=== PATIENT | male | born 1975 | race African-American/Black ===

== ENCOUNTER 2016-09-08 10:33 | Inpatient (IN) | payer MEDICAID ==
[~2016-09-08] VITALS: Ht 172.7 cm; Wt 151.0 kg
[~2016-09-08 10:33] MED LIST: AMLODIPINE10 MG PO; AMLODIPINE5 MG PO; ASPIRIN325 MG PO; ASPIRIN81 MG PO; ATORVASTATIN CA20 MG PO; AZITHROMYCIN250 MG PO; AZITHROMYCIN500 MG PO; BISACODYL5 MG PO; CARDIZEM CD120 MG PO; CEPHALEXIN500 M1 PO; CEPHALEXIN500 MG PO; CETIRIZ/PSE1 TAB PO; CLONIDINE0.1 MG PO; COLCHICINE0.6 M2 PO; CORDARONE/200 MG/TAB PO; DIGOXIN0.25 MG PO; DILTIAZEM120 MG PO; DUONEB INH; EASY-LAX100 MG PO; ENALAPRIL10 MG PO; ENALAPRIL5 MG PO; FLONASE NASAL50 MCG; FUROSEMIDE40 MG PO; HYDROCHLORO25 MG/TAB PO; HYDROCHLOROT12.5 MG PO; HYDROCHLOROT50 MG PO; KEFLEX500 MG PO; KLOR-CON 1010 ME1 PO; LASIX 20 MG TAB20 MG PO; LASIX 40 MG TAB40 MG PO; LASIX 40 MG40 MG/TAB PO; LASIX 80 MG TAB80 MG PO; LASIX40 MG; LASIX40 MG PO; LEVAQUIN750 MG PO; LEVOTHYROXIN100 MCG PO; LIPITOR40 M1 PO; LISINOPRIL20 M1 PO; LOPID600 MG PO; LOPRESSOR 550 MG/TAB PO; LOPRESSOR25 M1 PO; LOPRESSOR25 MG PO; LORTAB 10-325 M1 TAB PO; LOTRISONE EX; LOVASTATIN20 MG PO; LUMIGAN0.01 % OU; LUNESTA2 M1 PO; METHYLPRED4 MG PO; METOLAZONE2.5 MG PO; METOLAZONE5 MG PO; METOPROL TAR100 M1 PO; METOPROL TAR25 MG PO; METOPROL TAR50 MG PO; MIRALAX3350 N1 PO; MIRALAX3350 NF PO; NAPROSYN500 MG PO; NITRO-DUR0.4 MG/HR TD; NITROGLYCER0.4 MG SL; NITROSTAT0.4 MG; NITROSTAT0.4 MG SL; NORCO1 TA1 PO; OXYGEN NAB; POT CHLORIDE10 ME1 PO; PREDNISONE10 MG PO; PREDNISONE20 MG PO; PROBENECID500 MG PO; ROBITUSSIN AC10 ML OR; STOOL SOFTEN240 MG PO; TOPROL XL25 MG PO; TRAMADOL HCL50 MG PO; TYLENOL # 31 TA1 PO; ULTRAM50 M1 PO; ULTRAM50 MG OR; VANCOMYCIN HCL1.5GM IV; VITAMIN D50000 UN1 PO; XARELTO10 MG PO
--- NOTE | 2016-09-08 10:41 | NUR ---
PATIENT TO ROOM VIA EMS
[2016-09-08 11:01] LABS: HEMATOCRIT 38.5 % (39.0-50.0); HEMOGLOBIN 11.6 g/dl (14.0-18.0); IMMATURE GRANULOCYTES 0.7 % (0.0-1.0); MEAN CELL VOLUME 83.2 fL CALC (80.0-100.0); MEAN CORPUSCULAR HGB 25.1 pG CALC (26.0-32.0); MEAN CORPUSCULAR HGB CONC 30.1 g/L CALC (32.0-36.0); NEUT# 11.25 thou/uL (1.82-7.42); RED BLOOD COUNT 4.63 mill/uL (4.70-6.10); RED CELL DISTRI WIDTH 16.8 % (11.5-15.5)
[2016-09-08 11:16] LABS: ALBUMIN 4.2 g/dL (3.2-5.0); BILIRUBIN, TOTAL 1.5 mg/dL (0.0-1.4); CALCIUM 9.3 mg/dL (8.4-10.2); POTASSIUM 2.9 mmol/l (3.5-5.1); TOTAL PROTEIN 9.1 g/dL (6.3-8.2)
--- NOTE | 2016-09-08 11:41 | NUR ---
PATIENT RESTING AWAITING LAB AND RADIOLOGY RESULTS PATIENT STATES RIGHT ARM PAIN PAIN 3 ON 0-10 SCALE
--- NOTE | 2016-09-08 12:30 | NUR ---
PATIENT RESTING AWAITING LAB RESULTS PAIN 4 ON 0-10 SCALE IN RIGHT ARM
[2016-09-08 13:24] LABS: URINE BILIRUBIN - DIPSTICK NEGATIVE (NEGATIVE); URINE BLOOD DIPSTICK SMALL (NEGATIVE); URINE CLARITY CLEAR; URINE COLOR YELLOW; URINE GLUCOSE - DIPSTICK NEGATIVE (NEGATIVE); URINE KETONE NEGATIVE (NEGATIVE); URINE LEUK ESTERASE NEGATIVE (NEGATIVE); URINE NITRITE - DIPSTICK NEGATIVE (Negative); URINE PH 5.5 (4.5-8.0); URINE PROTEIN - DIPSTICK 100 mg/dL (NEG-TRACE); URINE SPECIFIC GRAVITY >=1.030; URINE UROBILINOGEN - DIPSTICK 0.2 E.U./dL (0.2)
--- NOTE | 2016-09-08 13:30 | NUR ---
PATIENT RESTING TALKING ON PHONE NO USE OF RIGHT ARM NOTED PATIENT DENIES ANY PAIN IN RIGHT ARM WHEN NOT TRYING TO MOVE
[2016-09-08 13:31] LABS: URINE SQUAMOUS EPITHELIAL CELL FEW EPI/hpf (0-FEW)
[2016-09-08 14:08] LABS: INFLUENZA A NONE DETECTED (NONE DETECT); INFLUENZA B NONE DETECTED (NONE DETECT)
--- NOTE | 2016-09-08 14:28 | NUR ---
PATIENT RESTING LAUGHING ON PHONE. PATIENT DENIES ANY PAIN OR SOB AT THIS TIME PATIENT AWAITING ROOM ASSIGNMENT
--- NOTE | 2016-09-08 15:30 | NUR ---
REPORT CALLED TO THE FLOOR PATIENT BEING MEDICATED PRIOR TO LEAVING. PATIENT DENIES ANY PAIN OR SOB AT THIS TIME
--- NOTE | 2016-09-08 16:05 | NUR ---
PT ARRIVED FROM ER VIA STRETCHER ACCOMPANIED BY STAFF. IV SITE IS FREE FROM REDNESS OR EDEMA. TELE MONITOR IN PLACE. CONTINUE TO OSBERVE AND MONITOR.
[2016-09-08 16:13] VITALS: BP 142/83
--- NOTE | 2016-09-08 17:11 | NUR ---
C/O PAIN IN R ARM AND CHEST, VS STABLE 117/55.HR 105, SATS93%. GAVE MEDICATION TO ASSIST WITH PAIN CONTROL. IV SITE IS FREE FROM REDNESS OR EDEMA. CONTINUE TO OSBERVE AND MONITOR.
[2016-09-08 19:25] VITALS: BP 131/81
--- NOTE | 2016-09-08 19:30 | NUR ---
PATIENT RESTING IN BED WITH HOB ELEVATED AND O2 VIA NASAL CANNULA IN PLACE AT 2LPM. PATIENT IS AWAKE ALERT AND ORIENTEDX3-PATIENT IS SLOW TO RESPOND. PATIENT IS C/O RIGHT ARM, HAND AND WRIST PAIN-TOO EARLY TO MEDICATED. PATIENT WITH IV SITE TO LEFT AC-SITE APPEARS HEALTHY WITH GOOD BLOOD RETURN. PATIENT IS VOIDING QS IN URINAL BERNY URINE. PATIENT IS TACHYCARDIC AND TACHYPENIC AT THIS TIME. CALL LIGHT IN REACH. WILL CONT TO MONITOR.
--- NOTE | 2016-09-08 21:24 | NUR ---
PATIENT RESTING IN BED C/O SEVERE SHARP PAIN TO RIGHT ARM AND CHEST. PATIENT MEDICATED WITH MORPHINE 2MG IVP ORDERED FOR PAIN. PATIENT VOIDING QS YELLOW URINE IN URINAL. PATIENT WITH IV STIE TO LEFT AC-SITE APPEARS HEALTHY WITH GOOD BLOOD RETURN. PATIENT REMAINS TACHYPENIC WITH O2 VIA NASAL CANNULA IN PLACE. HOB ELEVATED FOR COMFORT. RIGHT HAND AND ARM ELEVATED ON PILLOWS. CALL LIGHT IN REACH. WILL CONT TO MONITOR.
[2016-09-08 23:57] VITALS: BP 139/97
--- NOTE | 2016-09-09 03:25 | NUR ---
PATIENT APPEARS SLEEPING AT THIS TIME WITH EYES CLOSED AND HOB ELEVATED. O2 VIA NASAL CANNULA IN PLACE. RIGHT HAND AND ARM ELEVATED ON PILLOW. CALL LIGHT IN REACH. WILL CONT TO MONITOR.
[2016-09-09 04:30] VITALS: BP 100/79
[2016-09-09 05:51] LABS: HEMATOCRIT 40.5 % (39.0-50.0); MEAN CORPUSCULAR HGB 24.9 pG CALC (26.0-32.0); MEAN CORPUSCULAR HGB CONC 29.6 g/L CALC (32.0-36.0); RED BLOOD COUNT 4.82 mill/uL (4.70-6.10); RED CELL DISTRI WIDTH 16.8 % (11.5-15.5)
[2016-09-09 06:22] LABS: CALCIUM 9.5 mg/dL (8.4-10.2); CREATININE 1.9 mg/dL (0.7-1.3); MAGNESIUM 1.7 mg/dL (1.6-2.3)
[2016-09-09 06:47] LABS: TSH, 3RD GENERATION 1.21 uIU/mL (0.47 - 4.68)
--- NOTE | 2016-09-09 06:50 | NUR ---
DR. DAVIS NOTIFIED OF CO2-45. NO NEW ORDERS
[2016-09-09 08:00] VITALS: BP 141/101
--- NOTE | 2016-09-09 08:00 | NUR ---
ASSESSMENT IS COMPLETED: CONTINUES TO C/O R ARM PAIN. IV SITE IS FREE FROM REDNESS OR EDEMA. TELE MONITOR IN PLACE. CONTINUE TO OBSERVE AND MONITOR.
[2016-09-09 12:22] VITALS: BP 141/92
--- NOTE | 2016-09-09 12:45 | NUR ---
PT IS RELAXING IN BED WITH NO DISTRESS NOTED., IV SITE IS FREE FROM REDNESS OR EDEMA. CONTINUE TO OSBERVE AND MONITOR.
[2016-09-09 15:45] VITALS: BP 132/92
--- NOTE | 2016-09-09 16:45 | NUR ---
HAS BEEN IN TO SEE PT. IV SITE IS FREE FROM REDNESS OR EDEMA.
--- NOTE | 2016-09-09 19:30 | NUR ---
PATIENT RESTING IN BED WITH O2 VIA NASAL CANNULA IN PLACE AT 2LPM. PATIENT WITH HOB ELEVATED AND RIGHT ARM ELEVATED ONPILLOWS. PATIENT IS C/O RIGHT ARM AND WRIST PAIN-8/10 ON PAIN SCALE. PATIENT MEDICATED WITH MORPHINE 2MG IVP ORDERED. PATIENT WITH HEP LOCK TO LEFT AC-SITE APPEARS HEALTHY AT THIS TIME. SAFETY PRECAUTIONS REINFORCED. CALL LIGHT IN REACH. WILL CONT TO MONITOR.
[2016-09-09 19:51] VITALS: BP 106/70
--- NOTE | 2016-09-10 | NUR ---
PATIENT RESTING IN BED AT THIS TIME WITH O2 VIA NASAL CANNULA IN PLACE. CALL LIGHT IN REACH. WILL CONT TO MONITOR.
[2016-09-10 00:02] VITALS: BP 130/76; BP 133/82
[2016-09-10 05:00] VITALS: BP 119/83
[2016-09-10 05:10] LABS: HEMATOCRIT 40.5 % (39.0-50.0); MEAN CELL VOLUME 83.3 fL CALC (80.0-100.0); MEAN CORPUSCULAR HGB 24.7 pG CALC (26.0-32.0); MEAN CORPUSCULAR HGB CONC 29.6 g/L CALC (32.0-36.0); RED BLOOD COUNT 4.86 mill/uL (4.70-6.10); RED CELL DISTRI WIDTH 16.6 % (11.5-15.5)
--- NOTE | 2016-09-10 05:10 | NUR ---
PATIENT RESTING IN BED WITH O2 VIA NASAL CANNULA IN PLACE AT 2LPM. PATIENT C/O RIGHT ARM AND WRIST PAIN. PATIENT MEDICATED WITH MORPHINE 2MG IVP ORDERED FOR PAIN. EMS SITE TO LEFT AC D/C PER PROTOCOL. NEW IV SITE STARTED TO LEFT FOREARM-#22 GAUGE WITH GOOD BLOOD RETURN. SAFETY PRECAUTIONS REINFORCED. CALL LIGHT IN REACH. WILL CONT TO MONITOR.
[2016-09-10 05:30] LABS: CALCIUM 9.5 mg/dL (8.4-10.2); POTASSIUM 3.8 mmol/l (3.5-5.1)
--- NOTE | 2016-09-10 06:00 | NUR ---
RECIEVED CALL FROM KIP IN THE LAB-CO244 TODAY. DR. DAVIS AWARE OF THE TREND. WILL CONT TO MONITOR.
--- NOTE | 2016-09-10 07:02 | NUR ---
REPORT RECIEVED, PT RESTING IN BED IN NO DISTRESS RIGHT ARM ELEVATED, NO COMPLAINTS AT THIS TIME, CALL LIGHT WITHIN REACH, INSTRUCTED TO CALL FOR ANY NEEDS, CONTINUE TO MONITOR
[2016-09-10 07:40] VITALS: BP 127/83
--- NOTE | 2016-09-10 08:30 | NUR ---
PT SITTING UP IN BED WATCHING TV, IN NO DISTRESS, REVIEW OF SYSTEMS COMPLETED, RIGTH ARM ELEVATED ON PILLOW, STATES PAIN IS CONTROLLED WHEN ARM IS ELEVATED, NO OTHER NEEDS AT THIS TIME, CALL LIGHT WITHIN REACH, CONTINUE TO MONITOR
[2016-09-10 09:59] LABS: TSH, 3RD GENERATION 2.94 uIU/mL (0.47 - 4.68)
--- NOTE | 2016-09-10 11:45 | NUR ---
PT DOWNSTAIRS VIA WC WITH VOLUNTEETR FOR TEST
--- NOTE | 2016-09-10 13:00 | NUR ---
PT ARRIVED BACK TO ROOM VIA WC TRANSFERED TO BED WITH STAND BY ASSISTANCE, ORDERED MEDICATIONS GIVEN, REFUSING SHOWER AT THIS TIME, NO OTHER NEEDS, CALL LIGHT WITHIN REACH, CONTINUE TO MONITOR
[2016-09-10 16:25] VITALS: BP 164/68
--- NOTE | 2016-09-10 17:25 | NUR ---
PT SITTING UP IN BED TO EAT DINNER, IN NO DISTRESS, STATES NO NEEDS AT THIS TIME, CALL LIGHT WITHIN REACH, CONTINUE TO MONITOR
--- NOTE | 2016-09-10 19:00 | NUR ---
RECEIVED REPORT FROM NURSE ON PATIENT. PATIENT IS RESTING IN BED. COMPLAINS OF PAIN TI RT ARM. PATIENT WAS MEDICATED PRIOR TO ASSESSMENT. WILL MONITOR AND TREAT. NO ACUTE DISTRESS NOTED.
[2016-09-10 19:51] VITALS: BP 140/74
--- NOTE | 2016-09-10 19:52 | NUR ---
PATIENT FOUND WITH O2 OFF AND O2 SAT OF 82-O2 APPLIED AND PATIENT QUICKLY RESPONDED WITH O2 SAT OF 91. PATIENT STATED "JUST TURN IT U P TO 4LPM". ATTEMPTED TO INSTRUCT PATIENT REGUARDING JUST INCREASING THE LPM FLOW-THAT IT CAN INCREASE THE LOC OF COPD PATIENT. WILL CONT TO MONITOR.
[2016-09-10 23:53] VITALS: BP 133/79
--- NOTE | 2016-09-11 | NUR ---
PATIENT IS RESTING COMFORTABLY IN BED AT THIS TIME. NO ACUTE DISTRESS NOTED. SIDE RAILS UP X 2.
--- NOTE | 2016-09-11 04:00 | NUR ---
PATIENT RESTING QUIETLY IN BED WITH EYES CLOSED. NO ACUTE DISTRESS NOTED.
[2016-09-11 04:43] VITALS: BP 165/94
[2016-09-11 05:41] LABS: HEMATOCRIT 41.9 % (39.0-50.0); HEMOGLOBIN 12.3 g/dl (14.0-18.0); IMMATURE GRANULOCYTES 0.9 % (0.0-1.0); MEAN CELL VOLUME 83.8 fL CALC (80.0-100.0); MEAN CORPUSCULAR HGB 24.6 pG CALC (26.0-32.0); MEAN CORPUSCULAR HGB CONC 29.4 g/L CALC (32.0-36.0); NEUT# 8.77 thou/uL (1.82-7.42); RED CELL DISTRI WIDTH 16.6 % (11.5-15.5)
[2016-09-11 05:48] LABS: ALBUMIN 3.8 g/dL (3.2-5.0); BILIRUBIN, TOTAL 0.6 mg/dL (0.0-1.4); CALCIUM 9.7 mg/dL (8.4-10.2); POTASSIUM 4.3 mmol/l (3.5-5.1); TOTAL PROTEIN 8.3 g/dL (6.3-8.2)
--- NOTE | 2016-09-11 06:30 | NUR ---
DR. CAMERON NOTIFIED OF CO2-46 THIS MORNING. NO NEW ORDERS RECIEVED.
[2016-09-11 07:16] VITALS: BP 153/73
--- NOTE | 2016-09-11 07:35 | NUR ---
ASSESSMENT IS COMPLETED: R HAND REMAINS SWOLLEN. IV SITE IS FREE FROM REDNESS OR EDEMA. TELE MONTIOR IN PLACE. CONITNUE TO OSBERVE AND MONITOR.
--- NOTE | 2016-09-11 07:50 | NUR ---
RECEIVED REPORT FROM YUNIER Dick PT WAS OBSERVED SLEEPING WITH NO SIGNS OF DISTRESS.
--- NOTE | 2016-09-11 07:51 | NUR ---
PT WAS MOVED UP IN BED FOR BREAKFAST. PT STATED HE DID NOT NEED ANYTHING ELSE. PT WAS DEMONSTRATED HOW CALL LANE WORKS AND WAS GIVEN INSTRUCTIONS TO CALL IF ANYTHING WAS NEEDED.
--- NOTE | 2016-09-11 09:15 | NUR ---
PT WAS GIVEN A BED BATH. CALL LANE IS WITHIN REACH WITH INSTRUCTONS TO CALL IF ANYTHING IS NEEDED.
[2016-09-11 11:26] VITALS: BP 136/80
--- NOTE | 2016-09-11 11:28 | NUR ---
PT IS IN BED WITH SIDE RAILS UP. NO DISTRESS APPEARS TO BE PRESENT. CALL LANE IS WITHIN REACH WITH INSTRUCTIONS TO CALL IF ANYTHING IS NEEDED.
--- NOTE | 2016-09-11 12:00 | NUR ---
PT IS RESTING IN BED STUDENTS BATHED PT AMD IV SITE IS FREE FROM REDNESS OR EDEMA. FAMILY IN THE ROOM AND ON THE PHONE.
[2016-09-11 15:06] VITALS: BP 149/85
--- NOTE | 2016-09-11 16:33 | NUR ---
PT IS CONTINUING TO RELAX IN BED WITH NO DISTRESS NOTED. IV SITE IS FREE FROM REDNESS OR EDEMA.
--- NOTE | 2016-09-11 19:00 | NUR ---
RECEIVED REPORT ON PATIENT FROM OFF GOING NURSE. PATIENT RESTING IN BED IN NO APPARENT DISCOMFORT. NO VOICED COMPLAINTS.
[2016-09-11 19:35] VITALS: BP 119/76
[2016-09-11 23:35] VITALS: BP 118/75
--- NOTE | 2016-09-12 | NUR ---
PATIENT RESTING QUIETLY. NO ACUTE DISTRESS NOTED.
[2016-09-12 03:40] VITALS: BP 129/81
--- NOTE | 2016-09-12 04:00 | NUR ---
PATIENT RESTING COMFORTABLY IN BED. NO ACUTE DISTRESS NOTED.
[2016-09-12 08:00] VITALS: BP 128/82
--- NOTE | 2016-09-12 08:00 | NUR ---
PT IS RESTING IN BED WITH NO DISTRESS NOTED,. IV SITE IS FREE FROM REDNESS OR EDEMA. ASSESSMENT IS COMPLETED: CONTINUE TOOBSERVE AND MONITOR TELE MONITOR IN PLACE.
[2016-09-12 12:12] VITALS: BP 152/74
--- NOTE | 2016-09-12 12:15 | NUR ---
PT IS SITTING UP IN THE CHAIR NO DISTRESS NOTED. IV SITE IS FREE FROM REDNESS OR EDEMA.
[2016-09-12 16:00] VITALS: BP 152/88
--- NOTE | 2016-09-12 16:15 | NUR ---
PT IS RELAXING IN THE CHAIR. NO DISTRESS NOTED. IV SITE IS FREE FROM REDNESS OR EDEMA.
--- NOTE | 2016-09-12 19:00 | NUR ---
PATIENT SEATED UP IN RECLINER CHAIR. NO ACUTE DISTRESS NOTED. REPORT RECEIVED FROM OFF GOING NURSE.
[2016-09-12 19:22] VITALS: BP 124/84
[2016-09-12 23:46] VITALS: BP 134/74
--- NOTE | 2016-09-13 | NUR ---
PATIENT RESTING COMFORTABLY. NO ACUTE DISTRESS NOTED.
[2016-09-13 03:38] VITALS: BP 159/90
--- NOTE | 2016-09-13 04:00 | NUR ---
PATIENT RESTED WELL DURING THE NIGHT. NO ACUTE DISTRESS NOTED.
[2016-09-13 05:38] LABS: HEMOGLOBIN 12.4 g/dl (14.0-18.0); IMMATURE GRANULOCYTES 0.8 % (0.0-1.0); MEAN CORPUSCULAR HGB 25.1 pG CALC (26.0-32.0); MEAN CORPUSCULAR HGB CONC 30.2 g/L CALC (32.0-36.0); NEUT# 8.03 thou/uL (1.82-7.42); RED BLOOD COUNT 4.94 mill/uL (4.70-6.10); RED CELL DISTRI WIDTH 16.2 % (11.5-15.5)
[2016-09-13 05:59] LABS: ALBUMIN 3.8 g/dL (3.2-5.0); BILIRUBIN, TOTAL 0.5 mg/dL (0.0-1.4); CALCIUM 9.4 mg/dL (8.4-10.2); CREATININE 1.7 mg/dL (0.7-1.3); POTASSIUM 3.8 mmol/l (3.5-5.1); TOTAL PROTEIN 7.9 g/dL (6.3-8.2)
--- NOTE | 2016-09-13 07:00 | NUR ---
RECEIVED BEDSIDE REPORT FROM KITTY NUÑEZ. PT RESTING IN BED WITH EYES CLOSED, AWAKENS EASILY. RESPS EVEN AND UNLABORED ON ROOM AIR, TELE MONITOR IN PLACE. VOICES NO C/O AT THIS TIME. PLAN OF CARE DISCUSSED. SAFETY PRECAUTIONS REINFORCED. BED IN LOWEST POSITION WITH WHEELS LOCKED. CALL LIGHT WITHIN REACH. ENCOURAGED PT TO CALL FOR ANY NEEDS.
[2016-09-13 08:17] VITALS: BP 139/94
--- NOTE | 2016-09-13 08:27 | NUR ---
SITTING ON SIDE OF BED WIT FEET DANGLING. RESPS EVEN AND UNLABORED ON O2 VIA NC, TELE MONITOR IN PLACE. MEDICATED WITH LORTAB PO FOR C/O 8/10 RIGHT HAND PAIN. CALL LIGHT WITHIN REACH. WILL CONTINUE TO MONITOR.
[2016-09-13 13:00] VITALS: BP 146/88
--- NOTE | 2016-09-13 13:08 | NUR ---
SITTING IN BEDSIDE CHAIR WATCHING TV. RESPS EVEN AND UNLABORED ON O2 VIA NC, TELE MONITOR IN PLACE. RIGHT ARM ELEVATED ON PILLOW. CALL LIGHT WITHIN REACH.
--- NOTE | 2016-09-13 14:11 | NUR ---
PATIENT SLEEPING UP IN RECLINER. HE REFUSES TO WALK, BUT IS WILLING TO ALLOW BRYANNA FOR RIGHT UE. AROM/AAROM SHOULDER FOR OVERHEAD REACH WITH WRIST AND HAND STABILIZED. aarom FOR PRO/SUPINATION, WRIST FLXN/EXT, THENAR OPPOSITION AND FINGER FLXN EXT. PAIN IN PIP JOINT OF 2ND AND FIFTH FINGERS AND DIFFICULTY EXTENDING > FLEXING FINGERS. TRAY TABLE AND CALL LANE IN PLACE.
[2016-09-13 16:00] VITALS: BP 146/78
--- NOTE | 2016-09-13 16:39 | NUR ---
SITTING IN BEDSIDE RECLINER. RESPS EVEN AND UNLABORED ON O2 VIA NC, TELE MONTIOR IN PLACE. ALL NEEDS MET. CALL LIGHT WITHIN REACH. WILL CONTINUE TO MONITOR.
--- NOTE | 2016-09-13 18:20 | NUR ---
MEDICATED WITH LORTAB PO FOR C/O 01/31 RIGHT HAND PAIN. HAND ELEVATED ON PILLOW FOR COMFORT. CALL LIGHT WITHIN REACH. WILL CONTINUE TO MONITOR.
[2016-09-13 19:05] VITALS: BP 130/83
--- NOTE | 2016-09-13 19:45 | NUR ---
PT. SITTING UP IN CHAIR WITH NO DISTRESS NOTED. DENIES PAIN. ASSESSMENT COMPLETED. IV SITE PATENT TO LFA AND SL. PT. ASSISTED BACK INTO BED WITH MINIMAL ASSIST. UPDATED ON POC. PO FLUIDS OFFERED. ENCOURAGED TO CALL FOR ANY NEEDS. CALL LIGHT IS IN REACH. WILL CONTINUE TO MONITOR.
--- NOTE | 2016-09-13 21:40 | NUR ---
PT. SITTING UP IN BED ON PHONE, NO DISTRESS NOTED. SCHED MEDS GIVEN. PO FLUIDS OFFERED. URINAL EMPTIED. DENIES NEEDS. CALL LIGHT IS IN REACH.
[2016-09-13 23:00] VITALS: BP 128/83
--- NOTE | 2016-09-13 23:51 | NUR ---
PT. SITTING UP IN BED WITH NO RESP DISTRESS NOTED. SCHED MED GIVEN ALONG WITH ORDERED PRN LORTAB FOR PT'S C/O 01/31 RIGHT HAND PAIN, WILL REASSESS. PO FLUIDS OFFERED. CALL LIGHT IS IN REACH.
--- NOTE | 2016-09-14 03:25 | NUR ---
PT. SITTING UP IN BED WITH NO DISTRESS NOTED. DENIES NEEDS/PAIN. CALL LIGHT IS IN REACH.
[2016-09-14 03:35] VITALS: BP 151/75
[2016-09-14 05:16] LABS: HEMOGLOBIN 12.6 g/dl (14.0-18.0); IMMATURE GRANULOCYTES 0.9 % (0.0-1.0); MEAN CELL VOLUME 81.7 fL CALC (80.0-100.0); MEAN CORPUSCULAR HGB 24.5 pG CALC (26.0-32.0); NEUT# 7.21 thou/uL (1.82-7.42); RED BLOOD COUNT 5.14 mill/uL (4.70-6.10); RED CELL DISTRI WIDTH 16.3 % (11.5-15.5)
[2016-09-14 05:41] LABS: CALCIUM 9.2 mg/dL (8.4-10.2); CREATININE 1.6 mg/dL (0.7-1.3); POTASSIUM 3.5 mmol/l (3.5-5.1)
--- NOTE | 2016-09-14 05:41 | NUR ---
PT. C/O RIGHT HAND PAIN 01/31, MEDICATED WITH ORDERED PRN LORTAB, WILL REASSESS. PO FLUIDS OFFERED. CALL LIGHT IS IN REACH.
--- NOTE | 2016-09-14 07:00 | NUR ---
RECEIVED BEDSIDE REPORT FROM ELODIA NUÑEZ. RESTING IN SEMI FOWLERS WITH EYES CLOSED, AWAKENS EASILY. RESPS EVEN AND UNLABORED ON O2 VIA NC, TELE MONITOR IN PLACE. DENIES PAIN OR DISCOMFORT. RIGHT ARM ELEVATED ON PILLOW. PLAN OF CARE DISCUSSED. SAFETY PRECAUTIONS REINFORCED. BED IN LOWEST POSITION WITH WHEELS LOCKED. CALL LIGHT WITHIN REACH. WILL CONTINUE TO MONITOR.
[2016-09-14 08:20] VITALS: BP 134/95
[2016-09-14 08:25] VITALS: BP 134/95
--- NOTE | 2016-09-14 08:35 | NUR ---
DR CAMERON IN TO SEE PT, NEW ORDERS RECEIVED.
[2016-09-14] MEDS ORDERED: PREDNISONE20 MG PO (11:57)
[2016-09-14] MEDS ORDERED: MAG-AL PLU1 PO (11:57)
[2016-09-14] MEDS ORDERED: ZALEPLON5 MG PO (11:57)
[2016-09-14] MEDS ORDERED: DICLOXACILLIN PO (11:57)
[2016-09-14] MEDS ORDERED: CORDARONE/200 MG/TAB PO (11:57)
[2016-09-14] MEDS ORDERED: NITROGLYCER0.4 MG SL (11:57)
[2016-09-14] MEDS ORDERED: PROBENECID500 MG PO (11:57)
[2016-09-14] MEDS ORDERED: LOPRESSOR 550 MG/TAB PO (11:57)
--- NOTE | 2016-09-14 12:27 | NUR ---
Discharge instructions given. Patient verbalizes understanding of same. Discharged in stable condition via Wheelchair to Home with family. All belongings sent with pt.
== END 2016-09-14 12:30 | disposition home or self-care (01) | DRG 292 ==
LOC: ENPENDDIS → ED 10:33 → ED-I 14:11 → ED 14:21 → MS2 14:22
PROVIDERS: Emergency Medicine; Internal Medicine; ADMIT Internal Medicine Geriatric Medicine; ATTEND Internal Medicine Geriatric Medicine
DX: I13.0 Hypertensive heart and chronic kidney disease with heart failure and stage 1 through stage 4 chronic kidney disease, or unspecified chronic kidney disease (principal); J96.11 Chronic respiratory failure with hypoxia; Z68.43 Body mass index [BMI] 50.0-59.9, adult; M10.331 Gout due to renal impairment, right wrist; Z95.2 Presence of prosthetic heart valve; I50.32 Chronic diastolic (congestive) heart failure; N18.9 Chronic kidney disease, unspecified; J20.9 Acute bronchitis, unspecified; I48.91 Unspecified atrial fibrillation; F79 Unspecified intellectual disabilities; G47.33 Obstructive sleep apnea (adult) (pediatric); E78.5 Hyperlipidemia, unspecified; E03.9 Hypothyroidism, unspecified; E11.9 Type 2 diabetes mellitus without complications; E04.1 Nontoxic single thyroid nodule; E66.01 Morbid (severe) obesity due to excess calories
CPT/HCPCS: J1160

== ENCOUNTER 2016-11-09 08:38 | Observation (INO) | payer MEDICAID ==
[~2016-11-09] VITALS: Ht 172.7 cm; Wt 151.0 kg
[~2016-11-09 08:38] MED LIST changes: +DICLOXACILLIN PO; +MAG-AL PLU1 PO; +ZALEPLON5 MG PO
--- NOTE | 2016-11-09 08:40 | NUR ---
PT ARRIVES VIA EMS. TRIAGED AT [facility], NO DISTRESS NOTED. PT RECEIVED 3 BABY ASA AND 2 NTG EN ROUTE TO ED.
[2016-11-09] MEDS ORDERED: PROBENECID500 MG PO (09:23)
[2016-11-09] MEDS ORDERED: METOLAZONE5 MG PO (09:23)
[2016-11-09] MEDS ORDERED: LOVASTATIN40 MG PO (09:25)
[2016-11-09] MEDS ORDERED: K-DUR/KLOR-CON20 MEQ PO (09:26)
[2016-11-09] MEDS ORDERED: LEVOTHYROXIN100 MC1 PO (09:26)
[2016-11-09] MEDS ORDERED: LASIX 40 MG TAB40 MG PO (09:27)
[2016-11-09] MEDS ORDERED: WARFARIN3 MG PO (09:28)
[2016-11-09 09:38] LABS: ALBUMIN 4.2 g/dL (3.2-5.0); BILIRUBIN, TOTAL 0.9 mg/dL (0.0-1.4); CALCIUM 10.1 mg/dL (8.4-10.2); CREATININE 1.9 mg/dL (0.7-1.3); POTASSIUM 3.2 mmol/l (3.5-5.1); TOTAL PROTEIN 8.3 g/dL (6.3-8.2)
[2016-11-09 09:40] LABS: INTERNATIONAL NORMALIZED RATIO 1.1 RATIO (0.7-1.3); PROTHROMBIN TIME 11.7 SECONDS (9.0-12.5)
[2016-11-09 09:50] LABS: HEMATOCRIT 39.6 % (39.0-50.0); HEMOGLOBIN 12.1 g/dl (14.0-18.0); MEAN CELL VOLUME 88.8 fL CALC (80.0-100.0); MEAN CORPUSCULAR HGB 27.1 pG CALC (26.0-32.0); MEAN CORPUSCULAR HGB CONC 30.6 g/L CALC (32.0-36.0); NEUT# 8.55 thou/uL (1.82-7.42); RED BLOOD COUNT 4.46 mill/uL (4.70-6.10); RED CELL DISTRI WIDTH 17.2 % (11.5-15.5)
--- NOTE | 2016-11-09 09:57 | NUR ---
PATIENT RESTING AWAITING LAB RESULTS. PATIENT DENIES ANY CHEST PAIN AT THIS TIME
--- NOTE | 2016-11-09 10:57 | NUR ---
PATIENT RESTING AWAITING ROOM ASSIGNMNET PATIENT DENIES ANY CHEST PAIN OR SOB AT THIS TIME
--- NOTE | 2016-11-09 11:47 | NUR ---
PATIENT RESTING AWAITING ROOM ASSIGNMNET PATIENT DENIES ANY CHEST PAIN OR SOB AT THIS TIME LUNCH TRAY ORDERED
--- NOTE | 2016-11-09 11:57 | NUR ---
PATIENT GIVEN FOOD TRAY
--- NOTE | 2016-11-09 12:42 | NUR ---
PATIENT RESTING AWAITING ROOM ASSIGNMNET. PATIENT DENIES ANY PAIN OR SOB AT THIS TIME
--- NOTE | 2016-11-09 12:50 | NUR ---
assessment is completed: breath sounds are clear pt c/o leg and back pain.
--- NOTE | 2016-11-09 13:33 | NUR ---
REPORT CALLED TO THE FLOOR AND PATIENT TRANSPORTED
[2016-11-09 13:45] VITALS: BP 137/84
--- NOTE | 2016-11-09 13:50 | NUR ---
PT ARRIVED TO THE UNIT VIA STRETCHER ACCOMPANIED BY STAFF. IV SITE IS IN PLACE. O2 ON 4 LITERS. CONTINUE TO OBSERVE AND MONITOR.
--- NOTE | 2016-11-09 17:33 | NUR ---
PT IS RELAXING IN BED WITH NO DISTRESS NOTED. IV SITE IS FREE FROM REDNESS OR EDEMA. C/O R KNEE AND LEG PAIN. NO SWELLING NOTED AT THIS TIME. CONTINUE TO OBSERVE AND MONITOR.
[2016-11-09 19:10] VITALS: BP 127/82
--- NOTE | 2016-11-09 20:30 | NUR ---
REPORT RECEIVED FROM DAY NURSE; PT.STATES THAT HIS LEG ACHES SOME, I ASSISTED PT.TO REPOSITION R.LEG, PT. REPORTED THAT IT SEEMED TO HELP SOME; WILL CONTINUE TO MONITOR
[2016-11-09 23:45] VITALS: BP 123/82
--- NOTE | 2016-11-10 01:00 | NUR ---
PT.NOT SLEEPING, WATCHING TV, ASSISTED PT.TO REPOSITION AND PT.PROVIDED ICECREAM REQUSTED
--- NOTE | 2016-11-10 04:05 | NUR ---
PT.GIVEN FULL BED BATH AND BEDDING AND GOWN CHANGED; PT.APPEARS TO HAVE SOME IRRITATED AREAS TO SCALP ON LEFT SIDE TOWARD BACK OF HEAD, VERY DIFFICULT TO SEE, BUT APPEARS TO BE IRRITATED, PT.DENIES ITCHING;
[2016-11-10 04:40] VITALS: BP 133/73
--- NOTE | 2016-11-10 05:50 | NUR ---
PT.MEDICATED ORDERS PROVIDE; PT.SLEEPING AT THIS TIME; CALL LIGHT W/IN REACH, IV FLUSHED
[2016-11-10 06:50] LABS: HEMATOCRIT 43.3 % (39.0-50.0); HEMOGLOBIN 13.1 g/dl (14.0-18.0); IMMATURE GRANULOCYTES 0.7 % (0.0-1.0); MEAN CELL VOLUME 90.4 fL CALC (80.0-100.0); MEAN CORPUSCULAR HGB 27.3 pG CALC (26.0-32.0); MEAN CORPUSCULAR HGB CONC 30.3 g/L CALC (32.0-36.0); NEUT# 9.07 thou/uL (1.82-7.42); RED BLOOD COUNT 4.79 mill/uL (4.70-6.10)
[2016-11-10 06:57] LABS: CALCIUM 10.3 mg/dL (8.4-10.2); CREATININE 1.8 mg/dL (0.7-1.3); POTASSIUM 3.7 mmol/l (3.5-5.1)
--- NOTE | 2016-11-10 07:00 | NUR ---
SHIFT CHANGE REPORT FROM RAMYA FIGUEROA SLEEPING AT THIS TIME, BREATHING SHALLOW BUT NON-LABORED, O2 @ 2L VIA NC IN PLACE, TELE MONITOR IN PLACE. AWAKENED FOR BREAKFAST, ALERT AND ORIENTED, C/O PAIN TO R. KNEE&LEG, WILL CONTINUE TO MONITOR AND ADDRESS CONCERNS, CALL LANE IN REACH.
[2016-11-10 08:44] VITALS: BP 130/89
[2016-11-10 11:59] LABS: INTERNATIONAL NORMALIZED RATIO 1.1 RATIO (0.7-1.3); PROTHROMBIN TIME 12.4 SECONDS (9.0-12.5)
[2016-11-10 12:18] VITALS: BP 136/90
--- NOTE | 2016-11-10 12:47 | NUR ---
RESTING IN BED, SET UP FOR MEAL, FAMILY IN ROOM, CALL LANE IN REACH.
[2016-11-10 15:20] VITALS: BP 122/97
--- NOTE | 2016-11-10 16:55 | NUR ---
SLEEPING AT THIS TIME, USING ASSESSORY MUSCLES TO BREATHE, O2 @ 4L IN PLACE, CALL LANE IN REACH.
--- NOTE | 2016-11-10 20:45 | NUR ---
PT.ASSESSED AND MEDICATED ORDERS PROVIDE, PT.DENIES PAIN AT THIS TIME, IV FLUSHED/SITE HEALTHY, TELEMETRY LEAD CONTACTS REPLACED, PT.ASSISTED TO REPOSITION IN BED; LUNG SOUNDS ARE CLEAR; WILL CONTINUE TO MONITOR NEEDED; CALL LIGHT W/IN REACH
[2016-11-10 20:57] VITALS: BP 116/78
--- NOTE | 2016-11-10 22:41 | NUR ---
PT.MEDICATED FOR PAIN IN RIGHT KNEE 6/10 ON PAIN SCALE, ANTIBIOTICS COMPLETED AT THIS TIME; PT.WATCHING TV AND DENIES ANY OTHER NEEDS AT THIS TIME
--- NOTE | 2016-11-11 01:00 | NUR ---
PT.IV SITE LEAKING, APPEARS HEALTHY, BUT NOT FLUSHING, PT.C/O BURNING, APPEARS DISLODGED; NEW IV SITE ACCESSED AND PT.ASSISTED TO REPOSITION
[2016-11-11 01:17] VITALS: BP 160/96
[2016-11-11 04:00] VITALS: BP 140/95
[2016-11-11 05:39] LABS: HEMATOCRIT 39.6 % (39.0-50.0); HEMOGLOBIN 12.2 g/dl (14.0-18.0); IMMATURE GRANULOCYTES 0.6 % (0.0-1.0); MEAN CELL VOLUME 88.6 fL CALC (80.0-100.0); MEAN CORPUSCULAR HGB 27.3 pG CALC (26.0-32.0); MEAN CORPUSCULAR HGB CONC 30.8 g/L CALC (32.0-36.0); NEUT# 7.27 thou/uL (1.82-7.42); RED BLOOD COUNT 4.47 mill/uL (4.70-6.10); RED CELL DISTRI WIDTH 16.5 % (11.5-15.5)
[2016-11-11 05:44] LABS: INTERNATIONAL NORMALIZED RATIO 1.1 RATIO (0.7-1.3)
[2016-11-11 05:53] LABS: CALCIUM 9.8 mg/dL (8.4-10.2); CREATININE 1.9 mg/dL (0.7-1.3); POTASSIUM 3.9 mmol/l (3.5-5.1)
--- NOTE | 2016-11-11 07:00 | NUR ---
SHIFT CHANGE REPORT FROM HENRY, PT SLEEPING AT THIS TIME, NURSE REPORTED PT UP ALL NIGHT WATCHING TV, O2 IN PLACE VIA NC, NO SIGN DISCOMFORT, CALL LANE IN REACH.
[2016-11-11 07:38] VITALS: BP 123/88
[2016-11-11 11:09] VITALS: BP 126/85
[2016-11-11] MEDS ORDERED: LASIX 40 MG TAB40 MG PO (12:55)
[2016-11-11] MEDS ORDERED: LOPRESSOR 550 MG/TAB PO (12:55)
[2016-11-11] MEDS ORDERED: K-DUR/KLOR-CON20 MEQ PO (12:55)
[2016-11-11] MEDS ORDERED: ZYLOPRIM100 MG PO (12:55)
[2016-11-11] MEDS ORDERED: ADLT ASA LOW81 MG PO (12:55)
[2016-11-11] MEDS ORDERED: LOVASTATIN40 MG PO (12:55)
[2016-11-11] MEDS ORDERED: CORDARONE/200 MG/TAB PO (12:55)
[2016-11-11] MEDS ORDERED: COLCHICINE0.6 M2 PO (12:55)
[2016-11-11] MEDS ORDERED: TRAMADOL HCL50 MG PO (12:55)
[2016-11-11] MEDS ORDERED: LEVOTHYROXIN100 MC1 PO (12:55)
[2016-11-11] MEDS ORDERED: WARFARIN3 MG PO (12:55)
[2016-11-11] MEDS ORDERED: PREDNISONE10 MG PO (12:55)
[2016-11-11] MEDS ORDERED: DOXYCYCLINE100 MG PO (13:18)
--- NOTE | 2016-11-11 14:50 | NUR ---
Discharge instructions given. Patient verbalizes understanding of same. Discharged in stable condition via Wheelchair to Home with family. All belongings sent with pt.
== END 2016-11-11 14:50 | disposition home or self-care (01) | DRG 313 ==
LOC: ENPENDDIS → ED 08:38 → ED-I 09:36 → ED 09:36 → ED-I 10:03 → ED 10:22 → MS2 10:24
PROVIDERS: Emergency Medicine; ADMIT Internal Medicine; ATTEND Internal Medicine
DX: R07.89 Other chest pain (principal); I25.10 Atherosclerotic heart disease of native coronary artery without angina pectoris; J96.11 Chronic respiratory failure with hypoxia; E87.3 Alkalosis; I50.9 Heart failure, unspecified; I13.0 Hypertensive heart and chronic kidney disease with heart failure and stage 1 through stage 4 chronic kidney disease, or unspecified chronic kidney disease; Z68.43 Body mass index [BMI] 50.0-59.9, adult; E11.22 Type 2 diabetes mellitus with diabetic chronic kidney disease; N18.9 Chronic kidney disease, unspecified; E66.01 Morbid (severe) obesity due to excess calories; G47.33 Obstructive sleep apnea (adult) (pediatric); I48.91 Unspecified atrial fibrillation; M10.9 Gout, unspecified; E78.5 Hyperlipidemia, unspecified; E03.9 Hypothyroidism, unspecified; F79 Unspecified intellectual disabilities; M17.11 Unilateral primary osteoarthritis, right knee; Z95.3 Presence of xenogenic heart valve; Z99.81 Dependence on supplemental oxygen; Z95.1 Presence of aortocoronary bypass graft; Z79.01 Long term (current) use of anticoagulants; Z91.14 Patient's other noncompliance with medication regimen
CPT/HCPCS: G0378

== ENCOUNTER 2016-12-03 10:21 | Inpatient (IN) | payer MEDICAID ==
[~2016-12-03] VITALS: Ht 172.7 cm; Wt 157.6 kg
[~2016-12-03 10:21] MED LIST changes: +ADLT ASA LOW81 MG PO; +DOXYCYCLINE100 MG PO; +K-DUR/KLOR-CON20 MEQ PO; +LEVOTHYROXIN100 MC1 PO; +LOVASTATIN40 MG PO; +WARFARIN3 MG PO; +ZYLOPRIM100 MG PO
--- NOTE | 2016-12-03 10:21 | NUR ---
PT TO ROOM 9 VIA STRETCHER BY EMS. CALL LIGHT WITHIN REACH.
[2016-12-03 10:48] LABS: HEMOGLOBIN 12.2 g/dl (14.0-18.0); IMMATURE GRANULOCYTES 0.4 % (0.0-1.0); MEAN CELL VOLUME 90.1 fL CALC (80.0-100.0); MEAN CORPUSCULAR HGB 27.5 pG CALC (26.0-32.0); MEAN CORPUSCULAR HGB CONC 30.5 g/L CALC (32.0-36.0); NEUT# 5.29 thou/uL (1.82-7.42); RED BLOOD COUNT 4.44 mill/uL (4.70-6.10); RED CELL DISTRI WIDTH 16.1 % (11.5-15.5)
[2016-12-03 10:55] LABS: INTERNATIONAL NORMALIZED RATIO 1.4 RATIO (0.7-1.3); PROTHROMBIN TIME 15.3 SECONDS (9.0-12.5)
[2016-12-03 10:57] LABS: ALBUMIN 4.1 g/dL (3.2-5.0); ALKALINE PHOSPHATASE 68 u/l (38-126); ANION GAP 13 (6-22 (CALC)); BILIRUBIN, TOTAL 0.7 mg/dL (0.0-1.4); BUN 23 mg/dL (9-20); BUN/CREATININE RATIO 17 (12-20 (CALC)); CALCIUM 9.1 mg/dL (8.4-10.2); CARBON DIOXIDE 38 mmol/l (22-30); CHLORIDE 96 mmol/l (95-108); CREATININE 1.3 mg/dL (0.7-1.3); GFR 60 ML/MIN (>=60 (CALC)); GFR FOR AFR.AMER. > 60 ML/MIN (>=60 (CALC)); GLUCOSE 97 mg/dL (75-110); SGOT/AST 32 u/l (17-59); SGPT/ALT 50 u/l (21-72); SODIUM 143 mmol/l (137-146); TOTAL PROTEIN 6.9 g/dL (6.3-8.2)
[2016-12-03 11:07] LABS: MYOGLOBIN 60 ng/mL (0 - 121)
--- NOTE | 2016-12-03 11:07 | NUR ---
PT RESTING QUIETLY IN BED. TALKING ON CELL PHONE. PT 96% @ 4LITERS. PT ALERT AND ORIENTED. SKIN WARM AND DRY. CALL LIGHT WITHIN REACH.
[2016-12-03] MEDS ORDERED: ZYLOPRIM100 MG PO (11:14)
[2016-12-03] MEDS ORDERED: COUMADIN4 MG PO (11:15)
[2016-12-03] MEDS ORDERED: LASIX 40 MG40 MG/TAB PO (11:16)
[2016-12-03] MEDS ORDERED: METOPROL TAR25 MG PO (11:18)
[2016-12-03] MEDS ORDERED: POT CHLORIDE10 ME5 PO (11:19)
[2016-12-03] MEDS ORDERED: VITAMIN D1000 UNIT PO (11:20)
--- NOTE | 2016-12-03 11:20 | NUR ---
PT VOIDED 275CC OF CLEAR YELLOW URINE. URINE SENT TO LAB.
[2016-12-03 11:44] LABS: URINE BILIRUBIN - DIPSTICK NEGATIVE (NEGATIVE); URINE BLOOD DIPSTICK NEGATIVE (NEGATIVE); URINE CLARITY CLEAR; URINE COLOR YELLOW; URINE GLUCOSE - DIPSTICK NEGATIVE (NEGATIVE); URINE KETONE NEGATIVE (NEGATIVE); URINE LEUK ESTERASE NEGATIVE (NEGATIVE); URINE NITRITE - DIPSTICK NEGATIVE (Negative); URINE PH 7.5 (4.5-8.0); URINE PROTEIN - DIPSTICK NEGATIVE (NEG-TRACE); URINE UROBILINOGEN - DIPSTICK 0.2 E.U./dL (0.2)
--- NOTE | 2016-12-03 12:06 | NUR ---
PT CONTINUES TO REST QUIETLY ON STRETCHER. NO RESP. DISTRESS NOTED. CALL LIGHT WITHIN REACH.
--- NOTE | 2016-12-03 13:01 | NUR ---
PT CONTINUES TO REST QUIETLY ON STRETCHER. TALKING ON PHONE. NO RESP. DISTRESS NOTED. RESP. EVEN AND UNLABORED. CALL LIGHT WITHIN REACH.
--- NOTE | 2016-12-03 14:00 | NUR ---
PT CONTINUES TO REST QUIETLY ON THE STRETCHER WITH EYES CLOSED. PT RESPONSES TO VERBAL STIMULI. NO CHANGE IN ASSESSMENT. CALL LIGHT WITHIN REACH.
--- NOTE | 2016-12-03 15:02 | NUR ---
PT CONTINUES TO REST QUIETLY ON THE STRETCHER. NO CHANGE IN ASSESSMENT. WILL CONTINUE TO MONITOR. CALL LIGHT WITHIN REACH.
--- NOTE | 2016-12-03 15:30 | NUR ---
FAMILY AT BEDSIDE VISITING. NO CHANGE IN ASSESSMENT. IV ABT INFUSING PER MD ORDER. PT ALERT AND ORIENTED. SKIN WARM AND DRY. NO RESP. DISTRESS NOTED. CALL LIGHT WITHIN REACH.
--- NOTE | 2016-12-03 15:56 | NUR ---
REPORT GIVEN TO SAVANNAH TORRES ON THE MED/SURG UNIT.
--- NOTE | 2016-12-03 16:15 | NUR ---
PT TRANSPORTED TO ROOM 279 VIA STRETCHER. NO RESP. DISTRESS NOTED. PT ALERT AND ORIENTED. SKIN WARM AND DRY. PT AMBULATED FROM STRETCHER TO BED WITHOUT ASSISTANCE.
--- NOTE | 2016-12-03 16:48 | NUR ---
REPORT RECEIVED FROM RAMYA JOSE ARRIVED ON UNIT VIA STRETCHER, ALERT AND ORIENTED X 3, C/O "LITTLE BIT" CHEST PAIN @ 8/10 AT THIS TIME, TELE MONITOR IN PLACE, O2 @ 4L VIA NC IN PLACE, ORIENTED TO ROOM AND CALL LANE, WILL CONTINUE TO MONITOR.
[2016-12-03 17:00] VITALS: BP 144/96
--- NOTE | 2016-12-03 19:05 | NUR ---
BEDSIDE REPORT RECEIVED FROM SAVANNAH TORRES. PT RESTING IN BED SEMI FOWLERS WITH EYES CLOSED. RESPONDS SPONTANEOUSLY TO VERBAL STIMULI. C/O CHEST PAIN AT THIS TIME. RESPIRATIONS EVEN AND SHALLOW WITH OXYGEN IN PLACE. PLAN OF CARE DISCUSSED. PT ENCOURAGED TO VERBALIZE CONERNS. NODS HEAD, BUT MAY NEED REINFORCEMENT. SAFETY MEASURES IN PLACE. CALL LIGHT WITHIN REACH.
[2016-12-03 20:00] VITALS: BP 124/96
[2016-12-03 23:40] VITALS: BP 137/98
--- NOTE | 2016-12-04 00:23 | NUR ---
PT AWAKE AND USING BEDSIDE URINAL TO VOID. DENIES PAIN AT THIS TIME; STATES THAT ANALGESIC WAS EFFECTIVE. RESPIRATIONS EVEN AND SHALLOW. CPAP APPLIED AT HS BY RESPIRATORY. SNACK GIVEN PRIOR. SAFETY MEASURES REMAIN IN PLACE. CALL LIGHT WITHIN REACH.
[2016-12-04 04:13] VITALS: BP 135/88
--- NOTE | 2016-12-04 04:40 | NUR ---
PT RESTING IN BED AT THIS TIME AWAKE. REMOVED CPAP STATING THAT IT WAS GIVING HIM A HEADACHE. CONTINUES TO C/O CHEST DISCOMFORT. TRAMADOL GIVEN WITH GOOD EFFECT. RESPIRATIONS EVEN AND SHALLOW. OXGYEN SATURATION 91% ON 4L. EMS APPEARS HEALTHY AND FLUSHES. NO CHANGES IN ASSESSMENT. SAFETY MEASURES IN PLACE. CALL LIGHT WITHIN REACH.
[2016-12-04 05:16] LABS: BUN 19 mg/dL (9-20); BUN/CREATININE RATIO 15 (12-20 (CALC)); CALCIUM 9.2 mg/dL (8.4-10.2); CHLORIDE 95 mmol/l (95-108); CREATININE 1.3 mg/dL (0.7-1.3); GFR 60 ML/MIN (>=60 (CALC)); GFR FOR AFR.AMER. > 60 ML/MIN (>=60 (CALC)); GLUCOSE 82 mg/dL (75-110); POTASSIUM 3.9 mmol/l (3.5-5.1); SODIUM 144 mmol/l (137-146)
[2016-12-04 05:22] LABS: ANION GAP 10 (6-22 (CALC))
[2016-12-04 05:23] LABS: CARBON DIOXIDE 43 mmol/l (22-30)
[2016-12-04 05:26] LABS: INTERNATIONAL NORMALIZED RATIO 1.5 RATIO (0.7-1.3); PROTHROMBIN TIME 17.4 SECONDS (9.0-12.5)
[2016-12-04 05:30] LABS: HEMATOCRIT 40.5 % (39.0-50.0); HEMOGLOBIN 11.9 g/dl (14.0-18.0); IMMATURE GRANULOCYTES 0.4 % (0.0-1.0); MEAN CELL VOLUME 89.8 fL CALC (80.0-100.0); MEAN CORPUSCULAR HGB 26.4 pG CALC (26.0-32.0); MEAN CORPUSCULAR HGB CONC 29.4 g/L CALC (32.0-36.0); NEUT# 3.35 thou/uL (1.82-7.42); RED BLOOD COUNT 4.51 mill/uL (4.70-6.10)
--- NOTE | 2016-12-04 06:11 | NUR ---
PATRICIO FROM LAB NOTIFIED NURSE OF CRITICAL LAB VALUE CARBDON DIOXIDE OF 43. DR. DAVIS NOTIFIED VIA TELEPHONE. STATES PT IS WELL COMPENSATED RETENTION DUE TO OBESITY/HYPOVENTILATION. NO NEW ORDERS. PT OXYGEN SATURATION HAS REMAINED ABOVE 90% THROUGHOUT THE NIGHT ON 4L OF OXYGEN VIA NC. CPAP WORN THROUGHOUT THE NIGHT AND REMOVED THIS AM.
--- NOTE | 2016-12-04 06:40 | NUR ---
REPORT RECEIVED FROM ANUPAM HUTCHINS. PT RESTING SUPINE. C/O RHODES. O2 VIA NC IS @5L, SPO2 IS 96%, TITRATED OXYGEN TO 3L. WILL CONTINUE TO MONITOR SPO2. PT VOICES NO OTHER CONCERNS AT THIS TIME. INSTRUCTED PT TO CALL FOR ASSISTANCE,PT VERBALIZES UNDERSTANDING.
--- NOTE | 2016-12-04 11:16 | NUR ---
PT SITTING SOB, TALKING ON PHONE. PT DOES NOT APPEAR TO BE IN PAIN, NO EXERTIONAL SOB NOTICED AT THIS TIME. CALL LIGHT WITHIN REACH. WILL CONTINUE TO MONITOR.
[2016-12-04 15:50] VITALS: BP 144/96
--- NOTE | 2016-12-04 16:00 | NUR ---
PT REMAINS ON 3L. SPO2 IS >92% ASKING FOR SNACK. SNACK PROVIDED. CALL LIGHT WITHIN REACH. INSTRUCTED PT TO CALL FOR ASSISTANCE. NODS HEAD FOR UNDERSTANDING.
--- NOTE | 2016-12-04 19:19 | NUR ---
BEDSIDE REPORT RECEIVED FROM SAVANNAH JOHNSON. PT SITTING UP ON EDGE OF BED TO VOID IN URINAL. C/O MIDSTERNAL PAIN 01/31. RESPIRATIONS EVEN AND SHALLOW WITH OXYGEN IN PLACE AT 4L VIA NC. ASSESSMENT COMPLETE. VS STABLE. PLAN OF CARE REVIEWED. PT ENCOURAGED TO VERBALIZE CONCERNS. STATES UNDERSTANDING. SAFETY MEASURES IN PLACE. CALL LIGHT WITHIN REACH.
[2016-12-04 19:51] VITALS: BP 156/94
[2016-12-04 23:48] VITALS: BP 134/67
--- NOTE | 2016-12-04 23:54 | NUR ---
PT RESTING IN BED WITH EYES CLOSED. NO SIGNS OF PAIN OR DISTRESS NOTED. ANALGESIC GIVEN AT BEGINNING OF SHIFT WITH GOOD EFFECT. CPAP IN PLACE. RESPIRATIONS EVEN AND SHALLOW WITH OXYGEN AT 4L. USING URINAL TO VOID. SAFETY MEASURES IN PLACE. CALL LIGHT WITHIN REACH.
[2016-12-05 04:00] VITALS: BP 140/85
--- NOTE | 2016-12-05 04:04 | NUR ---
PT ASLEEP AT THIS TIME. NO SIGNS OF DISTRESS NOTED. RESPIRATIONS EVEN AND SHALLOW. OXYGEN SATURATION REMAINS ABOVE 90% WITH OXYTEN AND CPAP IN PLACE. NO CHANGES IN ASSESSMENT NOTED. SAFETY MEASURES IN PLACE. CALL LIGHT WITHIN REACH.
[2016-12-05 05:15] LABS: HEMATOCRIT 41.8 % (39.0-50.0); HEMOGLOBIN 12.5 g/dl (14.0-18.0); IMMATURE GRANULOCYTES 0.4 % (0.0-1.0); MEAN CELL VOLUME 90.1 fL CALC (80.0-100.0); MEAN CORPUSCULAR HGB 26.9 pG CALC (26.0-32.0); MEAN CORPUSCULAR HGB CONC 29.9 g/L CALC (32.0-36.0); NEUT# 3.47 thou/uL (1.82-7.42); RED BLOOD COUNT 4.64 mill/uL (4.70-6.10); RED CELL DISTRI WIDTH 15.9 % (11.5-15.5)
[2016-12-05 05:29] LABS: BUN 15 mg/dL (9-20); BUN/CREATININE RATIO 12 (12-20 (CALC)); CALCIUM 9.5 mg/dL (8.4-10.2); CHLORIDE 93 mmol/l (95-108); CREATININE 1.3 mg/dL (0.7-1.3); GFR 60 ML/MIN (>=60 (CALC)); GFR FOR AFR.AMER. > 60 ML/MIN (>=60 (CALC)); GLUCOSE 93 mg/dL (75-110); POTASSIUM 4.2 mmol/l (3.5-5.1); SODIUM 143 mmol/l (137-146)
[2016-12-05 05:32] LABS: INTERNATIONAL NORMALIZED RATIO 1.7 RATIO (0.7-1.3); PROTHROMBIN TIME 19.2 SECONDS (9.0-12.5)
[2016-12-05 05:36] LABS: ANION GAP 10 (6-22 (CALC))
[2016-12-05 05:37] LABS: CARBON DIOXIDE 44 mmol/l (22-30)
--- NOTE | 2016-12-05 07:19 | NUR ---
REPORT RECEIVED FROM ANUPAM HUTCHINS. PT SLEEPING AT THIS TIME. CALL LIGHT WITHIN REACH.
[2016-12-05 08:03] VITALS: BP 145/93
[2016-12-05 08:12] VITALS: BP 145/93
--- NOTE | 2016-12-05 09:00 | NUR ---
DR. MASON IN TO SEE PT AT THIS TIME. PLAN OF CARE DISCUSSED. DISCHARGE HOME REVIEWED. PT STATES UNDERSTANDING OF INFORMATION.
[2016-12-05] MEDS ORDERED: ZITHROMAX500 MG PO (09:07)
--- NOTE | 2016-12-05 12:17 | NUR ---
Discharge instructions given. Patient verbalizes understanding of same. Discharged in \stable condition via Wheelchair to Home with family. All belongings sent with pt.
== END 2016-12-05 12:20 | disposition home health service (06) | DRG 291 ==
LOC: ENPENDDIS → ED 10:21 → ED-I 14:08 → ED 15:44 → MS2 15:45
PROVIDERS: Emergency Medicine; ADMIT Internal Medicine; ATTEND Internal Medicine
DX: I13.0 Hypertensive heart and chronic kidney disease with heart failure and stage 1 through stage 4 chronic kidney disease, or unspecified chronic kidney disease (principal); J18.9 Pneumonia, unspecified organism; J96.21 Acute and chronic respiratory failure with hypoxia; E87.4 Mixed disorder of acid-base balance; E11.22 Type 2 diabetes mellitus with diabetic chronic kidney disease; I48.2 Chronic atrial fibrillation; J96.22 Acute and chronic respiratory failure with hypercapnia; Z68.43 Body mass index [BMI] 50.0-59.9, adult; N18.9 Chronic kidney disease, unspecified; I50.9 Heart failure, unspecified; F79 Unspecified intellectual disabilities; G47.33 Obstructive sleep apnea (adult) (pediatric); E78.5 Hyperlipidemia, unspecified; E66.01 Morbid (severe) obesity due to excess calories; M10.9 Gout, unspecified; I25.118 Atherosclerotic heart disease of native coronary artery with other forms of angina pectoris; Z91.14 Patient's other noncompliance with medication regimen; Z79.01 Long term (current) use of anticoagulants; Z95.1 Presence of aortocoronary bypass graft; Z99.81 Dependence on supplemental oxygen; Z95.3 Presence of xenogenic heart valve
CPT/HCPCS: Q9967

== ENCOUNTER 2016-12-12 08:57 | Emergency (ER) | payer MEDICAID ==
[~2016-12-12] VITALS: Ht 172.7 cm; Wt 153.6 kg
[~2016-12-12 08:57] MED LIST changes: +COUMADIN4 MG PO; +POT CHLORIDE10 ME5 PO; +VITAMIN D1000 UNIT PO; +ZITHROMAX500 MG PO
[2016-12-12 09:35] LABS: HEMATOCRIT 36.8 % (39.0-50.0); HEMOGLOBIN 11.4 g/dl (14.0-18.0); IMMATURE GRANULOCYTES 0.3 % (0.0-1.0); NEUT# 6.77 thou/uL (1.82-7.42); RED BLOOD COUNT 4.23 mill/uL (4.70-6.10); RED CELL DISTRI WIDTH 15.4 % (11.5-15.5)
[2016-12-12 09:48] LABS: ALKALINE PHOSPHATASE 36 u/l (38-126); BILIRUBIN, TOTAL 1.1 mg/dL (0.0-1.4); BUN 13 mg/dL (9-20); BUN/CREATININE RATIO 10 (12-20 (CALC)); CALCIUM 9.2 mg/dL (8.4-10.2); CHLORIDE 91 mmol/l (95-108); CREATININE 1.3 mg/dL (0.7-1.3); GFR 60 ML/MIN (>=60 (CALC)); GFR FOR AFR.AMER. > 60 ML/MIN (>=60 (CALC)); GLUCOSE 100 mg/dL (75-110); POTASSIUM 3.7 mmol/l (3.5-5.1); SGOT/AST 27 u/l (17-59); SGPT/ALT 37 u/l (21-72); SODIUM 141 mmol/l (137-146); TOTAL PROTEIN 7.1 g/dL (6.3-8.2)
[2016-12-12 09:57] LABS: ANION GAP 13 (6-22 (CALC))
[2016-12-12 09:59] LABS: CARBON DIOXIDE 41 mmol/l (22-30)
[2016-12-12 10:00] LABS: MYOGLOBIN 94 ng/mL (0 - 121)
[2016-12-12] MEDS ORDERED: VANTIN200 M1 PO (13:03)
[2016-12-12] MEDS ORDERED: ZPAK PO (13:03)
[2016-12-12 14:59] VITALS: BP 138/86
[2016-12-13] MEDS ORDERED: LEVOTHYROXIN100 MCG PO (16:06)
[2016-12-13] MEDS ORDERED: LOVASTATIN40 MG PO (16:08)
[2016-12-13] MEDS ORDERED: NITROGLYCERIN0.4 MG SL (16:13)
[2016-12-13] MEDS ORDERED: COUMADIN7.5 MG PO (16:14)
[2016-12-13] MEDS ORDERED: COUMADIN3 MG PO (16:15)
[2016-12-13] MEDS ORDERED: COUMADIN4 MG PO (16:15)
== END 2016-12-12 15:52 | disposition home or self-care (01) | DRG 192 ==
LOC: ED 08:57
PROVIDERS: Emergency Medicine
DX: J44.1 Chronic obstructive pulmonary disease with (acute) exacerbation (principal); I11.0 Hypertensive heart disease with heart failure; I50.9 Heart failure, unspecified; I25.10 Atherosclerotic heart disease of native coronary artery without angina pectoris; E66.9 Obesity, unspecified; G47.30 Sleep apnea, unspecified; I48.91 Unspecified atrial fibrillation; F79 Unspecified intellectual disabilities; Z95.2 Presence of prosthetic heart valve; Z95.1 Presence of aortocoronary bypass graft

== ENCOUNTER 2016-12-13 09:09 | Inpatient (IN) | payer MEDICAID ==
[~2016-12-13] VITALS: Ht 172.7 cm; Wt 152.3 kg
[~2016-12-13 09:09] MED LIST changes: +VANTIN200 M1 PO; +ZPAK PO
[2016-12-13 09:43] LABS: HEMATOCRIT 40.9 % (39.0-50.0); HEMOGLOBIN 12.9 g/dl (14.0-18.0); IMMATURE GRANULOCYTES 0.5 % (0.0-1.0); MEAN CORPUSCULAR HGB 26.8 pG CALC (26.0-32.0); MEAN CORPUSCULAR HGB CONC 31.5 g/L CALC (32.0-36.0); NEUT# 9.79 thou/uL (1.82-7.42); RED BLOOD COUNT 4.81 mill/uL (4.70-6.10); RED CELL DISTRI WIDTH 15.8 % (11.5-15.5)
[2016-12-13 09:59] LABS: INTERNATIONAL NORMALIZED RATIO 1.7 RATIO (0.7-1.3); PROTHROMBIN TIME 18.8 SECONDS (9.0-12.5)
[2016-12-13 10:07] LABS: ALBUMIN 4.3 g/dL (3.2-5.0); ALKALINE PHOSPHATASE 47 u/l (38-126); ANION GAP 17 (6-22 (CALC)); BILIRUBIN, TOTAL 1.2 mg/dL (0.0-1.4); BUN 15 mg/dL (9-20); BUN/CREATININE RATIO 13 (12-20 (CALC)); CALCIUM 9.7 mg/dL (8.4-10.2); CARBON DIOXIDE 37 mmol/l (22-30); CHLORIDE 91 mmol/l (95-108); CREATININE 1.2 mg/dL (0.7-1.3); GFR > 60 ML/MIN (>=60 (CALC)); GFR FOR AFR.AMER. > 60 ML/MIN (>=60 (CALC)); GLUCOSE 118 mg/dL (75-110); POTASSIUM 4.4 mmol/l (3.5-5.1); SGOT/AST 39 u/l (17-59); SGPT/ALT 39 u/l (21-72); SODIUM 141 mmol/l (137-146); TOTAL PROTEIN 7.6 g/dL (6.3-8.2)
[2016-12-13 10:19] LABS: MYOGLOBIN 109 ng/mL (0 - 121)
[2016-12-13 10:56] LABS: URINE BILIRUBIN - DIPSTICK NEGATIVE (NEGATIVE); URINE BLOOD DIPSTICK SMALL (NEGATIVE); URINE CLARITY CLEAR; URINE COLOR YELLOW; URINE GLUCOSE - DIPSTICK NEGATIVE (NEGATIVE); URINE KETONE NEGATIVE (NEGATIVE); URINE LEUK ESTERASE NEGATIVE (NEGATIVE); URINE NITRITE - DIPSTICK NEGATIVE (Negative); URINE PH 6.5 (4.5-8.0); URINE PROTEIN - DIPSTICK 100 mg/dL (NEG-TRACE)
[2016-12-13 11:07] LABS: URINE RBC 0-2 RBC/hpf (0-5); URINE SQUAMOUS EPITHELIAL CELL RARE EPI/hpf (0-FEW); URINE WBC 0-2 WBC/hpf (0-5)
[2016-12-13 13:00] VITALS: BP 146/94
[2016-12-13 16:00] VITALS: BP 113/87
[2016-12-13] MEDS ORDERED: LEVOTHYROXIN100 MCG PO (16:06)
[2016-12-13] MEDS ORDERED: LOVASTATIN40 MG PO (16:08)
[2016-12-13] MEDS ORDERED: NITROGLYCERIN0.4 MG SL (16:13)
[2016-12-13] MEDS ORDERED: COUMADIN7.5 MG PO (16:14)
[2016-12-13] MEDS ORDERED: COUMADIN3 MG PO (16:15)
[2016-12-13] MEDS ORDERED: COUMADIN4 MG PO (16:15)
[2016-12-13 17:00] VITALS: BP 170/117
[2016-12-13 18:00] VITALS: BP 165/110
[2016-12-13 20:00] VITALS: BP 157/82
[2016-12-13 22:00] VITALS: BP 127/61
[2016-12-14] VITALS (10 sets, daily range): BP systolic 123–177; BP diastolic 69–107
[2016-12-14 06:19] LABS: HEMATOCRIT 40.3 % (39.0-50.0); HEMOGLOBIN 12.4 g/dl (14.0-18.0); IMMATURE GRANULOCYTES 0.3 % (0.0-1.0); MEAN CELL VOLUME 86.5 fL CALC (80.0-100.0); MEAN CORPUSCULAR HGB 26.6 pG CALC (26.0-32.0); MEAN CORPUSCULAR HGB CONC 30.8 g/L CALC (32.0-36.0); NEUT# 6.57 thou/uL (1.82-7.42); RED BLOOD COUNT 4.66 mill/uL (4.70-6.10); RED CELL DISTRI WIDTH 16.2 % (11.5-15.5)
[2016-12-14 06:39] LABS: ANION GAP 14 (6-22 (CALC)); BUN 16 mg/dL (9-20); BUN/CREATININE RATIO 12 (12-20 (CALC)); CALCIUM 9.2 mg/dL (8.4-10.2); CHLORIDE 90 mmol/l (95-108); CREATININE 1.3 mg/dL (0.7-1.3); GFR 60 ML/MIN (>=60 (CALC)); GFR FOR AFR.AMER. > 60 ML/MIN (>=60 (CALC)); GLUCOSE 101 mg/dL (75-110); POTASSIUM 3.8 mmol/l (3.5-5.1); SODIUM 140 mmol/l (137-146)
[2016-12-14 06:40] LABS: INTERNATIONAL NORMALIZED RATIO 2.3 RATIO (0.7-1.3); PROTHROMBIN TIME 26.2 SECONDS (9.0-12.5)
[2016-12-14 06:50] LABS: CARBON DIOXIDE 40 mmol/l (22-30)
[2016-12-15] VITALS (10 sets, daily range): BP systolic 127–157; BP diastolic 72–96
[2016-12-15 05:40] LABS: INTERNATIONAL NORMALIZED RATIO 2.6 RATIO (0.7-1.3)
[2016-12-15 05:41] LABS: BUN 24 mg/dL (9-20); BUN/CREATININE RATIO 17 (12-20 (CALC)); CALCIUM 9.2 mg/dL (8.4-10.2); CHLORIDE 91 mmol/l (95-108); CREATININE 1.4 mg/dL (0.7-1.3); GFR 55 ML/MIN (>=60 (CALC)); GFR FOR AFR.AMER. > 60 ML/MIN (>=60 (CALC)); GLUCOSE 106 mg/dL (75-110); POTASSIUM 4.1 mmol/l (3.5-5.1); SODIUM 142 mmol/l (137-146)
[2016-12-15 05:47] LABS: ANION GAP 14 (6-22 (CALC))
[2016-12-15 05:55] LABS: CARBON DIOXIDE 41 mmol/l (22-30)
[2016-12-15 06:08] LABS: HEMATOCRIT 39.2 % (39.0-50.0); HEMOGLOBIN 11.9 g/dl (14.0-18.0); IMMATURE GRANULOCYTES 0.5 % (0.0-1.0); MEAN CORPUSCULAR HGB 26.1 pG CALC (26.0-32.0); MEAN CORPUSCULAR HGB CONC 30.4 g/L CALC (32.0-36.0); NEUT# 9.31 thou/uL (1.82-7.42); RED BLOOD COUNT 4.56 mill/uL (4.70-6.10); RED CELL DISTRI WIDTH 15.9 % (11.5-15.5)
[2016-12-16 00:30] VITALS: BP 130/90
[2016-12-16 04:00] VITALS: BP 139/81
[2016-12-16 05:51] LABS: HEMATOCRIT 38.6 % (39.0-50.0); HEMOGLOBIN 11.7 g/dl (14.0-18.0); IMMATURE GRANULOCYTES 0.5 % (0.0-1.0); MEAN CELL VOLUME 86.2 fL CALC (80.0-100.0); MEAN CORPUSCULAR HGB 26.1 pG CALC (26.0-32.0); MEAN CORPUSCULAR HGB CONC 30.3 g/L CALC (32.0-36.0); NEUT# 8.9 thou/uL (1.82-7.42); RED BLOOD COUNT 4.48 mill/uL (4.70-6.10); RED CELL DISTRI WIDTH 16.2 % (11.5-15.5)
[2016-12-16 06:09] LABS: BUN 31 mg/dL (9-20); BUN/CREATININE RATIO 22 (12-20 (CALC)); CALCIUM 8.9 mg/dL (8.4-10.2); CHLORIDE 91 mmol/l (95-108); CREATININE 1.4 mg/dL (0.7-1.3); GFR 55 ML/MIN (>=60 (CALC)); GFR FOR AFR.AMER. > 60 ML/MIN (>=60 (CALC)); GLUCOSE 118 mg/dL (75-110); POTASSIUM 3.9 mmol/l (3.5-5.1); SODIUM 142 mmol/l (137-146)
[2016-12-16 06:12] LABS: INTERNATIONAL NORMALIZED RATIO 3.3 RATIO (0.7-1.3); PROTHROMBIN TIME 39.5 SECONDS (9.0-12.5)
[2016-12-16 06:16] LABS: ANION GAP 14 (6-22 (CALC))
[2016-12-16 06:20] LABS: CARBON DIOXIDE 41 mmol/l (22-30)
[2016-12-16 07:45] VITALS: BP 138/97
[2016-12-16 10:28] VITALS: BP 128/92
[2016-12-16 14:52] VITALS: BP 125/85; BP 128/92
[2016-12-16 19:58] VITALS: BP 127/92
[2016-12-17 00:20] VITALS: BP 119/81
[2016-12-17 00:56] LABS: HEMATOCRIT 38.3 % (39.0-50.0); HEMOGLOBIN 11.8 g/dl (14.0-18.0); IMMATURE GRANULOCYTES 0.5 % (0.0-1.0); MEAN CELL VOLUME 85.7 fL CALC (80.0-100.0); MEAN CORPUSCULAR HGB 26.4 pG CALC (26.0-32.0); MEAN CORPUSCULAR HGB CONC 30.8 g/L CALC (32.0-36.0); NEUT# 8.08 thou/uL (1.82-7.42); RED BLOOD COUNT 4.47 mill/uL (4.70-6.10); RED CELL DISTRI WIDTH 16.1 % (11.5-15.5)
[2016-12-17 01:04] LABS: INTERNATIONAL NORMALIZED RATIO 3.4 RATIO (0.7-1.3); PROTHROMBIN TIME 41.1 SECONDS (9.0-12.5)
[2016-12-17 04:20] VITALS: BP 124/80
[2016-12-17 05:34] LABS: ANION GAP 13 (6-22 (CALC)); BUN 30 mg/dL (9-20); BUN/CREATININE RATIO 24 (12-20 (CALC)); CALCIUM 8.8 mg/dL (8.4-10.2); CARBON DIOXIDE 39 mmol/l (22-30); CHLORIDE 91 mmol/l (95-108); CREATININE 1.3 mg/dL (0.7-1.3); GFR 60 ML/MIN (>=60 (CALC)); GFR FOR AFR.AMER. > 60 ML/MIN (>=60 (CALC)); GLUCOSE 160 mg/dL (75-110); POTASSIUM 3.6 mmol/l (3.5-5.1); SODIUM 140 mmol/l (137-146)
[2016-12-17 08:01] VITALS: BP 164/80
[2016-12-17 11:16] VITALS: BP 138/97
[2016-12-17 14:07] VITALS: BP 129/74
[2016-12-17 19:51] VITALS: BP 137/88
[2016-12-18 00:50] VITALS: BP 141/80
[2016-12-18 05:14] VITALS: BP 133/97
[2016-12-18 05:33] LABS: INTERNATIONAL NORMALIZED RATIO 2.7 RATIO (0.7-1.3); PROTHROMBIN TIME 31.9 SECONDS (9.0-12.5)
[2016-12-18 05:34] LABS: BUN 29 mg/dL (9-20); BUN/CREATININE RATIO 24 (12-20 (CALC)); CALCIUM 9.4 mg/dL (8.4-10.2); CHLORIDE 92 mmol/l (95-108); CREATININE 1.2 mg/dL (0.7-1.3); GFR > 60 ML/MIN (>=60 (CALC)); GFR FOR AFR.AMER. > 60 ML/MIN (>=60 (CALC)); GLUCOSE 108 mg/dL (75-110); POTASSIUM 3.9 mmol/l (3.5-5.1); SODIUM 144 mmol/l (137-146)
[2016-12-18 05:48] LABS: ANION GAP 15 (6-22 (CALC))
[2016-12-18 05:52] LABS: CARBON DIOXIDE 41 mmol/l (22-30)
[2016-12-18 09:22] VITALS: BP 140/96
[2016-12-18 10:52] VITALS: BP 132/93
[2016-12-18] MEDS ORDERED: COUMADIN5 MG PO (12:10)
[2016-12-18] MEDS ORDERED: CARDIZEM CD120 M1 PO (12:10)
[2016-12-18] MEDS ORDERED: LEVAQUIN750 MG PO (12:10)
[2016-12-18] MEDS ORDERED: PREDNISONE10 MG PO (12:11)
== END 2016-12-18 17:10 | disposition home or self-care (01) | DRG 291 ==
LOC: ENPENDDIS → ED 09:09 → ED-I 09:56 → ED 10:32 → MS2 10:33 → ICU 10:33 → MS2 12-15 16:09
PROVIDERS: Emergency Medicine; ADMIT Internal Medicine; ATTEND Internal Medicine
PROC: 5A09357 Assistance with Respiratory Ventilation, Less than 24 Consecutive Hours, Continuous Positive Airway Pressure (ICD-10-PCS; principal; 2016-12-13)
DX: I13.0 Hypertensive heart and chronic kidney disease with heart failure and stage 1 through stage 4 chronic kidney disease, or unspecified chronic kidney disease (principal); J18.9 Pneumonia, unspecified organism; J96.21 Acute and chronic respiratory failure with hypoxia; E11.22 Type 2 diabetes mellitus with diabetic chronic kidney disease; N18.3 Chronic kidney disease, stage 3 (moderate); Z99.81 Dependence on supplemental oxygen; I50.33 Acute on chronic diastolic (congestive) heart failure; J96.22 Acute and chronic respiratory failure with hypercapnia; J44.0 Chronic obstructive pulmonary disease with (acute) lower respiratory infection; Z68.43 Body mass index [BMI] 50.0-59.9, adult; I25.10 Atherosclerotic heart disease of native coronary artery without angina pectoris; I48.91 Unspecified atrial fibrillation; G47.33 Obstructive sleep apnea (adult) (pediatric); E78.5 Hyperlipidemia, unspecified; E03.9 Hypothyroidism, unspecified; E66.01 Morbid (severe) obesity due to excess calories; F79 Unspecified intellectual disabilities; M10.242 Drug-induced gout, left hand; T50.1X5A Adverse effect of loop [high-ceiling] diuretics, initial encounter; Y95 Nosocomial condition; Z79.01 Long term (current) use of anticoagulants; Z95.1 Presence of aortocoronary bypass graft; Z95.3 Presence of xenogenic heart valve; Z91.14 Patient's other noncompliance with medication regimen
CPT/HCPCS: J1160; J1956; J3370

== ENCOUNTER 2017-01-18 13:05 | Observation (INO) | payer MEDICAID ==
[~2017-01-18] VITALS: Ht 172.7 cm; Wt 149.7 kg
[~2017-01-18 13:05] MED LIST changes: +CARDIZEM CD120 M1 PO; +COUMADIN3 MG PO; +COUMADIN5 MG PO; +COUMADIN7.5 MG PO; +NITROGLYCERIN0.4 MG SL
[2017-01-18 13:33] LABS: HEMATOCRIT 36.5 % (39.0-50.0); HEMOGLOBIN 11.1 g/dl (14.0-18.0); IMMATURE GRANULOCYTES 0.7 % (0.0-1.0); MEAN CELL VOLUME 83.9 fL CALC (80.0-100.0); MEAN CORPUSCULAR HGB 25.5 pG CALC (26.0-32.0); MEAN CORPUSCULAR HGB CONC 30.4 g/L CALC (32.0-36.0); NEUT# 4.6 thou/uL (1.82-7.42); RED BLOOD COUNT 4.35 mill/uL (4.70-6.10); RED CELL DISTRI WIDTH 16.1 % (11.5-15.5)
[2017-01-18 13:46] LABS: ALKALINE PHOSPHATASE 52 u/l (38-126); AMYLASE 95 u/l (30-110); ANION GAP 13 (6-22 (CALC)); BILIRUBIN, TOTAL 1.1 mg/dL (0.0-1.4); BUN 12 mg/dL (9-20); BUN/CREATININE RATIO 10 (12-20 (CALC)); CALCIUM 9.4 mg/dL (8.4-10.2); CARBON DIOXIDE 38 mmol/l (22-30); CHLORIDE 92 mmol/l (95-108); CREATININE 1.2 mg/dL (0.7-1.3); D-DIMER 1.18 mg/L (0.19-0.60); GFR > 60 ML/MIN (>=60 (CALC)); GFR FOR AFR.AMER. > 60 ML/MIN (>=60 (CALC)); GLUCOSE 100 mg/dL (75-110); INTERNATIONAL NORMALIZED RATIO 2.5 RATIO (0.7-1.3); LIPASE 116 u/l (23-300); POTASSIUM 4.3 mmol/l (3.5-5.1); PROTHROMBIN TIME 29.5 SECONDS (9.0-12.5); SGOT/AST 34 u/l (17-59); SGPT/ALT 37 u/l (21-72); SODIUM 140 mmol/l (137-146); TOTAL PROTEIN 7.4 g/dL (6.3-8.2)
[2017-01-18 13:58] LABS: MYOGLOBIN 65 ng/mL (0 - 121)
[2017-01-18] MEDS ORDERED: ULTRAM50 M1 PO (14:01)
[2017-01-18 17:33] VITALS: BP 145/102
[2017-01-18 18:05] LABS: URINE BILIRUBIN - DIPSTICK NEGATIVE (NEGATIVE); URINE BLOOD DIPSTICK NEGATIVE (NEGATIVE); URINE CLARITY CLEAR; URINE COLOR YELLOW; URINE GLUCOSE - DIPSTICK NEGATIVE (NEGATIVE); URINE KETONE NEGATIVE (NEGATIVE); URINE LEUK ESTERASE NEGATIVE (NEGATIVE); URINE NITRITE - DIPSTICK NEGATIVE (Negative); URINE PROTEIN - DIPSTICK TRACE mg/dL (NEG-TRACE); URINE SPECIFIC GRAVITY 1.015
[2017-01-18 18:10] VITALS: BP 133/87
[2017-01-19 00:10] VITALS: BP 146/78
[2017-01-19 04:35] VITALS: BP 126/90
[2017-01-19 06:09] LABS: HEMATOCRIT 35.5 % (39.0-50.0); HEMOGLOBIN 10.6 g/dl (14.0-18.0); IMMATURE GRANULOCYTES 0.6 % (0.0-1.0); MEAN CELL VOLUME 84.1 fL CALC (80.0-100.0); MEAN CORPUSCULAR HGB 25.1 pG CALC (26.0-32.0); MEAN CORPUSCULAR HGB CONC 29.9 g/L CALC (32.0-36.0); NEUT# 2.84 thou/uL (1.82-7.42); RED BLOOD COUNT 4.22 mill/uL (4.70-6.10); RED CELL DISTRI WIDTH 16.2 % (11.5-15.5)
[2017-01-19 06:30] LABS: ANION GAP 12 (6-22 (CALC)); BUN 12 mg/dL (9-20); BUN/CREATININE RATIO 11 (12-20 (CALC)); CARBON DIOXIDE 35 mmol/l (22-30); CHLORIDE 96 mmol/l (95-108); CREATININE 1.1 mg/dL (0.7-1.3); GFR > 60 ML/MIN (>=60 (CALC)); GFR FOR AFR.AMER. > 60 ML/MIN (>=60 (CALC)); GLUCOSE 86 mg/dL (75-110); SODIUM 138 mmol/l (137-146)
[2017-01-19 07:52] VITALS: BP 147/92
[2017-01-19 11:41] VITALS: BP 130/95
[2017-01-19 16:20] VITALS: BP 127/84
[2017-01-19 20:36] VITALS: BP 135/87
[2017-01-20 00:40] VITALS: BP 134/57
[2017-01-20 04:52] VITALS: BP 154/97
[2017-01-20 06:18] LABS: HEMATOCRIT 37.9 % (39.0-50.0); HEMOGLOBIN 11.2 g/dl (14.0-18.0); IMMATURE GRANULOCYTES 0.6 % (0.0-1.0); MEAN CELL VOLUME 84.8 fL CALC (80.0-100.0); MEAN CORPUSCULAR HGB 25.1 pG CALC (26.0-32.0); MEAN CORPUSCULAR HGB CONC 29.6 g/L CALC (32.0-36.0); NEUT# 3.33 thou/uL (1.82-7.42); RED BLOOD COUNT 4.47 mill/uL (4.70-6.10)
[2017-01-20 06:36] LABS: BUN 13 mg/dL (9-20); BUN/CREATININE RATIO 11 (12-20 (CALC)); CALCIUM 9.3 mg/dL (8.4-10.2); CARBON DIOXIDE 39 mmol/l (22-30); CHLORIDE 94 mmol/l (95-108); CREATININE 1.1 mg/dL (0.7-1.3); GFR > 60 ML/MIN (>=60 (CALC)); GFR FOR AFR.AMER. > 60 ML/MIN (>=60 (CALC)); GLUCOSE 83 mg/dL (75-110); SODIUM 141 mmol/l (137-146)
[2017-01-20 06:38] LABS: ANION GAP 12 (6-22 (CALC)); POTASSIUM 3.9 mmol/l (3.5-5.1)
[2017-01-20 07:54] VITALS: BP 137/99
[2017-01-20 09:49] LABS: PROTHROMBIN TIME 35.1 SECONDS (9.0-12.5)
[2017-01-20 11:41] VITALS: BP 120/84
== END 2017-01-20 14:00 | disposition home or self-care (01) | DRG 313 ==
LOC: ENPENDDIS → ED 13:05 → ED-I 15:07 → ED 16:13 → MS2 16:14
PROVIDERS: Emergency Medicine; Internal Medicine; ADMIT Internal Medicine; ATTEND Internal Medicine
DX: R07.9 Chest pain, unspecified (principal); I25.10 Atherosclerotic heart disease of native coronary artery without angina pectoris; J96.11 Chronic respiratory failure with hypoxia; I11.0 Hypertensive heart disease with heart failure; I50.9 Heart failure, unspecified; Z99.81 Dependence on supplemental oxygen; F79 Unspecified intellectual disabilities; G47.33 Obstructive sleep apnea (adult) (pediatric); I48.91 Unspecified atrial fibrillation; E78.5 Hyperlipidemia, unspecified; E03.9 Hypothyroidism, unspecified; E66.01 Morbid (severe) obesity due to excess calories; E55.9 Vitamin D deficiency, unspecified; M10.9 Gout, unspecified; Z91.19 Patient's noncompliance with other medical treatment and regimen; Z95.3 Presence of xenogenic heart valve; Z95.1 Presence of aortocoronary bypass graft
CPT/HCPCS: G0378

== ENCOUNTER 2017-01-23 10:06 | Emergency (ER) | payer MEDICAID ==
[~2017-01-23] VITALS: Ht 172.7 cm; Wt 150.0 kg
[2017-01-23 10:40] LABS: HEMATOCRIT 37.2 % (39.0-50.0); IMMATURE GRANULOCYTES 0.4 % (0.0-1.0); MEAN CELL VOLUME 83.4 fL CALC (80.0-100.0); MEAN CORPUSCULAR HGB 24.7 pG CALC (26.0-32.0); MEAN CORPUSCULAR HGB CONC 29.6 g/L CALC (32.0-36.0); NEUT# 5.75 thou/uL (1.82-7.42); RED BLOOD COUNT 4.46 mill/uL (4.70-6.10)
[2017-01-23 10:53] LABS: ALBUMIN 4.2 g/dL (3.2-5.0); ALKALINE PHOSPHATASE 54 u/l (38-126); ANION GAP 11 (6-22 (CALC)); BILIRUBIN, TOTAL 0.7 mg/dL (0.0-1.4); BUN 19 mg/dL (9-20); BUN/CREATININE RATIO 17 (12-20 (CALC)); CALCIUM 9.7 mg/dL (8.4-10.2); CARBON DIOXIDE 38 mmol/l (22-30); CHLORIDE 95 mmol/l (95-108); CREATININE 1.2 mg/dL (0.7-1.3); GFR > 60 ML/MIN (>=60 (CALC)); GFR FOR AFR.AMER. > 60 ML/MIN (>=60 (CALC)); GLUCOSE 94 mg/dL (75-110); POTASSIUM 3.7 mmol/l (3.5-5.1); PROTHROMBIN TIME 22.9 SECONDS (9.0-12.5); SGOT/AST 33 u/l (17-59); SGPT/ALT 38 u/l (21-72); SODIUM 141 mmol/l (137-146); TOTAL PROTEIN 7.9 g/dL (6.3-8.2)
[2017-01-23] MEDS ORDERED: METOPROL TAR25 MG PO (10:53)
[2017-01-23] MEDS ORDERED: CLARISPRAY50 MCG/ACT NAB (10:55)
[2017-01-23] MEDS ORDERED: VITAMIN D50000 UNIT PO (10:58)
[2017-01-23 11:04] LABS: MYOGLOBIN 75 ng/mL (0 - 121)
[2017-01-23 16:13] VITALS: BP 142/78
== END 2017-01-23 16:13 | disposition home or self-care (01) | DRG 313 ==
LOC: ED 10:06
PROVIDERS: Emergency Medicine
DX: R07.9 Chest pain, unspecified (principal); I25.810 Atherosclerosis of coronary artery bypass graft(s) without angina pectoris; I10 Essential (primary) hypertension; I48.91 Unspecified atrial fibrillation; Z79.01 Long term (current) use of anticoagulants; Z95.1 Presence of aortocoronary bypass graft

== ENCOUNTER 2017-03-18 12:57 | Inpatient (IN) | payer MEDICAID ==
[~2017-03-18] VITALS: Ht 172.7 cm; Wt 149.7 kg
[~2017-03-18 12:57] MED LIST changes: +CLARISPRAY50 MCG/ACT NAB; +VITAMIN D50000 UNIT PO
[2017-03-18 13:35] LABS: HEMATOCRIT 37.3 % (39.0-50.0); IMMATURE GRANULOCYTES 0.7 % (0.0-1.0); MEAN CORPUSCULAR HGB 24.2 pG CALC (26.0-32.0); MEAN CORPUSCULAR HGB CONC 29.5 g/L CALC (32.0-36.0); NEUT# 8.33 thou/uL (1.82-7.42); RED BLOOD COUNT 4.55 mill/uL (4.70-6.10); RED CELL DISTRI WIDTH 17.6 % (11.5-15.5)
[2017-03-18 13:53] LABS: ALBUMIN 4.1 g/dL (3.2-5.0); ALKALINE PHOSPHATASE 64 u/l (38-126); ANION GAP 14 (6-22 (CALC)); BILIRUBIN, TOTAL 1.1 mg/dL (0.0-1.4); BUN 23 mg/dL (9-20); BUN/CREATININE RATIO 18 (12-20 (CALC)); CALCIUM 9.4 mg/dL (8.4-10.2); CARBON DIOXIDE 35 mmol/l (22-30); CHLORIDE 96 mmol/l (95-108); CREATININE 1.3 mg/dL (0.7-1.3); GFR 60 ML/MIN (>=60 (CALC)); GFR FOR AFR.AMER. > 60 ML/MIN (>=60 (CALC)); GLUCOSE 111 mg/dL (75-110); POTASSIUM 3.7 mmol/l (3.5-5.1); SGOT/AST 67 u/l (17-59); SGPT/ALT 37 u/l (21-72); SODIUM 141 mmol/l (137-146); TOTAL PROTEIN 8.4 g/dL (6.3-8.2)
[2017-03-18 14:06] LABS: MYOGLOBIN 170 ng/mL (0 - 121)
[2017-03-18 16:42] LABS: URINE BILIRUBIN - DIPSTICK NEGATIVE (NEGATIVE); URINE BLOOD DIPSTICK SMALL (NEGATIVE); URINE CLARITY CLEAR; URINE COLOR YELLOW; URINE GLUCOSE - DIPSTICK NEGATIVE (NEGATIVE); URINE KETONE NEGATIVE (NEGATIVE); URINE LEUK ESTERASE NEGATIVE (NEGATIVE); URINE NITRITE - DIPSTICK NEGATIVE (Negative); URINE PROTEIN - DIPSTICK 100 mg/dL (NEG-TRACE)
[2017-03-18 16:45] LABS: COCAINE NEGATIVE (NEGATIVE); TETRAHYDROCANNABIONOL NEGATIVE (NEGATIVE)
[2017-03-18 16:46] LABS: BARBITURATES NEGATIVE (NEGATIVE); METHADONE NEGATIVE (NEGATIVE); OXCYCODONE NEGATIVE (NEGATIVE); TRICYLIC ANTIDEPRESSANTS NEGATIVE (NEGATIVE)
[2017-03-18 16:53] LABS: URINE RBC 0-2 RBC/hpf (0-5); URINE WBC 0-2 WBC/hpf (0-5)
[2017-03-18 18:02] VITALS: BP 127/84
[2017-03-18 19:00] VITALS: BP 121/75
[2017-03-18 20:00] VITALS: BP 151/98
[2017-03-18 21:00] VITALS: BP 140/80
[2017-03-18 23:00] VITALS: BP 148/94
[2017-03-19] VITALS (23 sets, daily range): BP systolic 91–159; BP diastolic 61–98
[2017-03-19 04:52] LABS: HEMATOCRIT 36.5 % (39.0-50.0); HEMOGLOBIN 10.6 g/dl (14.0-18.0); IMMATURE GRANULOCYTES 0.7 % (0.0-1.0); MEAN CELL VOLUME 83.3 fL CALC (80.0-100.0); MEAN CORPUSCULAR HGB 24.2 pG CALC (26.0-32.0); NEUT# 8.11 thou/uL (1.82-7.42); RED BLOOD COUNT 4.38 mill/uL (4.70-6.10); RED CELL DISTRI WIDTH 17.7 % (11.5-15.5)
[2017-03-19 05:29] LABS: ALBUMIN 3.6 g/dL (3.2-5.0); ALKALINE PHOSPHATASE 62 u/l (38-126); ANION GAP 15 (6-22 (CALC)); BILIRUBIN, TOTAL 0.9 mg/dL (0.0-1.4); BUN 20 mg/dL (9-20); BUN/CREATININE RATIO 17 (12-20 (CALC)); CARBON DIOXIDE 36 mmol/l (22-30); CHLORIDE 98 mmol/l (95-108); CREATININE 1.1 mg/dL (0.7-1.3); GFR > 60 ML/MIN (>=60 (CALC)); GFR FOR AFR.AMER. > 60 ML/MIN (>=60 (CALC)); GLUCOSE 104 mg/dL (75-110); POTASSIUM 3.9 mmol/l (3.5-5.1); SGOT/AST 59 u/l (17-59); SGPT/ALT 43 u/l (21-72); SODIUM 144 mmol/l (137-146); TOTAL PROTEIN 7.3 g/dL (6.3-8.2)
[2017-03-19 05:34] LABS: INTERNATIONAL NORMALIZED RATIO 10.7 RATIO (0.7-1.3)
[2017-03-20] VITALS (14 sets, daily range): BP systolic 102–139; BP diastolic 49–94
[2017-03-20 04:53] LABS: HEMATOCRIT 31.7 % (39.0-50.0); HEMOGLOBIN 9.3 g/dl (14.0-18.0); IMMATURE GRANULOCYTES 0.5 % (0.0-1.0); MEAN CELL VOLUME 83.2 fL CALC (80.0-100.0); MEAN CORPUSCULAR HGB 24.4 pG CALC (26.0-32.0); MEAN CORPUSCULAR HGB CONC 29.3 g/L CALC (32.0-36.0); NEUT# 6.37 thou/uL (1.82-7.42); RED BLOOD COUNT 3.81 mill/uL (4.70-6.10); RED CELL DISTRI WIDTH 17.7 % (11.5-15.5)
[2017-03-20 05:09] LABS: INTERNATIONAL NORMALIZED RATIO 3.6 RATIO (0.7-1.3); PROTHROMBIN TIME 42.8 SECONDS (9.0-12.5)
[2017-03-20 05:20] LABS: ANION GAP 13 (6-22 (CALC)); BUN 21 mg/dL (9-20); BUN/CREATININE RATIO 20 (12-20 (CALC)); CALCIUM 8.9 mg/dL (8.4-10.2); CARBON DIOXIDE 34 mmol/l (22-30); CHLORIDE 100 mmol/l (95-108); CREATININE 1.1 mg/dL (0.7-1.3); GFR > 60 ML/MIN (>=60 (CALC)); GFR FOR AFR.AMER. > 60 ML/MIN (>=60 (CALC)); GLUCOSE 82 mg/dL (75-110); POTASSIUM 4.3 mmol/l (3.5-5.1); SODIUM 143 mmol/l (137-146)
[2017-03-21] VITALS (17 sets, daily range): BP systolic 95–138; BP diastolic 53–101
[2017-03-21 06:29] LABS: HEMATOCRIT 33.3 % (39.0-50.0); HEMOGLOBIN 9.4 g/dl (14.0-18.0); MEAN CELL VOLUME 84.9 fL CALC (80.0-100.0); MEAN CORPUSCULAR HGB CONC 28.2 g/L CALC (32.0-36.0); RED BLOOD COUNT 3.92 mill/uL (4.70-6.10); RED CELL DISTRI WIDTH 17.5 % (11.5-15.5)
[2017-03-21 06:51] LABS: PROTHROMBIN TIME 23.1 SECONDS (9.0-12.5)
[2017-03-21 07:15] LABS: ANION GAP 13 (6-22 (CALC)); BUN 19 mg/dL (9-20); BUN/CREATININE RATIO 19 (12-20 (CALC)); CALCIUM 8.5 mg/dL (8.4-10.2); CARBON DIOXIDE 34 mmol/l (22-30); CHLORIDE 101 mmol/l (95-108); GFR > 60 ML/MIN (>=60 (CALC)); GFR FOR AFR.AMER. > 60 ML/MIN (>=60 (CALC)); GLUCOSE 90 mg/dL (75-110); POTASSIUM 3.5 mmol/l (3.5-5.1); SODIUM 145 mmol/l (137-146)
[2017-03-22 00:13] VITALS: BP 128/86
[2017-03-22 02:00] VITALS: BP 116/78
[2017-03-22 05:00] LABS: HEMATOCRIT 33.3 % (39.0-50.0); HEMOGLOBIN 9.6 g/dl (14.0-18.0); MEAN CORPUSCULAR HGB 23.9 pG CALC (26.0-32.0); MEAN CORPUSCULAR HGB CONC 28.8 g/L CALC (32.0-36.0); RED BLOOD COUNT 4.01 mill/uL (4.70-6.10); RED CELL DISTRI WIDTH 17.5 % (11.5-15.5)
[2017-03-22 05:17] LABS: INTERNATIONAL NORMALIZED RATIO 1.7 RATIO (0.7-1.3); PROTHROMBIN TIME 19.6 SECONDS (9.0-12.5)
[2017-03-22 05:18] LABS: ANION GAP 12 (6-22 (CALC)); BUN 18 mg/dL (9-20); BUN/CREATININE RATIO 18 (12-20 (CALC)); CALCIUM 9.2 mg/dL (8.4-10.2); CARBON DIOXIDE 37 mmol/l (22-30); CHLORIDE 97 mmol/l (95-108); GFR > 60 ML/MIN (>=60 (CALC)); GFR FOR AFR.AMER. > 60 ML/MIN (>=60 (CALC)); GLUCOSE 83 mg/dL (75-110); MAGNESIUM 1.6 mg/dL (1.6-2.3); POTASSIUM 3.6 mmol/l (3.5-5.1); SODIUM 143 mmol/l (137-146)
[2017-03-22 06:03] VITALS: BP 119/79
[2017-03-22 08:00] VITALS: BP 125/81
[2017-03-22 18:00] VITALS: BP 125/87
[2017-03-22 20:00] VITALS: BP 108/69
[2017-03-23] VITALS (12 sets, daily range): BP systolic 105–142; BP diastolic 65–96
[2017-03-23 05:52] LABS: INTERNATIONAL NORMALIZED RATIO 1.6 RATIO (0.7-1.3); PROTHROMBIN TIME 17.6 SECONDS (9.0-12.5)
[2017-03-24] VITALS (7 sets, daily range): BP systolic 113–129; BP diastolic 74–87
[2017-03-24 05:32] LABS: INTERNATIONAL NORMALIZED RATIO 1.4 RATIO (0.7-1.3); PROTHROMBIN TIME 16.1 SECONDS (9.0-12.5)
[2017-03-24 05:33] LABS: ANION GAP 13 (6-22 (CALC)); BUN 15 mg/dL (9-20); BUN/CREATININE RATIO 17 (12-20 (CALC)); CALCIUM 9.2 mg/dL (8.4-10.2); CARBON DIOXIDE 38 mmol/l (22-30); CHLORIDE 96 mmol/l (95-108); CREATININE 0.9 mg/dL (0.7-1.3); GFR > 60 ML/MIN (>=60 (CALC)); GFR FOR AFR.AMER. > 60 ML/MIN (>=60 (CALC)); GLUCOSE 82 mg/dL (75-110); MAGNESIUM 1.9 mg/dL (1.6-2.3); POTASSIUM 3.8 mmol/l (3.5-5.1); SODIUM 143 mmol/l (137-146)
[2017-03-25 04:33] VITALS: BP 140/88
[2017-03-25 05:18] LABS: INTERNATIONAL NORMALIZED RATIO 1.4 RATIO (0.7-1.3)
[2017-03-25 05:26] LABS: ANION GAP 14 (6-22 (CALC)); BUN 16 mg/dL (9-20); BUN/CREATININE RATIO 16 (12-20 (CALC)); CALCIUM 9.6 mg/dL (8.4-10.2); CARBON DIOXIDE 39 mmol/l (22-30); CHLORIDE 94 mmol/l (95-108); GFR > 60 ML/MIN (>=60 (CALC)); GFR FOR AFR.AMER. > 60 ML/MIN (>=60 (CALC)); GLUCOSE 88 mg/dL (75-110); POTASSIUM 3.9 mmol/l (3.5-5.1); SODIUM 143 mmol/l (137-146)
[2017-03-25 09:12] VITALS: BP 130/89
[2017-03-25 11:00] VITALS: BP 106/86
[2017-03-25 16:26] VITALS: BP 142/94
[2017-03-25 19:00] VITALS: BP 144/87
[2017-03-25 23:57] VITALS: BP 147/97
[2017-03-26 05:13] VITALS: BP 143/97
[2017-03-26 05:59] LABS: INTERNATIONAL NORMALIZED RATIO 1.5 RATIO (0.7-1.3); PROTHROMBIN TIME 16.7 SECONDS (9.0-12.5)
[2017-03-26 07:52] VITALS: BP 132/88
[2017-03-26 08:31] LABS: HEMATOCRIT 34.3 % (39.0-50.0); IMMATURE GRANULOCYTES 0.6 % (0.0-1.0); MEAN CELL VOLUME 82.9 fL CALC (80.0-100.0); MEAN CORPUSCULAR HGB 24.2 pG CALC (26.0-32.0); MEAN CORPUSCULAR HGB CONC 29.2 g/L CALC (32.0-36.0); NEUT# 4.73 thou/uL (1.82-7.42); RED BLOOD COUNT 4.14 mill/uL (4.70-6.10); RED CELL DISTRI WIDTH 17.5 % (11.5-15.5)
[2017-03-26 11:19] VITALS: BP 131/98
[2017-03-26] MEDS ORDERED: ALDACTONE25 MG PO (12:15)
[2017-03-26] MEDS ORDERED: LISINOPRIL2.5 MG PO (12:15)
[2017-03-26 15:01] VITALS: BP 122/90
== END 2017-03-26 18:40 | disposition home or self-care (01) | DRG 291 ==
LOC: ED 12:57 → ED-I 14:10 → ED 16:36 → ICU 16:37 → MS2 03-23 14:39
PROVIDERS: Emergency Medicine; Internal Medicine; Nurse Practitioner Family; ADMIT Internal Medicine; ATTEND Internal Medicine
PROC: 5A09457 Assistance with Respiratory Ventilation, 24-96 Consecutive Hours, Continuous Positive Airway Pressure (ICD-10-PCS; principal; 2017-03-19)
DX: I13.0 Hypertensive heart and chronic kidney disease with heart failure and stage 1 through stage 4 chronic kidney disease, or unspecified chronic kidney disease (principal); J18.9 Pneumonia, unspecified organism; J96.21 Acute and chronic respiratory failure with hypoxia; G93.40 Encephalopathy, unspecified; D68.32 Hemorrhagic disorder due to extrinsic circulating anticoagulants; E11.22 Type 2 diabetes mellitus with diabetic chronic kidney disease; N18.3 Chronic kidney disease, stage 3 (moderate); J96.22 Acute and chronic respiratory failure with hypercapnia; I50.23 Acute on chronic systolic (congestive) heart failure; R04.2 Hemoptysis; E66.2 Morbid (severe) obesity with alveolar hypoventilation; Z68.42 Body mass index [BMI] 45.0-49.9, adult; I48.2 Chronic atrial fibrillation; E78.5 Hyperlipidemia, unspecified; E03.9 Hypothyroidism, unspecified; F79 Unspecified intellectual disabilities; I89.0 Lymphedema, not elsewhere classified; M1A.9XX0 Chronic gout, unspecified, without tophus (tophi); T45.515A Adverse effect of anticoagulants, initial encounter; E04.1 Nontoxic single thyroid nodule; Z95.3 Presence of xenogenic heart valve; Z95.1 Presence of aortocoronary bypass graft
CPT/HCPCS: S0164

== ENCOUNTER 2017-07-15 09:20 | Inpatient (IN) | payer MEDICAID ==
[~2017-07-15] VITALS: Ht 172.7 cm; Wt 152.6 kg
[2017-07-15] VITALS (10 sets, daily range): BP systolic 78–164; BP diastolic 41–107
[~2017-07-15 09:20] MED LIST changes: +ALDACTONE25 MG PO; +LISINOPRIL2.5 MG PO
--- NOTE | 2017-07-15 09:20 | NUR ---
PT TO ROOM 13 VIA WC WITH C/O SOB. O2 DEPENDENT AT HOME. CONVERSING ON CELL PHONE.
[2017-07-15 10:08] LABS: HEMATOCRIT 38.8 % (39.0-50.0); IMMATURE GRANULOCYTES 0.4 % (0.0-1.0); MEAN CORPUSCULAR HGB 24.7 pG CALC (26.0-32.0); MEAN CORPUSCULAR HGB CONC 28.4 g/L CALC (32.0-36.0); NEUT# 3.4 thou/uL (1.82-7.42); RED BLOOD COUNT 4.46 mill/uL (4.70-6.10); RED CELL DISTRI WIDTH 16.7 % (11.5-15.5)
[2017-07-15 10:11] LABS: INFLUENZA A NONE DETECTED (NONE DETECT); INFLUENZA B NONE DETECTED (NONE DETECT)
[2017-07-15 10:25] LABS: ALBUMIN 4.5 g/dL (3.2-5.0); ALKALINE PHOSPHATASE 60 u/l (38-126); ANION GAP 16 (6-22 (CALC)); BILIRUBIN, TOTAL 0.7 mg/dL (0.0-1.4); BUN 24 mg/dL (9-20); BUN/CREATININE RATIO 18 (12-20 (CALC)); CARBON DIOXIDE 37 mmol/l (22-30); CHLORIDE 97 mmol/l (95-108); CREATININE 1.4 mg/dL (0.7-1.3); GFR 55 ML/MIN (>=60 (CALC)); GFR FOR AFR.AMER. > 60 ML/MIN (>=60 (CALC)); INTERNATIONAL NORMALIZED RATIO 1.1 RATIO (0.7-1.3); POTASSIUM 4.6 mmol/l (3.5-5.1); PROTHROMBIN TIME 12.7 SECONDS (9.0-12.5); SGOT/AST 33 u/l (17-59); SGPT/ALT 27 u/l (21-72); SODIUM 146 mmol/l (137-146); TOTAL PROTEIN 7.8 g/dL (6.3-8.2)
--- NOTE | 2017-07-15 10:30 | NUR ---
PT VOIDED APPROX 600 ML YELLOW URINE IN URINAL.
[2017-07-15 10:38] LABS: MYOGLOBIN 67 ng/mL (0 - 121)
--- NOTE | 2017-07-15 11:15 | NUR ---
IV ABT INFUSING TO RAC. SITE HEALTHY. O2 4L/M VIA NC. ELEVATED HOB.
[2017-07-15 11:33] LABS: URINE BILIRUBIN - DIPSTICK NEGATIVE (NEGATIVE); URINE BLOOD DIPSTICK NEGATIVE (NEGATIVE); URINE COLOR YELLOW; URINE GLUCOSE - DIPSTICK NEGATIVE (NEGATIVE); URINE KETONE NEGATIVE (NEGATIVE); URINE LEUK ESTERASE NEGATIVE (NEGATIVE); URINE NITRITE - DIPSTICK NEGATIVE (Negative); URINE PROTEIN - DIPSTICK TRACE mg/dL (NEG-TRACE); URINE SPECIFIC GRAVITY 1.015; URINE UROBILINOGEN - DIPSTICK 0.2 E.U./dL (0.2)
[2017-07-15 11:35] LABS: URINE CLARITY CLEAR
--- NOTE | 2017-07-15 11:45 | NUR ---
PT VOIDED APPROX 1000 ML CLEAR URINE IN URINAL
--- NOTE | 2017-07-15 12:15 | NUR ---
PT VOIDED APPROX 1000 ML CLEAR YELLOW URINE IN URINAL.
--- NOTE | 2017-07-15 12:17 | NUR ---
ATTEMPTED TO CALL REPORT NURSE UNAVAILABLE AT THIS TIME.
--- NOTE | 2017-07-15 12:54 | NUR ---
REPORT PROVIDED TO SAVANNAH GARCIA, ON MEDSURG. PT'S FAMILY TO BRING IN BIPAP FROM HOME. IV SITE HEALTHY IV ABT CONTINUES. O2 4L/M VIA NC. VSS. TELEMETRY IN PLACE. PT VOIDED APPROX 1000 ML CLEAR YELLOW URINE PRIOR TO GOING TO MEDSURG IN URINAL. PT TO MEDSURG VIA STRETCHER. NO APPARENT DISTRESS.
--- NOTE | 2017-07-15 13:38 | NUR ---
PT ARRIVED TO FLOOR AT 1258 VIA STRETCHER ACCOMPANIED ED STAFF X 1. SOB NOTED. DENIES PAIN. PT ORIENTED TO ROOM AND EQUIPMENT. O2 SAT 84% ON 4L VIA NC. SHAYNE CARRIZALES NOTIFIED. ORDER GIVEN TO TRANSFER TO ICU. ICU BED 5 ASSIGNED PER SAVANNAH LIRA.
--- NOTE | 2017-07-15 14:00 | NUR ---
PT TO ROOM VIA WC ACCOMPANIED BY STAFF; MODERATE ASSIST TO BED; PT A/O X3; DENIES PAIN OR DISCOMFORT; 02 4L VIA NC, O2 SAT 92%; PT VOIDS 400 ML OF CLEAR YELLOW URINE; AFIB 96 ON MONITOR; PT ORIENTED TO ROOM AND CALL SYSTEM; ADMISSION ASSESSMENT COMPLETED AT THIS TIME; WILL CONTINUE TO MONITOR.
--- NOTE | 2017-07-15 14:02 | NUR ---
TRANSFERED TO ICU BED 5, REPORT GIVEN TO SAVANNAH LIRA.
--- NOTE | 2017-07-15 14:30 | NUR ---
PT PLACE ON BIPAP AT THIS TIME BY RT; SEE CHART FOR SETTINGS
--- NOTE | 2017-07-15 15:51 | NUR ---
PT RESTING WITH EYES CLOSED; BIPAP IN PLACE; CALL LANE WITHIN REACH; WILL CONTINUE TO MONITOR.
--- NOTE | 2017-07-15 16:25 | NUR ---
FAMILY IN TO VISIT; HOME BIPAP BOUGHT IN; WILL CONTINUE TO MONITOR.
--- NOTE | 2017-07-15 17:31 | NUR ---
BIPAP REMOVED O2 4L VIA NC O2 SAT 96%; PT ASSISTED WITH DINNER SET UP; CALL LNAE WITHIN REACH; WILL CONTINUE TO MONITOR.
--- NOTE | 2017-07-15 17:43 | NUR ---
NOTIFIED OF BP TREND SINCE BEING TO THE UNIT
--- NOTE | 2017-07-15 18:49 | NUR ---
PT MEDICATED FOR GENERALIZED CRAMPING 04/02; WILL CONTINUE TO MONITOR.
--- NOTE | 2017-07-15 19:15 | NUR ---
PT IN SEMIFOWLERS WATCHING TV RESPIRATIONS EVEN AND UNLABORED ON O2 @4L VIA NC, O2 SAT 96%. B/P 164/101, HR 110, WAS MEDICATED WITH LOPRESSOR 100MG AT 1845. ADMITS TO ULTRAM GIVEN AT 1844 HELPING HIS PAIN DOWN TO A 6/10. VOIDING 900ML CLEAR YELLOW URINE INTO URINAL. WATER AND ICE CHIPS AT BED SIDE. ORIENTED TO BED CONTROLS AND CALL LIGHT, WILL CONTINUE TO MONITOR.
--- NOTE | 2017-07-15 21:50 | NUR ---
ACCUCHECK 135
--- NOTE | 2017-07-15 23:45 | NUR ---
-ANGELO ASSISTING PT WITH BIPAP. BIPAP IN PLACE AT THIS TIME, O2 SAT 99%
--- NOTE | 2017-07-15 23:48 | NUR ---
PLACED ON BIPAP FOR SLEEPING ORDERED.
[2017-07-16] VITALS (23 sets, daily range): BP systolic 87–182; BP diastolic 46–117
--- NOTE | 2017-07-16 02:00 | NUR ---
RESTING WITH EYES CLOSED, RESPIRATIONS EVEN AND UNLABORED.
--- NOTE | 2017-07-16 04:00 | NUR ---
MORNING LABS DRAWN BY DIRECTOR OF TRANSPORTATION AT THIS TIME, TOLERATED WELL.
[2017-07-16 06:12] LABS: HEMATOCRIT 35.9 % (39.0-50.0); HEMOGLOBIN 10.8 g/dl (14.0-18.0); IMMATURE GRANULOCYTES 0.7 % (0.0-1.0); MEAN CELL VOLUME 84.5 fL CALC (80.0-100.0); MEAN CORPUSCULAR HGB 25.4 pG CALC (26.0-32.0); MEAN CORPUSCULAR HGB CONC 30.1 g/L CALC (32.0-36.0); NEUT# 4.9 thou/uL (1.82-7.42); RED BLOOD COUNT 4.25 mill/uL (4.70-6.10); RED CELL DISTRI WIDTH 16.4 % (11.5-15.5)
[2017-07-16 06:19] LABS: ANION GAP 17 (6-22 (CALC)); BUN 28 mg/dL (9-20); BUN/CREATININE RATIO 20 (12-20 (CALC)); CARBON DIOXIDE 36 mmol/l (22-30); CHLORIDE 93 mmol/l (95-108); CREATININE 1.4 mg/dL (0.7-1.3); GFR 55 ML/MIN (>=60 (CALC)); GFR FOR AFR.AMER. > 60 ML/MIN (>=60 (CALC)); POTASSIUM 4.8 mmol/l (3.5-5.1); SODIUM 141 mmol/l (137-146)
[2017-07-16 06:26] LABS: INTERNATIONAL NORMALIZED RATIO 1.2 RATIO (0.7-1.3); PROTHROMBIN TIME 13.8 SECONDS (9.0-12.5)
--- NOTE | 2017-07-16 07:05 | NUR ---
PT LAYING IN BED WATCHING TV, DENIES ANY SOB OR CP, A & O X3, PERRL, HR 80, RESP. 22, BP 121/80, O2 100% ON BIPAP, SEE R.T. FLOW SHEET, LUNG SOUNDS CLEAR WITH CRACKLES IN THE BASES, 20G RAC IV SALINE LOCKED, 3+ BLE EDEMA, STRONG RADIAL PULSES, WEAK PEDAL PULSES, AM ASSESSMENT COMPLETE, SEE INTERVENTIONS, SAFETY MEASURES REINFORCED, CALL LANE WITHIN REACH
--- NOTE | 2017-07-16 07:35 | NUR ---
BIPAP REMOVED PER PT REQUEST, PLACED ON 4L O2 VIA NC, SETUP ASSISTANCE PROVIDED WITH AM MEAL, PT REMINDED TO CALL FOR ASSISTANCE, CALL LANE WITHIN REACH
--- NOTE | 2017-07-16 08:45 | NUR ---
PT'S FATHER AT BEDSIDE
--- NOTE | 2017-07-16 09:35 | NUR ---
R.T. AT BEDSIDE GIVING PT A BREATHING TREATMENT
--- NOTE | 2017-07-16 10:25 | NUR ---
PT SITTING UP ON THE SIDE OF THE BED WATCHING VIDEOS ON HIS CELL PHONE, VERBALIZES NO COMPLAINTS, REMINDED TO CALL FOR ASSISTANCE, CALL LANE WITHIN REACH
--- NOTE | 2017-07-16 11:35 | NUR ---
SETUP ASSISTANCE PROVIDED WITH LUNCH TRAY
--- NOTE | 2017-07-16 12:10 | NUR ---
PT SITTING UP ON THE SIDE OF THE BED PLAYING A GAME ON HIS PHONE, TOLERATING WELL, CALL LANE WITHIN REACH
--- NOTE | 2017-07-16 14:30 | NUR ---
SNACKS PROVIDED TO PT UPON REQUEST, NO S/S OF DISTRESS, CALL LANE WITHIN REACH
--- NOTE | 2017-07-16 16:21 | NUR ---
PT SITTING ON THE SIDE OF THE BED, WATCHING TV, VERBALIZES NO COMPLAINTS, CALL LANE WITHIN REACH
--- NOTE | 2017-07-16 17:40 | NUR ---
PT SITTING ON THE SIDE OF THE BED, SETUP ASSISTANCE PROVIDED WITH PM MEAL, REMINDED TO CALL FOR ASSISTANCE, CALL LANE WITHIN REACH
--- NOTE | 2017-07-16 20:30 | NUR ---
SITTING ON SIDE OF BED WATCHING VIDEOS ON CELL PHONE, A/O X3, RESPIRATIONS EVEN AND UNLABORED ON O2 @4L VIA NC. ASSISTED WITH COMPLETE BED BATH, ABLE TO PROVIDE OWN NAM CARE, STANDS ON SIDE OF BED WITH NO ASSISTAMCE. CLEAN LINENS APPLIED THEN BACK TO BED. BRUSHING OWN TEETH. PO FLUIDS IN REACH. CALL LIGHT AT BED SIDE. WILL CONTINUE TO MONITOR.
--- NOTE | 2017-07-16 21:15 | NUR ---
ACCUCHECK 124
--- NOTE | 2017-07-16 23:35 | NUR ---
HYDRALAZINE 10MG IV ADMINISTERED FOR B/P 182/117 HR 80, PT OFFERS NO CONCERNS. RESPIRATIONS EVEN AND UNLABORED ON O2 @4L VIA NC. WILL CONTINUE TO MONITOR.
[2017-07-17] VITALS (14 sets, daily range): BP systolic 109–173; BP diastolic 73–104
--- NOTE | 2017-07-17 01:16 | NUR ---
B/P 154/104 HR 87, CLONIDINE 0.1MG PO GIVEN AT THIS TIME. PT DENIES PAIN OR DISCOMFORT. IS CALM ON OWN BIPAP FROM HOME. WILL CONTINUE TO MONITOR.
--- NOTE | 2017-07-17 02:14 | NUR ---
B/P 135/83, HR 79. RESTING WITH EYES CLOSED, OWN BIPAP IN PLACE, 02 SAT 99%
--- NOTE | 2017-07-17 04:40 | NUR ---
RESTING WITH EYES CLOSED, RESPIRATIONS EVEN AND UNLABORED ON BIPAP FROM HOME. WAKES EASILY TO VERBAL COMMAND, MORNING BLOOD WORK DRAWN BY FUEL MANAGEMENT HANDLER, TOLERATED WELL.
[2017-07-17 05:53] LABS: HEMATOCRIT 39.3 % (39.0-50.0); HEMOGLOBIN 11.7 g/dl (14.0-18.0); MEAN CELL VOLUME 84.9 fL CALC (80.0-100.0); MEAN CORPUSCULAR HGB 25.3 pG CALC (26.0-32.0); MEAN CORPUSCULAR HGB CONC 29.8 g/L CALC (32.0-36.0); RED BLOOD COUNT 4.63 mill/uL (4.70-6.10); RED CELL DISTRI WIDTH 16.4 % (11.5-15.5)
[2017-07-17 06:03] LABS: ANION GAP 15 (6-22 (CALC)); BUN 28 mg/dL (9-20); BUN/CREATININE RATIO 21 (12-20 (CALC)); CARBON DIOXIDE 39 mmol/l (22-30); CHLORIDE 93 mmol/l (95-108); CREATININE 1.4 mg/dL (0.7-1.3); GFR 55 ML/MIN (>=60 (CALC)); GFR FOR AFR.AMER. > 60 ML/MIN (>=60 (CALC)); MAGNESIUM 2.1 mg/dL (1.6-2.3); POTASSIUM 4.9 mmol/l (3.5-5.1); SODIUM 142 mmol/l (137-146)
[2017-07-17 06:05] LABS: INTERNATIONAL NORMALIZED RATIO 1.2 RATIO (0.7-1.3); PROTHROMBIN TIME 13.9 SECONDS (9.0-12.5)
--- NOTE | 2017-07-17 07:00 | NUR ---
PT ON HOME C PAP, REQUESTED TO BE PLACED ON NC, PLACED ON 4L VIA NC, PT TOLERATING WELL, CALL LANE WITHIN REACH
--- NOTE | 2017-07-17 07:15 | NUR ---
PT LAYING IN BED WATCHING TV, VERBALIZES NO COMPLAINTS, A & O X3, PERRL, HR 78, RESP. 20, BP 144/97, O2 100% ON 4L VIA NC, DIMINISHED LUNG SOUNDS IN BASES, 3+ BLE EDEMA, 20G RAC IV, SALINE LOCKED, AM ASSESSMENT COMPLETE, SEE INTERVENTIONS, SAFETY MEASURES REINFORCED, CALL LANE WITHIN REACH
--- NOTE | 2017-07-17 07:30 | NUR ---
SETUP ASSISTANCE PROVIDED WITH ETHAN WANG
--- NOTE | 2017-07-17 09:01 | NUR ---
DR MASON AT BEDSIDE DISCUSSING PLAN OF CARE
--- NOTE | 2017-07-17 10:35 | NUR ---
PT TAKEN TO MED SURG TO TAKE A SHOWER & BACK TO THE UNIT, ACCOMPANIED BY NURSE & INSPECTOR CHIEF, PT TOLERATED WELL
--- NOTE | 2017-07-17 11:05 | NUR ---
PT SITTING UP IN THE RECLINER, NO S/S OF DISTRESS, REMINDED TO CALL FOR ASSISTANCE, CALL LANE WITHIN REACH
--- NOTE | 2017-07-17 11:30 | NUR ---
SETUP ASSISTANCE PROVIDED WITH LUNCH
--- NOTE | 2017-07-17 12:15 | NUR ---
PT SITTING IN RECLINER, TOLERATING WELL, VERBALIZES NO COMPLAINTS, REMINDED TO CALL FOR ASSISTANCE, CALL LANE WITHIN REACH
--- NOTE | 2017-07-17 14:45 | NUR ---
SNACKS PROVIDED TO PT UPON PT REQUEST, PT REMAINS SITTING UP IN RECLINER, TOLERATING WELL, CALL LANE WITHIN REACH
--- NOTE | 2017-07-17 16:30 | NUR ---
VISITORS AT BEDSIDE, PT SITTING UP IN RECLINER, TOLERATING WELL, CALL LANE WITHIN REACH
--- NOTE | 2017-07-17 17:35 | NUR ---
SETUP ASSISTANCE PROVIDED WITH PM MEALS
--- NOTE | 2017-07-17 19:15 | NUR ---
sitting in bedside chair. denies resp diff. o2 cont. diminished breath sounds bilat. radiation monitor shows a fib. #20 lac saline lock. po fluids taken fair. voids per urinal. has 3+ edema bilat feet/legs. fall precautions cont.
--- NOTE | 2017-07-17 22:00 | NUR ---
sitting in bedside chair. denies distress. celery stripper shows a fib pvcs.
--- NOTE | 2017-07-17 23:45 | NUR ---
assisted to bed per request. rt notified of need for home cpap.
[2017-07-18] VITALS (10 sets, daily range): BP systolic 95–141; BP diastolic 70–96
--- NOTE | 2017-07-18 02:00 | NUR ---
resting quietly. home cpap conts. no distress.
--- NOTE | 2017-07-18 04:00 | NUR ---
lab here. blood drawn.
--- NOTE | 2017-07-18 04:00 | NUR ---
eyes closed. no apparent distress. engine monitor shows a fib pvcs.
[2017-07-18 04:56] LABS: HEMATOCRIT 39.2 % (39.0-50.0); HEMOGLOBIN 11.6 g/dl (14.0-18.0); IMMATURE GRANULOCYTES 0.6 % (0.0-1.0); MEAN CELL VOLUME 85.2 fL CALC (80.0-100.0); MEAN CORPUSCULAR HGB 25.2 pG CALC (26.0-32.0); MEAN CORPUSCULAR HGB CONC 29.6 g/L CALC (32.0-36.0); NEUT# 5.81 thou/uL (1.82-7.42); RED BLOOD COUNT 4.6 mill/uL (4.70-6.10); RED CELL DISTRI WIDTH 16.3 % (11.5-15.5)
[2017-07-18 05:13] LABS: INTERNATIONAL NORMALIZED RATIO 1.3 RATIO (0.7-1.3); PROTHROMBIN TIME 14.3 SECONDS (9.0-12.5)
[2017-07-18 05:14] LABS: ANION GAP 13 (6-22 (CALC)); BUN 28 mg/dL (9-20); BUN/CREATININE RATIO 22 (12-20 (CALC)); CARBON DIOXIDE 39 mmol/l (22-30); CHLORIDE 95 mmol/l (95-108); CREATININE 1.2 mg/dL (0.7-1.3); GFR > 60 ML/MIN (>=60 (CALC)); GFR FOR AFR.AMER. > 60 ML/MIN (>=60 (CALC)); POTASSIUM 4.8 mmol/l (3.5-5.1); SODIUM 142 mmol/l (137-146)
--- NOTE | 2017-07-18 06:00 | NUR ---
no acute change in condition this shift. has ann marie home cpap machine well.
--- NOTE | 2017-07-18 07:05 | NUR ---
PT LAYING IN BED RESTING WITH EYES CLOSED, AROUSES EASILY TO VERBAL STIMULI, PT'S HOME CPAP REMOVED AND PT PLACED ON 4L O2 VIA NC, A & O X3, PERRL, AFEBRILE, HR 80, RESP. 20, BP 141/92, O2 100% ON 4L VIA NC, LUNG SOUNDS DIMINISHED IN BASES, 20 G LAC IV, SALINE LOCKED, 3+ BLE EDEMA, STRONG RADIAL PULSES, WEAK PEDAL PULSES, AM ASSESSMENT COMPLETE, SEE INTERVENTIONS, SAFETY MEASURES REINFORCED, CALL LANE WITHIN REACH
--- NOTE | 2017-07-18 07:30 | NUR ---
SETUP ASSISTANCE PROVIDED WITH ETHAN WANG
--- NOTE | 2017-07-18 08:10 | NUR ---
PT SITTING IN RECLINER TALKING ON HIS PHONE, TOLERATING WELL, REMINDED TO CALL FOR ASSISTANCE, CALL LANE WITHIN REACH
--- NOTE | 2017-07-18 09:10 | NUR ---
DR MASON AT BEDSIDE DISCUSSING PLAN OF CARE
--- NOTE | 2017-07-18 10:55 | NUR ---
PT SITTING IN RECLINER WATCHING TV, VERBALIZES NO COMPLAINTS, CALL LANE WITHIN REACH
--- NOTE | 2017-07-18 11:35 | NUR ---
PT SITTING IN RECLINER, NO S/S OF DISTRESS, SETUP ASSISTANCE PROVIDED WITH LUNCH, CALL LANE WITHIN REACH
--- NOTE | 2017-07-18 12:05 | NUR ---
PT SITTING UP IN THE RECLINER, VERBALIZES NO COMPLAINTS, TOLERATED LUNCH WELL, REMINDED TO CALL FOR ASSISTANCE, CALL LANE WITHIN REACH
--- NOTE | 2017-07-18 14:30 | NUR ---
PT PROVIDED WITH A SNACK REQUESTED
--- NOTE | 2017-07-18 16:37 | NUR ---
PT SITTING IN RECLINER, WATCHING TV, NO S/S OF DISTRESS, CALL LANE WITHIN REACH
--- NOTE | 2017-07-18 17:30 | NUR ---
SETUP ASSISTANCE PROVIDED WITH PM MEAL
--- NOTE | 2017-07-18 19:00 | NUR ---
awake. sitting in bedside chair watching tv. denies resp diff. o2 cont per nc. hall monitor shows a fib pvcs. #20 lac saline lock. voids per urinal. fall precautions cont.
--- NOTE | 2017-07-18 22:00 | NUR ---
watching tv. no c/o voiced. o2 cont per nc. fleet administrator shows a fib pvcs.
--- NOTE | 2017-07-18 23:45 | NUR ---
assisted to bed. home cpap machine attached. no c/o voiced.
[2017-07-19] VITALS (12 sets, daily range): BP systolic 96–135; BP diastolic 56–87
--- NOTE | 2017-07-19 02:00 | NUR ---
resting quietly. resps even & unlabored. cpap conts.
--- NOTE | 2017-07-19 04:00 | NUR ---
lab here. blood drawn.
[2017-07-19 05:35] LABS: HEMATOCRIT 41.3 % (39.0-50.0); HEMOGLOBIN 12.1 g/dl (14.0-18.0); IMMATURE GRANULOCYTES 0.7 % (0.0-1.0); MEAN CORPUSCULAR HGB 24.9 pG CALC (26.0-32.0); MEAN CORPUSCULAR HGB CONC 29.3 g/L CALC (32.0-36.0); NEUT# 5.34 thou/uL (1.82-7.42); RED BLOOD COUNT 4.86 mill/uL (4.70-6.10); RED CELL DISTRI WIDTH 16.1 % (11.5-15.5)
[2017-07-19 05:55] LABS: BUN 31 mg/dL (9-20); BUN/CREATININE RATIO 24 (12-20 (CALC)); CHLORIDE 94 mmol/l (95-108); CREATININE 1.3 mg/dL (0.7-1.3); GFR 60 ML/MIN (>=60 (CALC)); GFR FOR AFR.AMER. > 60 ML/MIN (>=60 (CALC)); POTASSIUM 4.7 mmol/l (3.5-5.1); SODIUM 143 mmol/l (137-146)
[2017-07-19 05:57] LABS: INTERNATIONAL NORMALIZED RATIO 1.4 RATIO (0.7-1.3); PROTHROMBIN TIME 15.8 SECONDS (9.0-12.5)
[2017-07-19 06:00] LABS: ANION GAP 15 (6-22 (CALC)); CARBON DIOXIDE 39 mmol/l (22-30)
--- NOTE | 2017-07-19 06:00 | NUR ---
awakens easily. meds given. denies c/o.
--- NOTE | 2017-07-19 08:00 | NUR ---
CPAP REMOVED; O2 PLACE ON PT AT 4L NC; PT ASSISTED TO SIDE OF BED AND ASSISTED WITH BREAKFAST SET UP; PT WILL BE MEDICATED FOR C/O CRAMPING PAIN 10/01 TO BILAT LE; AFIB PVCs 82 ON BONE CHAR OPERATOR; CALL LANE WITHIN REACH; WILL CONTINUE TO MONITOR.
--- NOTE | 2017-07-19 10:50 | NUR ---
PT FATHER IN TO VISIT
--- NOTE | 2017-07-19 11:45 | NUR ---
PT ASSISTED WITH LUNCH SET UP; NO COMPLAINTS VOICED AT THIS TIME; CALL LANE WITHIN REACH; WILL CONTINUE TO MONITOR.
--- NOTE | 2017-07-19 13:20 | NUR ---
PT SITTING ON SIDE OF BED VISITING WITH FAMILY; NO COMPLAINTS VOICED; WILL CONTINUE TO MONITOR.
--- NOTE | 2017-07-19 16:40 | NUR ---
PT SITTING ON SIDE OF BED WATCHING TV; NO COMPLAINTS VOICED AT THIS TIME; CALL LANE WITHIN REACH; WILL CONTINUE TO MONITOR.
--- NOTE | 2017-07-19 17:37 | NUR ---
PT ASSISTED WITH DINNER SET UP; NO COMPLAINTS VOICED AT THIS TIME
--- NOTE | 2017-07-19 19:00 | NUR ---
sitting on side of bed. denies resp diff. o2 cont per nc. carburetor mechanic shows a fib pvcs. #20 lac saline lock. po fluids taken fair. voids per urinal. fall precautions cont.
--- NOTE | 2017-07-19 21:00 | NUR ---
no bm x4 days. mom 30cc & 2 warm prune juices given.
--- NOTE | 2017-07-19 23:15 | NUR ---
awake. home cpap machine placed. denies c/o.
[2017-07-20] VITALS (8 sets, daily range): BP systolic 115–150; BP diastolic 69–90
--- NOTE | 2017-07-20 02:00 | NUR ---
eyes closed. home cpap machine conts. no distress.
--- NOTE | 2017-07-20 04:00 | NUR ---
resting quietly. resps even & unlabored. no distress.
--- NOTE | 2017-07-20 05:00 | NUR ---
lab here. blood drawn.
[2017-07-20 05:44] LABS: HEMATOCRIT 43.2 % (39.0-50.0); HEMOGLOBIN 12.8 g/dl (14.0-18.0); IMMATURE GRANULOCYTES 0.8 % (0.0-1.0); MEAN CELL VOLUME 83.7 fL CALC (80.0-100.0); MEAN CORPUSCULAR HGB 24.8 pG CALC (26.0-32.0); MEAN CORPUSCULAR HGB CONC 29.6 g/L CALC (32.0-36.0); NEUT# 5.33 thou/uL (1.82-7.42); RED BLOOD COUNT 5.16 mill/uL (4.70-6.10); RED CELL DISTRI WIDTH 16.1 % (11.5-15.5)
--- NOTE | 2017-07-20 06:00 | NUR ---
no change in condition this shift. oyster preparer shows a fib pvcs.
[2017-07-20 06:05] LABS: BUN 33 mg/dL (9-20); BUN/CREATININE RATIO 27 (12-20 (CALC)); CHLORIDE 93 mmol/l (95-108); CREATININE 1.2 mg/dL (0.7-1.3); GFR > 60 ML/MIN (>=60 (CALC)); GFR FOR AFR.AMER. > 60 ML/MIN (>=60 (CALC)); INTERNATIONAL NORMALIZED RATIO 1.7 RATIO (0.7-1.3); MAGNESIUM 2.4 mg/dL (1.6-2.3); POTASSIUM 4.8 mmol/l (3.5-5.1); PROTHROMBIN TIME 18.7 SECONDS (9.0-12.5); SODIUM 142 mmol/l (137-146)
[2017-07-20 06:12] LABS: ANION GAP 16 (6-22 (CALC)); CARBON DIOXIDE 38 mmol/l (22-30)
--- NOTE | 2017-07-20 08:19 | NUR ---
PT SEEN RESTING IN THE BED IN NO DISTRESS. HE USES C-PAP DURING THE NIGHT AND 4 LPM BY NC DURING THE DAY, SATS HIGH 90s. LUNGS CLEAR BUT DIMINISHED. LEGS ARE EDEMATOUS, 4+ DEPTH. PT OOB FOR BREAKFAST WITHOUT SOB. PT VOIDS IN URINAL.
--- NOTE | 2017-07-20 10:41 | NUR ---
SALAS HAS SEEN PT IN ICU TODAY. ORDERS RECEIVED FOR TRANSFER TO M/S. PT WITHOUT COMPLAINT, RESTS IN THE CHAIR IN NO DISTRESS. DR LLANES HERE WHEN PT HAD 6 BEAT RUN OF VT, NO NEW ORDERS RECEIVED.
--- NOTE | 2017-07-20 11:22 | NUR ---
PT TAKEN TO ROOM 260 WITHOUT INCIDENT.
--- NOTE | 2017-07-20 12:46 | NUR ---
PT ARRIVED TO FLOOR @ 1108 VIA WHEELCHAIR ACCOMPANIED BY SAVANNAH JOHNSON. PT TRANSFERED TO CHAIR WITH STANDBY ASSIST. UNSTEADY GAIT R/T LE EDEMA. O2 @ 4L VIA NC. NO SOB NOTED. PT ORIENTED TO ROOM AND EQUIPMENT. PLAN OF CARE DISCUSSED. FALL PRECAUTIONS REINFORCED. CALL LIGHT REVIEWED AND IN REACH. PT STATES UNDERSTANDING.
--- NOTE | 2017-07-20 16:09 | NUR ---
PT SITTING IN CHAIR AT BEDSIDE. SLEEPING AT THIS TIME. CALL LIGHT WITHIN REACH. WILL CONTINUE TO MONITOR.
--- NOTE | 2017-07-20 19:20 | NUR ---
PT OOB SITTING IN BEDSIDE CHAIR. RESP EVEN AND UNLABORED WITH O2 IN PLACE. NO DISTRESS NOTED. TELE IN PLACE. ABD DISTENDED; SOFT. BOWEL SOUNDS ACTIVE. PEDAL PULSES PALPATED BILAT. +3 EDEMA NOTED TO LOWER LEGS. IV LAC PATENT; FLUSHED WITHOUT DIFFICULTY. PT REPOSITIONED FOR COMFORT. PT ENCOURAGED TO CALL FOR ASSISTANCE. FREQUENT ROUNDS MADE. CALL LIGHT WITHIN REACH.
--- NOTE | 2017-07-21 00:15 | NUR ---
PT ASSISTED TO BED; CPAP IN PLACE. PT DENIES ANY PAIN OR DISCOMFORT. RESP EVEN AND UNLABORED. NO DISTRESS NOTED. TELE IN PLACE. CALL LIGHT WITHIN REACH.
--- NOTE | 2017-07-21 04:00 | NUR ---
RESP EVEN AND UNLABORED; CPAP ON. NO DISTRESS NOTED. TELE IN PLACE. ASSESSMENT UNCHANGED. CALL LIGHT WITHIN REACH.
[2017-07-21 05:12] VITALS: BP 115/78
[2017-07-21 05:21] LABS: HEMATOCRIT 40.2 % (39.0-50.0); HEMOGLOBIN 12.1 g/dl (14.0-18.0); IMMATURE GRANULOCYTES 0.7 % (0.0-1.0); MEAN CELL VOLUME 83.1 fL CALC (80.0-100.0); MEAN CORPUSCULAR HGB CONC 30.1 g/L CALC (32.0-36.0); NEUT# 5.38 thou/uL (1.82-7.42); RED BLOOD COUNT 4.84 mill/uL (4.70-6.10)
[2017-07-21 05:38] LABS: ANION GAP 7 (6-22 (CALC)); BUN 35 mg/dL (9-20); BUN/CREATININE RATIO 30 (12-20 (CALC)); CARBON DIOXIDE 39 mmol/l (22-30); CHLORIDE 95 mmol/l (95-108); CREATININE 1.2 mg/dL (0.7-1.3); GFR > 60 ML/MIN (>=60 (CALC)); GFR FOR AFR.AMER. > 60 ML/MIN (>=60 (CALC)); POTASSIUM 4.2 mmol/l (3.5-5.1); SODIUM 137 mmol/l (137-146)
--- NOTE | 2017-07-21 07:22 | NUR ---
REPORT RECEIVED FROM ANUPAM ROSALES. PT SITTING IN CHAIR AT BEDSIDE. DENIES PAIN. REPORTING OF CONCERNS ENCOURAGED. PLAN OF CARE DISCUSSED. PT STATES ANTICIPATION OF DISCHARGE. DISCHARGE PROCESS REVIEWED. PT STATES UNDERSTANDING.
[2017-07-21 07:23] VITALS: BP 124/82
[2017-07-21] MEDS ORDERED: catapres PO (08:37)
[2017-07-21 08:44] VITALS: BP 124/82
[2017-07-21 09:34] LABS: INTERNATIONAL NORMALIZED RATIO 1.9 RATIO (0.7-1.3); PROTHROMBIN TIME 21.3 SECONDS (9.0-12.5)
--- NOTE | 2017-07-21 11:00 | NUR ---
DR. LLANES IN TO SEE PT. DISCHARGE DISCUSSED. PT STATES UNDERSTANDING. AWAITING FAMILY FOR RIDE HOME.
--- NOTE | 2017-07-21 13:17 | NUR ---
Discharge instructions given. Patient verbalizes understanding of same. Discharged in stable condition via Wheelchair to Home with family. All belongings sent with pt.
== END 2017-07-21 13:18 | disposition home health service (06) | DRG 291 ==
LOC: ED 09:20 → ED-I 10:44 → ED 11:28 → ICU 11:29 → MS2 11:29 → ICU 13:55 → MS2 07-20 11:08
PROVIDERS: Emergency Medicine; Internal Medicine; Nurse Practitioner Family; ADMIT Internal Medicine; ATTEND Internal Medicine
PROC: 5A09357 Assistance with Respiratory Ventilation, Less than 24 Consecutive Hours, Continuous Positive Airway Pressure (ICD-10-PCS; principal; 2017-07-15)
DX: I13.0 Hypertensive heart and chronic kidney disease with heart failure and stage 1 through stage 4 chronic kidney disease, or unspecified chronic kidney disease (principal); I50.43 Acute on chronic combined systolic (congestive) and diastolic (congestive) heart failure; J96.21 Acute and chronic respiratory failure with hypoxia; N17.9 Acute kidney failure, unspecified; J96.22 Acute and chronic respiratory failure with hypercapnia; Z68.43 Body mass index [BMI] 50.0-59.9, adult; N18.9 Chronic kidney disease, unspecified; E66.9 Obesity, unspecified; E03.9 Hypothyroidism, unspecified; E11.9 Type 2 diabetes mellitus without complications; M10.9 Gout, unspecified; G47.33 Obstructive sleep apnea (adult) (pediatric); E78.5 Hyperlipidemia, unspecified; I48.2 Chronic atrial fibrillation; Z79.01 Long term (current) use of anticoagulants; Z99.81 Dependence on supplemental oxygen; Z95.3 Presence of xenogenic heart valve; Z91.14 Patient's other noncompliance with medication regimen

== ENCOUNTER 2017-08-16 13:24 | Observation (INO) | payer MEDICAID ==
[~2017-08-16] VITALS: Ht 185.4 cm; Wt 155.6 kg
[~2017-08-16 13:24] MED LIST changes: +catapres PO
--- NOTE | 2017-08-16 13:25 | NUR ---
PT ADMITTED TO ICU BED 2 MED SURG OVERFLOW, PT ALERT AND ORIENTED AND SHORT F BREATH IWTH EXERTION, STOOD OF STRETCHER WITH MIN ASSIST AND SHUFFLED GAIT TO STANDING SCALE WEIGHT OBTAINED 159.00 kg, THEN INTO BED, ALL MONITORING EQUIPMENT EXPLAINED PRIRO TO APPLICATION, LUNGS VERY DIMINSHED WITH EXERTIONAL SHORTNESS OF BREATH NOTED, O2 AT 4L VIA NC WITH SATS 83-86 DURING TRANSFER, BUT QUICKLY REBOUNDING TO 100% WITH REST, ABD LARGE AND SOFT STATES LAST BM 2 DAYS AGO, TELE READING AFIB RATE IN THE 90'S. PT HAS 4+ EDEMA TO BILATERAL LOWER EXTREM WITH WOUND AND SKIN GROWNT NOTED TO RIGHT LATERAL FOOT, SEE PHOTOTS, SCANT WHITE FLUID DRAINAGE NOTED, CULTURE OBTAINED, PT DENIES PAIN AT SITE, BP SLIGHTLY ELEVATED SEE INTERVNETIONS, PT STATES HE HAS BEEN COMPLIANT WITH MEDICATIONS AND WATCHING HIS FLUID INTAKE, LIVES AT HOME WITH HIS FATHER, 18G SALINE LOCK INTACT IN RAC, PT AFEBRILE, COMFORT MEASURES PROVIDED, PT HAS HIM HOME CPAP AT BEDSIDE, WILL NOTIFY R.T. CALL LANE AND URINAL WITHIN REACH, WILL CONTINUE TO MONITOR.
--- NOTE | 2017-08-16 13:37 | NUR ---
WHEELCHAIR TO ER ROOM 6, TO BED
[2017-08-16] MEDS ORDERED: WARFARIN5 MG PO (13:55)
[2017-08-16] MEDS ORDERED: DILTIAZEM120 MG PO (13:56)
[2017-08-16 13:58] LABS: HEMATOCRIT 36.9 % (39.0-50.0); HEMOGLOBIN 10.7 g/dl (14.0-18.0); IMMATURE GRANULOCYTES 0.4 % (0.0-1.0); MEAN CELL VOLUME 85.2 fL CALC (80.0-100.0); MEAN CORPUSCULAR HGB 24.7 pG CALC (26.0-32.0); NEUT# 2.94 thou/uL (1.82-7.42); RED BLOOD COUNT 4.33 mill/uL (4.70-6.10); RED CELL DISTRI WIDTH 15.5 % (11.5-15.5)
--- NOTE | 2017-08-16 14:10 | NUR ---
PATIENT MEDICATED WITH 40MG OF LASIX, URINAL PROVIDED. CALL LIGHT WITHIN REACH.
[2017-08-16 14:19] LABS: ANION GAP 15 (6-22 (CALC)); BUN 16 mg/dL (9-20); BUN/CREATININE RATIO 12 (12-20 (CALC)); CARBON DIOXIDE 37 mmol/l (22-30); CHLORIDE 96 mmol/l (95-108); CREATININE 1.3 mg/dL (0.7-1.3); GFR 60 ML/MIN (>=60 (CALC)); GFR FOR AFR.AMER. > 60 ML/MIN (>=60 (CALC)); POTASSIUM 3.9 mmol/l (3.5-5.1); SODIUM 143 mmol/l (137-146)
--- NOTE | 2017-08-16 14:23 | NUR ---
250 ML OF DARK YELLOW URINE EMPTIED.
--- NOTE | 2017-08-16 15:26 | NUR ---
600 ML OF CLEAR YELLOW URINE EMPTIED. REPORTS PAIN 6/10 AT THIS TIME. CALL LIGHT WITHIN REACH WILL CONTINUE TO MONITOR.
--- NOTE | 2017-08-16 15:49 | NUR ---
ATTEMPT MADE TO CALL REPORT, SPOKE TO NORBERTO. STATES "SHE WILL CALL YOU RIGHT BACK."
--- NOTE | 2017-08-16 15:54 | NUR ---
ATTEMPT MADE TO RECEIVE REPORT. "I THINK SHE WENT TO THE BATHROOM." PER ZION.
--- NOTE | 2017-08-16 15:59 | NUR ---
REPORT GIVEN TO SAVANNAH GARCIA.
--- NOTE | 2017-08-16 16:12 | NUR ---
REPORT CALLED TO SAVANNAH STOREY.
--- NOTE | 2017-08-16 16:18 | NUR ---
PATIENT TRANSPORTED TO ICU WITH MAILROOM COORDINATOR VIA STRETCHER. BEDSIDE REPORT GIVEN TO SAVANNAH STOREY. CARE RELINQUISHED.
[2017-08-16 16:19] LABS: PROTHROMBIN TIME 37.9 SECONDS (9.0-12.5)
[2017-08-16 16:25] VITALS: BP 169/93
--- NOTE | 2017-08-16 17:00 | NUR ---
PT EDUCATED REGQARDING NEED FRO STRICT I&O AND TO CALL FOR WATER SO WE CAN MONITOR INTAKE CLOSELY. VERBALIZES UNDERSTANDING.
--- NOTE | 2017-08-16 17:11 | NUR ---
R.T. AT BEDSIDE TO SET UP HOME CPAP. CALL LANE WITHIN REACH
--- NOTE | 2017-08-16 17:47 | NUR ---
SET UP ASSIST PROVIDED FOR PM MEAL, CALL LANE WITHIN REACH
[2017-08-16 18:00] VITALS: BP 128/97
--- NOTE | 2017-08-16 19:00 | NUR ---
PT SITTING UP IN BED WATCHING TV. PT IS ALERT AND ORIENTED X3. PERRLA. RESP ARE EVEN AND UNLABORED. NO DISTRESS NOTED. O2 4L NC IN PLACE. LUNGS ARE DIMINISHED THROUGHOUT. HR IRREGULAR. PULSES PALPABLE THROUGHOUT. 4+ PITTING EDEMA NOTED TO BILAT LOWER EXTREMITIES. BS ACTIVE. PT VOIDING VIA URINAL WITHOUT DIFFICULTY CLEAR YELLOW URINE. OPEN WOUND TO RIGHT ANKLE. PICS ON CHART. #18 RAC. SALINE LOCKED. NO REDNESS OR EDEMA NOTED. WILL CONTINUE TO MONITOR
[2017-08-16 20:02] LABS: INTERNATIONAL NORMALIZED RATIO 3.2 RATIO (0.7-1.3)
[2017-08-16 22:00] VITALS: BP 158/92
--- NOTE | 2017-08-16 23:47 | NUR ---
PT RESTING IN BED WITH EYES CLOSED. RESP ARE EVEN AND UNLABORED. NO DISTRESS NOTED. O2 4L NC IN PLACE. WILL CONTINUE TO MONITOR
--- NOTE | 2017-08-17 01:29 | NUR ---
PT ASSISTED WITH CPAP SET UP FOR SLEEPING
[2017-08-17 02:00] VITALS: BP 127/90
--- NOTE | 2017-08-17 04:12 | NUR ---
PT RESTING IN BED WITH EYES CLOSED. RESP ARE EVEN AND UNLABORED. CPAP IN PLACE. NO DISTRESS NOTED. WILL CONTINUE TO MONITOR
[2017-08-17 07:10] VITALS: BP 115/74
--- NOTE | 2017-08-17 07:10 | NUR ---
pt awake in bed; offers no complaints; assessment completed at this time; pt alert and oriented; denies pain; resp sob or resp difficulty; resp even and unlabored; sob noted with exertion; lungs clear/diminished bases; skin color wnl; o2 per nc at 4L; humidifier placed; no cough noted; hr irreg; strong pulses; 4+ edema noted to ble; afib on monitor; abd distended/obese with bs present; no bm noted per health science writer/pt denies bm x3 days; denies constipation; admits to voiding without difficulty; no urine to inspect at this time; urinal at bedside; #18 flushed and patent to rac/ saline locked; no redness or edema noted at site; dry flaky skin noted to throughout body; rle noted with open wound to lat ankle/ no drainage noted; around wound noted boogy with skin discoloration; plan of care/ am meds explained; fluid restriction and strict I&O's explained; call light within reach; will continue to monitor
--- NOTE | 2017-08-17 08:20 | NUR ---
awake in bed; offers no complaints; no distress noted; afib on monitor; iv intact; eating breakfast without difficulty; o2 per nc; call light within reach; will continue to monitor
[2017-08-17] MEDS ORDERED: PROTONIX40 M2 PO (08:46)
[2017-08-17] MEDS ORDERED: LASIX 40 MG40 MG/TAB PO (08:47)
[2017-08-17 08:54] VITALS: BP 133/91
--- NOTE | 2017-08-17 08:55 | NUR ---
awake in bed; discharge planning explained; trop obtained as per MD orders; am medications explained and administered; call light within reach; will continue to monitor
--- NOTE | 2017-08-17 10:00 | NUR ---
awake in bed; discharge instructions reviewed in detail with pt; pt informed of changes to lasix and home health; will continue to monitor
--- NOTE | 2017-08-17 11:02 | NUR ---
awake conversing on cell phone; no distress noted; iv intact; afib on monitor; pt states he's "waiting on lunch and then I'll call for a ride"; will continue to monitor
[2017-08-17 11:33] VITALS: BP 116/90
--- NOTE | 2017-08-17 12:31 | NUR ---
Discharge instructions given. Patient verbalizes understanding of same. Discharged in stable condition via Wheelchair to Home with family. All belongings sent with pt.
== END 2017-08-17 12:31 | DRG 392 ==
LOC: ED 13:24 → ED-I 15:19 → ED 15:35 → MS2 15:36 → ICU 16:10
PROVIDERS: Family Medicine; ADMIT Internal Medicine; ATTEND Internal Medicine
DX: R10.13 Epigastric pain (principal); J96.11 Chronic respiratory failure with hypoxia; F72 Severe intellectual disabilities; E66.01 Morbid (severe) obesity due to excess calories; I50.22 Chronic systolic (congestive) heart failure; I25.10 Atherosclerotic heart disease of native coronary artery without angina pectoris; I11.0 Hypertensive heart disease with heart failure; I48.91 Unspecified atrial fibrillation; E11.9 Type 2 diabetes mellitus without complications; E03.9 Hypothyroidism, unspecified; E78.5 Hyperlipidemia, unspecified; M10.9 Gout, unspecified; G47.33 Obstructive sleep apnea (adult) (pediatric); L98.8 Other specified disorders of the skin and subcutaneous tissue; Z95.1 Presence of aortocoronary bypass graft; Z99.81 Dependence on supplemental oxygen; Z95.2 Presence of prosthetic heart valve

== ENCOUNTER 2017-08-29 14:31 | Observation (INO) | payer MEDICAID ==
[~2017-08-29] VITALS: Ht 274.3 cm; Wt 159.2 kg
[~2017-08-29 14:31] MED LIST changes: +PROTONIX40 M2 PO; +WARFARIN5 MG PO
[2017-08-29] MEDS ORDERED: FUROSEMIDE40 MG PO (14:54)
[2017-08-29 14:57] LABS: HEMATOCRIT 39.3 % (39.0-50.0); HEMOGLOBIN 11.4 g/dl (14.0-18.0); IMMATURE GRANULOCYTES 0.8 % (0.0-1.0); MEAN CELL VOLUME 86.6 fL CALC (80.0-100.0); MEAN CORPUSCULAR HGB 25.1 pG CALC (26.0-32.0); NEUT# 4.33 thou/uL (1.82-7.42); RED BLOOD COUNT 4.54 mill/uL (4.70-6.10); RED CELL DISTRI WIDTH 15.8 % (11.5-15.5)
[2017-08-29 15:16] LABS: BUN 25 mg/dL (9-20); BUN/CREATININE RATIO 16 (12-20 (CALC)); CHLORIDE 95 mmol/l (95-108); CREATININE 1.5 mg/dL (0.7-1.3); GFR 51 ML/MIN (>=60 (CALC)); GFR FOR AFR.AMER. > 60 ML/MIN (>=60 (CALC)); POTASSIUM 4.1 mmol/l (3.5-5.1); SODIUM 146 mmol/l (137-146)
[2017-08-29 15:17] LABS: INTERNATIONAL NORMALIZED RATIO 3.8 RATIO (0.7-1.3); PROTHROMBIN TIME 43.5 SECONDS (9.0-12.5)
[2017-08-29 15:23] LABS: ANION GAP 16 (6-22 (CALC)); CARBON DIOXIDE 39 mmol/l (22-30)
[2017-08-29 17:22] VITALS: BP 127/99
[2017-08-29 18:56] VITALS: BP 137/88
[2017-08-29 23:25] VITALS: BP 150/94
[2017-08-30 04:05] VITALS: BP 152/91
[2017-08-30 05:50] LABS: HEMATOCRIT 37.7 % (39.0-50.0); HEMOGLOBIN 10.9 g/dl (14.0-18.0); MEAN CELL VOLUME 86.5 fL CALC (80.0-100.0); MEAN CORPUSCULAR HGB CONC 28.9 g/L CALC (32.0-36.0); RED BLOOD COUNT 4.36 mill/uL (4.70-6.10); RED CELL DISTRI WIDTH 15.9 % (11.5-15.5)
[2017-08-30 06:09] LABS: ANION GAP 15 (6-22 (CALC)); BUN 24 mg/dL (9-20); BUN/CREATININE RATIO 19 (12-20 (CALC)); CHLORIDE 94 mmol/l (95-108); CREATININE 1.3 mg/dL (0.7-1.3); GFR 60 ML/MIN (>=60 (CALC)); GFR FOR AFR.AMER. > 60 ML/MIN (>=60 (CALC)); POTASSIUM 3.8 mmol/l (3.5-5.1); SODIUM 145 mmol/l (137-146)
[2017-08-30 06:23] LABS: CARBON DIOXIDE 40 mmol/l (22-30)
[2017-08-30 07:33] LABS: INTERNATIONAL NORMALIZED RATIO 3.5 RATIO (0.7-1.3); PROTHROMBIN TIME 40.4 SECONDS (9.0-12.5)
[2017-08-30 07:37] VITALS: BP 145/92
[2017-08-30 11:20] VITALS: BP 125/79
[2017-08-30 16:12] VITALS: BP 127/81
[2017-08-30 20:05] VITALS: BP 119/82
[2017-08-30 20:10] VITALS: BP 95/45
[2017-08-31] VITALS: BP 133/92
[2017-08-31 04:25] VITALS: BP 130/92
[2017-08-31 05:26] LABS: BUN 22 mg/dL (9-20); BUN/CREATININE RATIO 17 (12-20 (CALC)); CHLORIDE 92 mmol/l (95-108); CREATININE 1.3 mg/dL (0.7-1.3); GFR 60 ML/MIN (>=60 (CALC)); GFR FOR AFR.AMER. > 60 ML/MIN (>=60 (CALC)); POTASSIUM 3.7 mmol/l (3.5-5.1); SODIUM 144 mmol/l (137-146)
[2017-08-31 05:27] LABS: HEMATOCRIT 36.8 % (39.0-50.0); HEMOGLOBIN 10.6 g/dl (14.0-18.0); MEAN CELL VOLUME 87.6 fL CALC (80.0-100.0); MEAN CORPUSCULAR HGB 25.2 pG CALC (26.0-32.0); MEAN CORPUSCULAR HGB CONC 28.8 g/L CALC (32.0-36.0); RED BLOOD COUNT 4.2 mill/uL (4.70-6.10)
[2017-08-31 05:36] LABS: ANION GAP 13 (6-22 (CALC))
[2017-08-31 05:37] LABS: CARBON DIOXIDE 43 mmol/l (22-30); MAGNESIUM 1.7 mg/dL (1.6-2.3)
[2017-08-31 05:47] LABS: INTERNATIONAL NORMALIZED RATIO 2.9 RATIO (0.7-1.3); PROTHROMBIN TIME 32.8 SECONDS (9.0-12.5)
[2017-08-31 07:41] VITALS: BP 140/84
[2017-08-31 08:50] VITALS: BP 119/73
== END 2017-08-31 17:03 | disposition home or self-care (01) | DRG 313 ==
LOC: ED 14:31 → ED-I 15:33 → ED 16:05 → MS2 16:06
PROVIDERS: Family Medicine; Nurse Practitioner Family; ADMIT Internal Medicine; ATTEND Internal Medicine
DX: R07.2 Precordial pain (principal); I25.10 Atherosclerotic heart disease of native coronary artery without angina pectoris; J96.22 Acute and chronic respiratory failure with hypercapnia; I50.43 Acute on chronic combined systolic (congestive) and diastolic (congestive) heart failure; N17.9 Acute kidney failure, unspecified; N18.3 Chronic kidney disease, stage 3 (moderate); I13.0 Hypertensive heart and chronic kidney disease with heart failure and stage 1 through stage 4 chronic kidney disease, or unspecified chronic kidney disease; Z68.42 Body mass index [BMI] 45.0-49.9, adult; G47.33 Obstructive sleep apnea (adult) (pediatric); I48.2 Chronic atrial fibrillation; E78.5 Hyperlipidemia, unspecified; D64.9 Anemia, unspecified; R79.1 Abnormal coagulation profile; T45.515A Adverse effect of anticoagulants, initial encounter; E03.9 Hypothyroidism, unspecified; F79 Unspecified intellectual disabilities; Z99.81 Dependence on supplemental oxygen; Z95.1 Presence of aortocoronary bypass graft; Z95.3 Presence of xenogenic heart valve
CPT/HCPCS: G0378

== ENCOUNTER 2017-09-08 09:15 | Emergency (ER) | payer MEDICAID ==
[~2017-09-08] VITALS: Ht 276.9 cm; Wt 156.0 kg
[2017-09-08 10:02] LABS: HEMATOCRIT 36.3 % (39.0-50.0); HEMOGLOBIN 10.3 g/dl (14.0-18.0); IMMATURE GRANULOCYTES 0.9 % (0.0-1.0); MEAN CELL VOLUME 87.3 fL CALC (80.0-100.0); MEAN CORPUSCULAR HGB 24.8 pG CALC (26.0-32.0); MEAN CORPUSCULAR HGB CONC 28.4 g/L CALC (32.0-36.0); NEUT# 3.52 thou/uL (1.82-7.42); RED BLOOD COUNT 4.16 mill/uL (4.70-6.10); RED CELL DISTRI WIDTH 16.3 % (11.5-15.5)
[2017-09-08 10:13] LABS: ALKALINE PHOSPHATASE 74 u/l (38-126); ANION GAP 15 (6-22 (CALC)); BILIRUBIN, TOTAL 0.6 mg/dL (0.0-1.4); BUN 19 mg/dL (9-20); BUN/CREATININE RATIO 16 (12-20 (CALC)); CARBON DIOXIDE 39 mmol/l (22-30); CHLORIDE 96 mmol/l (95-108); CREATININE 1.2 mg/dL (0.7-1.3); GFR > 60 ML/MIN (>=60 (CALC)); GFR FOR AFR.AMER. > 60 ML/MIN (>=60 (CALC)); LIPASE 185 u/l (23-300); POTASSIUM 3.8 mmol/l (3.5-5.1); SGOT/AST 31 u/l (17-59); SGPT/ALT 26 u/l (21-72); SODIUM 146 mmol/l (137-146); TOTAL PROTEIN 7.3 g/dL (6.3-8.2)
[2017-09-08 10:15] LABS: D-DIMER 0.79 mg/L (0.19-0.60); PROTHROMBIN TIME 23.2 SECONDS (9.0-12.5)
[2017-09-08 15:38] VITALS: BP 139/85
== END 2017-09-08 16:04 | disposition home or self-care (01) | DRG 313 ==
LOC: ED 09:15
PROVIDERS: Emergency Medicine
DX: R07.9 Chest pain, unspecified (principal); I11.0 Hypertensive heart disease with heart failure; I50.9 Heart failure, unspecified; I25.10 Atherosclerotic heart disease of native coronary artery without angina pectoris; E66.9 Obesity, unspecified; G47.30 Sleep apnea, unspecified; Z95.1 Presence of aortocoronary bypass graft; R06.02 Shortness of breath

== ENCOUNTER 2017-09-24 11:28 | Inpatient (IN) | payer MEDICAID ==
[~2017-09-24] VITALS: Ht 172.7 cm; Wt 161.0 kg
[2017-09-24 12:14] LABS: HEMATOCRIT 36.8 % (39.0-50.0); HEMOGLOBIN 10.4 g/dl (14.0-18.0); IMMATURE GRANULOCYTES 0.6 % (0.0-1.0); MEAN CELL VOLUME 86.2 fL CALC (80.0-100.0); MEAN CORPUSCULAR HGB 24.4 pG CALC (26.0-32.0); MEAN CORPUSCULAR HGB CONC 28.3 g/L CALC (32.0-36.0); NEUT# 4.6 thou/uL (1.82-7.42); RED BLOOD COUNT 4.27 mill/uL (4.70-6.10); RED CELL DISTRI WIDTH 16.7 % (11.5-15.5)
[2017-09-24 12:35] LABS: ANION GAP 16 (6-22 (CALC)); BUN 19 mg/dL (9-20); BUN/CREATININE RATIO 15 (12-20 (CALC)); CHLORIDE 92 mmol/l (95-108); CREATININE 1.2 mg/dL (0.7-1.3); GFR > 60 ML/MIN (>=60 (CALC)); GFR FOR AFR.AMER. > 60 ML/MIN (>=60 (CALC)); POTASSIUM 3.7 mmol/l (3.5-5.1); SODIUM 144 mmol/l (137-146)
[2017-09-24 12:40] LABS: CARBON DIOXIDE 40 mmol/l (22-30)
[2017-09-24 12:54] LABS: URINE BILIRUBIN - DIPSTICK NEGATIVE (NEGATIVE); URINE BLOOD DIPSTICK NEGATIVE (NEGATIVE); URINE COLOR YELLOW; URINE GLUCOSE - DIPSTICK NEGATIVE (NEGATIVE); URINE KETONE NEGATIVE (NEGATIVE); URINE LEUK ESTERASE NEGATIVE (Negative); URINE NITRITE - DIPSTICK NEGATIVE (Negative); URINE PH 7.5 (4.5-8.0); URINE PROTEIN - DIPSTICK TRACE mg/dL (NEG-TRACE); URINE SPECIFIC GRAVITY 1.015; URINE UROBILINOGEN - DIPSTICK 0.2 E.U./dL (0.2)
[2017-09-24 12:58] LABS: URINE CLARITY CLEAR
[2017-09-24] MEDS ORDERED: AMMONIUM LAC122 EX (13:10)
[2017-09-24] MEDS ORDERED: MEVACOR40 MG PO (13:10)
[2017-09-24] MEDS ORDERED: TYLENOL 8 HOUR650 MG PO (13:12)
[2017-09-24 15:29] VITALS: BP 162/90
[2017-09-24 16:25] VITALS: BP 151/99
[2017-09-24 16:50] LABS: PROTHROMBIN TIME 11.5 SECONDS (9.0-12.5)
[2017-09-24 18:26] VITALS: BP 116/69
[2017-09-24 18:45] VITALS: BP 132/86
[2017-09-24 23:48] VITALS: BP 153/96
[2017-09-25 04:15] VITALS: BP 137/88
[2017-09-25 07:39] VITALS: BP 128/78
[2017-09-25 11:25] VITALS: BP 140/91
[2017-09-25 16:00] VITALS: BP 124/71
[2017-09-25 19:40] VITALS: BP 130/80
[2017-09-26 00:25] VITALS: BP 129/87
[2017-09-26 04:25] VITALS: BP 149/94
[2017-09-26 05:56] LABS: HEMATOCRIT 38.4 % (39.0-50.0); HEMOGLOBIN 10.9 g/dl (14.0-18.0); MEAN CELL VOLUME 86.3 fL CALC (80.0-100.0); MEAN CORPUSCULAR HGB 24.5 pG CALC (26.0-32.0); MEAN CORPUSCULAR HGB CONC 28.4 g/L CALC (32.0-36.0); NEUT# 5.82 thou/uL (1.82-7.42); RED BLOOD COUNT 4.45 mill/uL (4.70-6.10); RED CELL DISTRI WIDTH 16.1 % (11.5-15.5)
[2017-09-26 06:19] LABS: INTERNATIONAL NORMALIZED RATIO 1.1 RATIO (0.7-1.3); PROTHROMBIN TIME 11.8 SECONDS (9.0-12.5)
[2017-09-26 06:20] LABS: BUN 26 mg/dL (9-20); BUN/CREATININE RATIO 20 (12-20 (CALC)); CHLORIDE 92 mmol/l (95-108); CREATININE 1.3 mg/dL (0.7-1.3); GFR 60 ML/MIN (>=60 (CALC)); GFR FOR AFR.AMER. > 60 ML/MIN (>=60 (CALC)); MAGNESIUM 1.9 mg/dL (1.6-2.3); SODIUM 143 mmol/l (137-146)
[2017-09-26 06:26] LABS: ANION GAP 17 (6-22 (CALC)); CARBON DIOXIDE 39 mmol/l (22-30)
[2017-09-26 06:27] LABS: POTASSIUM 4.8 mmol/l (3.5-5.1)
[2017-09-26 07:50] VITALS: BP 116/84
[2017-09-26 11:00] VITALS: BP 117/73
[2017-09-26 16:00] VITALS: BP 138/98; BP 142/89
[2017-09-26 19:15] VITALS: BP 158/99
[2017-09-27 00:56] VITALS: BP 152/98
[2017-09-27 04:13] VITALS: BP 149/93
[2017-09-27 05:26] LABS: HEMATOCRIT 37.1 % (39.0-50.0); HEMOGLOBIN 10.6 g/dl (14.0-18.0); MEAN CELL VOLUME 86.3 fL CALC (80.0-100.0); MEAN CORPUSCULAR HGB 24.7 pG CALC (26.0-32.0); MEAN CORPUSCULAR HGB CONC 28.6 g/L CALC (32.0-36.0); RED BLOOD COUNT 4.3 mill/uL (4.70-6.10); RED CELL DISTRI WIDTH 15.9 % (11.5-15.5)
[2017-09-27 05:41] LABS: INTERNATIONAL NORMALIZED RATIO 1.1 RATIO (0.7-1.3); PROTHROMBIN TIME 12.1 SECONDS (9.0-12.5)
[2017-09-27 06:02] LABS: ANION GAP 14 (6-22 (CALC)); BUN 29 mg/dL (9-20); BUN/CREATININE RATIO 22 (12-20 (CALC)); CHLORIDE 92 mmol/l (95-108); CREATININE 1.3 mg/dL (0.7-1.3); GFR 60 ML/MIN (>=60 (CALC)); GFR FOR AFR.AMER. > 60 ML/MIN (>=60 (CALC)); MAGNESIUM 1.9 mg/dL (1.6-2.3); POTASSIUM 4.3 mmol/l (3.5-5.1); SODIUM 142 mmol/l (137-146)
[2017-09-27 06:12] LABS: CARBON DIOXIDE 40 mmol/l (22-30)
[2017-09-27 07:44] VITALS: BP 146/77
[2017-09-27 10:51] VITALS: BP 133/87
[2017-09-27 15:36] VITALS: BP 134/81
[2017-09-27 19:35] VITALS: BP 144/94
[2017-09-28] VITALS (7 sets, daily range): BP systolic 133–151; BP diastolic 75–94
[2017-09-28 05:37] LABS: INTERNATIONAL NORMALIZED RATIO 1.2 RATIO (0.7-1.3); PROTHROMBIN TIME 12.9 SECONDS (9.0-12.5)
[2017-09-29 04:58] LABS: INTERNATIONAL NORMALIZED RATIO 1.3 RATIO (0.7-1.3); PROTHROMBIN TIME 14.4 SECONDS (9.0-12.5)
[2017-09-29 05:35] VITALS: BP 141/91
[2017-09-29 07:15] VITALS: BP 141/84
[2017-09-29 12:41] VITALS: BP 124/77
[2017-09-29 16:18] VITALS: BP 131/74
[2017-09-29 18:56] LABS: HEMATOCRIT 39.1 % (39.0-50.0); HEMOGLOBIN 10.8 g/dl (14.0-18.0); IMMATURE GRANULOCYTES 0.8 % (0.0-1.0); MEAN CELL VOLUME 87.1 fL CALC (80.0-100.0); MEAN CORPUSCULAR HGB 24.1 pG CALC (26.0-32.0); MEAN CORPUSCULAR HGB CONC 27.6 g/L CALC (32.0-36.0); NEUT# 5.25 thou/uL (1.82-7.42); RED BLOOD COUNT 4.49 mill/uL (4.70-6.10); RED CELL DISTRI WIDTH 16.1 % (11.5-15.5)
[2017-09-29 19:04] VITALS: BP 139/77
[2017-09-29 20:30] LABS: ALBUMIN 3.7 g/dL (3.2-5.0); ALKALINE PHOSPHATASE 47 u/l (38-126); BILIRUBIN, TOTAL 0.5 mg/dL (0.0-1.4); BUN 29 mg/dL (9-20); BUN/CREATININE RATIO 22 (12-20 (CALC)); CHLORIDE 91 mmol/l (95-108); CREATININE 1.3 mg/dL (0.7-1.3); GFR 60 ML/MIN (>=60 (CALC)); GFR FOR AFR.AMER. > 60 ML/MIN (>=60 (CALC)); POTASSIUM 3.8 mmol/l (3.5-5.1); SGOT/AST 18 u/l (17-59); SGPT/ALT 33 u/l (21-72); SODIUM 143 mmol/l (137-146)
[2017-09-29 20:31] LABS: ANION GAP 16 (6-22 (CALC))
[2017-09-29 20:43] LABS: CARBON DIOXIDE 40 mmol/l (22-30)
[2017-09-29 21:49] VITALS: BP 141/87
[2017-09-30 00:27] VITALS: BP 147/95
[2017-09-30 04:40] VITALS: BP 121/86
[2017-09-30 04:43] LABS: INTERNATIONAL NORMALIZED RATIO 1.4 RATIO (0.7-1.3); PROTHROMBIN TIME 15.4 SECONDS (9.0-12.5)
[2017-09-30 07:59] VITALS: BP 133/83
[2017-09-30 11:07] VITALS: BP 128/86
[2017-09-30] MEDS ORDERED: ALLOPURINOL100 MG PO (13:10)
[2017-09-30] MEDS ORDERED: AUGMENTIN875TAB PO (13:11)
[2017-09-30 15:09] VITALS: BP 117/74
== END 2017-09-30 18:55 | disposition home health service (06) | DRG 291 ==
LOC: ED 11:28 → ED-I 12:31 → ED 13:11 → MS2 13:12
PROVIDERS: Family Medicine; Hospitalist; Nurse Practitioner Family; ADMIT Internal Medicine; ATTEND Internal Medicine
PROC: 0H9MXZZ Drainage of Right Foot Skin, External Approach (ICD-10-PCS; principal; 2017-09-25)
DX: I11.0 Hypertensive heart disease with heart failure (principal); J18.9 Pneumonia, unspecified organism; J96.10 Chronic respiratory failure, unspecified whether with hypoxia or hypercapnia; Z99.81 Dependence on supplemental oxygen; L03.115 Cellulitis of right lower limb; Z68.43 Body mass index [BMI] 50.0-59.9, adult; L03.116 Cellulitis of left lower limb; Z79.01 Long term (current) use of anticoagulants; I50.23 Acute on chronic systolic (congestive) heart failure; I25.10 Atherosclerotic heart disease of native coronary artery without angina pectoris; I89.0 Lymphedema, not elsewhere classified; E66.9 Obesity, unspecified; G47.33 Obstructive sleep apnea (adult) (pediatric); I48.2 Chronic atrial fibrillation; E78.5 Hyperlipidemia, unspecified; E03.9 Hypothyroidism, unspecified; M10.9 Gout, unspecified; F79 Unspecified intellectual disabilities; R23.8 Other skin changes; D64.9 Anemia, unspecified; B19.20 Unspecified viral hepatitis C without hepatic coma; M19.071 Primary osteoarthritis, right ankle and foot; M19.072 Primary osteoarthritis, left ankle and foot; Z91.14 Patient's other noncompliance with medication regimen; Z95.1 Presence of aortocoronary bypass graft; Z95.3 Presence of xenogenic heart valve
CPT/HCPCS: J0692; J1650; J3370

== ENCOUNTER 2017-10-21 11:58 | Emergency (ER) | payer MEDICAID ==
[~2017-10-21] VITALS: Ht 172.7 cm; Wt 159.0 kg
[~2017-10-21 11:58] MED LIST changes: +ALLOPURINOL100 MG PO; +AMMONIUM LAC122 EX; +AUGMENTIN875TAB PO; +MEVACOR40 MG PO; +TYLENOL 8 HOUR650 MG PO
[2017-10-21 12:37] LABS: HEMATOCRIT 39.5 % (39.0-50.0); IMMATURE GRANULOCYTES 0.3 % (0.0-1.0); MEAN CELL VOLUME 86.6 fL CALC (80.0-100.0); MEAN CORPUSCULAR HGB 24.1 pG CALC (26.0-32.0); MEAN CORPUSCULAR HGB CONC 27.8 g/L CALC (32.0-36.0); NEUT# 4.38 thou/uL (1.82-7.42); RED BLOOD COUNT 4.56 mill/uL (4.70-6.10); RED CELL DISTRI WIDTH 17.2 % (11.5-15.5)
[2017-10-21 12:49] LABS: BUN 16 mg/dL (9-20); BUN/CREATININE RATIO 14 (12-20 (CALC)); CHLORIDE 94 mmol/l (95-108); CREATININE 1.1 mg/dL (0.7-1.3); GFR > 60 ML/MIN (>=60 (CALC)); GFR FOR AFR.AMER. > 60 ML/MIN (>=60 (CALC)); POTASSIUM 4.1 mmol/l (3.5-5.1); SODIUM 143 mmol/l (137-146)
[2017-10-21 12:55] LABS: ANION GAP 14 (6-22 (CALC)); CARBON DIOXIDE 39 mmol/l (22-30)
[2017-10-21 13:05] LABS: INFLUENZA A NONE DETECTED (NONE DETECT); INFLUENZA B NONE DETECTED (NONE DETECT)
[2017-10-21 13:07] LABS: URINE BILIRUBIN - DIPSTICK NEGATIVE (NEGATIVE); URINE BLOOD DIPSTICK NEGATIVE (NEGATIVE); URINE COLOR YELLOW; URINE GLUCOSE - DIPSTICK NEGATIVE (NEGATIVE); URINE KETONE NEGATIVE (NEGATIVE); URINE LEUK ESTERASE NEGATIVE (NEGATIVE); URINE NITRITE - DIPSTICK NEGATIVE (Negative); URINE PH 7.5 (4.5-8.0); URINE PROTEIN - DIPSTICK 30 mg/dL (NEG-TRACE); URINE UROBILINOGEN - DIPSTICK 0.2 E.U./dL (0.2)
[2017-10-21 13:09] LABS: URINE CLARITY SL CLOUDY
[2017-10-21 13:11] LABS: URINE EPITHELIAL CELLS FEW EPI/hpf (0-FEW); URINE MUCUS FEW hpf (NONE-FEW)
[2017-10-21 14:42] LABS: PROTHROMBIN TIME 11.5 SECONDS (9.0-12.5)
[2017-10-21] MEDS ORDERED: ZPAK PO (15:10)
[2017-10-21] MEDS ORDERED: AUGMENTIN875TAB PO (15:10)
[2017-10-21 15:45] VITALS: BP 167/94
== END 2017-10-21 15:45 | disposition home or self-care (01) | DRG 292 ==
LOC: ED 11:58 → ED-I 13:35 → ED 15:45
PROVIDERS: Family Medicine
DX: I50.9 Heart failure, unspecified (principal); I25.810 Atherosclerosis of coronary artery bypass graft(s) without angina pectoris; Z95.1 Presence of aortocoronary bypass graft; Z79.01 Long term (current) use of anticoagulants; J06.9 Acute upper respiratory infection, unspecified; I48.91 Unspecified atrial fibrillation; I10 Essential (primary) hypertension; R06.02 Shortness of breath; R07.9 Chest pain, unspecified; R05 Cough

== ENCOUNTER 2017-10-30 11:23 | Observation (INO) | payer MEDICAID ==
[~2017-10-30] VITALS: Ht 172.7 cm; Wt 167.0 kg
--- NOTE | 2017-10-30 11:33 | NUR ---
PT TO ROOM PER EMS
[2017-10-30 11:51] LABS: HEMATOCRIT 36.2 % (39.0-50.0); HEMOGLOBIN 10.5 g/dl (14.0-18.0); IMMATURE GRANULOCYTES 0.7 % (0.0-1.0); MEAN CELL VOLUME 83.6 fL CALC (80.0-100.0); MEAN CORPUSCULAR HGB 24.2 pG CALC (26.0-32.0); NEUT# 4.08 thou/uL (1.82-7.42); RED BLOOD COUNT 4.33 mill/uL (4.70-6.10); RED CELL DISTRI WIDTH 17.1 % (11.5-15.5)
[2017-10-30 12:09] LABS: ALKALINE PHOSPHATASE 55 u/l (38-126); ANION GAP 13 (6-22 (CALC)); BILIRUBIN, TOTAL 0.8 mg/dL (0.0-1.4); BUN 17 mg/dL (9-20); BUN/CREATININE RATIO 13 (12-20 (CALC)); CARBON DIOXIDE 38 mmol/l (22-30); CHLORIDE 95 mmol/l (95-108); CREATININE 1.3 mg/dL (0.7-1.3); GFR 60 ML/MIN (>=60 (CALC)); GFR FOR AFR.AMER. > 60 ML/MIN (>=60 (CALC)); LIPASE 146 u/l (23-300); POTASSIUM 4.1 mmol/l (3.5-5.1); SGOT/AST 29 u/l (17-59); SGPT/ALT 32 u/l (21-72); SODIUM 143 mmol/l (137-146); TOTAL PROTEIN 7.7 g/dL (6.3-8.2)
[2017-10-30] MEDS ORDERED: DILTIAZEM120 MG PO (12:12)
[2017-10-30] MEDS ORDERED: LEVOTHYROXIN100 MCG PO (12:13)
[2017-10-30] MEDS ORDERED: LISINOPRIL20 MG PO (12:13)
[2017-10-30] MEDS ORDERED: NITROGLYCERIN0.4 MG SL (12:14)
[2017-10-30] MEDS ORDERED: K-TAB20 MEQ PO (12:15)
[2017-10-30] MEDS ORDERED: MEVACOR40 MG PO (12:15)
[2017-10-30] MEDS ORDERED: ALLOPURINOL100 MG PO (12:16)
[2017-10-30] MEDS ORDERED: FUROSEMIDE40 MG PO (12:16)
[2017-10-30] MEDS ORDERED: TYLENOL 8 HOUR650 MG PO (12:17)
[2017-10-30] MEDS ORDERED: AMMONIUM LACTATE121 EX (12:18)
[2017-10-30 12:40] LABS: INTERNATIONAL NORMALIZED RATIO 1.1 RATIO (0.7-1.3); PROTHROMBIN TIME 11.8 SECONDS (9.0-12.5)
--- NOTE | 2017-10-30 13:44 | NUR ---
PT COMPLAINED OF CP. EDP AWARE, EKG DONE, TO PLACE NTG PASTE.
--- NOTE | 2017-10-30 14:32 | NUR ---
PT AWARE OF SECOND TROPONIN DUE AT 1545, RESTS IN THE STRETCHER IN NO DISTRESS.
--- NOTE | 2017-10-30 15:49 | NUR ---
SECOND TROPONIN DRAWN, PT WAITS IN ROOM FOR RESULTS.
--- NOTE | 2017-10-30 16:57 | NUR ---
PT AWARE OF NEGATIVE TROPONIN, ANTICIPATE DISPOSITION HOME.
--- NOTE | 2017-10-30 17:41 | NUR ---
CASE MANAGEMENT NOTIFIED OF SOCIAL ISSUES. THIS FABRIC WORKER LEADER MADE DCF NOTIFICATION OF CONCERNS FOR SELF CARE DEFICIT. PLAN OF CARE DISCUSSED FOR ADMISSION [facility].
--- NOTE | 2017-10-30 18:34 | NUR ---
PT CAME FROM ER VIA STRETCHER BY SAVANNAH JOHNSON. DISINTEGRATOR IN ROOM FOR STAND BY ASSIST TO BED AND VS OBTAIN. RESPS EVEN AND UNLABORED. 02 AT 4L/MIN VIA NC. # 18 LAC THAT APPEARS HEALTHY. SAFETY PRECAUTIONS REINFORCED AND CALL LIGHT IN REACH.
[2017-10-30 18:35] VITALS: BP 152/95
--- NOTE | 2017-10-30 18:39 | NUR ---
PT TAKEN TO ROOM 269 WITHOUT INCIDENT, REPORT WAS TO GONZALO.
--- NOTE | 2017-10-30 19:31 | NUR ---
PT IN BED WATCHING TV, RESPIRATIONS EVEN AND UNLABORED ON O2 @4L VIA NC, DENIES CHEST PAIN OR DISCOMFORT AT THIS TIME. TELE IN PLACE READING AFIB 86 PER ER AT THIS TIME. PO FLUIDS IN REACH, URINAL AT BED SIDE. LOWER EXTREMITIES EDEMATOUS WITH ERNESTINE BANDAGES IN PLACE. ENCOURAGED TO USE CALL LIGHT FOR ASSISTNACE, WILL CONTINUE TO MONITOR.
--- NOTE | 2017-10-30 22:08 | NUR ---
TYLENOL PROVIDED FOR C/O PAIN TO LOWER EXTREMITIES.
--- NOTE | 2017-10-30 23:52 | NUR ---
ADMITS TO SOME PAIN RELIEF TO LEGS 08/31, ANGELO RT ASSISTING PT WITH SETTING UP OWN CPAP. VOIDING CLEAR YELLOW URINE IN URINAL. CALL LIGHT IN REACH.
[2017-10-31 04:15] VITALS: BP 110/70
--- NOTE | 2017-10-31 04:30 | NUR ---
MORNING BLOOD WORK DRAWN BY SPAGHETTI PRESS HELPER, TOLERATED WELL. RESTING WITH EYES CLOSED, USING OWN CPAP FROM HOME.
[2017-10-31 05:09] LABS: ANION GAP 15 (6-22 (CALC)); BUN 16 mg/dL (9-20); BUN/CREATININE RATIO 14 (12-20 (CALC)); CARBON DIOXIDE 39 mmol/l (22-30); CHLORIDE 96 mmol/l (95-108); CREATININE 1.1 mg/dL (0.7-1.3); GFR > 60 ML/MIN (>=60 (CALC)); GFR FOR AFR.AMER. > 60 ML/MIN (>=60 (CALC)); MAGNESIUM 1.7 mg/dL (1.6-2.3); POTASSIUM 4.4 mmol/l (3.5-5.1); SODIUM 146 mmol/l (137-146)
[2017-10-31 05:11] LABS: HEMATOCRIT 39.5 % (39.0-50.0); MEAN CELL VOLUME 86.2 fL CALC (80.0-100.0); MEAN CORPUSCULAR HGB CONC 27.8 g/L CALC (32.0-36.0); RED BLOOD COUNT 4.58 mill/uL (4.70-6.10); RED CELL DISTRI WIDTH 17.1 % (11.5-15.5)
--- NOTE | 2017-10-31 06:00 | NUR ---
CARDIZEM PO GIVEN EARLY DUE TO TELE MONITOR IN ER READING 120'S TO 140'S. RADIAL HR 110.
--- NOTE | 2017-10-31 06:25 | NUR ---
C/O PAIN TO BLE, TYLENOL 650MG PO PROVIDED AT THIS TIME.
--- NOTE | 2017-10-31 07:01 | NUR ---
BEDSIDE REPORT RECEIVED BY HOME. PT IS SLEEPING WITH NO S/S OF DISTRESS NOTED. CPAP IN PLACE AND CALL LIGHT IN REACH.
[2017-10-31 07:34] VITALS: BP 126/88
--- NOTE | 2017-10-31 08:00 | NUR ---
ASSESSMENT DONE AND TELE IN PLACE. RESPS EVEN AND UNLABORED. 02 AT 4L/MIN VIA NC. #18 LAC THAT APPEARS HEALTHY. EXTREMITIES EDEMATOUS WITH ERNESTINE BANDAGES. SAFETY PRECAUTIONS REINFORCED AND CALL LIGHT IN REACH.
--- NOTE | 2017-10-31 12:00 | NUR ---
PT IS EATING HIS LUNCH WITH NO S/S OF DISTRESS NOTED. PT DENIES NEEDS AT THIS TIME. CALL LIGHT IN REACH.
[2017-10-31 12:50] VITALS: BP 146/99
[2017-10-31] MEDS ORDERED: VITAMIN D50000 UNIT PO (13:35)
[2017-10-31] MEDS ORDERED: COUMADIN5 MG PO (13:48)
[2017-10-31] MEDS ORDERED: LOPRESSOR 550 MG/TAB PO (14:17)
[2017-10-31 15:55] VITALS: BP 139/94
--- NOTE | 2017-10-31 16:00 | NUR ---
PT IS SITTING IN THE SIDE OF THE BED. WITH NO S/S OF DISTRESS NOTED. PT DENIES NEEDED AT THIS TIME. CALL LIGHT IN REACH.
[2017-10-31] MEDS ORDERED: COUMADIN10 MG PO ×2 (16:50→16:51)
--- NOTE | 2017-10-31 19:27 | NUR ---
Discharge instructions given. Patient verbalizes understanding of same. Discharged in stable condition via Wheelchair to Home with staff. All belongings sent with pt.
== END 2017-10-31 19:27 | disposition home or self-care (01) | DRG 313 ==
LOC: ED 11:23 → ED-I 17:29 → ED 17:42 → MS2 17:43
PROVIDERS: Emergency Medicine; ADMIT Internal Medicine; ATTEND Internal Medicine
DX: R07.9 Chest pain, unspecified (principal); I25.10 Atherosclerotic heart disease of native coronary artery without angina pectoris; I11.0 Hypertensive heart disease with heart failure; I50.9 Heart failure, unspecified; G89.29 Other chronic pain; Z68.43 Body mass index [BMI] 50.0-59.9, adult; E66.9 Obesity, unspecified; F79 Unspecified intellectual disabilities; G47.33 Obstructive sleep apnea (adult) (pediatric); I48.2 Chronic atrial fibrillation; E78.5 Hyperlipidemia, unspecified; M10.9 Gout, unspecified; D64.9 Anemia, unspecified; R60.0 Localized edema; Z91.14 Patient's other noncompliance with medication regimen; Z95.1 Presence of aortocoronary bypass graft; Z95.3 Presence of xenogenic heart valve; Z79.01 Long term (current) use of anticoagulants
CPT/HCPCS: G0378; J1650

== ENCOUNTER 2017-11-11 10:00 | Emergency (ER) | payer MEDICAID ==
[~2017-11-11] VITALS: Ht 172.7 cm; Wt 152.7 kg
[~2017-11-11 10:00] MED LIST changes: +AMMONIUM LACTATE121 EX; +COUMADIN10 MG PO; +K-TAB20 MEQ PO; +LISINOPRIL20 MG PO
[2017-11-11 10:49] LABS: HEMOGLOBIN 10.9 g/dl (14.0-18.0); IMMATURE GRANULOCYTES 0.6 % (0.0-1.0); MEAN CELL VOLUME 83.3 fL CALC (80.0-100.0); MEAN CORPUSCULAR HGB 23.3 pG CALC (26.0-32.0); MEAN CORPUSCULAR HGB CONC 27.9 g/L CALC (32.0-36.0); NEUT# 3.45 thou/uL (1.82-7.42); RED BLOOD COUNT 4.68 mill/uL (4.70-6.10); RED CELL DISTRI WIDTH 17.1 % (11.5-15.5)
[2017-11-11 11:12] LABS: ANION GAP 15 (6-22 (CALC)); BUN 18 mg/dL (9-20); BUN/CREATININE RATIO 16 (12-20 (CALC)); CARBON DIOXIDE 36 mmol/l (22-30); CHLORIDE 98 mmol/l (95-108); CREATININE 1.1 mg/dL (0.7-1.3); GFR > 60 ML/MIN (>=60 (CALC)); GFR FOR AFR.AMER. > 60 ML/MIN (>=60 (CALC)); POTASSIUM 4.3 mmol/l (3.5-5.1); SODIUM 144 mmol/l (137-146)
[2017-11-11] MEDS ORDERED: FUROSEMIDE40 MG PO (11:42)
[2017-11-11] MEDS ORDERED: WARFARIN3 MG PO (11:43)
[2017-11-11 13:30] LABS: PROTHROMBIN TIME 22.7 SECONDS (9.0-12.5)
[2017-11-11 14:08] VITALS: BP 135/94
== END 2017-11-11 14:38 | disposition home or self-care (01) | DRG 313 ==
LOC: ED 10:00 → ED-I 11:24 → ED 14:08 → ED-I 14:31 → ED 14:38
PROVIDERS: Family Medicine
DX: R07.9 Chest pain, unspecified (principal); I25.10 Atherosclerotic heart disease of native coronary artery without angina pectoris; I11.0 Hypertensive heart disease with heart failure; I50.9 Heart failure, unspecified; I48.91 Unspecified atrial fibrillation; E66.9 Obesity, unspecified; F79 Unspecified intellectual disabilities; Z95.2 Presence of prosthetic heart valve; Z95.1 Presence of aortocoronary bypass graft; R06.02 Shortness of breath; R11.2 Nausea with vomiting, unspecified

== ENCOUNTER 2017-12-19 11:04 | Emergency (ER) | payer MEDICAID ==
[~2017-12-19] VITALS: Ht 172.7 cm; Wt 150.0 kg
[2017-12-19 12:36] LABS: HEMATOCRIT 40.5 % (39.0-50.0); HEMOGLOBIN 11.3 g/dl (14.0-18.0); IMMATURE GRANULOCYTES 0.6 % (0.0-1.0); MEAN CELL VOLUME 80.8 fL CALC (80.0-100.0); MEAN CORPUSCULAR HGB 22.6 pG CALC (26.0-32.0); MEAN CORPUSCULAR HGB CONC 27.9 g/L CALC (32.0-36.0); NEUT# 3.68 thou/uL (1.82-7.42); RED BLOOD COUNT 5.01 mill/uL (4.70-6.10); RED CELL DISTRI WIDTH 19.8 % (11.5-15.5)
[2017-12-19 12:57] LABS: ALBUMIN 4.3 g/dL (3.2-5.0); ALKALINE PHOSPHATASE 68 u/l (38-126); BILIRUBIN, TOTAL 0.6 mg/dL (0.0-1.4); BUN 19 mg/dL (9-20); BUN/CREATININE RATIO 17 (12-20 (CALC)); CHLORIDE 95 mmol/l (95-108); CREATININE 1.1 mg/dL (0.7-1.3); GFR > 60 ML/MIN (>=60 (CALC)); GFR FOR AFR.AMER. > 60 ML/MIN (>=60 (CALC)); SGOT/AST 27 u/l (17-59); SGPT/ALT 31 u/l (21-72); SODIUM 141 mmol/l (137-146); TOTAL PROTEIN 8.1 g/dL (6.3-8.2)
[2017-12-19 12:58] LABS: INTERNATIONAL NORMALIZED RATIO 1.1 RATIO (0.7-1.3)
[2017-12-19 13:03] LABS: ANION GAP 11 (6-22 (CALC)); CARBON DIOXIDE 39 mmol/l (22-30)
[2017-12-19 13:37] VITALS: BP 125/81
== END 2017-12-19 13:47 | disposition home or self-care (01) | DRG 204 ==
LOC: ED 11:04
PROVIDERS: Emergency Medicine
DX: R06.00 Dyspnea, unspecified (principal); I11.0 Hypertensive heart disease with heart failure; I50.9 Heart failure, unspecified; I25.10 Atherosclerotic heart disease of native coronary artery without angina pectoris; I48.91 Unspecified atrial fibrillation; G47.30 Sleep apnea, unspecified; E66.9 Obesity, unspecified; Z95.1 Presence of aortocoronary bypass graft; Z95.2 Presence of prosthetic heart valve

== ENCOUNTER 2018-03-04 08:51 | Inpatient (IN) | payer MEDICAID ==
[~2018-03-04] VITALS: Ht 172.7 cm; Wt 148.0 kg
[2018-03-04] VITALS (19 sets, daily range): BP systolic 91–150; BP diastolic 66–113
[~2018-03-04 08:51] MED LIST changes: +DILTIAZEM HCL180 MG PO
[2018-03-04 09:56] LABS: ALBUMIN 4.1 g/dL (3.2-5.0); ALKALINE PHOSPHATASE 51 u/l (38-126); ANION GAP 13 (6-22 (CALC)); BUN 35 mg/dL (9-20); BUN/CREATININE RATIO 27 (12-20 (CALC)); CARBON DIOXIDE 39 mmol/l (22-30); CHLORIDE 96 mmol/l (95-108); CREATININE 1.3 mg/dL (0.7-1.3); GFR 60 ML/MIN (>=60 (CALC)); GFR FOR AFR.AMER. > 60 ML/MIN (>=60 (CALC)); LIPASE 163 u/l (23-300); POTASSIUM 3.6 mmol/l (3.5-5.1); SGOT/AST 31 u/l (17-59); SGPT/ALT 32 u/l (21-72); SODIUM 144 mmol/l (137-146)
[2018-03-04 10:08] LABS: HEMATOCRIT 41.6 % (39.0-50.0); HEMOGLOBIN 11.3 g/dl (14.0-18.0); IMMATURE GRANULOCYTES 1.1 % (0.0-5.0); MEAN CORPUSCULAR HGB 21.2 pG CALC (26.0-32.0); MEAN CORPUSCULAR HGB CONC 27.2 g/L CALC (32.0-36.0); NEUT# 5.34 thou/uL (1.82-7.42); RED BLOOD COUNT 5.33 mill/uL (4.70-6.10); RED CELL DISTRI WIDTH 21.2 % (11.5-15.5)
[2018-03-05] VITALS (20 sets, daily range): BP systolic 103–166; BP diastolic 76–107
[2018-03-05 06:10] LABS: HEMATOCRIT 40.8 % (39.0-50.0); IMMATURE GRANULOCYTES 0.7 % (0.0-5.0); MEAN CELL VOLUME 80.3 fL CALC (80.0-100.0); MEAN CORPUSCULAR HGB 21.7 pG CALC (26.0-32.0); NEUT# 7.3 thou/uL (1.82-7.42); RED BLOOD COUNT 5.08 mill/uL (4.70-6.10); RED CELL DISTRI WIDTH 21.2 % (11.5-15.5)
[2018-03-05 06:15] LABS: ALBUMIN 3.7 g/dL (3.2-5.0); ALKALINE PHOSPHATASE 45 u/l (38-126); BUN 30 mg/dL (9-20); BUN/CREATININE RATIO 25 (12-20 (CALC)); CHLORIDE 97 mmol/l (95-108); CREATININE 1.2 mg/dL (0.7-1.3); GFR > 60 ML/MIN (>=60 (CALC)); GFR FOR AFR.AMER. > 60 ML/MIN (>=60 (CALC)); MAGNESIUM 1.7 mg/dL (1.6-2.3); SGOT/AST 31 u/l (17-59); SGPT/ALT 29 u/l (21-72); SODIUM 144 mmol/l (137-146); TOTAL PROTEIN 7.4 g/dL (6.3-8.2)
[2018-03-05 06:21] LABS: ANION GAP 12 (6-22 (CALC))
[2018-03-05 06:22] LABS: CARBON DIOXIDE 40 mmol/l (22-30); POTASSIUM 4.6 mmol/l (3.5-5.1)
[2018-03-05 08:50] LABS: INTERNATIONAL NORMALIZED RATIO 2.9 RATIO (0.7-1.3); PROTHROMBIN TIME 33.5 SECONDS (9.0-12.5)
[2018-03-06] VITALS (14 sets, daily range): BP systolic 109–149; BP diastolic 76–99
[2018-03-06 05:06] LABS: HEMATOCRIT 41.3 % (39.0-50.0); HEMOGLOBIN 10.8 g/dl (14.0-18.0); IMMATURE GRANULOCYTES 0.4 % (0.0-5.0); MEAN CELL VOLUME 80.8 fL CALC (80.0-100.0); MEAN CORPUSCULAR HGB 21.1 pG CALC (26.0-32.0); MEAN CORPUSCULAR HGB CONC 26.2 g/L CALC (32.0-36.0); RED BLOOD COUNT 5.11 mill/uL (4.70-6.10); RED CELL DISTRI WIDTH 21.2 % (11.5-15.5)
[2018-03-06 05:20] LABS: ALBUMIN 3.7 g/dL (3.2-5.0); ALKALINE PHOSPHATASE 53 u/l (38-126); ANION GAP 14 (6-22 (CALC)); BILIRUBIN, TOTAL 0.9 mg/dL (0.0-1.4); BUN 33 mg/dL (9-20); BUN/CREATININE RATIO 26 (12-20 (CALC)); CHLORIDE 96 mmol/l (95-108); CREATININE 1.3 mg/dL (0.7-1.3); GFR 60 ML/MIN (>=60 (CALC)); GFR FOR AFR.AMER. > 60 ML/MIN (>=60 (CALC)); MAGNESIUM 1.6 mg/dL (1.6-2.3); POTASSIUM 4.6 mmol/l (3.5-5.1); SGOT/AST 29 u/l (17-59); SGPT/ALT 29 u/l (21-72); SODIUM 145 mmol/l (137-146); TOTAL PROTEIN 7.4 g/dL (6.3-8.2)
[2018-03-06 05:21] LABS: INTERNATIONAL NORMALIZED RATIO 2.8 RATIO (0.7-1.3); PROTHROMBIN TIME 32.1 SECONDS (9.0-12.5)
[2018-03-06 05:31] LABS: CARBON DIOXIDE 40 mmol/l (22-30)
[2018-03-07] VITALS (15 sets, daily range): BP systolic 95–140; BP diastolic 66–92
[2018-03-07 05:14] LABS: HEMATOCRIT 39.5 % (39.0-50.0); HEMOGLOBIN 10.3 g/dl (14.0-18.0); IMMATURE GRANULOCYTES 0.5 % (0.0-5.0); MEAN CELL VOLUME 81.6 fL CALC (80.0-100.0); MEAN CORPUSCULAR HGB 21.3 pG CALC (26.0-32.0); MEAN CORPUSCULAR HGB CONC 26.1 g/L CALC (32.0-36.0); RED BLOOD COUNT 4.84 mill/uL (4.70-6.10); RED CELL DISTRI WIDTH 21.2 % (11.5-15.5)
[2018-03-07 05:38] LABS: ALBUMIN 3.5 g/dL (3.2-5.0); ALKALINE PHOSPHATASE 53 u/l (38-126); BILIRUBIN, TOTAL 1.2 mg/dL (0.0-1.4); BUN 31 mg/dL (9-20); BUN/CREATININE RATIO 24 (12-20 (CALC)); CHLORIDE 94 mmol/l (95-108); CREATININE 1.3 mg/dL (0.7-1.3); GFR 60 ML/MIN (>=60 (CALC)); GFR FOR AFR.AMER. > 60 ML/MIN (>=60 (CALC)); MAGNESIUM 1.8 mg/dL (1.6-2.3); POTASSIUM 4.1 mmol/l (3.5-5.1); SGOT/AST 22 u/l (17-59); SGPT/ALT 28 u/l (21-72); SODIUM 146 mmol/l (137-146)
[2018-03-07 05:44] LABS: ANION GAP 10 (6-22 (CALC))
[2018-03-07 05:45] LABS: CARBON DIOXIDE 46 mmol/l (22-30)
[2018-03-07 05:46] LABS: INTERNATIONAL NORMALIZED RATIO 1.9 RATIO (0.7-1.3); PROTHROMBIN TIME 21.4 SECONDS (9.0-12.5)
[2018-03-08] VITALS (20 sets, daily range): BP systolic 99–133; BP diastolic 63–93
[2018-03-08 05:43] LABS: INTERNATIONAL NORMALIZED RATIO 1.5 RATIO (0.7-1.3); PROTHROMBIN TIME 17.4 SECONDS (9.0-12.5)
[2018-03-08 11:46] LABS: HEMATOCRIT 40.9 % (39.0-50.0); HEMOGLOBIN 10.7 g/dl (14.0-18.0); IMMATURE GRANULOCYTES 0.5 % (0.0-5.0); MEAN CELL VOLUME 80.8 fL CALC (80.0-100.0); MEAN CORPUSCULAR HGB 21.1 pG CALC (26.0-32.0); MEAN CORPUSCULAR HGB CONC 26.2 g/L CALC (32.0-36.0); NEUT# 6.34 thou/uL (1.82-7.42); RED BLOOD COUNT 5.06 mill/uL (4.70-6.10); RED CELL DISTRI WIDTH 21.3 % (11.5-15.5)
[2018-03-08 11:57] LABS: BUN 21 mg/dL (9-20); BUN/CREATININE RATIO 19 (12-20 (CALC)); CHLORIDE 88 mmol/l (95-108); CREATININE 1.1 mg/dL (0.7-1.3); GFR > 60 ML/MIN (>=60 (CALC)); GFR FOR AFR.AMER. > 60 ML/MIN (>=60 (CALC)); POTASSIUM 3.7 mmol/l (3.5-5.1); SODIUM 146 mmol/l (137-146)
[2018-03-08 12:04] LABS: ANION GAP 13 (6-22 (CALC))
[2018-03-08 12:08] LABS: CARBON DIOXIDE 49 mmol/l (22-30)
[2018-03-09] VITALS (13 sets, daily range): BP systolic 95–122; BP diastolic 61–91
[2018-03-09 06:00] LABS: ALBUMIN 3.3 g/dL (3.2-5.0); ALKALINE PHOSPHATASE 57 u/l (38-126); BUN 22 mg/dL (9-20); BUN/CREATININE RATIO 18 (12-20 (CALC)); CHLORIDE 89 mmol/l (95-108); CREATININE 1.2 mg/dL (0.7-1.3); GFR > 60 ML/MIN (>=60 (CALC)); GFR FOR AFR.AMER. > 60 ML/MIN (>=60 (CALC)); MAGNESIUM 1.8 mg/dL (1.6-2.3); POTASSIUM 3.7 mmol/l (3.5-5.1); SGOT/AST 26 u/l (17-59); SGPT/ALT 26 u/l (21-72); SODIUM 145 mmol/l (137-146); TOTAL PROTEIN 6.9 g/dL (6.3-8.2)
[2018-03-09 06:04] LABS: HEMATOCRIT 38.4 % (39.0-50.0); HEMOGLOBIN 10.1 g/dl (14.0-18.0); IMMATURE GRANULOCYTES 0.5 % (0.0-5.0); MEAN CELL VOLUME 81.7 fL CALC (80.0-100.0); MEAN CORPUSCULAR HGB 21.5 pG CALC (26.0-32.0); MEAN CORPUSCULAR HGB CONC 26.3 g/L CALC (32.0-36.0); NEUT# 5.33 thou/uL (1.82-7.42); RED BLOOD COUNT 4.7 mill/uL (4.70-6.10)
[2018-03-09 06:06] LABS: ANION GAP 10 (6-22 (CALC))
[2018-03-09 06:09] LABS: CARBON DIOXIDE 50 mmol/l (22-30)
[2018-03-10] VITALS (9 sets, daily range): BP systolic 109–137; BP diastolic 70–96
[2018-03-10 04:58] LABS: HEMATOCRIT 38.9 % (39.0-50.0); HEMOGLOBIN 10.3 g/dl (14.0-18.0); IMMATURE GRANULOCYTES 0.5 % (0.0-5.0); MEAN CELL VOLUME 80.5 fL CALC (80.0-100.0); MEAN CORPUSCULAR HGB 21.3 pG CALC (26.0-32.0); MEAN CORPUSCULAR HGB CONC 26.5 g/L CALC (32.0-36.0); NEUT# 3.91 thou/uL (1.82-7.42); RED BLOOD COUNT 4.83 mill/uL (4.70-6.10); RED CELL DISTRI WIDTH 21.2 % (11.5-15.5)
[2018-03-10 05:17] LABS: ALBUMIN 3.3 g/dL (3.2-5.0); ALKALINE PHOSPHATASE 55 u/l (38-126); BILIRUBIN, TOTAL 0.9 mg/dL (0.0-1.4); BUN 23 mg/dL (9-20); BUN/CREATININE RATIO 21 (12-20 (CALC)); CHLORIDE 89 mmol/l (95-108); CREATININE 1.1 mg/dL (0.7-1.3); GFR > 60 ML/MIN (>=60 (CALC)); GFR FOR AFR.AMER. > 60 ML/MIN (>=60 (CALC)); MAGNESIUM 1.9 mg/dL (1.6-2.3); POTASSIUM 3.5 mmol/l (3.5-5.1); SGOT/AST 26 u/l (17-59); SGPT/ALT 26 u/l (21-72); SODIUM 146 mmol/l (137-146); TOTAL PROTEIN 6.8 g/dL (6.3-8.2)
[2018-03-10 05:23] LABS: ANION GAP 12 (6-22 (CALC))
[2018-03-10 05:24] LABS: CARBON DIOXIDE 49 mmol/l (22-30)
[2018-03-11 04:44] VITALS: BP 114/80
[2018-03-11 07:50] VITALS: BP 114/91
[2018-03-11 10:21] LABS: INTERNATIONAL NORMALIZED RATIO 1.5 RATIO (0.7-1.3); PROTHROMBIN TIME 16.4 SECONDS (9.0-12.5)
[2018-03-11 11:00] VITALS: BP 124/82
[2018-03-11 16:00] VITALS: BP 127/92
[2018-03-11 19:53] VITALS: BP 124/82
[2018-03-12] VITALS (7 sets, daily range): BP systolic 100–164; BP diastolic 63–96
[2018-03-12 06:01] LABS: HEMATOCRIT 38.7 % (39.0-50.0); HEMOGLOBIN 10.3 g/dl (14.0-18.0); IMMATURE GRANULOCYTES 0.4 % (0.0-5.0); MEAN CELL VOLUME 79.1 fL CALC (80.0-100.0); MEAN CORPUSCULAR HGB 21.1 pG CALC (26.0-32.0); MEAN CORPUSCULAR HGB CONC 26.6 g/L CALC (32.0-36.0); NEUT# 4.94 thou/uL (1.82-7.42); RED BLOOD COUNT 4.89 mill/uL (4.70-6.10)
[2018-03-12 06:13] LABS: ALBUMIN 3.6 g/dL (3.2-5.0); ALKALINE PHOSPHATASE 56 u/l (38-126); BILIRUBIN, TOTAL 0.8 mg/dL (0.0-1.4); BUN 20 mg/dL (9-20); BUN/CREATININE RATIO 20 (12-20 (CALC)); CHLORIDE 88 mmol/l (95-108); GFR > 60 ML/MIN (>=60 (CALC)); GFR FOR AFR.AMER. > 60 ML/MIN (>=60 (CALC)); MAGNESIUM 1.8 mg/dL (1.6-2.3); POTASSIUM 3.8 mmol/l (3.5-5.1); SGOT/AST 29 u/l (17-59); SGPT/ALT 26 u/l (21-72); SODIUM 141 mmol/l (137-146); TOTAL PROTEIN 7.2 g/dL (6.3-8.2)
[2018-03-12 06:19] LABS: ANION GAP 14 (6-22 (CALC))
[2018-03-12 06:23] LABS: CARBON DIOXIDE 43 mmol/l (22-30)
[2018-03-12 08:20] LABS: INTERNATIONAL NORMALIZED RATIO 1.3 RATIO (0.7-1.3); PROTHROMBIN TIME 14.6 SECONDS (9.0-12.5)
[2018-03-13 05:10] VITALS: BP 99/47
[2018-03-13 05:56] LABS: HEMATOCRIT 37.3 % (39.0-50.0); MEAN CELL VOLUME 79.7 fL CALC (80.0-100.0); MEAN CORPUSCULAR HGB 21.4 pG CALC (26.0-32.0); MEAN CORPUSCULAR HGB CONC 26.8 g/L CALC (32.0-36.0); RED BLOOD COUNT 4.68 mill/uL (4.70-6.10); RED CELL DISTRI WIDTH 20.8 % (11.5-15.5)
[2018-03-13 06:10] LABS: INTERNATIONAL NORMALIZED RATIO 1.2 RATIO (0.7-1.3); PROTHROMBIN TIME 13.9 SECONDS (9.0-12.5)
[2018-03-13 06:30] LABS: BUN 21 mg/dL (9-20); BUN/CREATININE RATIO 17 (12-20 (CALC)); CHLORIDE 90 mmol/l (95-108); CREATININE 1.3 mg/dL (0.7-1.3); GFR 60 ML/MIN (>=60 (CALC)); GFR FOR AFR.AMER. > 60 ML/MIN (>=60 (CALC)); MAGNESIUM 1.9 mg/dL (1.6-2.3); POTASSIUM 4.1 mmol/l (3.5-5.1); SODIUM 141 mmol/l (137-146)
[2018-03-13 06:42] LABS: ANION GAP 14 (6-22 (CALC)); CARBON DIOXIDE 41 mmol/l (22-30)
[2018-03-13 08:14] VITALS: BP 107/72
[2018-03-13 11:25] VITALS: BP 116/72
[2018-03-13 15:34] VITALS: BP 117/61
[2018-03-13 19:43] VITALS: BP 101/66
[2018-03-13 23:13] VITALS: BP 111/66
[2018-03-14 05:06] VITALS: BP 109/85
[2018-03-14 05:18] LABS: HEMATOCRIT 36.2 % (39.0-50.0); HEMOGLOBIN 9.9 g/dl (14.0-18.0); MEAN CELL VOLUME 79.4 fL CALC (80.0-100.0); MEAN CORPUSCULAR HGB 21.7 pG CALC (26.0-32.0); MEAN CORPUSCULAR HGB CONC 27.3 g/L CALC (32.0-36.0); RED BLOOD COUNT 4.56 mill/uL (4.70-6.10); RED CELL DISTRI WIDTH 20.6 % (11.5-15.5)
[2018-03-14 05:31] LABS: INTERNATIONAL NORMALIZED RATIO 1.3 RATIO (0.7-1.3); PROTHROMBIN TIME 14.2 SECONDS (9.0-12.5)
[2018-03-14 05:33] LABS: BUN 21 mg/dL (9-20); BUN/CREATININE RATIO 18 (12-20 (CALC)); CHLORIDE 91 mmol/l (95-108); CREATININE 1.1 mg/dL (0.7-1.3); GFR > 60 ML/MIN (>=60 (CALC)); GFR FOR AFR.AMER. > 60 ML/MIN (>=60 (CALC)); POTASSIUM 3.9 mmol/l (3.5-5.1); SODIUM 140 mmol/l (137-146)
[2018-03-14 05:40] LABS: ANION GAP 12 (6-22 (CALC))
[2018-03-14 06:05] LABS: CARBON DIOXIDE 41 mmol/l (22-30)
[2018-03-14 07:44] VITALS: BP 105/69
[2018-03-14 12:00] VITALS: BP 96/62
[2018-03-14 15:30] VITALS: BP 121/82
[2018-03-14 19:13] VITALS: BP 128/79
[2018-03-15] VITALS (7 sets, daily range): BP systolic 92–122; BP diastolic 57–84
[2018-03-15 05:25] LABS: HEMATOCRIT 38.2 % (39.0-50.0); HEMOGLOBIN 10.2 g/dl (14.0-18.0); MEAN CELL VOLUME 80.9 fL CALC (80.0-100.0); MEAN CORPUSCULAR HGB 21.6 pG CALC (26.0-32.0); MEAN CORPUSCULAR HGB CONC 26.7 g/L CALC (32.0-36.0); RED BLOOD COUNT 4.72 mill/uL (4.70-6.10); RED CELL DISTRI WIDTH 20.8 % (11.5-15.5)
[2018-03-15 05:48] LABS: INTERNATIONAL NORMALIZED RATIO 1.3 RATIO (0.7-1.3); PROTHROMBIN TIME 14.1 SECONDS (9.0-12.5)
[2018-03-15 05:53] LABS: BUN 22 mg/dL (9-20); BUN/CREATININE RATIO 19 (12-20 (CALC)); CHLORIDE 93 mmol/l (95-108); CREATININE 1.1 mg/dL (0.7-1.3); GFR > 60 ML/MIN (>=60 (CALC)); GFR FOR AFR.AMER. > 60 ML/MIN (>=60 (CALC)); POTASSIUM 4.6 mmol/l (3.5-5.1); SODIUM 141 mmol/l (137-146)
[2018-03-15 05:59] LABS: ANION GAP 17 (6-22 (CALC)); CARBON DIOXIDE 36 mmol/l (22-30)
[2018-03-16] VITALS (7 sets, daily range): BP systolic 106–125; BP diastolic 48–81
[2018-03-16 05:06] LABS: HEMATOCRIT 36.2 % (39.0-50.0); HEMOGLOBIN 9.8 g/dl (14.0-18.0)
[2018-03-16 05:22] LABS: INTERNATIONAL NORMALIZED RATIO 1.3 RATIO (0.7-1.3); PROTHROMBIN TIME 14.4 SECONDS (9.0-12.5)
[2018-03-16 05:33] LABS: BUN 23 mg/dL (9-20); BUN/CREATININE RATIO 19 (12-20 (CALC)); CHLORIDE 94 mmol/l (95-108); CREATININE 1.2 mg/dL (0.7-1.3); GFR > 60 ML/MIN (>=60 (CALC)); GFR FOR AFR.AMER. > 60 ML/MIN (>=60 (CALC)); POTASSIUM 4.2 mmol/l (3.5-5.1); SODIUM 142 mmol/l (137-146)
[2018-03-16 05:39] LABS: ANION GAP 11 (6-22 (CALC))
[2018-03-16 05:45] LABS: CARBON DIOXIDE 41 mmol/l (22-30)
[2018-03-17 04:19] VITALS: BP 103/79
[2018-03-17 04:48] LABS: HEMATOCRIT 37.2 % (39.0-50.0); HEMOGLOBIN 9.9 g/dl (14.0-18.0); IMMATURE GRANULOCYTES 0.5 % (0.0-5.0); MEAN CELL VOLUME 80.2 fL CALC (80.0-100.0); MEAN CORPUSCULAR HGB 21.3 pG CALC (26.0-32.0); MEAN CORPUSCULAR HGB CONC 26.6 g/L CALC (32.0-36.0); NEUT# 2.59 thou/uL (1.82-7.42); RED BLOOD COUNT 4.64 mill/uL (4.70-6.10); RED CELL DISTRI WIDTH 20.4 % (11.5-15.5)
[2018-03-17 05:13] LABS: INTERNATIONAL NORMALIZED RATIO 1.3 RATIO (0.7-1.3)
[2018-03-17 05:16] LABS: BUN 20 mg/dL (9-20); BUN/CREATININE RATIO 17 (12-20 (CALC)); CHLORIDE 93 mmol/l (95-108); CREATININE 1.2 mg/dL (0.7-1.3); GFR > 60 ML/MIN (>=60 (CALC)); GFR FOR AFR.AMER. > 60 ML/MIN (>=60 (CALC)); MAGNESIUM 1.9 mg/dL (1.6-2.3); POTASSIUM 4.2 mmol/l (3.5-5.1); SODIUM 140 mmol/l (137-146)
[2018-03-17 05:23] LABS: ANION GAP 14 (6-22 (CALC)); CARBON DIOXIDE 37 mmol/l (22-30)
[2018-03-17 07:17] VITALS: BP 112/75
[2018-03-17 11:55] VITALS: BP 145/92
[2018-03-17] MEDS ORDERED: BUMETANIDE1 MG PO (13:53)
[2018-03-17] MEDS ORDERED: ELIQUIS5 MG PO (13:54)
[2018-03-17 16:00] VITALS: BP 133/93
== END 2018-03-17 20:10 | disposition home or self-care (01) | DRG 291 ==
LOC: ED 08:51 → ED-I 11:03 → ED 11:49 → ICU 11:50 → MS2 03-05 09:37 → ICU 03-05 09:37 → MS2 03-10 11:50
PROVIDERS: Emergency Medicine; Nurse Practitioner Family; ADMIT Internal Medicine Nephrology; ATTEND Internal Medicine Nephrology
PROC: 0T9B70Z Drainage of Bladder with Drainage Device, Via Natural or Artificial Opening (ICD-10-PCS; principal; 2018-03-04)
PROC: 5A09357 Assistance with Respiratory Ventilation, Less than 24 Consecutive Hours, Continuous Positive Airway Pressure (ICD-10-PCS; 2018-03-04)
DX: I13.0 Hypertensive heart and chronic kidney disease with heart failure and stage 1 through stage 4 chronic kidney disease, or unspecified chronic kidney disease (principal); I50.23 Acute on chronic systolic (congestive) heart failure; J18.9 Pneumonia, unspecified organism; Z68.43 Body mass index [BMI] 50.0-59.9, adult; J96.11 Chronic respiratory failure with hypoxia; L97.829 Non-pressure chronic ulcer of other part of left lower leg with unspecified severity; L03.116 Cellulitis of left lower limb; L03.115 Cellulitis of right lower limb; I47.2 Ventricular tachycardia; L97.919 Non-pressure chronic ulcer of unspecified part of right lower leg with unspecified severity; E87.3 Alkalosis; N17.9 Acute kidney failure, unspecified; N18.9 Chronic kidney disease, unspecified; K56.41 Fecal impaction; I48.2 Chronic atrial fibrillation; I25.10 Atherosclerotic heart disease of native coronary artery without angina pectoris; G47.33 Obstructive sleep apnea (adult) (pediatric); E78.5 Hyperlipidemia, unspecified; E03.9 Hypothyroidism, unspecified; F79 Unspecified intellectual disabilities; M10.9 Gout, unspecified; T50.2X5A Adverse effect of carbonic-anhydrase inhibitors, benzothiadiazides and other diuretics, initial encounter; E66.01 Morbid (severe) obesity due to excess calories; D64.9 Anemia, unspecified; I89.0 Lymphedema, not elsewhere classified; R79.1 Abnormal coagulation profile; Z91.14 Patient's other noncompliance with medication regimen; Z95.3 Presence of xenogenic heart valve; Z95.1 Presence of aortocoronary bypass graft; Z79.01 Long term (current) use of anticoagulants
CPT/HCPCS: J0282; J1650

== ENCOUNTER 2018-08-12 18:28 | Inpatient (IN) | payer MEDICAID ==
[~2018-08-12] VITALS: Ht 177.8 cm; Wt 125.7 kg
[~2018-08-12 18:28] MED LIST changes: +BUMETANIDE1 MG PO; +ELIQUIS5 MG PO
[2018-08-12 19:18] LABS: HEMOGLOBIN 9.6 g/dl (14.0-18.0); IMMATURE GRANULOCYTES 0.5 % (0.0-5.0); MEAN CELL VOLUME 84.8 fL CALC (80.0-100.0); MEAN CORPUSCULAR HGB 26.4 pG CALC (26.0-32.0); MEAN CORPUSCULAR HGB CONC 31.2 g/L CALC (32.0-36.0); NEUT# 4.25 thou/uL (1.82-7.42); RED BLOOD COUNT 3.63 mill/uL (4.70-6.10); RED CELL DISTRI WIDTH 13.9 % (11.5-15.5)
[2018-08-12 19:27] LABS: HEMATOCRIT 30.8 % (39.0-50.0)
[2018-08-12 19:36] LABS: BILIRUBIN, TOTAL 0.6 mg/dL (0.0-1.4); TOTAL PROTEIN 8.6 g/dL (6.3-8.2)
[2018-08-12 19:48] LABS: ALBUMIN 4.6 g/dL (3.2-5.0); CREATININE 4.2 mg/dL (0.7-1.3)
[2018-08-12 20:07] LABS: URINE BILIRUBIN - DIPSTICK NEGATIVE (NEGATIVE); URINE BLOOD DIPSTICK NEGATIVE (NEGATIVE); URINE COLOR YELLOW; URINE GLUCOSE - DIPSTICK NEGATIVE (NEGATIVE); URINE KETONE NEGATIVE (NEGATIVE); URINE LEUK ESTERASE TRACE (NEGATIVE); URINE NITRITE - DIPSTICK NEGATIVE (Negative); URINE PH 5.5 (4.5-8.0); URINE PROTEIN - DIPSTICK NEGATIVE (NEG-TRACE); URINE UROBILINOGEN - DIPSTICK 0.2 E.U./dL (0.2)
[2018-08-12 21:15] VITALS: BP 108/48
[2018-08-13 00:10] VITALS: BP 86/48
[2018-08-13 04:25] VITALS: BP 102/64
[2018-08-13 08:49] VITALS: BP 90/53
[2018-08-13 11:55] VITALS: BP 105/64
[2018-08-13] MEDS ORDERED: BUMETANIDE1 MG PO (14:18)
[2018-08-13] MEDS ORDERED: DIGOXIN0.125 MG PO (14:20)
[2018-08-13] MEDS ORDERED: DILTIAZEM CD180 MG PO (14:24)
[2018-08-13] MEDS ORDERED: ELIQUIS5 MG PO (14:26)
[2018-08-13] MEDS ORDERED: FUROSEMIDE40 MG PO (14:28)
[2018-08-13] MEDS ORDERED: LEVOTHYROXIN125 MC1 PO (14:30)
[2018-08-13] MEDS ORDERED: LISINOPRIL20 M1 PO (14:31)
[2018-08-13] MEDS ORDERED: LOVASTATIN40 M1 PO (14:33)
[2018-08-13] MEDS ORDERED: TOPROL XL PO (14:36)
[2018-08-13] MEDS ORDERED: PANTOPRAZOLE SO40 M1 PO (14:37)
[2018-08-13] MEDS ORDERED: POT CHLORIDE20 ME3 PO (14:39)
[2018-08-13] MEDS ORDERED: SPIRONOLACTONE25 MG PO (14:40)
[2018-08-13] MEDS ORDERED: ULTRAM50 M1 PO (14:41)
[2018-08-13 15:45] VITALS: BP 127/70
[2018-08-13 19:26] VITALS: BP 113/61
[2018-08-14] VITALS (7 sets, daily range): BP systolic 88–126; BP diastolic 48–69
[2018-08-14 06:16] LABS: HEMATOCRIT 28.4 % (39.0-50.0); HEMOGLOBIN 8.7 g/dl (14.0-18.0); IMMATURE GRANULOCYTES 0.5 % (0.0-5.0); MEAN CELL VOLUME 85.8 fL CALC (80.0-100.0); MEAN CORPUSCULAR HGB 26.3 pG CALC (26.0-32.0); MEAN CORPUSCULAR HGB CONC 30.6 g/L CALC (32.0-36.0); NEUT# 2.96 thou/uL (1.82-7.42); RED BLOOD COUNT 3.31 mill/uL (4.70-6.10); RED CELL DISTRI WIDTH 13.8 % (11.5-15.5)
[2018-08-14 06:27] LABS: ALBUMIN 3.9 g/dL (3.2-5.0); BILIRUBIN, TOTAL 1.9 mg/dL (0.0-1.4); TOTAL PROTEIN 7.2 g/dL (6.3-8.2)
[2018-08-14 06:31] LABS: CREATININE 2.6 mg/dL (0.7-1.3); MAGNESIUM 1.4 mg/dL (1.6-2.3)
[2018-08-15] VITALS (8 sets, daily range): BP systolic 120–154; BP diastolic 65–95
[2018-08-15 05:34] LABS: HEMATOCRIT 29.5 % (39.0-50.0); HEMOGLOBIN 9.3 g/dl (14.0-18.0); IMMATURE GRANULOCYTES 0.4 % (0.0-5.0); MEAN CELL VOLUME 85.3 fL CALC (80.0-100.0); MEAN CORPUSCULAR HGB 26.9 pG CALC (26.0-32.0); MEAN CORPUSCULAR HGB CONC 31.5 g/L CALC (32.0-36.0); NEUT# 5.42 thou/uL (1.82-7.42); RED BLOOD COUNT 3.46 mill/uL (4.70-6.10); RED CELL DISTRI WIDTH 13.9 % (11.5-15.5)
[2018-08-15 05:49] LABS: ALBUMIN 4.1 g/dL (3.2-5.0); BILIRUBIN, TOTAL 1.3 mg/dL (0.0-1.4); CREATININE 2.5 mg/dL (0.7-1.3); MAGNESIUM 1.3 mg/dL (1.6-2.3); POTASSIUM 5.1 mmol/l (3.5-5.1); TOTAL PROTEIN 7.6 g/dL (6.3-8.2)
[2018-08-16 04:10] VITALS: BP 138/82
[2018-08-16 08:58] VITALS: BP 142/97
[2018-08-16 11:38] VITALS: BP 141/88
[2018-08-16 12:51] LABS: HEMOGLOBIN 9.8 g/dl (14.0-18.0); IMMATURE GRANULOCYTES 0.9 % (0.0-5.0); MEAN CELL VOLUME 84.9 fL CALC (80.0-100.0); MEAN CORPUSCULAR HGB CONC 30.6 g/L CALC (32.0-36.0); NEUT# 8.65 thou/uL (1.82-7.42); RED BLOOD COUNT 3.77 mill/uL (4.70-6.10); RED CELL DISTRI WIDTH 13.7 % (11.5-15.5)
[2018-08-16 13:12] LABS: CREATININE 2.1 mg/dL (0.7-1.3); POTASSIUM 4.7 mmol/l (3.5-5.1)
[2018-08-16 15:59] VITALS: BP 147/95
[2018-08-16 19:23] VITALS: BP 137/82
[2018-08-16 23:45] VITALS: BP 119/74
[2018-08-17] VITALS (7 sets, daily range): BP systolic 92–111; BP diastolic 65–78
[2018-08-17 05:15] LABS: HEMATOCRIT 31.1 % (39.0-50.0); HEMOGLOBIN 9.8 g/dl (14.0-18.0); IMMATURE GRANULOCYTES 1.3 % (0.0-5.0); MEAN CELL VOLUME 85.7 fL CALC (80.0-100.0); MEAN CORPUSCULAR HGB CONC 31.5 g/L CALC (32.0-36.0); NEUT# 9.57 thou/uL (1.82-7.42); RED BLOOD COUNT 3.63 mill/uL (4.70-6.10); RED CELL DISTRI WIDTH 13.5 % (11.5-15.5)
[2018-08-17 05:34] LABS: ALBUMIN 3.9 g/dL (3.2-5.0); BILIRUBIN, TOTAL 1.1 mg/dL (0.0-1.4); MAGNESIUM 1.4 mg/dL (1.6-2.3); POTASSIUM 4.6 mmol/l (3.5-5.1); TOTAL PROTEIN 7.6 g/dL (6.3-8.2)
[2018-08-18] VITALS (7 sets, daily range): BP systolic 92–108; BP diastolic 59–71
[2018-08-18 05:23] LABS: HEMATOCRIT 30.3 % (39.0-50.0); HEMOGLOBIN 9.3 g/dl (14.0-18.0); IMMATURE GRANULOCYTES 0.7 % (0.0-5.0); MEAN CELL VOLUME 87.6 fL CALC (80.0-100.0); MEAN CORPUSCULAR HGB 26.9 pG CALC (26.0-32.0); MEAN CORPUSCULAR HGB CONC 30.7 g/L CALC (32.0-36.0); NEUT# 8.74 thou/uL (1.82-7.42); RED BLOOD COUNT 3.46 mill/uL (4.70-6.10); RED CELL DISTRI WIDTH 13.5 % (11.5-15.5)
[2018-08-18 05:38] LABS: ALBUMIN 3.8 g/dL (3.2-5.0); BILIRUBIN, TOTAL 0.8 mg/dL (0.0-1.4); MAGNESIUM 1.5 mg/dL (1.6-2.3); POTASSIUM 4.6 mmol/l (3.5-5.1); TOTAL PROTEIN 7.6 g/dL (6.3-8.2)
[2018-08-19 00:33] VITALS: BP 101/57
[2018-08-19 04:25] VITALS: BP 97/55
[2018-08-19 05:38] LABS: ALBUMIN 3.5 g/dL (3.2-5.0); POTASSIUM 4.2 mmol/l (3.5-5.1)
[2018-08-19 08:27] VITALS: BP 90/57
[2018-08-19 12:00] VITALS: BP 91/51
[2018-08-19 16:00] VITALS: BP 97/72
[2018-08-19 19:16] VITALS: BP 112/81
[2018-08-20] VITALS: BP 125/86
[2018-08-20 04:00] VITALS: BP 106/70
[2018-08-20 05:08] LABS: ALBUMIN 3.8 g/dL (3.2-5.0); CREATININE 1.9 mg/dL (0.7-1.3); POTASSIUM 4.3 mmol/l (3.5-5.1)
[2018-08-20 08:01] VITALS: BP 100/63
[2018-08-20 11:55] VITALS: BP 107/65
[2018-08-20 15:41] VITALS: BP 111/91
[2018-08-20 19:06] VITALS: BP 115/67
[2018-08-21 00:12] VITALS: BP 94/64
[2018-08-21 04:30] VITALS: BP 105/67
[2018-08-21 08:02] LABS: HEMATOCRIT 28.6 % (39.0-50.0); HEMOGLOBIN 8.7 g/dl (14.0-18.0); IMMATURE GRANULOCYTES 1.4 % (0.0-5.0); MEAN CELL VOLUME 86.9 fL CALC (80.0-100.0); MEAN CORPUSCULAR HGB 26.4 pG CALC (26.0-32.0); MEAN CORPUSCULAR HGB CONC 30.4 g/L CALC (32.0-36.0); NEUT# 8.05 thou/uL (1.82-7.42); RED BLOOD COUNT 3.29 mill/uL (4.70-6.10); RED CELL DISTRI WIDTH 13.3 % (11.5-15.5)
[2018-08-21 08:30] VITALS: BP 107/72
[2018-08-21 08:33] VITALS: BP 107/72
[2018-08-21 10:04] LABS: ALBUMIN 3.7 g/dL (3.2-5.0); ALKALINE PHOSPHATASE 102 u/l (38-126); ANION GAP 16 (6-22 (CALC)); BILIRUBIN, TOTAL 0.6 mg/dL (0.0-1.4); BUN 34 mg/dL (9-20); BUN/CREATININE RATIO 23 (12-20 (CALC)); CARBON DIOXIDE 29 mmol/l (22-30); CHLORIDE 97 mmol/l (95-108); CREATININE 1.5 mg/dL (0.7-1.3); GFR 51 ML/MIN (>=60 (CALC)); GFR FOR AFR.AMER. > 60 ML/MIN (>=60 (CALC)); POTASSIUM 4.5 mmol/l (3.5-5.1); SODIUM 137 mmol/l (137-146); TOTAL PROTEIN 7.4 g/dL (6.3-8.2)
[2018-08-21 10:21] LABS: SGOT/AST 64 u/l (17-59)
== END 2018-08-21 10:16 | disposition short-term general hospital (02) | DRG 291 ==
LOC: ED 18:28 → ED-I 20:13 → ED 20:48 → MS2 20:49
PROVIDERS: Emergency Medicine; Internal Medicine Nephrology; ADMIT Internal Medicine; ATTEND Internal Medicine
DX: I13.0 Hypertensive heart and chronic kidney disease with heart failure and stage 1 through stage 4 chronic kidney disease, or unspecified chronic kidney disease (principal); J18.9 Pneumonia, unspecified organism; I50.23 Acute on chronic systolic (congestive) heart failure; Z68.41 Body mass index [BMI] 40.0-44.9, adult; J44.1 Chronic obstructive pulmonary disease with (acute) exacerbation; J44.0 Chronic obstructive pulmonary disease with (acute) lower respiratory infection; N17.9 Acute kidney failure, unspecified; J96.12 Chronic respiratory failure with hypercapnia; N18.3 Chronic kidney disease, stage 3 (moderate); I25.10 Atherosclerotic heart disease of native coronary artery without angina pectoris; F79 Unspecified intellectual disabilities; I48.2 Chronic atrial fibrillation; G47.33 Obstructive sleep apnea (adult) (pediatric); E78.5 Hyperlipidemia, unspecified; E03.9 Hypothyroidism, unspecified; M10.9 Gout, unspecified; E66.01 Morbid (severe) obesity due to excess calories; D63.8 Anemia in other chronic diseases classified elsewhere; T44.5X5A Adverse effect of predominantly beta-adrenoreceptor agonists, initial encounter; E87.5 Hyperkalemia; T50.0X5A Adverse effect of mineralocorticoids and their antagonists, initial encounter; E83.42 Hypomagnesemia; E79.0 Hyperuricemia without signs of inflammatory arthritis and tophaceous disease; Y95 Nosocomial condition; Z95.1 Presence of aortocoronary bypass graft; Z95.5 Presence of coronary angioplasty implant and graft; Z79.01 Long term (current) use of anticoagulants; Z95.3 Presence of xenogenic heart valve; Z23 Encounter for immunization
CPT/HCPCS: J0885; J1756

== ENCOUNTER 2018-09-01 17:30 | Inpatient (IN) | payer MEDICAID ==
[~2018-09-01] VITALS: Ht 177.8 cm; Wt 114.5 kg
[~2018-09-01 17:30] MED LIST changes: +DIGOXIN0.125 MG PO; +DILTIAZEM CD180 MG PO; +LEVOTHYROXIN125 MC1 PO; +LOVASTATIN40 M1 PO; +PANTOPRAZOLE SO40 M1 PO; +POT CHLORIDE20 ME3 PO; +SPIRONOLACTONE25 MG PO; +TOPROL XL PO
[2018-09-01 18:00] VITALS: BP 131/73
--- NOTE | 2018-09-01 19:00 | NUR ---
Received report from nurse Sherri, res arrived via [facility] at 1750 at room transported via stretcher. Patient alert oriented, able to make needs known, on O2 at 2lpm via nc continuous, with single lumen PICC line on JEANNINE, last BM patient stated was today 09/01/18, skin intact, trace of edema on BLE, will continue to monitor.
--- NOTE | 2018-09-01 21:35 | NUR ---
Called dr. pearce about patient last IV antibiotic was given 09/01/18 at [place], and made aware the pt has no TELE at this time, and said will see pt tomorrow.
--- NOTE | 2018-09-02 00:59 | NUR ---
Patient resting in bed, eyes closed remains on o2 at 2lpm, with even unlabored breathing call light within reach
[2018-09-02 04:00] VITALS: BP 126/64
--- NOTE | 2018-09-02 04:44 | NUR ---
Patient resting in bed, denies pain or discomforts at this time, JEANNINE circumference ar 36cm, PICC line flushed with heparin post blood draw, call light at reach
[2018-09-02 05:07] LABS: HEMATOCRIT 29.3 % (39.0-50.0); HEMOGLOBIN 9.2 g/dl (14.0-18.0); IMMATURE GRANULOCYTES 1.1 % (0.0-5.0); MEAN CELL VOLUME 85.7 fL CALC (80.0-100.0); MEAN CORPUSCULAR HGB 26.9 pG CALC (26.0-32.0); MEAN CORPUSCULAR HGB CONC 31.4 g/L CALC (32.0-36.0); NEUT# 6.4 thou/uL (1.82-7.42); RED BLOOD COUNT 3.42 mill/uL (4.70-6.10); RED CELL DISTRI WIDTH 13.7 % (11.5-15.5)
[2018-09-02 05:33] LABS: ALBUMIN 3.7 g/dL (3.2-5.0); ALKALINE PHOSPHATASE 94 u/l (38-126); AMYLASE 125 u/l (30-110); ANION GAP 14 (6-22 (CALC)); BILIRUBIN, TOTAL 0.5 mg/dL (0.0-1.4); BUN 26 mg/dL (9-20); BUN/CREATININE RATIO 22 (12-20 (CALC)); CARBON DIOXIDE 31 mmol/l (22-30); CHLORIDE 97 mmol/l (95-108); CREATININE 1.2 mg/dL (0.7-1.3); GFR > 60 ML/MIN (>=60 (CALC)); GFR FOR AFR.AMER. > 60 ML/MIN (>=60 (CALC)); LIPASE 125 u/l (23-300); MAGNESIUM 1.7 mg/dL (1.6-2.3); POTASSIUM 4.9 mmol/l (3.5-5.1); SGOT/AST 30 u/l (17-59); SODIUM 137 mmol/l (137-146); TOTAL PROTEIN 7.5 g/dL (6.3-8.2)
--- NOTE | 2018-09-02 07:15 | NUR ---
pt report recieved from britt taylor. pt sleeping. no s/s of distress. call light in reach. will continue to monitor.
[2018-09-02 09:24] VITALS: BP 143/87
--- NOTE | 2018-09-02 09:24 | NUR ---
PT A/O X3. SPEECH IS CLEAR. RESP EVEN AND UNLABORED. LUNG SOUNDS CLEAR. BOWEL SOUNDS ACTIVE X4. STRONG RADIAL AND PEDAL PULSES. PICC KANWAL SL. FLUSHED AND PATENT. SITE APPEARS HEALTHY. PT HAS SOME SCALING TO BLE. TRACE OF EDEMA TO RT HAND AND BLE. ENCOURAGED ELEVATION ON PILLOW. PT C/O GENERALIZED PAIN. MEDICATED W/ 50MG ULTRAM PO. REPOSITIONED FOR COMFORT. PT DENIES ANY FURTHER NEEDS. POC DISCUSSED. SAFETY PRECAUTIONS IN PLACE. CALL LIGHT IN REACH. WILL CONTINUE TO MONITOR.
--- NOTE | 2018-09-02 12:28 | NUR ---
PT SITTING IN BED WATCHING TELEVISION. NO C/O PAIN OR NEEDS. O2@2L ON PT. CALL LIGHT IN REACH. WILL CONTINUE TO MONITOR.
--- NOTE | 2018-09-02 15:58 | NUR ---
PT WATCHING TELEVISION. NO C/O PAIN OR NEEDS. CALL LIGHT IN REACH. WILL CONTINUE TO MONITOR.
[2018-09-02 16:00] VITALS: BP 103/59
[2018-09-02 19:00] VITALS: BP 99/59
--- NOTE | 2018-09-02 19:19 | NUR ---
RECEIVED REPORT FROM NURSE PILY, PATIENT RESTING IN BED, EYES CLOSED NO DISCOMFORTS N OTED AT THIS TIME, EVEN UNLABOPRED BREATHING CALL LIGHT AT REACH.
--- NOTE | 2018-09-02 20:00 | NUR ---
PATIENT ALERT AND ORIENTED ABLE TO MAKE NEEDS KNOWN, ON O2 AT 2LPM, EVEN UNLABORED BREATHING, SINGLE LUMEN PICC ON KANWAL PATENT FLUSHES WELL, USES URINAL TO VOID, CALL LIGHT AT REACH
--- NOTE | 2018-09-03 00:10 | NUR ---
PATIENT RESTING IN BED, EYES CLOSED NO DISCOMFORTS NOTED AT THIS, EVEN UNLABORED BREATHING CALL LIGHT WITHIN REACH
[2018-09-03 00:13] VITALS: BP 108/60
[2018-09-03 04:16] VITALS: BP 100/55
[2018-09-03 04:42] LABS: HEMATOCRIT 30.4 % (39.0-50.0); HEMOGLOBIN 9.3 g/dl (14.0-18.0); IMMATURE GRANULOCYTES 0.7 % (0.0-5.0); MEAN CELL VOLUME 86.4 fL CALC (80.0-100.0); MEAN CORPUSCULAR HGB 26.4 pG CALC (26.0-32.0); MEAN CORPUSCULAR HGB CONC 30.6 g/L CALC (32.0-36.0); NEUT# 4.13 thou/uL (1.82-7.42); RED BLOOD COUNT 3.52 mill/uL (4.70-6.10); RED CELL DISTRI WIDTH 13.8 % (11.5-15.5)
[2018-09-03 05:09] LABS: ALBUMIN 3.6 g/dL (3.2-5.0); ALKALINE PHOSPHATASE 85 u/l (38-126); AMYLASE 140 u/l (30-110); ANION GAP 13 (6-22 (CALC)); BILIRUBIN, TOTAL 0.5 mg/dL (0.0-1.4); BUN 28 mg/dL (9-20); BUN/CREATININE RATIO 22 (12-20 (CALC)); CARBON DIOXIDE 32 mmol/l (22-30); CHLORIDE 97 mmol/l (95-108); CREATININE 1.2 mg/dL (0.7-1.3); GFR > 60 ML/MIN (>=60 (CALC)); GFR FOR AFR.AMER. > 60 ML/MIN (>=60 (CALC)); LIPASE 193 u/l (23-300); MAGNESIUM 1.7 mg/dL (1.6-2.3); POTASSIUM 4.6 mmol/l (3.5-5.1); SGOT/AST 31 u/l (17-59); SODIUM 137 mmol/l (137-146); TOTAL PROTEIN 7.2 g/dL (6.3-8.2)
--- NOTE | 2018-09-03 05:15 | NUR ---
PATIENT ALERT AND ORIENTED, ABLE TO MAKE NEEDS KNOWN, DUE LAB THIS MORNING DRAWN THRU THE PICC LINE, FLUSHED WITH SALINE AND HEPARIN, DENIES PAIN OR DISCOMFORT REMAINS ON O2 AT 2LPM, EVEN UNLABPORED BREATHING CALL LIGHT AT REACH.
--- NOTE | 2018-09-03 05:18 | NUR ---
ARM CIRCUMFERANCE ON LEFT ARM MEASURED AT THIS TIME, AT 35.5CM.
[2018-09-03 10:02] VITALS: BP 112/65
--- NOTE | 2018-09-03 10:21 | NUR ---
PT SITTING UP IN BED WATCHING TV; RESP EVEN AND UNLABORED ON 02@2L NC; PICC FLUSHED WITHOUT DIFFICULTY; SITE APPEARS HEALTHY; C/O OF GENERALIZED PAIN 03/03, MEDICATED WITH ULTRAM; AM MEDS ADMINISTERED; URINAL AT BEDSIDE; CALL LANE IN REACH AND SAFETY PRECAUTION REINFORCE;
--- NOTE | 2018-09-03 11:42 | NUR ---
PT HAD A BATH, SITTING UP IN BED WATCHING TV; RESP EVEN AND UNLABORED; VOIDED 200CC CLEAR, BERNY URINE; CALL LANE IN REACH;
--- NOTE | 2018-09-03 15:41 | NUR ---
PT WATCHING TV IN BED, HOB ELEVATED; RESP EVEN AND UNLABORED; ARM AND LEG REPOSITION FOR COMFORT; FAMILY MEMBER AT BEDSIDE; CALL LANE IN REACH.
[2018-09-03 15:49] VITALS: BP 125/59
--- NOTE | 2018-09-03 19:00 | NUR ---
REPORT FROM JI BO. PT NOTED TO BED RESTING IN BED WITH EYES OPEN WATCHING TV. PT RESPIRATIONS EVEN AND UNLABORED. ON 02 2L/M VIA NC. PT DENIES ANY PAIN OR DISCOMFORT. SINGLE LUMEN PICC CDI AND FLUSHED WITH BRISK BLOOD RETURN. CALL LIGHT WITHIN REACH. WILL CONTINUE TO MONITOR.
[2018-09-03 19:41] VITALS: BP 108/64
--- NOTE | 2018-09-03 20:27 | NUR ---
PT MEDICATED FOR PAIN AND ASSISTED WITH REPOSITIONING IN BED AT THIS TIME. PLACED PILLOW UNDER LEGS TO OFFLOAD HEALS. CALL LIGHT WITHIN REACH. WILL CONTINUE TO MONITOR.
--- NOTE | 2018-09-04 02:35 | NUR ---
EMPTIED URINAL AT THIS TIME. CLEAR YELLOW URINE NOTED. PLACED PHONE ON COLLECTIONS REPRESENTATIVE UPON REQUEST. PT HAS NO OTHER WANTS OR NEEDS AT THIS TIME. NO S/S OF DISTRESS NOTED. CALL LIGHT WITHIN REACH. WILL CONTINUE TO MONITOR.
[2018-09-04 04:23] VITALS: BP 109/58
--- NOTE | 2018-09-04 06:47 | NUR ---
PT RESTING IN BED WITH EYES CLOSED. EASILY AROUSED. PT TOOK MORNING MEDS. CALL LIGHT WITHIN REACH.
[2018-09-04 07:36] VITALS: BP 115/68
--- NOTE | 2018-09-04 07:45 | NUR ---
REPORT RECEIVED FROM ANUPAM DE LEON. PT SITTING UPRIGHT IN BED. REPORTS MODERATE GENERALIZED PAIN ALL OVER. ULTRAM PO ADMINISTERED. PLAN OF CARE DISCUSSED. FALL PRECAUTIONS REINFORCED. CALL LIGHT REVIEWED AND IN REACH. PT STATES UNDERSTANDING.
--- NOTE | 2018-09-04 08:56 | NUR ---
OCCUPATIONAL THERAPY IN TO SEE PT.
--- NOTE | 2018-09-04 13:30 | NUR ---
DR. ARRIAZA IN TO SEE PT. PLAN OF CARE UPDATED. AWAITING BED AT REHAB.
--- NOTE | 2018-09-04 16:10 | NUR ---
Patient found resting in bed, O2 sats at 95% with O2 at 2L. Explained treatment plan and patient in agreement to participate in functional activtity for transfer training, gait belt applied prior to. Supine to sit with mod. assist x1. Good static sitting balance is noted. Sit to stand to RW done with mod. assist x 2 and continual verbal encouragement for UE push off from bed. In standing patient was able to side step x5 steps with RW and CGA/ minimal assist x2. Stand to sit done a second time and maintained less than 10 seconds. Sit to supine done with mod. assist x1 for bringing LE's up to bed. HOB elevated, pillows used to elevate R UE. O2 sats maintained above 90% throughout treatment. Patient left resting comfortably in bed. No questions or concerns.
[2018-09-04] MEDS ORDERED: CUBICIN500 MG IV (16:12)
[2018-09-04 16:15] VITALS: BP 109/56
--- NOTE | 2018-09-04 17:41 | NUR ---
PT SITTING UPRIGHT IN BED. REFUSING DRESSING CHANGE TO KANWAL PICC LINE AT THIS TIME. STATES "MAYBE ILL LET YOU DO IT LATER, MAYBE I WONT." COMPLIANCE W/ STANDARDS ENOURAGED.
--- NOTE | 2018-09-04 19:10 | NUR ---
REPORT FROM JOSE. PT RESTING IN BED WITH EYES CLOSED. RESPIRATIONS EVEN AND UNLABORED. 02 @ 2L/M VIA NC. NO S/S OF DISTRESS NOTED. CALL LIGHT WITHIN REACH. WILL CONTINUE TO MONITOR.
[2018-09-04 19:33] VITALS: BP 110/74
--- NOTE | 2018-09-04 21:00 | NUR ---
PT MEDICATED FOR GENERALIZED PAIN 04/02. ATTEMPTED TO REPOSITION PT AT THIS TIME. PT REFUSED. CALL LIGHT WITHIN REACH. WILL CONTINUE TO MONITOR.
--- NOTE | 2018-09-05 00:15 | NUR ---
PICC site itself clean and dry. PICC dressing changed with clear occlusive dressing applied. PICC dressing clean, dry and intact. No edema, no redness. Flushes easily. Good blood return.
[2018-09-05 03:56] VITALS: BP 111/57
--- NOTE | 2018-09-05 04:27 | NUR ---
PT RESTING IN BED WITH EYES CLOSED. RESPIRATIONS EVEN AND UNLABORED. CALL LIGHT WITHIN REACH. WILL CONTINUE TO MONITOR.
[2018-09-05 08:41] VITALS: BP 96/61
--- NOTE | 2018-09-05 08:46 | NUR ---
PT SITTING UP IN BED WATCHING TV; RESP EVEN AND UNLABORED; AM MEDS ADMINISTERED; PICC FLUSHED WITHOUT DIFFICULTY; SITE APPEARS HEALTHY; 02@2L NC; EMPTIED 300CC URINE FROM URINAL; CALL LANE IN REACH; SAFETY PRECAUTION REINFORCE;
--- NOTE | 2018-09-05 09:04 | NUR ---
ABOUT TO EXIT ROOM PT SATATED HE HAS PAIN 8/10, REQ PAIN MED.
--- NOTE | 2018-09-05 10:52 | NUR ---
Patient resting in bed upon entering room. Therepeutic activities was focus of therapy, transfer training. Patient agreed to participate in therapy. Supine to sit (Mod. A) x1, patient had good static sitting balance, VC for patient to lift head up. Sit to stand (Mod. A) x1 VC for correct hand placement as he pushes to stand. Patient had good standing static balance x30 sec. Patient side stepped five steps with (Min A) x 1. Stand to sit (Mod. A) x 1, VC for correct handplacemrnt as he descends to a seated positon. Sit to supine (Min.A) x 1 for LE up over bed side. Patient head elevated, pillow under right arm for comfort, tray table and call light by patient bedside. Patient O2 stats stayed above 90% throughout treatment.
--- NOTE | 2018-09-05 10:58 | NUR ---
PT SITTING UP IN BED WATCHING TV; RESP EVEN AND UNLABORED; VOICE NO CONCERNS; CALL LANE AND URINAL IN REACH.
[2018-09-05 11:15] VITALS: BP 112/63
[2018-09-05 15:30] VITALS: BP 119/62
--- NOTE | 2018-09-05 15:38 | NUR ---
PT SITTING UP IN BED, APPEARS TO BE SLEEPING; RESP EVEN AND UNLABORED; URINAL AT BEDSIDE; CALL LANE IN REACH. WILL CONTINUE TO MONITOR.
--- NOTE | 2018-09-05 19:10 | NUR ---
REPORT RECEIVED FROM ANUPAM WORKMAN. PT RESTING IN BED WATCHING TV. NO SIGNS OR SYMPTOMS OF DISTRESS. SAFETY PRECAUTIONS IN PLACE. WILL CONTINUE TO MONITOR.
[2018-09-05 19:26] VITALS: BP 117/60
--- NOTE | 2018-09-05 21:15 | NUR ---
PT RESTING IN BED WATCHING TV. ALERT AND ORIENTED. PT REPORTS PAIN OF AN 8 OUT 10 ON THE PAIN SCALE, PT MEDICATED PER EMAR ORDERS. RESPIRATRIONS EVEN AND UNLABORED. SAFETY PRECAUTIONS IN PLACE, WILL CONTINUE TO MONITOR.
--- NOTE | 2018-09-06 01:30 | NUR ---
PT RESTING IN BED WITH EYES CLOSED. NO SIGNS OR SYMPTOMS OF DISTRESS AT THIS TIME. SAFETY PRECAUTIONS IN PLACE. WILL CONTINUE TO MONITOR.
--- NOTE | 2018-09-06 04:37 | NUR ---
PT RESTING IN BED WITH EYES CLOSED. NO SIGNS OR SYMPTOMS OF DISTRESS. SAFETY PRECAUTIONS IN PLACE. WILL CONTINUE TO MONITOR.
[2018-09-06 05:09] VITALS: BP 113/53
--- NOTE | 2018-09-06 07:26 | NUR ---
REPORT RECEIVED FROM DAFNE; PT APPEARS TO BE SLEEPING WITH EYES CLOSED; URINAL AND CALL LANE AT BED SIDE.
[2018-09-06 08:06] VITALS: BP 110/70
--- NOTE | 2018-09-06 08:20 | NUR ---
ASSESSMENT COMPLETED; SITTING UP IN BED WATCHING TV AND EATING BREAKFAST; RESP EVEN AND UNLABORED ON 02@2L NC; PICC FLUSHED WITHOUT DIFFICULTY, GOOD ASPIRATE NOTED; C/O PAIN 10; MEDICATED PER EMAR; VIATLS OBTAINED HR 57, B/P 110/70; HELD DILTIAZEM, DIGOXIN, METOPROLOL, LISINOPRIL FOR NOW; WILL CONTINUE TO MONITOR VITALS; CALL LANE AND URINAL IN REACH; WILL CONTINUE TO MONITOR.
[2018-09-06 10:48] VITALS: BP 121/63
--- NOTE | 2018-09-06 10:53 | NUR ---
VITALS RECHECKED HR 66, B/P 121/63, DILTIAZEM, DIGOXIN, LISINOPRIL GIVEN AT THIS TIME. VOIDED 300CC CLEAR, YELLOW URINE; CALL LANE IN REACH
[2018-09-06 15:51] VITALS: BP 107/60
--- NOTE | 2018-09-06 16:33 | NUR ---
PT SITTING UP IN BED WATCHING TV; REMOVED 02 PER SHAYNE CARRIZALES; CUBICIN INFUSING WITHOUT DIFFICULTY; MEDICATED WITH ULTRAM FOR PAIN 03/03; PT MAKE AWARE OF SITTING UP IN RECLINER FOR MEALS; IS PROVIDED, PT DEMONSTRATE CORRECT USE; 02@ 98% ON R/A; CALL LANE AND URINAL IN REACH.
--- NOTE | 2018-09-06 17:35 | NUR ---
PT ASSISTED TO RECLINER WITH 3X ASSIST; LEGS AND ARMS ELEVATED; TOLERATED WELL; 02 @98% ON ROOM AIR; CALL LANE AND URINAL IN REACH.
[2018-09-06 20:26] VITALS: BP 115/79
--- NOTE | 2018-09-06 23:07 | NUR ---
@2000 Patient resting sitting up in chair. No complaints of pain. V/S wnl. Breath sounds clear. Abdomen soft with active bowel sounds. LUE SL PICC. dressing dry and intact. Flushes with blood return noted. no S&S of distress. Patient wants assistance to get back in bed. Will continue to monitor patient progress.
--- NOTE | 2018-09-07 00:33 | NUR ---
Patient asleep. No S&S of distress. No change in previous assessment. Will continue to monitor patient progres.
[2018-09-07 04:06] VITALS: BP 115/68
--- NOTE | 2018-09-07 04:21 | NUR ---
Patient resting in bed. No complaints of pain. Labs drawn. No S&S of distress. Will continue to monitor patient progress. No change from previous assessment.
[2018-09-07 05:47] LABS: HEMOGLOBIN 9.3 g/dl (14.0-18.0); MEAN CELL VOLUME 85.2 fL CALC (80.0-100.0); MEAN CORPUSCULAR HGB 26.4 pG CALC (26.0-32.0); RED BLOOD COUNT 3.52 mill/uL (4.70-6.10); RED CELL DISTRI WIDTH 13.7 % (11.5-15.5)
[2018-09-07 05:51] LABS: ANION GAP 14 (6-22 (CALC)); BUN 31 mg/dL (9-20); BUN/CREATININE RATIO 25 (12-20 (CALC)); CARBON DIOXIDE 30 mmol/l (22-30); CHLORIDE 98 mmol/l (95-108); CREATININE 1.2 mg/dL (0.7-1.3); GFR > 60 ML/MIN (>=60 (CALC)); GFR FOR AFR.AMER. > 60 ML/MIN (>=60 (CALC)); MAGNESIUM 1.6 mg/dL (1.6-2.3); POTASSIUM 4.7 mmol/l (3.5-5.1); SODIUM 137 mmol/l (137-146)
[2018-09-07 07:16] VITALS: BP 116/55
--- NOTE | 2018-09-07 07:29 | NUR ---
PT SITTING UP IN BED WATCHING TV AND OFF INTO SLEEP/WAKE; ASSESSMENT DONE; RESP EVEN AND UNLABORED ON ROOM AIR; VITALS STABLE; PICC FLUSHED WITHOUT DIFFICULTY; C/O NO PAIN; CALL LANE AND URINAL IN REACH. WILL CONTINUE TO MONITOR.
--- NOTE | 2018-09-07 11:59 | NUR ---
ASSISTED PT TO RECLINER FOR LUNCH; RESP EVEN AND UNLABORED ON ROOM AIR; VOIDED 200CC CLEAR, YELLOW URINE; CALL LNAE AND URINAL IN REACH; WILL CONTINUE TO MONITOR.
[2018-09-07 14:44] VITALS: BP 128/81
--- NOTE | 2018-09-07 15:26 | NUR ---
PT REMAIN SITTING UP IN RECLINER; RESP EVEN AND UNLABORED ON ROOM AIR; NO S/S OF DISTRESS NOTED; CALL LANE AND URINAL IN REACH.
--- NOTE | 2018-09-07 16:45 | NUR ---
MEDICATED PER EMAR, PICC FLUSHED WITHOUT DIFFICULTY; MULTIPLE FAMILY PRESENT IN ROOM. VOICE NO CONCERNS.
--- NOTE | 2018-09-07 19:10 | NUR ---
RECEIVED REPORT NURSE JI, PATIENT SITTING ON RECLINER, DENIES PAIN OR DISCOMFORT AT THIS TIME, EVEN UNLABORED BREATHING CALL LIGHT AT REACH.
[2018-09-07 19:24] VITALS: BP 154/93; BP 91/66
--- NOTE | 2018-09-07 20:00 | NUR ---
PATIENT CURRENTLY IN BED, C/O OF PAIN ON BLE TRACE OF EDEMA NOTED, WILL MEDICATE, PATIENT HAS EVEN UNLABORED BREATHING, PICC ON KANWAL PATENT, FLUSHES WELL. CALL LIGHT AT REACH
--- NOTE | 2018-09-07 21:00 | NUR ---
PATIENT WAS RESTING IN BED EYES CLOSED WAS GUARDING ABDOMEN AND GRIMACING, WHEN ASKED ABOUIT PAIN WAS POINTING TO ABDOMEN. WILL MEDICATE, REMAINS ON BED ALARM.
--- NOTE | 2018-09-07 23:44 | NUR ---
PATIENT RESTING IN BED EYES CLOSED NO DISCOMFORTS NOTED, WITH EVEN UNLABORED BREATHING, CALL LIGHT AT REACH.
[2018-09-08 03:51] VITALS: BP 104/53
--- NOTE | 2018-09-08 05:03 | NUR ---
PATIENT RESTING IN BED, EYES CLOSED EVEN UNLABORED BREATHING CALL LIGHT WITHIN REACH
--- NOTE | 2018-09-08 06:50 | NUR ---
REPORT RECEIVED FROM NIGHT NURSE; PT SITTING UP IN BED WATCHING TV; RESP EVEN AND UNLABORED ON ROOM AIR. VOICE NO CONCERNS
[2018-09-08 07:51] VITALS: BP 103/50
--- NOTE | 2018-09-08 08:05 | NUR ---
ASSESSMENT COMPLETED; SITTING UP IN BED WATCHING TV & EATING BREAKFAST; RESP EVEN AND UNLABORED ON ROOM AIR; PICC FLUSHED WITHOUT DIFFICULTY; VOICE NO CONCERS; CALL LANE AND URINAL IN REACH;.
--- NOTE | 2018-09-08 12:21 | NUR ---
PT SITTING UP IN RECLINER EATING LUNCH, RESP EVEN AND UNLABORED ON ROOM AIR; CALL LANE AND URINAL IN REACH.
[2018-09-08 13:44] VITALS: BP 119/66
--- NOTE | 2018-09-08 15:28 | NUR ---
Discharge instructions given. Patient verbalizes understanding of same. Discharged in stable condition via Stretcher to [facility] with [facility]. All belongings sent with pt. PT GOING [facility]
--- NOTE | 2018-09-08 15:37 | NUR ---
REPORT GIVEN TO DUSTY ([phone]) FAX # ([phone]) AT [facility].
[2018-09-08] MEDS ORDERED: TRAMADOL HYDROC50 MG PO (15:43)
== END 2018-09-08 15:30 | DRG 314 ==
LOC: MS2 17:30
PROVIDERS: Nurse Practitioner Family; ADMIT Internal Medicine Nephrology; ATTEND Internal Medicine Nephrology
DX: T82.6XXA Infection and inflammatory reaction due to cardiac valve prosthesis, initial encounter (principal); I33.0 Acute and subacute infective endocarditis; I11.0 Hypertensive heart disease with heart failure; I50.9 Heart failure, unspecified; I25.10 Atherosclerotic heart disease of native coronary artery without angina pectoris; M19.90 Unspecified osteoarthritis, unspecified site; I48.2 Chronic atrial fibrillation; F79 Unspecified intellectual disabilities; E03.9 Hypothyroidism, unspecified; E66.01 Morbid (severe) obesity due to excess calories; G47.33 Obstructive sleep apnea (adult) (pediatric); Y83.1 Surgical operation with implant of artificial internal device as the cause of abnormal reaction of the patient, or of later complication, without mention of misadventure at the time of the procedure; Z68.37 Body mass index [BMI] 37.0-37.9, adult; Z95.1 Presence of aortocoronary bypass graft; Z79.01 Long term (current) use of anticoagulants; Z95.3 Presence of xenogenic heart valve
CPT/HCPCS: J0878

== ENCOUNTER 2019-08-02 19:25 | Inpatient (IN) | payer MEDICAID ==
[~2019-08-02] VITALS: Ht 177.8 cm; Wt 135.0 kg
[~2019-08-02 19:25] MED LIST changes: +CUBICIN500 MG IV; +TRAMADOL HYDROC50 MG PO
[2019-08-02 20:26] LABS: IMMATURE GRANULOCYTES 0.7 % (0.0-5.0); MEAN CORPUSCULAR HGB 20.2 pG CALC (26.0-32.0); MEAN CORPUSCULAR HGB CONC 26.7 g/L CALC (32.0-36.0); RED BLOOD COUNT 5.94 mill/uL (4.70-6.10); RED CELL DISTRI WIDTH 22.4 % (11.5-15.5)
[2019-08-02 20:44] LABS: ACT PARTIAL THROMBO TIME 29.7 SECONDS (20.0-32.5); INTERNATIONAL NORMALIZED RATIO 1.2 RATIO (0.7-1.3); PROTHROMBIN TIME 12.8 SECONDS (9.0-12.5)
[2019-08-02 20:45] LABS: ALBUMIN 3.9 g/dL (3.2-5.0); ALKALINE PHOSPHATASE 86 u/l (38-126); ANION GAP 13 (6-22 (CALC)); BUN 41 mg/dL (9-20); BUN/CREATININE RATIO 26 (12-20 (CALC)); CARBON DIOXIDE 33 mmol/l (22-30); CHLORIDE 97 mmol/l (95-108); CREATININE 1.5 mg/dL (0.7-1.3); GFR 50 ML/MIN (>=60 (CALC)); GFR FOR AFR.AMER. > 60 ML/MIN (>=60 (CALC)); POTASSIUM 4.2 mmol/l (3.5-5.1); SGOT/AST 22 u/l (17-59); SODIUM 139 mmol/l (137-146); TOTAL PROTEIN 7.6 g/dL (6.3-8.2)
[2019-08-02 20:48] LABS: MEAN CELL VOLUME 75.8 fL CALC (80.0-100.0)
[2019-08-02 20:49] LABS: BILIRUBIN, TOTAL 1.3 mg/dL (0.0-1.4)
[2019-08-02 20:50] LABS: DIGOXIN < 0.4 ng/mL (0.8-2.0)
[2019-08-03 01:24] VITALS: BP 108/67
[2019-08-03 03:15] VITALS: BP 131/83
[2019-08-03 06:19] LABS: ANION GAP 15 (6-22 (CALC)); BUN 42 mg/dL (9-20); BUN/CREATININE RATIO 30 (12-20 (CALC)); CARBON DIOXIDE 31 mmol/l (22-30); CHLORIDE 98 mmol/l (95-108); CREATININE 1.4 mg/dL (0.7-1.3); GFR 55 ML/MIN (>=60 (CALC)); GFR FOR AFR.AMER. > 60 ML/MIN (>=60 (CALC)); SODIUM 138 mmol/l (137-146)
[2019-08-03 06:23] LABS: POTASSIUM 5.5 mmol/l (3.5-5.1)
[2019-08-03 07:08] LABS: HEMATOCRIT 49.3 % (39.0-50.0); IMMATURE GRANULOCYTES 0.5 % (0.0-5.0); MEAN CELL VOLUME 76.8 fL CALC (80.0-100.0); MEAN CORPUSCULAR HGB 20.2 pG CALC (26.0-32.0); MEAN CORPUSCULAR HGB CONC 26.4 g/L CALC (32.0-36.0); NEUT# 5.41 thou/uL (1.82-7.42); RED BLOOD COUNT 6.42 mill/uL (4.70-6.10); RED CELL DISTRI WIDTH 22.5 % (11.5-15.5)
[2019-08-03 07:21] VITALS: BP 102/69
[2019-08-03] MEDS ORDERED: DIGITEK0.25 M1 PO (11:28)
[2019-08-03 11:29] VITALS: BP 112/73
[2019-08-03] MEDS ORDERED: METOPROLOL SUC200 MG PO (11:31)
[2019-08-03 15:29] VITALS: BP 114/77
[2019-08-03 18:44] VITALS: BP 112/67
[2019-08-04 03:54] VITALS: BP 128/82
[2019-08-04 06:14] LABS: HEMATOCRIT 48.9 % (39.0-50.0); HEMOGLOBIN 12.8 g/dl (14.0-18.0); IMMATURE GRANULOCYTES 0.3 % (0.0-5.0); MEAN CELL VOLUME 77.5 fL CALC (80.0-100.0); MEAN CORPUSCULAR HGB 20.3 pG CALC (26.0-32.0); MEAN CORPUSCULAR HGB CONC 26.2 g/L CALC (32.0-36.0); NEUT# 4.73 thou/uL (1.82-7.42); RED BLOOD COUNT 6.31 mill/uL (4.70-6.10); RED CELL DISTRI WIDTH 22.3 % (11.5-15.5)
[2019-08-04 06:29] LABS: ANION GAP 15 (6-22 (CALC)); BUN 39 mg/dL (9-20); BUN/CREATININE RATIO 27 (12-20 (CALC)); CARBON DIOXIDE 33 mmol/l (22-30); CHLORIDE 95 mmol/l (95-108); CREATININE 1.5 mg/dL (0.7-1.3); GFR 50 ML/MIN (>=60 (CALC)); GFR FOR AFR.AMER. > 60 ML/MIN (>=60 (CALC)); POTASSIUM 5.1 mmol/l (3.5-5.1); SODIUM 139 mmol/l (137-146)
[2019-08-04 06:48] LABS: MAGNESIUM 2.2 mg/dL (1.6-2.3)
[2019-08-04 07:38] VITALS: BP 123/79
[2019-08-04 10:38] VITALS: BP 119/81
[2019-08-04 14:45] VITALS: BP 114/72
[2019-08-04 18:51] VITALS: BP 109/61
[2019-08-04 23:44] VITALS: BP 121/65
[2019-08-05 03:48] VITALS: BP 132/87
[2019-08-05 06:45] LABS: HEMATOCRIT 47.5 % (39.0-50.0); HEMOGLOBIN 12.2 g/dl (14.0-18.0); MEAN CELL VOLUME 79.4 fL CALC (80.0-100.0); MEAN CORPUSCULAR HGB 20.4 pG CALC (26.0-32.0); MEAN CORPUSCULAR HGB CONC 25.7 g/L CALC (32.0-36.0); RED BLOOD COUNT 5.98 mill/uL (4.70-6.10); RED CELL DISTRI WIDTH 22.1 % (11.5-15.5)
[2019-08-05 07:07] LABS: CREATININE 1.6 mg/dL (0.7-1.3); MAGNESIUM 2.3 mg/dL (1.6-2.3)
[2019-08-05 07:34] LABS: POTASSIUM 5.6 mmol/l (3.5-5.1)
[2019-08-05 08:18] VITALS: BP 113/83
[2019-08-05 10:20] VITALS: BP 133/93
[2019-08-05 16:15] VITALS: BP 120/77
[2019-08-05 18:40] VITALS: BP 131/80
[2019-08-06] VITALS (7 sets, daily range): BP systolic 135–156; BP diastolic 84–94
[2019-08-06 06:12] LABS: HEMATOCRIT 49.6 % (39.0-50.0); HEMOGLOBIN 12.7 g/dl (14.0-18.0); MEAN CELL VOLUME 78.9 fL CALC (80.0-100.0); MEAN CORPUSCULAR HGB 20.2 pG CALC (26.0-32.0); MEAN CORPUSCULAR HGB CONC 25.6 g/L CALC (32.0-36.0); RED BLOOD COUNT 6.29 mill/uL (4.70-6.10); RED CELL DISTRI WIDTH 22.2 % (11.5-15.5)
[2019-08-06 06:39] LABS: ANION GAP 13 (6-22 (CALC)); BUN 44 mg/dL (9-20); BUN/CREATININE RATIO 31 (12-20 (CALC)); CARBON DIOXIDE 39 mmol/l (22-30); CHLORIDE 92 mmol/l (95-108); CREATININE 1.4 mg/dL (0.7-1.3); GFR 55 ML/MIN (>=60 (CALC)); GFR FOR AFR.AMER. > 60 ML/MIN (>=60 (CALC)); MAGNESIUM 2.2 mg/dL (1.6-2.3); SODIUM 139 mmol/l (137-146)
[2019-08-06 06:44] LABS: POTASSIUM 5.3 mmol/l (3.5-5.1)
[2019-08-07 03:28] VITALS: BP 128/85
[2019-08-07 05:20] LABS: HEMATOCRIT 45.8 % (39.0-50.0); HEMOGLOBIN 12.1 g/dl (14.0-18.0); MEAN CELL VOLUME 76.1 fL CALC (80.0-100.0); MEAN CORPUSCULAR HGB 20.1 pG CALC (26.0-32.0); MEAN CORPUSCULAR HGB CONC 26.4 g/L CALC (32.0-36.0); RED BLOOD COUNT 6.02 mill/uL (4.70-6.10); RED CELL DISTRI WIDTH 21.7 % (11.5-15.5)
[2019-08-07 05:22] LABS: BUN 36 mg/dL (9-20); BUN/CREATININE RATIO 32 (12-20 (CALC)); CARBON DIOXIDE 37 mmol/l (22-30); CHLORIDE 92 mmol/l (95-108); CREATININE 1.1 mg/dL (0.7-1.3); GFR > 60 ML/MIN (>=60 (CALC)); GFR FOR AFR.AMER. > 60 ML/MIN (>=60 (CALC)); SODIUM 135 mmol/l (137-146)
[2019-08-07 05:26] LABS: ANION GAP 12 (6-22 (CALC)); POTASSIUM 5.5 mmol/l (3.5-5.1)
[2019-08-07 07:50] VITALS: BP 127/93
[2019-08-07 11:23] VITALS: BP 98/81
[2019-08-07 14:50] VITALS: BP 100/70
[2019-08-07 18:54] VITALS: BP 106/74
[2019-08-08] VITALS (7 sets, daily range): BP systolic 101–123; BP diastolic 60–86
[2019-08-08 04:55] LABS: HEMATOCRIT 48.9 % (39.0-50.0); IMMATURE GRANULOCYTES 0.4 % (0.0-5.0); MEAN CELL VOLUME 76.2 fL CALC (80.0-100.0); MEAN CORPUSCULAR HGB 20.2 pG CALC (26.0-32.0); MEAN CORPUSCULAR HGB CONC 26.6 g/L CALC (32.0-36.0); NEUT# 5.73 thou/uL (1.82-7.42); RED BLOOD COUNT 6.42 mill/uL (4.70-6.10)
[2019-08-08 05:12] LABS: ANION GAP 13 (6-22 (CALC)); BUN 35 mg/dL (9-20); BUN/CREATININE RATIO 29 (12-20 (CALC)); CARBON DIOXIDE 39 mmol/l (22-30); CHLORIDE 91 mmol/l (95-108); CREATININE 1.2 mg/dL (0.7-1.3); GFR > 60 ML/MIN (>=60 (CALC)); GFR FOR AFR.AMER. > 60 ML/MIN (>=60 (CALC)); SODIUM 138 mmol/l (137-146)
[2019-08-09 03:45] VITALS: BP 129/86
[2019-08-09 07:35] VITALS: BP 112/51
[2019-08-09 10:48] VITALS: BP 116/72
[2019-08-09 15:50] VITALS: BP 116/74
[2019-08-09 18:40] VITALS: BP 116/74
[2019-08-09 23:45] VITALS: BP 106/52
[2019-08-10 03:49] VITALS: BP 121/71
[2019-08-10 04:29] LABS: HEMATOCRIT 44.8 % (39.0-50.0); HEMOGLOBIN 12.2 g/dl (14.0-18.0); MEAN CELL VOLUME 74.5 fL CALC (80.0-100.0); MEAN CORPUSCULAR HGB 20.3 pG CALC (26.0-32.0); MEAN CORPUSCULAR HGB CONC 27.2 g/L CALC (32.0-36.0); RED BLOOD COUNT 6.01 mill/uL (4.70-6.10); RED CELL DISTRI WIDTH 21.4 % (11.5-15.5)
[2019-08-10 04:50] LABS: ALBUMIN 3.6 g/dL (3.2-5.0); ALKALINE PHOSPHATASE 72 u/l (38-126); ANION GAP 12 (6-22 (CALC)); BUN 32 mg/dL (9-20); BUN/CREATININE RATIO 27 (12-20 (CALC)); CARBON DIOXIDE 37 mmol/l (22-30); CHLORIDE 90 mmol/l (95-108); CREATININE 1.2 mg/dL (0.7-1.3); GFR > 60 ML/MIN (>=60 (CALC)); GFR FOR AFR.AMER. > 60 ML/MIN (>=60 (CALC)); POTASSIUM 4.8 mmol/l (3.5-5.1); SGOT/AST 34 u/l (17-59); SODIUM 134 mmol/l (137-146); TOTAL PROTEIN 7.3 g/dL (6.3-8.2)
[2019-08-10 04:53] LABS: BILIRUBIN, TOTAL 2.2 mg/dL (0.0-1.4)
[2019-08-10 11:10] VITALS: BP 109/69
[2019-08-10 16:00] VITALS: BP 114/84
[2019-08-10 18:40] VITALS: BP 133/73
[2019-08-10 23:17] VITALS: BP 115/73
[2019-08-11 04:13] VITALS: BP 118/75
[2019-08-11 05:34] LABS: HEMATOCRIT 47.2 % (39.0-50.0); MEAN CELL VOLUME 74.2 fL CALC (80.0-100.0); MEAN CORPUSCULAR HGB 20.4 pG CALC (26.0-32.0); MEAN CORPUSCULAR HGB CONC 27.5 g/L CALC (32.0-36.0); RED BLOOD COUNT 6.36 mill/uL (4.70-6.10); RED CELL DISTRI WIDTH 21.3 % (11.5-15.5)
[2019-08-11 05:51] LABS: ANION GAP 17 (6-22 (CALC)); BUN 42 mg/dL (9-20); BUN/CREATININE RATIO 35 (12-20 (CALC)); CARBON DIOXIDE 33 mmol/l (22-30); CHLORIDE 89 mmol/l (95-108); CREATININE 1.2 mg/dL (0.7-1.3); GFR > 60 ML/MIN (>=60 (CALC)); GFR FOR AFR.AMER. > 60 ML/MIN (>=60 (CALC)); MAGNESIUM 2.1 mg/dL (1.6-2.3); SODIUM 133 mmol/l (137-146)
[2019-08-11 05:56] LABS: POTASSIUM 5.7 mmol/l (3.5-5.1)
[2019-08-11 08:00] VITALS: BP 107/63
[2019-08-11 10:45] VITALS: BP 137/87
[2019-08-11 15:23] VITALS: BP 102/75
[2019-08-11 18:40] VITALS: BP 119/83
[2019-08-12] VITALS (7 sets, daily range): BP systolic 103–147; BP diastolic 66–81
[2019-08-12 05:26] LABS: HEMATOCRIT 47.3 % (39.0-50.0); HEMOGLOBIN 12.8 g/dl (14.0-18.0); MEAN CELL VOLUME 75.1 fL CALC (80.0-100.0); MEAN CORPUSCULAR HGB 20.3 pG CALC (26.0-32.0); MEAN CORPUSCULAR HGB CONC 27.1 g/L CALC (32.0-36.0); RED BLOOD COUNT 6.3 mill/uL (4.70-6.10); RED CELL DISTRI WIDTH 20.8 % (11.5-15.5)
[2019-08-12 05:57] LABS: ANION GAP 12 (6-22 (CALC)); BUN 47 mg/dL (9-20); BUN/CREATININE RATIO 39 (12-20 (CALC)); CARBON DIOXIDE 39 mmol/l (22-30); CHLORIDE 89 mmol/l (95-108); CREATININE 1.2 mg/dL (0.7-1.3); GFR > 60 ML/MIN (>=60 (CALC)); GFR FOR AFR.AMER. > 60 ML/MIN (>=60 (CALC)); MAGNESIUM 2.4 mg/dL (1.6-2.3); POTASSIUM 4.8 mmol/l (3.5-5.1); SODIUM 136 mmol/l (137-146)
[2019-08-13 04:40] VITALS: BP 128/86
[2019-08-13 05:41] LABS: ANION GAP 11 (6-22 (CALC)); BUN 47 mg/dL (9-20); BUN/CREATININE RATIO 42 (12-20 (CALC)); CARBON DIOXIDE 38 mmol/l (22-30); CHLORIDE 90 mmol/l (95-108); CREATININE 1.1 mg/dL (0.7-1.3); GFR > 60 ML/MIN (>=60 (CALC)); GFR FOR AFR.AMER. > 60 ML/MIN (>=60 (CALC)); MAGNESIUM 2.3 mg/dL (1.6-2.3); POTASSIUM 4.7 mmol/l (3.5-5.1); SODIUM 135 mmol/l (137-146)
[2019-08-13 08:20] VITALS: BP 108/75
[2019-08-13 10:50] VITALS: BP 134/82
[2019-08-13] MEDS ORDERED: MEDDOSEPAK PO (12:37)
[2019-08-13] MEDS ORDERED: KEFLEX500 MG PO (12:37)
[2019-08-13] MEDS ORDERED: CARDIZEM CD 180 PO (12:41)
[2019-08-13] MEDS ORDERED: ZYLOPRIM100 MG PO (12:42)
[2019-08-13 15:11] VITALS: BP 123/73
[2019-08-13 19:16] VITALS: BP 125/78
[2019-08-14 00:35] VITALS: BP 145/83
[2019-08-14 04:13] VITALS: BP 132/85
[2019-08-14 09:43] VITALS: BP 119/56
[2019-08-14] MEDS ORDERED: IPRATROPIU0.5 MG/3 M IN (10:06)
[2019-08-14 10:31] VITALS: BP 126/77
[2019-08-14 16:00] VITALS: BP 119/77
== END 2019-08-14 18:38 | DRG 291 ==
LOC: ED 19:25 → ED-I 21:29 → ED 21:51 → MS2 21:52
PROVIDERS: Emergency Medicine; Nurse Practitioner Family; ADMIT Internal Medicine; ATTEND Internal Medicine
DX: I13.0 Hypertensive heart and chronic kidney disease with heart failure and stage 1 through stage 4 chronic kidney disease, or unspecified chronic kidney disease (principal); J18.9 Pneumonia, unspecified organism; I50.23 Acute on chronic systolic (congestive) heart failure; Z68.42 Body mass index [BMI] 45.0-49.9, adult; J96.11 Chronic respiratory failure with hypoxia; I83.225 Varicose veins of left lower extremity with both ulcer other part of foot and inflammation; I48.20 Chronic atrial fibrillation, unspecified; I83.213 Varicose veins of right lower extremity with both ulcer of ankle and inflammation; L97.319 Non-pressure chronic ulcer of right ankle with unspecified severity; N17.9 Acute kidney failure, unspecified; L03.116 Cellulitis of left lower limb; L03.115 Cellulitis of right lower limb; I47.2 Ventricular tachycardia; L97.529 Non-pressure chronic ulcer of other part of left foot with unspecified severity; N18.3 Chronic kidney disease, stage 3 (moderate); I25.10 Atherosclerotic heart disease of native coronary artery without angina pectoris; F79 Unspecified intellectual disabilities; E66.01 Morbid (severe) obesity due to excess calories; G47.33 Obstructive sleep apnea (adult) (pediatric); E78.5 Hyperlipidemia, unspecified; E03.9 Hypothyroidism, unspecified; M10.09 Idiopathic gout, multiple sites; E87.5 Hyperkalemia; M54.2 Cervicalgia; B95.61 Methicillin susceptible Staphylococcus aureus infection as the cause of diseases classified elsewhere; Z79.01 Long term (current) use of anticoagulants; Z95.1 Presence of aortocoronary bypass graft; Z95.3 Presence of xenogenic heart valve

== ENCOUNTER 2019-12-16 16:21 | Inpatient (IN) | payer MEDICAID ==
[~2019-12-16] VITALS: Ht 177.8 cm; Wt 152.6 kg
[~2019-12-16 16:21] MED LIST changes: +CARDIZEM CD 180 PO; +DIGITEK0.25 M1 PO; +IPRATROPIU0.5 MG/3 M IN; +MEDDOSEPAK PO; +METOPROLOL SUC200 MG PO
--- NOTE | 2019-12-16 16:21 | NUR ---
PT TO ROOM VIA EMS
[2019-12-16 16:46] LABS: HEMATOCRIT 44.9 % (39.0-50.0); HEMOGLOBIN 12.6 g/dl (14.0-18.0); IMMATURE GRANULOCYTES 1.4 % (0.0-5.0); MEAN CORPUSCULAR HGB 23.2 pG CALC (26.0-32.0); MEAN CORPUSCULAR HGB CONC 28.1 g/dL CAL (32.0-36.0); NEUT# 3.77 thou/uL (1.82-7.42); RED BLOOD COUNT 5.43 mill/uL (4.70-6.10); RED CELL DISTRI WIDTH 19.4 % (11.5-15.5)
[2019-12-16 17:00] LABS: MEAN CELL VOLUME 82.7 fL CALC (80.0-100.0)
[2019-12-16 17:13] LABS: ALKALINE PHOSPHATASE 64 u/l (38-126); ANION GAP 8 (6-22 (CALC)); BUN 28 mg/dL (9-20); BUN/CREATININE RATIO 22 (12-20 (CALC)); CARBON DIOXIDE 38 mmol/l (22-30); CHLORIDE 95 mmol/l (95-108); CREATININE 1.3 mg/dL (0.7-1.3); GFR 59 ML/MIN (>=60 (CALC)); GFR FOR AFR.AMER. > 60 ML/MIN (>=60 (CALC)); POTASSIUM 4.2 mmol/l (3.5-5.1); SGOT/AST 27 u/l (17-59); SODIUM 137 mmol/l (137-146); TOTAL PROTEIN 7.4 g/dL (6.3-8.2)
--- NOTE | 2019-12-16 17:20 | NUR ---
PT RESTING ON STRETCHER WATCHING CELL PHONE; NO S/S OF DISTRESS NOTED; MONITORING DEVICES IN PLACE; VSS; PT ADVISED OF CONTINUED WAIT TIME; CALL LIGHT WITHIN REACH; WILL CONTINUE TO MONITOR
[2019-12-16 17:22] LABS: BILIRUBIN, TOTAL 0.9 mg/dL (0.0-1.4)
--- NOTE | 2019-12-16 18:20 | NUR ---
PT ADVSIED OF PENDING ADMISSION; VSS; IV ANTIBIOTICS INFUSING; CALL LIGHT WITHIN REACH WILL CONTINUE TO MONITOR
[2019-12-16 18:49] LABS: C-REACTIVE PROTEIN < 0.5 mg/dL (0-0.9)
--- NOTE | 2019-12-16 19:00 | NUR ---
REPORT GIVEN TO SAVANNAH GABRIEL
--- NOTE | 2019-12-16 20:00 | NUR ---
RESTING QUIETLY AWAITING BED ASSIGNMENT.
--- NOTE | 2019-12-16 21:00 | NUR ---
NO CHANGE IN EXAM. VSS. NAD.
--- NOTE | 2019-12-16 23:00 | NUR ---
BY STRETCHER TO ICU 1
[2019-12-16 23:44] VITALS: BP 135/82
[2019-12-17] VITALS (11 sets, daily range): BP systolic 95–119; BP diastolic 48–82
--- NOTE | 2019-12-17 00:23 | NUR ---
Patient arrived to floor from ER via stretcher. A&O x3. Able to make needs known. No s/s of distress. Vitals stable. O2 4L N/C. Respirations even and unlabored. Lungs diminished. BLE edema +2. IV #18 LAC, ABX infusing, saline lock when complete. Urinal at bedside. A-Fib on monitor. Pulse ox 93%. Call light in reach.
--- NOTE | 2019-12-17 01:48 | NUR ---
Admission Note Report Given to: SAVANNAH ARELLANO Transported by: Wheelchair X Stretcher Transported with: X Nurse Transporter X Patent IV X O2 X Ladle Car Operator Location: X ICU MS2
--- NOTE | 2019-12-17 02:46 | NUR ---
Patient resting in bed watching TV and on cell phone. Denies pain. No s/s of distress. Respirations even/unlabored. call light in reach.
--- NOTE | 2019-12-17 04:55 | NUR ---
Patient resting in bed eyes closed, easily aroused. Denies pain. Respirations even and unlabored. Call light in reach.
[2019-12-17 06:25] LABS: C-REACTIVE PROTEIN 0.7 mg/dL (0-0.9)
--- NOTE | 2019-12-17 06:35 | NUR ---
Resting in bed eyes closed. No distress noted. Respirations even and unlabored. Call light in reach.
--- NOTE | 2019-12-17 06:45 | NUR ---
REPORT RECEIVED FROM ADAN NUÑEZ. CARE ASSUMED.
--- NOTE | 2019-12-17 08:00 | NUR ---
PT SITTING UP IN BED AWAKE. PT IS ALERT AND ORIENTED X3. SHIFT ASSESSMENT COMPLETED AT THIS TIME. IV PATENT X1. COVID SWAB COLLECTED IN RIGHT NARE AT THIS TIME. SET UP FOR AM MEAL. CALL LIGHT IN REACH. WILL CONTINUE TO MONITOR.
--- NOTE | 2019-12-17 09:35 | NUR ---
DR MASON AT BEDSIDE AT THIS TIME
--- NOTE | 2019-12-17 10:00 | NUR ---
PT RESTING IN BED AWAKE. RESP ARE EVEN AND UNLABORED. NO DISTRESS NOTED. CALL LIGHT IN REACH. WILL CONTINUE TO MONITOR.
--- NOTE | 2019-12-17 11:45 | NUR ---
#20 STARTED IN RAC X1 ATTEMPT. TROPONIN OBTAINED. SWAB FOR COVID 19 OBTAINED AND SENT TO [facility]. EMS SITE DC'D. CATH TIP INTACT. PT TOLERATED WELL. PT SET UP FOR NOON MEAL. CALL LIGHT IN REACH. WILL CONTINUE TO MONITOR.
--- NOTE | 2019-12-17 15:47 | NUR ---
INTO PATIENT ROOM TO ADJUST BLOOD PRESSURE CUFF. PATIENT WATCHING PORN ON PHONE AND MASTURBATING. BLOOD PRESSURE CUFF ADJUSTED. NURSE EXITED ROOM.
--- NOTE | 2019-12-17 17:45 | NUR ---
PT SET UP FOR PM MEAL. RESP ARE EVEN AND UNLABROED. NO DSITRESS NOTED. CALL LGT IN REACH. WILL CONTINUE TO MONITOR.
--- NOTE | 2019-12-17 20:54 | NUR ---
PATIENT RESTING IN BED WATCHING TV, TALKING ON THE PHONE. ASSESSMENT COMPLETE. MEDICATION GIVEN PER MAR. PATIENT A&O X3. ABLE TO MAKE NEEDS KNOWN. DENIES PAIN. NO DISTRESS NOTED. LUNGS DIMINISHED. RESPIRATIONS EVEN AND UNLABORED. OXYGEN 4L NASAL CANNULA. BLE EDEMA. ABD ROUND, BOWEL SOUNDS PRESENT. URINAL AT BEDSIDE. CONTINENT. # 20 RAC S/L. FLUSHED WITH NO DIFFICULITY. CALL LIGHT IN REACH. CONTINUE TO MONITOR.
--- NOTE | 2019-12-17 22:36 | NUR ---
PATIENT IN BED WATCHING TV. NO DISTRESS NOTED. CALL LIGHT IN REACH. CONTINUE TO MONITOR.
[2019-12-18] VITALS (10 sets, daily range): BP systolic 95–128; BP diastolic 65–86
--- NOTE | 2019-12-18 00:40 | NUR ---
PATIENT WATCH TV. REPORTS CRAMPING IN HANDS. MEDICATED PER MAR. NO DISTRESS NOTED. WILL FOLLOW UP.
--- NOTE | 2019-12-18 02:19 | NUR ---
PATIENT SLEEPING IN BED, EYES CLOSED. S/L # 20 RAC. NO DISTRESS NOTED. RESPIRATIONS EVEN AND UNLABORED. CALL LIGHT IN REACH
--- NOTE | 2019-12-18 04:10 | NUR ---
PATIENT SLEEPING. RESPIRATIONS EVEN AND UNLABORED. NO DISTRESS NOTED. CALL LIGHT IN REACH. CONTINUE TO MONITOR.
--- NOTE | 2019-12-18 06:38 | NUR ---
PATIENT RESTING IN BED. ABLE TO MAKE NEEDS KNOWN. MEDICATED PER MAR. NO OTHER NEEDS AT THIS TIME. CONTINUE TO MONITOR.
--- NOTE | 2019-12-18 06:45 | NUR ---
RECIEVED REPORT FROM SAVANNAH BENAVIDEZ. ASSUMED PT CARE.
--- NOTE | 2019-12-18 08:05 | NUR ---
PT RESTING IN BED, ISOLATION INTACT, ASSESSMENT COMPLETED. URINAL AT BEDSIDE, CALL LIGHT IN REACH. WILL MONITOR.
--- NOTE | 2019-12-18 09:30 | NUR ---
DR. MASON AT BEDSIDE FOR ASSESSMENT AND TO DISCUSS PLAN OF CARE, NEW ORDERS RECIEVED.
--- NOTE | 2019-12-18 10:01 | NUR ---
PT MOVED FROM ICU2 TO ICU5 D/T LACK OF ISOLATION PRECUATION ROOMS.
--- NOTE | 2019-12-18 11:30 | NUR ---
DIETARY ON UNIT, LUNCH TRAY SET UP. URINAL EMPTIED. PT OFFERS NO COMPLAINTS AT THIS TIME. CALL LIGHT IN REACH. WILL MONITOR.
--- NOTE | 2019-12-18 13:04 | NUR ---
RADIOLOGY AT BEDSIDE FOR CXR.
--- NOTE | 2019-12-18 13:40 | NUR ---
S: TANNA SOLANO is a 44 M who presents with chest pain. He has a history of Aortic valve disorder, BUDDY, A Fib, HTN, Hyperlipidemia, Hypothyroidism, CHF, Chronic Respiratory Failure with Hypoxia, Metabolic alkalosis, Gout, and Intellectual impairment. All medications in patient's chart were reviewed. O: VS: BP 110/72 mmHg, P 80 bmp, RR 24, T 97.7 F W 148.013 kg, 177.8 cm, Scr=1.3, CrCl= 103.4 ml/min A: Blood culture preliminary result show gram postivie cocci in 4/4 vials . P: Patient is on Ceftriaxone Sodium 1 gm IV and Azithromycin 500 mg IV. Vancomycin ordered for pharmacy to dose. Start Vancomycin 1500 mg IV Q8H. Vancomycin trough is drawn before the 4th dose on 12/19/2019 at 0730. Vancomycin goal trough is between 15-20 mcg/ml. Pharmacy will follow and or advise on antibiotics use as needed.
--- NOTE | 2019-12-18 15:30 | NUR ---
PT RESTING IN BED, FAMILY BROUGHT GREEN BUILDING ENGINEER. PROVIDED TO PT. RESPIRATION EVEN/UNLABORED. URINAL AT BEDSIDE. CALL LIGHT IN REACH. WILL MONITOR.
--- NOTE | 2019-12-18 16:24 | NUR ---
PT WATCHING TV ON PERSONAL CELL PHONE, NO DISTRESS NOTED AT THIS TIME.
--- NOTE | 2019-12-18 19:51 | NUR ---
PATIENT IN BED WATCHING TV. RESP EVEN AND UNLABORED, 4L VIA NC. NO S/S OF DISTRESS NOTED. PLAN OF CARE DISCUSSED. PATIENT INFORMED TO CALL WITH ANY QUESTIONS OR CONCERNS. FALL PRECAUTIONS IN PLACE. BEDSIDE URINAL WITHIN REACH AND CALL LIGHT.
--- NOTE | 2019-12-18 20:14 | NUR ---
BEDTIME SNACK GIVEN TO PATIENT
--- NOTE | 2019-12-18 22:00 | NUR ---
PATIENT VANCO GIVEN, TOLERATED WELL. WILL CONTIUNE TO ANTELMO
[2019-12-19] VITALS (9 sets, daily range): BP systolic 105–151; BP diastolic 68–95
--- NOTE | 2019-12-19 00:31 | NUR ---
PATIENT WAKE AND WATCHING TV IN BED. MIDNIGHT ANTIBIOTICS STARTED. RESP EVEN AND ULABORED. NO S/S OF DISTRESS NOTED.
--- NOTE | 2019-12-19 02:00 | NUR ---
ANTIBIOTICS FINISHED, LINE FLUSHED. PATIENT TOLERATED MEDICATION WELL. RESP EVEN AND UNLABORED. NO S/S OF DISTRESS NOTED.
--- NOTE | 2019-12-19 04:47 | NUR ---
PATIENT IN BED WATCHING TV. RESP EVEN AND UNLABORED. NO S/S OF DISTRESS NOTED.
[2019-12-19 05:08] LABS: ANION GAP 13 (6-22 (CALC)); BUN 38 mg/dL (9-20); BUN/CREATININE RATIO 26 (12-20 (CALC)); CHLORIDE 95 mmol/l (95-108); CREATININE 1.5 mg/dL (0.7-1.3); GFR 50 ML/MIN (>=60 (CALC)); GFR FOR AFR.AMER. > 60 ML/MIN (>=60 (CALC)); POTASSIUM 4.9 mmol/l (3.5-5.1); SODIUM 143 mmol/l (137-146)
[2019-12-19 05:21] LABS: CARBON DIOXIDE 40 mmol/l (22-30)
--- NOTE | 2019-12-19 06:58 | NUR ---
SHANIKA HELD DUE TO TROUGH OF 26. PHARMACY CONSULT PENDING
--- NOTE | 2019-12-19 07:41 | NUR ---
S: TANNA SOLANO is a 44 M who presents with blood culture (+) for Staph Epidermidis . He has a history of Pneumonia. All medications in patient's chart were reviewed. O: VS: BP 151/95, P 104, RR 19,T 99.1 W 148kg, HT 70in, Scr=1.5, A: Blood culture show Staph Epi which is sensitive to Vanco and Doxycycline . P: Patient is on Azithromycin 500mg q24h and Rocephin 1 gram daily. Vancomycin ordered for pharmacy to dose. Trough is 26 on 12/19/19 Start Vancomycin 1250mg IV Q12H. Vancomycin trough is drawn before the 4th dose on 12/21/19 @ 0830. Vancomycin goal trough is between 15-20 mcg/ml. Pharmacy will follow and or advise on antibiotics use as needed. EARL WALKER, PHARMD
--- NOTE | 2019-12-19 09:30 | NUR ---
PT SITTING UP IN BED TALKING ON PHONE. DR PINA INTO ROOM. ASSESSMENT COMPLETED AT THIS TIME. PT IS ALERT AND OREINTED X3. IV PATENT X1. CALL LIGHT IN REACH. WILL CONTINUE TO MONITOR.
--- NOTE | 2019-12-19 10:25 | NUR ---
PHONED MED SURG FOR TELEMETRY BED AWAITING BED ASSIGNEMNT.
--- NOTE | 2019-12-19 11:50 | NUR ---
LUNCH AT BEDSIDE.
--- NOTE | 2019-12-19 12:00 | NUR ---
REPORT CALLED TO [facility]. PT GOING TO ROOM 268.
--- NOTE | 2019-12-19 12:45 | NUR ---
PT TO MED SURG VIA WHEELCHAIR.
--- NOTE | 2019-12-19 12:55 | NUR ---
PT ARRIVED TO MS2 VIA WHEELCHAIR PT ALERT AND ORIENTED X3, ORIENTED TO ROOM AND CALL LIGHT, PT VOICES NO NEEDS OR COMPLAINTS AT THIS TIME. CALL LIGHT IN REACH,CONTINUE TO MONITOR.
--- NOTE | 2019-12-19 13:19 | NUR ---
RT AT BEDSIDE FOR STAT EKG PER ED PT V-FIB.
--- NOTE | 2019-12-19 14:00 | NUR ---
EKG SHOWN TO , NO NEW ORDERS OBTAINED.
--- NOTE | 2019-12-19 16:31 | NUR ---
PT RESTING IN BED, NO SIGNS OF DISTRESS NOTED PT WATCHING TV, CALL LIGHT IN REACH,CONTINUE TO MONITOR.
--- NOTE | 2019-12-19 19:55 | NUR ---
PT RESTING IN BED, WITH EYES CLOSED. RESPIRATIONS EVEN AND UNLABORED ON O2 @ 3L VIA NC. LUNGS SOUND DIMINISHED. PEDAL PULSE WEAK. SAFETY PRECAUTIONS IN PLACE. WILL CONTINUE TO MONITOR.
--- NOTE | 2019-12-20 00:22 | NUR ---
PT RESTING IN BED. NO S/S OF DISTRESS AT THIS TIME. SAFETY PRECAUTIONS IN PLACE. WILL CONTINUE TO MONITOR.
[2019-12-20 00:35] VITALS: BP 98/70
[2019-12-20 04:13] VITALS: BP 110/72
--- NOTE | 2019-12-20 04:17 | NUR ---
PT RESTING IN BED, NO S/S OF DISTRESS AT THIS TIME. SAFETY PRECAUTIONS IN PLACE. WILL CONTINUE TO MONITOR.
[2019-12-20 07:29] VITALS: BP 124/78
--- NOTE | 2019-12-20 07:29 | NUR ---
PT RESTING IN BED, NO SIGNS OF DISTRESS NOTED, RESP EVEN AND UNLABORED, PT ALERT AND ORIENTED X3, PT RESTING IN BED, NO SIGNS OF DISTRESS NOTED, RESP EVEN AND UNLABORED. PT ALERT AND ORIENTED X3, DISCUSSED POC, PT VERBALIZED UNDERSTANDING. ASSESSMENT COMPLETED, CALL LIGHT IN REACH,CONTINUE TO MONITOR.
--- NOTE | 2019-12-20 13:35 | NUR ---
PT RESTING IN BED, NO SIGNS OF DISTRES NOTED, RESP EVEN AND UNLABORED. PT VOICES NO NEEDS OR COMPLAINTS AT THIS TIME. CALL LIGHT IN REACH,CONTINUE TO MONITOR.
--- NOTE | 2019-12-20 15:34 | NUR ---
VISITOR VISITING WITH PT, NO SIGNS OF DISTRESS NOTED, RESP EVEN AND UNLABORED, CALL LIGHT IN REACH,CONTINUE TO MONITOR.
[2019-12-20 16:30] VITALS: BP 127/86
[2019-12-20 18:52] VITALS: BP 103/65
--- NOTE | 2019-12-20 20:15 | NUR ---
PT RESTING IN BED, RESPIRATIONS EVEN AND UNLABORED ON 4L OF O2 VIA NC, LUNGS SOUND DIMINISHED. PEDAL PULSES WEAK. SAFETY PRECAUTIONS IN PLACE. WILL CONTINUE TO MONITOR.
--- NOTE | 2019-12-21 02:08 | NUR ---
PT RESTING IN BED, RESPIRATIONS EVEN AND UNLABORED ON RA. NO S/S OF DISTRESS AT THIS TIME. SAFTY PRECAUTIONS IN PLACE. WILL CONTINUE TO MONITOR.
--- NOTE | 2019-12-21 03:38 | NUR ---
PT RESTING IN BED, WITH EYES CLOSED. NO S/S OF DISTRESS AT THIS TIME. SAFETY PRECAUTIONS IN [place]. WILL CONTINUE TO MONITOR.
[2019-12-21 04:21] VITALS: BP 110/69
[2019-12-21 05:18] LABS: HEMATOCRIT 45.8 % (39.0-50.0); HEMOGLOBIN 12.7 g/dl (14.0-18.0); IMMATURE GRANULOCYTES 0.6 % (0.0-5.0); MEAN CELL VOLUME 81.8 fL CALC (80.0-100.0); MEAN CORPUSCULAR HGB 22.7 pG CALC (26.0-32.0); MEAN CORPUSCULAR HGB CONC 27.7 g/dL CAL (32.0-36.0); NEUT# 5.88 thou/uL (1.82-7.42); RED BLOOD COUNT 5.6 mill/uL (4.70-6.10); RED CELL DISTRI WIDTH 19.9 % (11.5-15.5)
[2019-12-21 05:29] LABS: ALBUMIN 4.3 g/dL (3.2-5.0); ALKALINE PHOSPHATASE 59 u/l (38-126); BILIRUBIN, TOTAL 0.9 mg/dL (0.0-1.4); BUN 33 mg/dL (9-20); BUN/CREATININE RATIO 28 (12-20 (CALC)); CHLORIDE 91 mmol/l (95-108); CREATININE 1.2 mg/dL (0.7-1.3); GFR > 60 ML/MIN (>=60 (CALC)); GFR FOR AFR.AMER. > 60 ML/MIN (>=60 (CALC)); POTASSIUM 4.1 mmol/l (3.5-5.1); SGOT/AST 23 u/l (17-59); SODIUM 139 mmol/l (137-146); TOTAL PROTEIN 7.3 g/dL (6.3-8.2)
[2019-12-21 05:35] LABS: ANION GAP 10 (6-22 (CALC))
[2019-12-21 05:50] LABS: CARBON DIOXIDE 42 mmol/l (22-30)
--- NOTE | 2019-12-21 07:30 | NUR ---
RECIVED REPORT FROM DAFNE NUÑEZ. PT RESTING IN SEMI FOWLERS POSITION UPON ENTERING ROOM.INTRODUCED SELF TO PT AND DISCUSSED POC. RESPIRATIONS ARE EVEN AND UNLABORED WITH NO SIGNS OF DISTRESS. PT DENIES ANY PAIN OR DISCOMFORTS AT THIS TIME. ALL SAFTEY PRECAUTIONS IN PLACE WITH CALL LIGHT IN REACH. WILL CONTINUE TO MONITOR
[2019-12-21 09:32] VITALS: BP 119/72
--- NOTE | 2019-12-21 09:59 | NUR ---
ASSESSMENT AND VITALS COMPLETED AT THIS TIME. BP 119/72, HR 92, O2 95% ON 2L NC. RESPIRATIONS ARE EVEN AND UNLABORED . LUNG SOUND ARE CLEAR. HEART RHYTHM IS NORMAL. BOWEL SOUNDS ARE ACTIVE IN ALL QUADRANTS WITH NO TENDERNESS. LAST REPORTED BM 12/19/2019. RADIAL AND PEDAL PULSES ARE STRONG WITH NORMAL CAPILLARY REFILL. PT PRESENTS WITH 2+ EDEMA IN LOWER EXTREMITIES. SKIN IS WARM AND DRY WITH NO BREAKDOWN. PT COMPLAINS OF 10/10 GENERALIZED BODY ACHES, TYLENOL ADMINISTERED WITH MORNING MEDS. IV FLUSHED, SITE APPEARS HEALTHY AND PATNET. PT DENIES ANY OTHER PAINS OR NEEDS AT THIS TIME. ALL SAFETY PRECAUTIONS IN PLACE WITH CALL LIGHT IN REACH. WILL COTNINUE TO MONITOR
--- NOTE | 2019-12-21 11:00 | NUR ---
REASSESMENT OF PAIN. PT STATES THAT THE TYLENOL IS WORKING AND PAIN IS NOW A 7/10.RESPIRATIONS ARE EVEN AND UNLABORED. ALL SAFTEY PRECAUTIONS IN PLACE WITH CALL LIGHT IN REACH. WILL CONTINUE TO MONITOR
--- NOTE | 2019-12-21 12:37 | NUR ---
PT RESTING IN SEMI FOWLERS POSTION WATCHING TV. RESPIRATIONS ARE EVEN AND UNLABORED WITH NO SIGNS OF DISTRESS ON 2L NC. PT DENIES ANY PAIN OR DISCOMFORTS AT THIS TIME. ALL SAFETY PRECAUTIONS IN PLACE WITH CALL LIGHT IN REACH. WILL CONTINUE TO MONITOR
--- NOTE | 2019-12-21 12:40 | NUR ---
AND AMENA, ANARNEL AT BEDSIDE DISCUSSING POC
[2019-12-21 16:29] VITALS: BP 126/74
[2019-12-21 16:31] VITALS: BP 105/71
--- NOTE | 2019-12-21 16:50 | NUR ---
NEW #22G IV STARTED IN LAC, SITE APPEARS HEALTHY AND PATENT WITH GOOD BLOOD RETURN. PT TOLERATED WELL. OLD #20G IV REMOVED WITH CATHATER STILL INTACTED. PT TOLERATED WELL.PT DENIES ANY PAINS OR DISCOMFORTS AT THIS TIME. ALL SAFTEY PRECAUTIONS IN PLACE WITH CALL LIGHT IN REACH.WILL CONTINUE TO MONITOR
--- NOTE | 2019-12-21 16:55 | NUR ---
INFECTION DISEASE CONSULT WITH DR. LEVINE AT THIS TIME. AWAITNG RECOMMENDATIONS AT THIS TIME. ALL SAFTEY PRECAUTIONS REMAIN IN PLACE WITH CALL LIGHT IN REACH. WILL CONTINUE TO MONITOR
[2019-12-21 18:45] VITALS: BP 139/72
--- NOTE | 2019-12-21 19:00 | NUR ---
RECEIVED REPORT FROM NURSE LOPEZ PATIENT RESTING IN BED, WATCHING TV, BREATHING EVEN AND UNLABORED CALL LIGHT AT REACH.
--- NOTE | 2019-12-21 20:30 | NUR ---
PATIENT ALERT ORIENTED ABLE TO MAKE NEEDS KNONW, WITH SALINE LOCK ON LAC G22, PATENT FLUSHES WELL, REMAINS ON O2 @ 2LPM VIA NC, NO DISCOMFORTS NOTED CALL LIGHT AT REACH.
--- NOTE | 2019-12-22 01:12 | NUR ---
PATIENT AWAKE C/O PAIN ON BLE PRN TYLENOL GIVEN PATIENT CURRENTLY WATCHING TV BREATHING EVEN AND UNLABORED, CALL LIGHT AT REACH.
[2019-12-22 03:35] VITALS: BP 101/60
--- NOTE | 2019-12-22 05:21 | NUR ---
PATIENT APPEARS TO BE SLEEPING WITH EYES CLOSED, BREATHING EVEN AND UNLABORED CALL LIGHT AT REACH.
[2019-12-22 07:08] VITALS: BP 115/74
--- NOTE | 2019-12-22 07:30 | NUR ---
RECIEVED REPORT FROM SAVANNAH LIRA. PT RESTING IN SEMI FOWLERS POSITION WATCHING TV UPON ENTERING ROOM.RESPIRATIONS ARE EVENA AND UNLABORED WITH NO SIGNS OF DISTRESS. PTCOMPLAINS OF 10/10 BODY ACHES, TYLENOL TO BE ADMINISTERED. PT DENIES ANY ADDITIONAL NEEDS. ALL SAFTEY PRECAUTIONS IN PLACE WITH CALL LIGHT IN REACH. WILL CONTINUE TO MONITOR.
[2019-12-22 08:54] VITALS: BP 111/72
--- NOTE | 2019-12-22 08:54 | NUR ---
ASSESSMENT AND VITALS COMPLETED AT THIS TIME.PT IS A/O X3 AND ASSIST X2. BP 111/72, HR 87, O2 95% ON 2 K NC. RESPIRTAIONS ARE EVEN AND UNLABORED WITH NO SIGNS OF DISTRESS. LUNG SOUNDS ARE DIMINSHED. HERT RHYTHM IS NORMAL. BOWEL SOUNDS ARE ACTIVE IN ALL QUADRANTS, LAST REPORTED BM 12/21/19. RADIAL AND PEDAL PULSES ARE STRONG WITH NORMAL CAPILLARY REFILL. PT PRESENTS WITH 2+ EDEMA IN LOWER EXTREMITIES. SKIN APPEARS DRY AND WARM BUT NO BREAKDOWN. PT COMPLAINING OF 10/10 GERNALIZED BODY PAIN. TYLENOL ADMINISTERED WITH MORNING MEDS. IV FLUSHED, SITE APPEARS HEALTHY AND PATENT. PT DENIES ANY OTHER PAINS OR DISCOMFORTS . ALL SFATEY PRECAUTIONS REAMIN IN PLACE WITH CALL LIGHT IN REACH. WILL CONTINUE TO MOTITOR
--- NOTE | 2019-12-22 10:55 | NUR ---
DR. MASON AT BEDSIDE DISCUSSING POC
--- NOTE | 2019-12-22 12:00 | NUR ---
S: TANNA SOLANO is a 44 M who presents with acute hypoxic respiratory failure secondary to pneumonia, positive blood culture for staphylococcus epidermidis, COVID PCR negative. He has a history of arthritis, HD, morbid obesity, HTN, CAD, obesity, CABG, sleep apnea, A-Fib, CHF, mentally challenged home, CPAP, and past open heart surgery. All medications in patient's chart were reviewed. O: VS: BP 115/80 mmHg, P 91 bpm, RR 18 BPM, T 97.9 W 152.6 kg, HT 177.8 cm, Scr=1.2 mg/dL, CrCl= 114 ml/min Vancomycin trough 12/20@0851 = 14 A: Blood culture show Staphylococcus epidermidis which is sensitive to gentamicin, tetracycline, vancomycin, and doxycycline. Vancomycin trough slightly below goal trough of 15-20. However, pt likely to accumulate due to morbid obesity. Re-draw vancomycin trough at 5 more doses. P: Patient is on Vancomycin 1,250 mg IV BID. Vancomycin ordered for pharmacy to dose. Increase Vancomycin 1250 mg IV Q12H. Vancomycin trough is drawn before the dose on 12/23/19 at 0830. Vancomycin goal trough is between 15-20 mcg/ml. Pharmacy will follow and or advise on antibiotics use as needed.
--- NOTE | 2019-12-22 12:30 | NUR ---
PT SITTING UP IN RECYLINER WATCHING TV. RESPIRATIONS ARE EVEN AND UNLABORED WITH NO SIGNS OF DISTRESS. PT DENIES ANY PAIN OR DISCOMFORTS AT THIS TIME. ALL SAFTEY PRECAUTIONS REMAIN IN PLACE WITH CALL LIGHT IN REACH. WILL COTINUE TO MONITOR
--- NOTE | 2019-12-22 12:54 | NUR ---
ECHO JANELLE AT BEDSIDE AT THIS TIME
[2019-12-22 15:00] VITALS: BP 121/84
--- NOTE | 2019-12-22 15:35 | NUR ---
PT RESTING IN SEMI FOWLERS POSITION WATCHING TV. RESPIRATIONS ARE EVEN AND UNLABORED WITH NO SIGNS OF DISTRESS. TYLENOL ADMINISTERED EARLIER FOR GENERALIZED PAIN. PT STATES THAT TYLENOL IS WORKING. PT DENIES ANY ADDITIONAL NEEDS AT THIS TIME. ALL SAFTEY PRECAUTIONS IN PLACE WITH CALL LIGHT IN REACH. WILL CONTINUE TO MONITOR
[2019-12-22 18:55] VITALS: BP 128/79
--- NOTE | 2019-12-22 19:00 | NUR ---
RECEIVED REPORT FROM NURSE LOPEZ PATIENT APPEARS TO BE SLEEPING HOOKED TO O2 @ 2LPM VIA NC, BREATHING EVEN AND UNLABORED, CALL LIGHT AT REACH.
--- NOTE | 2019-12-22 21:00 | NUR ---
PATIENT ALERT ORIENTED ABLE TO MAKE NEEDS KNOWN, WITH SALINE LOCK ON LAC PATENT FLUSHES WELL, LBM 12/20, DENIES PAIN OR DISCOMFORTS NOT IN DISTRESS CALL LIGHT AT REACH.
--- NOTE | 2019-12-22 23:49 | NUR ---
PATIENT AWAKE AT THIS TIME, C/O GEN BODY PAIN PRN TYLENOL GIVEN WILL REEVALUATE.
[2019-12-23 03:33] VITALS: BP 108/55
--- NOTE | 2019-12-23 04:37 | NUR ---
PATIENT APPEARS TO BE SLEEPING WITH EYES CLOSED, BREATHING EVEN AND UNLABORED, REMAINS ON O2 @ 2LPM VIA NC CALL LIGHT AT REACH.
--- NOTE | 2019-12-23 07:15 | NUR ---
RECIEVED REPORT FROM SAVANNAH LIRA. PT SLEEPING IN SEMI FOWLERS POSITION. RESPIRATIONS ARE EVEN AND UNLABORED WITH NO SIGNS OF DISTRESS. NO SIGNS OF ANY PAIN OR DISCOMFORTS AT THIS TIME. ALL SAFETY PRECAUTIONS WITH CALL LIGHT IN REACH. WILL CONTINUE TO MONITOR
[2019-12-23 09:01] VITALS: BP 100/55
--- NOTE | 2019-12-23 09:01 | NUR ---
ASSESSMENT AND VITALS COMPLETED AT THIS TIME. PT IS A/ O X3 AND ASSIST X2. BP 100/55, HR 110, O2 94% ON 3L NC. RESPIRATIONS ARE EVEN AND UNLABORED WITH NO SIGNS OF DISTRESS. LUNG SOUNDS ARE DIMINISHED. HEART RHYTHM IS NORMAL. BOWEL SOUNDS ARE ACTIVE IN ALL QUADRANTS WITH NO TENDERNESS. LAST REPORTED BM 12/21/19. RADIAL AND PEDAL PULSES ARE STRONG WITH NORMAL CAPILLARY REFILL. SKIN IS WARM AND DRY,WITH NO BREAK DOWN. LOWER EXTREMITIES APPEAR TO BE MODERATLY DRY WITH 2+ EDEMA, LOTION APPLIED AND LEGS ELEVATED. SUGGESTED TO PT THAT PT TRY TO SIT UP IN CHAIR LATER ON IN THE DAY, PT STATES HE IS WILLING TO TRY. IV #22G LAC FLUSHED, SITE APPEARS HEALTHY AND PATENT. PT COMPLAINS OF 10/10 GENERALIZED BODY ACHE.TYLENOL ADMINISTERED AT THIS TIME. DOLLY BECKWITH NOTIFIED OF PT CURRENT BP, ORDERED TO HOLD BP MEDS AND REASSESS BP WITHIN AN HOUR. PT DENIES ANY OTHER PAINS OR DISCOMFORTS AT THIS TIME. ALL SAFETY PRECAUTIONS REMAIN IN PLACE WITH CALL LIGHT IN REACH. WILL COTNINUE TO MONITOR
[2019-12-23 10:17] VITALS: BP 110/53
--- NOTE | 2019-12-23 10:20 | NUR ---
REASSESSMENT OF BP RESULTING IN 110/53, HR 112. AMENA NOTIFED OF BP. ORDERED TO HOLD LISINOPRIL 20 MG x1.ALL SAFTEY PRECAUTIONS REMAIN IN PLACE WITH CALL LIGHT IN REACH. WILL CONTINUE TO MONITOR.
--- NOTE | 2019-12-23 10:54 | NUR ---
DR. MASON AT BEDSIDE DISCUSSING POC
--- NOTE | 2019-12-23 11:37 | NUR ---
PT SLEEPING IN HIGH FOWLERS POSITION WITH LEGS ELEVATED. RESPIRATIONS ARE EVEN AND UNLABORED WITH NO SIGNS OF DISTRESS. ALL SAFTEY PRECAUTIONS REMIAN IN PLACE WITH CALL LIGHT IN REACH. WILL CONTINUE TO MONITOR
--- NOTE | 2019-12-23 12:41 | NUR ---
S: TANNA SOLANO is a 44 M who presents with pneumonia and bacteremia. He has a history of CHF, AFib, sleep apnea, respiratory failure with hypoxia . All medications in patient's chart were reviewed. O: VS: BP 110/53 mmHg, P 112 bmp, RR 19 ,T 98.7 F W 152.6 kg, HT 178 cm, Scr= 1.2 mg/dL ,CrCl= 114 ml/min Vancomycin trough on 12/23/19 = 15 A: Blood culture on 12/15 shows staphylococcus epidermidis with sensitivity to vancomycin. Vancomycin at goal trough level of 15-20. P: Vancomycin ordered for pharmacy to dose. Continue Vancomycin 1250 mg IV Q12H. Redraw vancomycin trough on 12/25/19 at 0830. Draw SCr and BUN 12/24/19 with am labs. Vancomycin goal trough is between 15-20 mcg/ml. Pharmacy will follow and or advise on antibiotics use as needed.
--- NOTE | 2019-12-23 13:31 | NUR ---
PT COMPLAINIG OF SOB. O2 SATURATION 96% ON 3L NC. WRITTER RAISED HEAD OF BED, PT STATING "IT HELPS A LITTLE." AMENA ANRP TO BE NOTIFIED OF PT COMPLAINT. RESPIRATIONS ARE SHALLOW. HEAD REMAINS IN HIGH FOWLERS POSTION. PT DENIES ANY PAIN OR DISCOMFORTS AT THIS TIME. ALL SAFETY PRECAUTIONS IN PLACE WITH CALL LIGHT IN REACH.
[2019-12-23 16:00] VITALS: BP 96/54
--- NOTE | 2019-12-23 16:30 | NUR ---
PT RESTING IN SEMI FOWLERS POSITION RESPIRATIONS ARE EVEN AND UNLABORED WITH NO SIGNS OF DISTRESS. PT NOTIFIED OF TRANSFER TO [facility]. PT VERBALIZED UNDERSTANDING OF TRANSFER. PT DENIES ANY PAINS OR DISCOMFORTS AT THIS TIME. ALL SAFTEY PRECAUTIONS REMAIN IN PLACE WITH CALL LIGHT IN REACH. WILL COTNINUE TO MONITOR.
--- NOTE | 2019-12-23 17:10 | NUR ---
PT RESTING IN SEMI FOWLERS POSITION WATCHING TV. RESPIRATIONS ARE EVEN AND UNLABORED WITH NO SIGNS OF DISTRESS. PT AWARE OF TRANSFER TO [facility]. AWAITING OF [facility]SPORT[facility] AT THIS TIME. ALL SAFTEY PRECAUTIONS IN PLACE WITH CALL LIGHT IN REACH . WILL CONTINUE TO MONITOR
--- NOTE | 2019-12-23 18:56 | NUR ---
PT LEFT FLOOR IN STABLE CONDITION VIA STRETCHER ACCOMPAINED BY [facility].ALL BELONGINGS LEFT WITH PT.
--- NOTE | 2019-12-23 19:19 | NUR ---
REPORT GIVEN TO SAVANNAH HARTLEY AT [facility]
== END 2019-12-23 19:00 | DRG 193 ==
LOC: ED 16:21 → ED-I 18:19 → ED 18:33 → ED-I 18:34 → ICU 22:42 → MS2 12-17 06:32 → ICU 12-17 06:33 → MS2 12-19 12:48
PROVIDERS: Family Medicine; Internal Medicine; ADMIT Internal Medicine; ATTEND Internal Medicine
DX: J18.9 Pneumonia, unspecified organism (principal); J96.21 Acute and chronic respiratory failure with hypoxia; R78.81 Bacteremia; Z68.42 Body mass index [BMI] 45.0-49.9, adult; I48.20 Chronic atrial fibrillation, unspecified; T82.6XXA Infection and inflammatory reaction due to cardiac valve prosthesis, initial encounter; I38 Endocarditis, valve unspecified; E66.01 Morbid (severe) obesity due to excess calories; I11.0 Hypertensive heart disease with heart failure; I50.9 Heart failure, unspecified; I25.10 Atherosclerotic heart disease of native coronary artery without angina pectoris; E78.5 Hyperlipidemia, unspecified; E03.9 Hypothyroidism, unspecified; G47.33 Obstructive sleep apnea (adult) (pediatric); F79 Unspecified intellectual disabilities; Z20.828 Contact with and (suspected) exposure to other viral communicable diseases; Z95.1 Presence of aortocoronary bypass graft; Z79.01 Long term (current) use of anticoagulants; Z87.01 Personal history of pneumonia (recurrent); Z95.3 Presence of xenogenic heart valve; Z86.19 Personal history of other infectious and parasitic diseases; Y83.1 Surgical operation with implant of artificial internal device as the cause of abnormal reaction of the patient, or of later complication, without mention of misadventure at the time of the procedure
CPT/HCPCS: J3370; Q3014

== ENCOUNTER 2020-04-08 11:35 | Emergency (ER) | payer MEDICAID ==
[~2020-04-08] VITALS: Ht 177.8 cm; Wt 145.0 kg
[2020-04-08 13:17] LABS: HEMATOCRIT 44.3 % (39.0-50.0); HEMOGLOBIN 12.8 g/dl (14.0-18.0); IMMATURE GRANULOCYTES 0.4 % (0.0-5.0); MEAN CORPUSCULAR HGB 25.7 pG CALC (26.0-32.0); MEAN CORPUSCULAR HGB CONC 28.9 g/dL CAL (32.0-36.0); NEUT# 3.11 thou/uL (1.82-7.42); RED BLOOD COUNT 4.98 mill/uL (4.70-6.10); RED CELL DISTRI WIDTH 15.8 % (11.5-15.5)
[2020-04-08 13:22] LABS: URINE BILIRUBIN - DIPSTICK NEGATIVE (NEGATIVE); URINE BLOOD DIPSTICK NEGATIVE (NEGATIVE); URINE COLOR YELLOW; URINE GLUCOSE - DIPSTICK NEGATIVE (NEGATIVE); URINE KETONE NEGATIVE (NEGATIVE); URINE LEUK ESTERASE NEGATIVE (NEGATIVE); URINE NITRITE - DIPSTICK NEGATIVE (Negative); URINE PH 7.5 (4.5-8.0); URINE PROTEIN - DIPSTICK NEGATIVE (NEG-TRACE); URINE UROBILINOGEN - DIPSTICK 0.2 E.U./dL (0.2)
[2020-04-08 13:33] LABS: ALBUMIN 4.4 g/dL (3.2-5.0); ALKALINE PHOSPHATASE 61 u/l (38-126); BILIRUBIN, TOTAL 0.6 mg/dL (0.0-1.4); BUN 16 mg/dL (9-20); BUN/CREATININE RATIO 12 (12-20 (CALC)); CHLORIDE 91 mmol/l (95-108); CREATININE 1.4 mg/dL (0.7-1.3); GFR 54 ML/MIN (>=60 (CALC)); GFR FOR AFR.AMER. > 60 ML/MIN (>=60 (CALC)); POTASSIUM 4.2 mmol/l (3.5-5.1); SGOT/AST 34 u/l (17-59); SODIUM 137 mmol/l (137-146); TOTAL PROTEIN 8.3 g/dL (6.3-8.2)
[2020-04-08 13:35] LABS: ACT PARTIAL THROMBO TIME 29.4 SECONDS (20.0-32.5); INTERNATIONAL NORMALIZED RATIO 1.2 RATIO (0.7-1.3); PROTHROMBIN TIME 11.6 SECONDS (9.0-12.5)
[2020-04-08 13:36] LABS: ANION GAP 10 (6-22 (CALC)); CARBON DIOXIDE 40 mmol/l (22-30)
[2020-04-08 18:00] VITALS: BP 156/75
== END 2020-04-08 18:00 | disposition home or self-care (01) ==
LOC: ED 11:35
PROVIDERS: Student in an Organized Health Care Education/Training Program
DX: R07.9 Chest pain, unspecified (principal); I48.20 Chronic atrial fibrillation, unspecified; I25.10 Atherosclerotic heart disease of native coronary artery without angina pectoris; I11.0 Hypertensive heart disease with heart failure; I50.9 Heart failure, unspecified; F79 Unspecified intellectual disabilities; E66.01 Morbid (severe) obesity due to excess calories; Z95.1 Presence of aortocoronary bypass graft

== ENCOUNTER 2020-04-29 17:50 | Inpatient (IN) | payer MEDICAID ==
[~2020-04-29] VITALS: Ht 177.8 cm; Wt 154.0 kg
--- NOTE | 2020-04-29 17:50 | NUR ---
PT TO ROOOM VIA WC IN NO APPARENT DISTRESS
[2020-04-29] MEDS ORDERED: NITROGLYCERIN0.4 MG PO (18:15)
--- NOTE | 2020-04-29 18:15 | NUR ---
PT UPDATED ON POC , NO RESP DISTRESS. PT CAME IN WITHOUT O2 BUT STATES IS O2 DEPENDENT ALWAYS AT HOME ON 4LPM. RESP EVEN AND UNLABORED. PT AND IN NO DISTRESS
[2020-04-29 18:38] LABS: HEMATOCRIT 46.8 % (39.0-50.0); HEMOGLOBIN 12.8 g/dl (14.0-18.0); IMMATURE GRANULOCYTES 0.4 % (0.0-5.0); MEAN CELL VOLUME 88.6 fL CALC (80.0-100.0); MEAN CORPUSCULAR HGB 24.2 pG CALC (26.0-32.0); MEAN CORPUSCULAR HGB CONC 27.4 g/dL CAL (32.0-36.0); NEUT# 2.87 thou/uL (1.82-7.42); RED BLOOD COUNT 5.28 mill/uL (4.70-6.10); RED CELL DISTRI WIDTH 16.9 % (11.5-15.5)
[2020-04-29 18:53] LABS: ALBUMIN 4.4 g/dL (3.2-5.0); ALKALINE PHOSPHATASE 61 u/l (38-126); ANION GAP 12 (6-22 (CALC)); BILIRUBIN, TOTAL 0.6 mg/dL (0.0-1.4); BUN 18 mg/dL (9-20); BUN/CREATININE RATIO 13 (12-20 (CALC)); CARBON DIOXIDE 37 mmol/l (22-30); CHLORIDE 97 mmol/l (95-108); CREATININE 1.4 mg/dL (0.7-1.3); GFR 54 ML/MIN (>=60 (CALC)); GFR FOR AFR.AMER. > 60 ML/MIN (>=60 (CALC)); SGOT/AST 31 u/l (17-59); SODIUM 142 mmol/l (137-146); TOTAL PROTEIN 7.9 g/dL (6.3-8.2)
--- NOTE | 2020-04-29 18:57 | NUR ---
HAND OFF REPORT RECEIVED FROM ALONDRA
[2020-04-29 19:05] LABS: MYOGLOBIN 88 ng/mL (0 - 121)
[2020-04-29 19:30] LABS: URINE BILIRUBIN - DIPSTICK NEGATIVE (NEGATIVE); URINE BLOOD DIPSTICK NEGATIVE (NEGATIVE); URINE COLOR YELLOW; URINE GLUCOSE - DIPSTICK NEGATIVE (NEGATIVE); URINE KETONE NEGATIVE (NEGATIVE); URINE LEUK ESTERASE NEGATIVE (NEGATIVE); URINE NITRITE - DIPSTICK NEGATIVE (Negative); URINE PROTEIN - DIPSTICK 100 mg/dL (NEG-TRACE); URINE SPECIFIC GRAVITY 1.025
[2020-04-29 19:41] LABS: URINE RBC 0-2 RBC/hpf (0-5); URINE WBC 0-2 WBC/hpf (0-5)
--- NOTE | 2020-04-29 20:02 | NUR ---
PATIENT RESTING QUIETLY AT THIS TIME, NO C/O PAIN OR DISCOMFORT, NO S/S OF DISTRESS NOTED, RESPIRATION SEVEN AND UNLABORED ON O2@4L NC, AWAITING DIAGNOSTIC RESULTS, 550 CC CLEAR, YELLOW URINE EMPTIED FROM URINAL.
--- NOTE | 2020-04-29 20:50 | NUR ---
ATTEMPTED TO GIVE INPATIENT REPORT NURSE UNAVAILBLE AT THIS TIME.
--- NOTE | 2020-04-29 20:57 | NUR ---
500CC CLEAR YELLOW URINE EMPTIED FROM URINAL, PATIENT PLACED ON PORTABLE TELE FOR INPATIENT MONITORING
--- NOTE | 2020-04-29 21:11 | NUR ---
ATTEMPTED TO GIVE REPORT TO INPATIENT NURSE, NURSE UNAVAILABLE.
--- NOTE | 2020-04-29 21:41 | NUR ---
REPORT RECIEVED FROM SAVANNAH VICTOR.
--- NOTE | 2020-04-29 21:41 | NUR ---
HAND OFF REPORT GIVEN TO SAVANNAH LOPEZ
[2020-04-29 21:45] VITALS: BP 140/94
--- NOTE | 2020-04-29 21:46 | NUR ---
PT ARRIVED TO [facility] VIA STRETCHER IN STABLE CONDITION. PT AMBULATED FROM STRETCHER TO BED WITH CANE. INTRODUCED SELF TO PT AND DISCUSSED POC. PT IS A/O X3 BUT APPEARS TO BE MENTALLY CHALLENGED. ASSESSMENT AND VITALS OBTAINED. BP 140/94, HR 76, O2 92% ON 4L NC THAT PT IS DEPENDENT ON AT HOME. RESPIRATIONS ARE SHALLOW. LUNG SOUNDS ARE DIMINISHED WITH WHEEZING PRESENT ON ASCULTATING. HEART RHYTHM IS NORMAL WITH TELE IN PLACE, A FIB 72 PER ER MONITORING. BOWEL SOUNDS ARE ACTIVE IN ALL QUADRANTS, LAST REPORTED BM 04/29/2020. RADIAL PULSES STRONG. PEDAL PULSES WEAK. SKIN IS DRY BUT INTACT. TRACE EDEMA LOCATED IN BLE. PT COMPLAINS OF 6/10 CHEST PAIN. PT TO BE MEDICATED PER EMAR. PT REQUEST FROM SANDWHICH AND ICE CREAM. PT DENIES ANY ADDITIONAL NEEDS AT THIS TIME. ALL SAFETY PRECAUTIONS ARE IN PLACE WITH CALL LIGHT IN REACH. WILL CONTINUE TO MONITOR.
--- NOTE | 2020-04-29 21:50 | NUR ---
INVENTORY SHEET COMPLETED. PT PRESENTS WITH $572.00 IN WALLET. PT REFUSED TO SEND TO SAFE. MONEY WAS PUT BACK INTO WALLET AND INTO PANTS BACK LEFT POCKET, PLACED INTO CABINET.
[2020-04-29 23:38] VITALS: BP 145/87
--- NOTE | 2020-04-30 00:38 | NUR ---
PT SLEEPING IN HIGH FOLWERS POSITION. RESPIRATIONS ARE LABORED ON 4L NC. NO SIGNS OF ANY PAIN AT THIS TIME. ALL SAFETY PRECAUTIONS ARE IN PLACE WITH TELE MONITORING IN PLACE. WILL CONTINUE TO MONITOR
--- NOTE | 2020-04-30 04:03 | NUR ---
PT SLEEPING IN HIGH FOLWERS POSITION. RESPIRATIONS ARE SHALLOW ON 4L NC. NO SIGNS OF ANY PAIN OR DISCOMFORTS AT THIS TIME. ALL SFAETY PRECAUTIONS ARE IN PLACE WITH CALL LIGHT IN REACH. WILL CONTINUE TO MONITOR
[2020-04-30 04:17] VITALS: BP 137/84
[2020-04-30 05:34] LABS: HEMATOCRIT 48.1 % (39.0-50.0); IMMATURE GRANULOCYTES 0.4 % (0.0-5.0); MEAN CELL VOLUME 89.6 fL CALC (80.0-100.0); MEAN CORPUSCULAR HGB 24.2 pG CALC (26.0-32.0); NEUT# 3.37 thou/uL (1.82-7.42); RED BLOOD COUNT 5.37 mill/uL (4.70-6.10); RED CELL DISTRI WIDTH 17.1 % (11.5-15.5)
[2020-04-30 05:52] LABS: ANION GAP 12 (6-22 (CALC)); BUN 20 mg/dL (9-20); BUN/CREATININE RATIO 16 (12-20 (CALC)); CARBON DIOXIDE 39 mmol/l (22-30); CHLORIDE 97 mmol/l (95-108); CREATININE 1.3 mg/dL (0.7-1.3); GFR 59 ML/MIN (>=60 (CALC)); GFR FOR AFR.AMER. > 60 ML/MIN (>=60 (CALC)); MAGNESIUM 1.8 mg/dL (1.6-2.3); POTASSIUM 4.5 mmol/l (3.5-5.1); SODIUM 143 mmol/l (137-146)
[2020-04-30 07:44] VITALS: BP 124/80
--- NOTE | 2020-04-30 09:59 | NUR ---
REPORT WAS RECEIVED FROM ANUPAM GUERRERO. ASSESSMENT DONE. PT IS A&O X3. PT IS WATCHING YOUTUBE IN HIS CELL PHONE. PT STATED HE HAS A HEADACHE 01/31. MEDICATED PT WITH TYLENOL. PT IS TALKAITVE. LUNGS SOUND DIMINISHED. O2 AT 4L VIA NC. TELE IN PLACE. 20 LAC APPEARS HEALTHY. PT DENIES ANY OTHER NEEDS AT THIS TIME. SAFETY PRECAUTIONS REINFROCED AND CALL LIGHT IN REACH.
[2020-04-30 10:30] VITALS: BP 129/87
--- NOTE | 2020-04-30 12:15 | NUR ---
PT IS EATING HIS LUNCH WITH THE NO S/S NOTED. PT DENIES ANY NEEDS AT THIS TIME. CALL LIGHT IN REACH.
[2020-04-30 15:00] VITALS: BP 135/104
--- NOTE | 2020-04-30 16:15 | NUR ---
PT IS RESTING IN BED WITH NO S/S OF DISTRESS NOTED. PT IS BEING TALKATIVE. PO WATER PROVIDED. PT DENIES ANY OTHER NEEDS AT THIS TIME. CALL LIGHT IN REACH.
--- NOTE | 2020-04-30 19:45 | NUR ---
1900-BSSR w/ dayshift nurse via sbar format. Found patient awake, resting in bed, on his cell phone, no pain reported, resp are even and unlabored on room air, will follow up closely, call diana at reach, safety measures in place.
[2020-04-30 20:00] VITALS: BP 115/82
--- NOTE | 2020-04-30 20:41 | NUR ---
Medicated with eliquis and lasix iv, no pain or needs reported, watching tv, no s/s of distress. Call diana at reach. Urinal within reach.
--- NOTE | 2020-04-30 22:36 | NUR ---
Patient remains awake, watching tv, no needs voiced at this time, call diana at reach,
[2020-05-01] VITALS: BP 118/79
--- NOTE | 2020-05-01 00:16 | NUR ---
RESTING IN BED, AWAKE, WATCHING TV, NO PAIN OR NEEDS REPORTED, CALL LANE AT REACH.
[2020-05-01 04:00] VITALS: BP 114/62; BP 134/94
--- NOTE | 2020-05-01 04:40 | NUR ---
Resting in bed, no changes noted from previous assessment, resp are even and unlabored on 4LPM via nc, no needs reported at this time, will follow up with roundings.
[2020-05-01 05:43] LABS: HEMOGLOBIN 13.3 g/dl (14.0-18.0); IMMATURE GRANULOCYTES 0.3 % (0.0-5.0); MEAN CELL VOLUME 89.1 fL CALC (80.0-100.0); MEAN CORPUSCULAR HGB 24.7 pG CALC (26.0-32.0); MEAN CORPUSCULAR HGB CONC 27.7 g/dL CAL (32.0-36.0); NEUT# 5.14 thou/uL (1.82-7.42); RED BLOOD COUNT 5.39 mill/uL (4.70-6.10); RED CELL DISTRI WIDTH 17.5 % (11.5-15.5)
[2020-05-01 06:10] LABS: ALBUMIN 4.3 g/dL (3.2-5.0); ALKALINE PHOSPHATASE 65 u/l (38-126); BILIRUBIN, TOTAL 0.6 mg/dL (0.0-1.4); BUN 21 mg/dL (9-20); BUN/CREATININE RATIO 17 (12-20 (CALC)); CHLORIDE 94 mmol/l (95-108); CREATININE 1.3 mg/dL (0.7-1.3); GFR 59 ML/MIN (>=60 (CALC)); GFR FOR AFR.AMER. > 60 ML/MIN (>=60 (CALC)); POTASSIUM 4.4 mmol/l (3.5-5.1); SGOT/AST 28 u/l (17-59); SODIUM 142 mmol/l (137-146); TOTAL PROTEIN 7.9 g/dL (6.3-8.2)
[2020-05-01 06:17] LABS: ANION GAP 13 (6-22 (CALC)); CARBON DIOXIDE 39 mmol/l (22-30)
--- NOTE | 2020-05-01 08:00 | NUR ---
PATIENT RESTING COMFORTABLY. HADA LARGE BM IN BEDSIDE COMMODE
[2020-05-01 10:30] VITALS: BP 136/98
--- NOTE | 2020-05-01 11:14 | NUR ---
PATIENT RESTING COMFORTABLY. NO COMPLIANTS OR CONCERNS AT THIS TIME
--- NOTE | 2020-05-01 12:00 | NUR ---
PATIENT AWAKE ALERT AND ORIENTED. NO CHANGE IN STATUS
[2020-05-01 15:00] VITALS: BP 130/92
--- NOTE | 2020-05-01 17:22 | NUR ---
PATIENT AWAKE AND ALERT. NO CHANGES IN STATUS THIS SHIFT
--- NOTE | 2020-05-01 19:00 | NUR ---
REPORT RECEIVED FROM Sumit MARTINES RN, CARE OF PT ASSIGNED TO Erna LACY RN, WITH DIRECT SUPERVISION FROM Jen BATES RN.
[2020-05-01 20:00] VITALS: BP 107/64
--- NOTE | 2020-05-01 20:00 | NUR ---
PT. AWAKE WATCHING SPORTS ON TV. NO VISIBLE DIFFICULTY BREATHING OR COMPLAINTS VOICED. DISCUSSING HOW THE ILLNESS IN THE WORLD IS AFFECTING SPORTS. WILL MONITOR.
--- NOTE | 2020-05-01 20:03 | NUR ---
PT. SITTING PROPPED KEEPING RIGHT ELBOW OFF THE MATTRESS. 2O G LEFT AC PATENT . ON O2 AT 4 L. STATES HE HAD A BM TODAY. ON TELE. USES BSC. FALL RISK. WILL MONITOR.
--- NOTE | 2020-05-01 21:04 | NUR ---
PT CALLS ANIMAL HANDLER ARIANA, STATES "I NEED A NURSE", UPON ENTERING ROOM PT HAD CALLED BECAUSE HE HAS DROPPED HIS PHONE ON FLOOR. PHONE RETRIEVED FOR PT.
--- NOTE | 2020-05-01 23:48 | NUR ---
NO FURTHER C/O RIGHT ELBOW PAIN. PT. ASLEEP OM LEFT SIDE WITH EVEN RESPIRATIONS. WILL MONITOR. NO CHANGES ON TELE.
[2020-05-02] VITALS: BP 130/85
[2020-05-02 04:00] VITALS: BP 114/65
[2020-05-02 05:43] LABS: HEMATOCRIT 49.5 % (39.0-50.0); HEMOGLOBIN 13.5 g/dl (14.0-18.0); IMMATURE GRANULOCYTES 0.3 % (0.0-5.0); MEAN CELL VOLUME 88.2 fL CALC (80.0-100.0); MEAN CORPUSCULAR HGB 24.1 pG CALC (26.0-32.0); MEAN CORPUSCULAR HGB CONC 27.3 g/dL CAL (32.0-36.0); NEUT# 3.75 thou/uL (1.82-7.42); RED BLOOD COUNT 5.61 mill/uL (4.70-6.10); RED CELL DISTRI WIDTH 17.4 % (11.5-15.5)
--- NOTE | 2020-05-02 05:49 | NUR ---
PT RESTING IN BED, HENODYNAMICS STABLE, ASSESMENT UNCHANGED. PT DENIES NEEDS AT THIS TIME. CALL LANE REMAINS WITHIN REACH, AGREES TO CALL PRN.
[2020-05-02 06:04] LABS: ALBUMIN 4.2 g/dL (3.2-5.0); ALKALINE PHOSPHATASE 60 u/l (38-126); BILIRUBIN, TOTAL 0.8 mg/dL (0.0-1.4); BUN 22 mg/dL (9-20); BUN/CREATININE RATIO 20 (12-20 (CALC)); CHLORIDE 91 mmol/l (95-108); CREATININE 1.1 mg/dL (0.7-1.3); GFR > 60 ML/MIN (>=60 (CALC)); GFR FOR AFR.AMER. > 60 ML/MIN (>=60 (CALC)); POTASSIUM 4.3 mmol/l (3.5-5.1); SGOT/AST 30 u/l (17-59); SODIUM 139 mmol/l (137-146); TOTAL PROTEIN 7.7 g/dL (6.3-8.2)
[2020-05-02 06:12] LABS: ANION GAP 11 (6-22 (CALC))
[2020-05-02 06:21] LABS: CARBON DIOXIDE 41 mmol/l (22-30)
[2020-05-02 08:23] VITALS: BP 119/73
--- NOTE | 2020-05-02 08:23 | NUR ---
RECIEVED REPORT FROM RODRIGO Desai RN. PT RESTING IN SEMI FOWLERS SPOTIION UPON ENTERING ROOM. INTRODUCED SELF TO PT AND DISSCUSSED POC. PT IS A/O X3 BUT SEEMS TO BE MENTALLY DELAYED. ASSESSMENT AND VITALS COMPLETED. BP 119/73, HR 90, O2 95% ON 4L NC. RESPIRATIONS ARE SHALLOW. LUNG SOUNDS ARE DIMINISHED. HEART RHYTHM IS NORMAL WITH TELE IN PLACE. BOWEL SOUNDS ARE ACTIV EIN ALL QUADRNATS, LAST REPORETD BM 05/01/2020. RADIAL PULSES STRONG. PEDAL PULSES WEAK. #20G IN LAC FLUSHED, SITE APPEARS EHALTHY AND PATENT. TRACE EDEMA NOTED IN BLE. SKIN APPEARS DRY BUT INTACT. PT COMPLAINS OF 10/10 ELBOW AND BLE PAIN. TYLENOL TO BE ADMINISTERED. 350 OF BERNY COLORED URINE EMPTIED FROM URINAL. PT DENIES ANY ADDITIONAL NEEDS AT THIS TIME. ALL SAFETY PRECAUTIONS ARE IN PLACE WIHT CALL LIGHT IN REACH. WILL CONTINUE TO MONITOR.
--- NOTE | 2020-05-02 09:33 | NUR ---
PT. WAS SCREENED AND MAY BENEFIT FROM A P.T. AND O.T. EVALUATION.
--- NOTE | 2020-05-02 10:22 | NUR ---
REASSESSMENT OF PAIN AT THIS TIME. RESUTLING IN 12/31. RESPIRATIONS REMAIN SHALLOW ON 4L NC. PT DENIES ANY ADDITIONAL NEEDS AT THIS TIME. ALL SAFETY PRECAUTIONS AR EIN PLACE WIHT CALL LIGHT IN REACH. WILL CONTINUE TO MONITOR
[2020-05-02 11:35] VITALS: BP 118/78
--- NOTE | 2020-05-02 11:53 | NUR ---
PT RESTING IN CHAIR WATCHING TV. RESPIRATIONS ARE SHALLOW ON 4 L NC. IV ANTIBIOTICS RUNNING WITH EASE, SITE APPEARS HEALTHY AND PATENT. PT DENIES OF ANY PAIN OR DISCOMFORTS AT THIS TIME. ALL SAFETY PRECAUTIONS ARE IN PLACE WITH CALL LIGHT IN REACH. WILL CONTINUE TO MONITOR
[2020-05-02 16:00] VITALS: BP 108/75
--- NOTE | 2020-05-02 16:42 | NUR ---
PT SITTING IN RECYLINER WATCHING TV. RESPIRATIONS ARE SHALLOW ON 4L NC. PT DENIES ANY PAIN OR DISCOMFORTS AT THIS TIME. TELE MONIOTRING IN PLACE. ALL SAFETY PRECAUTIONS ARE IN PLACE WITH CALL LIGHT IN REACH.WILL CONTINUE TO MONITORING.
[2020-05-02 19:00] VITALS: BP 122/78
[2020-05-03] VITALS: BP 114/63
--- NOTE | 2020-05-03 01:59 | NUR ---
Pt alert and oriented. Pt complained of pain rated at 10 and requested medication. Repositioning was attempted to alleviate the pain to no avail. IV access patent. Site clean and intact. Output of 1000cc. Urine pale yellow, clear and odor free. Medications administered tolerated well. Bed in lowest positin with wheels locked. Call light within reach and functioning. Will continue to moniter.
[2020-05-03 04:00] VITALS: BP 121/66
[2020-05-03 06:04] LABS: HEMOGLOBIN 12.5 g/dl (14.0-18.0); MEAN CELL VOLUME 87.9 fL CALC (80.0-100.0); MEAN CORPUSCULAR HGB 24.4 pG CALC (26.0-32.0); MEAN CORPUSCULAR HGB CONC 27.8 g/dL CAL (32.0-36.0); RED BLOOD COUNT 5.12 mill/uL (4.70-6.10); RED CELL DISTRI WIDTH 17.2 % (11.5-15.5)
[2020-05-03 06:27] LABS: BUN 25 mg/dL (9-20); BUN/CREATININE RATIO 20 (12-20 (CALC)); CHLORIDE 92 mmol/l (95-108); CREATININE 1.2 mg/dL (0.7-1.3); GFR > 60 ML/MIN (>=60 (CALC)); GFR FOR AFR.AMER. > 60 ML/MIN (>=60 (CALC)); MAGNESIUM 1.8 mg/dL (1.6-2.3); POTASSIUM 4.5 mmol/l (3.5-5.1); SODIUM 140 mmol/l (137-146)
[2020-05-03 06:35] LABS: ANION GAP 11 (6-22 (CALC))
[2020-05-03 06:45] LABS: CARBON DIOXIDE 42 mmol/l (22-30)
--- NOTE | 2020-05-03 06:46 | NUR ---
RECIEVED CALL FROM TANNA IN THE LAB-[id number]. HEALTH CARE PROVIDER AWARE OF THE TREND. WILL CONT TO MONITOR.
--- NOTE | 2020-05-03 07:43 | NUR ---
RECEIEVED REPORT FROM STALIN RN. PT SITTING UP ON SIDE OF BED UPON ENTERING ROOM. WRITTER ASSISTED PT TO CHAIR. INTRODUCED SELF TO PT AND DISCUSSED POC. ASSESSMENT AND VITALS OBTAINED. BP 140/60, HR 99, O2 95% ON 4L NC THAT PT IS DEPENDENT ON AT HOME.LUNG SOUNDS ARE DIMINISHED. HEART RYTHM IS NORMAL WITH TELE MONITORING IN PLACE, AFIB 103.BOWEL SOUNDS ARE ACTIVE , LAST REPORETD BM 05/01/2020. RADIAL PULSES STRONG. PEDAL PULSES WEAK. 1+EDEMA NOTED IN BLE. SKIN IS INTACT. #20G IN LAC FLUSHED, SITE APPEARS HEALTHY AND PATENT. PT COMPLAINS OF 10/10 PAIN IN BOTH ELBOWS. TYLENOL TO BE ADMINISTERED. PT DENIES ANY ADDITIONAL NEEDSW AT THIS TIME. ALL SAFETY PRECAUTIONS ARE IN PLACE WITH CALL LIGHT IN REACH. WILL CONTINUE TO MONITOR
[2020-05-03 08:20] VITALS: BP 140/60
--- NOTE | 2020-05-03 09:44 | NUR ---
REASSESSMENT OF PAIN AT THIS TIME. RESUTLING IN 01/31.
[2020-05-03] MEDS ORDERED: ZITHROMAX250 MG PO (09:53)
[2020-05-03 10:30] VITALS: BP 125/90
--- NOTE | 2020-05-03 11:45 | NUR ---
PT EDUCATED ON DISCHARGE ORDERS AND NEW MEDICATION AZITHROMYCIN. PT VERBAILZED UNDERSTANDING. IV REMOVED WITH CATHATER STILL INTACT. PT TOLERATED WELL. TELE MONITORING REMOVED. ER NOTIFIED. PT AWAITING FOR TRANSPORTATION HOME FROM BROTHER AT THIS TIME. ALL SAFTEY PRECAUTIONS REMAIN IN PLACE WITH CALL LIGHT IN REACH. WILL CONTINUE TO MONITOR
--- NOTE | 2020-05-03 12:30 | NUR ---
Discharge instructions given. Patient verbalizes understanding of same. Discharged in stable condition via Wheelchair to Home with family. All belongings sent with pt.
== END 2020-05-03 12:28 | disposition home or self-care (01) | DRG 291 ==
LOC: ED 17:50 → ED-I 20:25 → ED 20:37 → MS2 20:38
PROVIDERS: Emergency Medicine; Nurse Practitioner; Physician Assistant; ADMIT Internal Medicine; ATTEND Internal Medicine
DX: I13.0 Hypertensive heart and chronic kidney disease with heart failure and stage 1 through stage 4 chronic kidney disease, or unspecified chronic kidney disease (principal); I50.23 Acute on chronic systolic (congestive) heart failure; J96.21 Acute and chronic respiratory failure with hypoxia; I48.20 Chronic atrial fibrillation, unspecified; N17.9 Acute kidney failure, unspecified; N18.30 Chronic kidney disease, stage 3 unspecified; R51.9 Headache, unspecified; Z20.828 Contact with and (suspected) exposure to other viral communicable diseases; I25.10 Atherosclerotic heart disease of native coronary artery without angina pectoris; E78.5 Hyperlipidemia, unspecified; E03.9 Hypothyroidism, unspecified; G47.33 Obstructive sleep apnea (adult) (pediatric); M10.9 Gout, unspecified; F79 Unspecified intellectual disabilities; Z99.81 Dependence on supplemental oxygen; Z79.01 Long term (current) use of anticoagulants; Z79.899 Other long term (current) drug therapy; Z95.2 Presence of prosthetic heart valve

== ENCOUNTER 2020-05-10 11:21 | Inpatient (IN) | payer MEDICAID ==
[~2020-05-10] VITALS: Ht 177.8 cm; Wt 154.0 kg
[~2020-05-10 11:21] MED LIST changes: +NITROGLYCERIN0.4 MG PO; +ZITHROMAX250 MG PO
--- NOTE | 2020-05-10 11:23 | NUR ---
PT TAKEN DIRECTLY TO RM 9 VIA STRETCHER WITH EMS, 6l o2 ON VIA CANNULA
[2020-05-10 12:06] LABS: IMMATURE GRANULOCYTES 0.7 % (0.0-5.0); MEAN CELL VOLUME 86.9 fL CALC (80.0-100.0); MEAN CORPUSCULAR HGB 24.1 pG CALC (26.0-32.0); MEAN CORPUSCULAR HGB CONC 27.8 g/dL CAL (32.0-36.0); NEUT# 2.99 thou/uL (1.82-7.42); RED BLOOD COUNT 4.35 mill/uL (4.70-6.10); RED CELL DISTRI WIDTH 17.8 % (11.5-15.5)
[2020-05-10 12:07] LABS: HEMATOCRIT 37.8 % (39.0-50.0); HEMOGLOBIN 10.5 g/dl (14.0-18.0)
[2020-05-10 12:21] LABS: ALKALINE PHOSPHATASE 45 u/l (38-126); BILIRUBIN, TOTAL 0.5 mg/dL (0.0-1.4); BUN 17 mg/dL (9-20); BUN/CREATININE RATIO 20 (12-20 (CALC)); CARBON DIOXIDE 34 mmol/l (22-30); CREATININE 0.9 mg/dL (0.7-1.3); GFR > 60 ML/MIN (>=60 (CALC)); GFR FOR AFR.AMER. > 60 ML/MIN (>=60 (CALC)); SGOT/AST 24 u/l (17-59); SODIUM 142 mmol/l (137-146)
[2020-05-10 12:23] LABS: ANION GAP 5 (6-22 (CALC)); CHLORIDE 106 mmol/l (95-108); POTASSIUM 3.3 mmol/l (3.5-5.1); TOTAL PROTEIN 5.5 g/dL (6.3-8.2)
[2020-05-10] MEDS ORDERED: DOXYCYC MONO100 M2 PO (12:51)
--- NOTE | 2020-05-10 19:44 | NUR ---
REPORT CALLED AND TRANSFERRED STABLE WITH OXYGEN AT WHEELCHAIR. RN AWARE THERE IS NO OXYGEN TREE IN THE ROOM Transfer Information Transferred To: [facility] Report Given to: [employer] Transported by: [facility] [employer] Other Transported with: X Nurse Transporter X Patent IV X O2 Forming Process Worker
[2020-05-10 20:11] VITALS: BP 129/81
--- NOTE | 2020-05-10 20:11 | NUR ---
PT ARRIVED TO MED SURG UNIT VIA WC ACCOMPANIED BY ED NURSE. PT APPEARS TO BE STABLE AT THIS TIME. PT ON 6LNC 93% O2SAT LEVEL. PT IS SELF AMBULATING, PLUGGING IN CELLPHONE. PERSONAL BELONGINGS REVIEWED WITH PT. HE COUNTED HIS MONEY WITH NC MANAGER IN THE ROOM $669 SEE PLUS $28.00 IN COIN CHANGE. I OFFERED TO SEND IT TO THE [facility]/REFUSED STATING HE WANTS TO KEEP IT WITH HIM. PT DENIES COUGH/N/V OR DIARRHE. DENIES CHEST PAIN AND STATES HIS SOB IS BETTER AT THIS TIME. PT ASKING FOR FOOD, WILL PROVIDE. PT SITTING ON SIDE OF THE BED LOOKING AT PHONE.
[2020-05-11] VITALS: BP 124/55
--- NOTE | 2020-05-11 | NUR ---
PT MEDICATED WITH LOSENGE PER REQUEST FOR DRY HACKING COUGH.
--- NOTE | 2020-05-11 02:08 | NUR ---
Pt oxygen sat level 100% on 6L oxygen nc. Oxygen level titrated down to 4L, pt holding @100% on 4L. Will continue to monitor. Icewater provided, pt denies any other needs at this time.
[2020-05-11 04:00] VITALS: BP 110/61
[2020-05-11 05:40] LABS: IMMATURE GRANULOCYTES 0.5 % (0.0-5.0); MEAN CELL VOLUME 87.9 fL CALC (80.0-100.0); MEAN CORPUSCULAR HGB 24.1 pG CALC (26.0-32.0); MEAN CORPUSCULAR HGB CONC 27.4 g/dL CAL (32.0-36.0); NEUT# 5.33 thou/uL (1.82-7.42); RED BLOOD COUNT 5.28 mill/uL (4.70-6.10); RED CELL DISTRI WIDTH 17.9 % (11.5-15.5)
[2020-05-11 05:51] LABS: HEMATOCRIT 46.4 % (39.0-50.0); HEMOGLOBIN 12.7 g/dl (14.0-18.0)
[2020-05-11 06:08] LABS: ALKALINE PHOSPHATASE 64 u/l (38-126); BILIRUBIN, TOTAL 0.6 mg/dL (0.0-1.4); BUN 23 mg/dL (9-20); BUN/CREATININE RATIO 19 (12-20 (CALC)); CHLORIDE 94 mmol/l (95-108); CREATININE 1.2 mg/dL (0.7-1.3); GFR > 60 ML/MIN (>=60 (CALC)); GFR FOR AFR.AMER. > 60 ML/MIN (>=60 (CALC)); SGOT/AST 32 u/l (17-59); SODIUM 139 mmol/l (137-146)
[2020-05-11 06:16] LABS: CARBON DIOXIDE 41 mmol/l (22-30); POTASSIUM 5.2 mmol/l (3.5-5.1)
[2020-05-11 06:17] LABS: ALBUMIN 4.1 g/dL (3.2-5.0); ANION GAP 10 (6-22 (CALC)); TOTAL PROTEIN 7.5 g/dL (6.3-8.2)
[2020-05-11] MEDS ORDERED: ALLOPURINOL100 MG PO (07:47)
--- NOTE | 2020-05-11 08:44 | NUR ---
RECIEVED REPORT FROM SAVANNAH FIGUEROA. PT RESTING IN SEMI FOWLERS POSITION UPON ENTERING ROOM. INRODUCED SELF TO PT AND DISCUSSED POC. PT IS A/O X3 BUT MENTALLY CHALLEGED. ASSESSMENT AND VITALS COMPLETED. RESPIRATIONS ARE EVEN AND UNLABORE DON 4L NC. HEART RHYTHM WITH TELE IN PLACE, AFIB 65 PER ER MONITORING. #20G IN LAC FLUSHED, SITE APPEARS HEALTHY AND PATENT. RADIAL PULSES STRONG. PEDAL PULSES WEAK. TRACE EDEMA LOACTED IN BLE. SKIN IS WARM AND DRY WITH NO BREAKDOWN NOTED.PT DENIES ANY PAIN OR DISCOMFORTS AT THSI TIME. ALL SAFETY PRECAUTIONS ARE IN PLACE WIHT CALL LIGHT IN REACH.ISOLATION PRECAUTIONS IN PLACE. WILL CONTINUE TO MONITOR.
[2020-05-11 08:47] VITALS: BP 111/73
--- NOTE | 2020-05-11 11:34 | NUR ---
PT SITTING IN CHAIR LISTENING TO MUSIC ON PHONE. RESPIRATIONS ARE EVEN AND UNLABORED ON 4L NC THAT PT IS DEPENDENT ON AT HOME. TELE MONITORING IN PLACE. PT DENIES ANY PAIN OR DISCOMFORTS AT THIS TIME. ALL SAFETY AND ISOALTION PRECAUTIONS ARE IN PLACE WITH CALL LIGHT IN REACH. WILL CONTINUE TO MOITOR
[2020-05-11 12:12] VITALS: BP 94/63
[2020-05-11 15:00] VITALS: BP 101/74
[2020-05-11 19:24] VITALS: BP 135/68
--- NOTE | 2020-05-11 22:04 | NUR ---
PHYSICAL ASSESMENT COMPLETE. PT CURRENTLY IN PAIN.REQUESTED PRN TYLENOL. SCHEDULED MEDICATIONS AND PRN MEDICATION ADMINISTERED, SEE E-MAR. PT DENIES ANY NEEDS AT THIS TIME. PLAN OF CARE REVIEWED, PT DENIES QUESTIONS, VERBALIZES UNDERSTANDING. SNACKS PROVIDED. ITEMS WITHIN REACH, BED LOCKED IN LOW POSITION W/ BEDRAILS UP X2. CALL LANE WITHIN REACH, AGREES TO CALL PRN.
--- NOTE | 2020-05-12 00:02 | NUR ---
PT LAYING IN BED WATCHING TV, APPEARS COMFORTABLE AND IN NO DISTRESS. RESPIRATIONS REGULAR AND UNLABORED. ITEMS REMAIN WITHIN REACH, CALL LANE REMAINS WITHIN REACH. BED REMAINS LOCKED AND IN LOW POSITION WITH BEDRAILS UP X2. WILL CONTINUE TO MONITOR.
[2020-05-12 00:04] VITALS: BP 114/85
--- NOTE | 2020-05-12 03:55 | NUR ---
PT RESTING IN BED, NO SIGNS OF DISTRESS NOTED, RESP EVEN AND UNLABORED ON 4 LITERS OF O2. PT VOICES NO NEEDS OR COMPLAINTS AT THIS TIME. CALL LIGHT IN REACH, CONTINUE TO MONITOR.
[2020-05-12 04:00] VITALS: BP 117/84
[2020-05-12 06:09] LABS: HEMATOCRIT 46.5 % (39.0-50.0); HEMOGLOBIN 12.9 g/dl (14.0-18.0); MEAN CELL VOLUME 87.7 fL CALC (80.0-100.0); MEAN CORPUSCULAR HGB 24.3 pG CALC (26.0-32.0); MEAN CORPUSCULAR HGB CONC 27.7 g/dL CAL (32.0-36.0); RED BLOOD COUNT 5.3 mill/uL (4.70-6.10); RED CELL DISTRI WIDTH 17.8 % (11.5-15.5)
[2020-05-12 06:13] LABS: ALBUMIN 4.1 g/dL (3.2-5.0); ALKALINE PHOSPHATASE 61 u/l (38-126); BILIRUBIN, TOTAL 0.5 mg/dL (0.0-1.4); BUN 25 mg/dL (9-20); BUN/CREATININE RATIO 22 (12-20 (CALC)); CHLORIDE 93 mmol/l (95-108); CREATININE 1.2 mg/dL (0.7-1.3); GFR > 60 ML/MIN (>=60 (CALC)); GFR FOR AFR.AMER. > 60 ML/MIN (>=60 (CALC)); SGOT/AST 36 u/l (17-59); SODIUM 139 mmol/l (137-146); TOTAL PROTEIN 7.5 g/dL (6.3-8.2)
[2020-05-12 07:01] LABS: ANION GAP 11 (6-22 (CALC)); CARBON DIOXIDE > 40 mmol/l (22-30); POTASSIUM 5.4 mmol/l (3.5-5.1)
--- NOTE | 2020-05-12 07:01 | NUR ---
RECIEVED CALL FROM LAMINE AT LAB FOR CARBON DIOXIDE RESULTING IN >40. MD ALREADY AWARE OF TREND.
[2020-05-12 08:38] VITALS: BP 115/67
--- NOTE | 2020-05-12 08:38 | NUR ---
RECIEVED REPORT FROM SAVANNAH HOFF. PT RESTING IN SEMI FOLWERS POSITION UPON ENTERING ROOM. INTRODUCED SELF TO PT AND DISCUSSED POC. PT IS A/O X3. RESPIRATIONS AR EVEN AND UNLABORED ON 2 1/2 L NC. HEART RHYTHM IS NORMAL WITH TELE IN PLACE. BOWEL SOUNDS ARE ACTIVE IN ALL QUADRANTS, LAST RPORTED BM 05/10/2020. RADIAL PULSES STRONG. PEDAL PULSES WEAK. TRACE EDMEA NOTED IN BLE. #0G IN LAC FLUSHED, SITE APPEARS HEALTHY AND PATENT. PT COMPLAINS OF CRAMPING IN HANDS, TYLENOL TO BE ADMINISTERED. PT DENIES OF ANY ADDITIONAL NEEDS AT THIS TIME. ALL SAFTEY PRECAUTIONS ARE IN PLACE WIHTC ALL LIGHT IN REACH. WILL CONTINUE TO MONITOR
--- NOTE | 2020-05-12 08:56 | NUR ---
DR MCCORMACK AND AMENA ,ANARNEL AT BEDSIDE DISCUSSING POC WITH PT
--- NOTE | 2020-05-12 09:26 | NUR ---
PT TRANSFERED FROM ISOALTION ROOM 282 TO ROOM 276 VIA BED IN STABEL CONDITION. PT SETTLED BACK INTO ROOM. PT ORIENETD TO ROOM AND CALL LIGHT SYSTEM ONCE AGAIN. PT DENIES ANY ADDITIONAL NEEDS AT THSI TIME. ALL SFAETY PRECAUTIONS ARE IN PLACE WITH CALL LIGHT IN REACH. WILL CONTINUE TO MONITOR
--- NOTE | 2020-05-12 11:07 | NUR ---
CALLED RECIEVED FROM LAMINE FROM LAB OF CARBN DIOXIDE GREATER THAN 140. NOTIFIED
[2020-05-12 11:45] VITALS: BP 121/78
--- NOTE | 2020-05-12 12:42 | NUR ---
PT RESTING IN SEMI FOLWERS POSITION ON PHONE. REPIRATIONS ARE EVEN AND UNLABORED ON 2.5L NC. TELE MONITORING IN PLACE.PT REQUEST ICE CREAM . PT DENIES ANY PAIN OR DISCOMFORTS AT THIS TIME. ALL SAFETY PRECAUTIONS ARE IN PLACE WITH CALL LIGHT IN REACH .WILL CONTINUE TO MONITOR
--- NOTE | 2020-05-12 15:34 | NUR ---
PT RESTING IN SEMI FOWLERS POSITION ON PHONE. RESPIRATIONS ARE EVEN AND UNLABORED ON 2.5L NC. PT DENIES ANY PAIN. IV DRESSING CHANGED AT THIS TIME. PT TOLERATED WELL. PT DENIES ANY NEEDS AT THIS TIME. ALL SAFETY PRECAUTIONS ARE IN PLACE WITH CALL LIGHT IN REACH. WILL CONTINUE TO MONITOR
[2020-05-12 16:16] VITALS: BP 115/64
--- NOTE | 2020-05-12 16:31 | NUR ---
WRITTER NOTFIED BY TELE MOITORING IN ER THAT PT WAS AFIB RVR IN 130'S. PT RESTING IN SEMIF OWLERS POSSIITON LISTENTING TO MUSIC ON PHONE. PT DENIES ANY PAIN OR DISCOMFORTS. WRITTER NOTIFIED THAT PT DROPPPED BACK TO 100'S. ALL SFAETY PRECAUTIONS REMAINS IN PLACE WIHT CALL LIGHT INR EACH.W PATRICA HICKS TO MONITOR
[2020-05-12 19:00] VITALS: BP 114/70
--- NOTE | 2020-05-12 20:01 | NUR ---
PHYSICAL ASSESMENT COMPLETE. PT CURRENTLY DENIES PAIN OR DISCOMFORT. SCHEDULED MEDICATIONS AND PRN MEDICATION ADMINISTERED, SEE E-MAR. PT DENIES ANY NEEDS AT THIS TIME. PLAN OF CARE REVIEWED, PT DENIES QUESTIONS, VERBALIZES UNDERSTANDING. ITEMS WITHIN REACH, BED LOCKED IN LOW POSITION W/ BEDRAILS UP X2. CALL LANE WITHIN REACH, AGREES TO CALL PRN.
[2020-05-13] VITALS: BP 139/76
--- NOTE | 2020-05-13 01:35 | NUR ---
PT LAYING IN BED WITH EYES CLOSED, APPEARS TO BE SLEEPING, APPEARS COMFORTABLE AND IN NO DISTRESS. RESPIRATIONS REGULAR AND UNLABORED ON 2 1/2 LITERS OF 02. ITEMS REMAIN WITHIN REACH, CALL LANE REMAINS WITHIN REACH. BED REMAINS LOCKED AND IN LOW POSITION WITH BEDRAILS UP X2. WILL CONTINUE TO MONITOR.
[2020-05-13 04:00] VITALS: BP 150/93
--- NOTE | 2020-05-13 04:08 | NUR ---
PT RESTING IN BED, NO SIGNS OF DISTRESS NOTED, RESP EVEN AND UNLABORED. PT VOICES NO NEEDS OR COMPLAINTS AT THIS TIME. CALL LIGHT IN REACH,CONTINUE TO MONITOR.
[2020-05-13 05:40] LABS: HEMATOCRIT 47.1 % (39.0-50.0); HEMOGLOBIN 13.1 g/dl (14.0-18.0); MEAN CELL VOLUME 87.2 fL CALC (80.0-100.0); MEAN CORPUSCULAR HGB 24.3 pG CALC (26.0-32.0); MEAN CORPUSCULAR HGB CONC 27.8 g/dL CAL (32.0-36.0); RED BLOOD COUNT 5.4 mill/uL (4.70-6.10); RED CELL DISTRI WIDTH 17.7 % (11.5-15.5)
[2020-05-13 06:09] LABS: ALBUMIN 4.2 g/dL (3.2-5.0); ALKALINE PHOSPHATASE 62 u/l (38-126); BILIRUBIN, TOTAL 0.5 mg/dL (0.0-1.4); BUN 26 mg/dL (9-20); BUN/CREATININE RATIO 21 (12-20 (CALC)); CHLORIDE 93 mmol/l (95-108); CREATININE 1.2 mg/dL (0.7-1.3); GFR > 60 ML/MIN (>=60 (CALC)); GFR FOR AFR.AMER. > 60 ML/MIN (>=60 (CALC)); POTASSIUM 4.9 mmol/l (3.5-5.1); SGOT/AST 27 u/l (17-59); SODIUM 139 mmol/l (137-146); TOTAL PROTEIN 7.6 g/dL (6.3-8.2)
[2020-05-13 06:15] LABS: ANION GAP 9 (6-22 (CALC))
[2020-05-13 06:26] LABS: CARBON DIOXIDE 42 mmol/l (22-30)
--- NOTE | 2020-05-13 06:50 | NUR ---
PTS CO LEVEL REPORT FROM LAB AT 42 CH.REPORTED TO MARCELLE BELLA.
[2020-05-13 07:40] VITALS: BP 127/83
--- NOTE | 2020-05-13 07:40 | NUR ---
ASSESSMENT IS COMPLETED: IV SITE IS FREE FROM REDNESS OR EDEMA. HR IS REG,PULSES ARE STRONG X4, ABD IS SOFT WITH ACTIVE BS. BREATH SOUNDS ARE CLEAR,BILATERALLY, TELE # [id number]. READING AFIB 86. CONTINUE TO OSBERVE AND MONITOR.
[2020-05-13] MEDS ORDERED: Levaquin PO (10:24)
[2020-05-13] MEDS ORDERED: LASIX40 MG PO (10:24)
[2020-05-13 10:58] VITALS: BP 142/96
--- NOTE | 2020-05-13 12:30 | NUR ---
PT IS SITTING IN THE CHAIR NO DISTRESS NOTED IV SITE IS FREE FROM REDNESS OR EDEMA.
--- NOTE | 2020-05-13 14:35 | NUR ---
IV SITE DISCONTINEUD DUE TO BEING DISCHARGED . WAITING FOR THE RIDE HOME. IV SITE ALSO WAS LEAKING.
[2020-05-13 14:55] VITALS: BP 136/83
--- NOTE | 2020-05-13 16:30 | NUR ---
PT IS GETTING DRESSED FOR DISCHARGE.
--- NOTE | 2020-05-13 16:49 | NUR ---
SPOKE WITH BONNY BROTHER RE: O2 TANK. NO TANK IN THE TRUCK. EXPLAINED ABOUT TRANSPORT. VERBALIZED UNDERSTANDING.
--- NOTE | 2020-05-13 17:43 | NUR ---
PT;S BROTHER IN TO COURIER PT. WITH O2 TANK. ATTEMPTED TO CLL TRANSPORT TO CANCEL CALLED [employer] [facility] WAS INFORMED THAT THE OFFICE WAS CLOSED. WILL INFORM TRANSPORT WHEN THEY COME.
--- NOTE | 2020-05-13 17:50 | NUR ---
Discharge instructions given. Patient verbalizes understanding of same. Discharged in stable condition via Wheelchair to HOME with family. All belongings sent with pt.
--- NOTE | 2020-05-20 10:32 | NUR ---
{pst didscharge pneumonia follow up call completed today, 112/ {t/ states je os dpomg we;;/ Je os e[eroemcomg mp fever. cjo;;s. pr SPB/ {t pbtaomed doscjarge ,edocatopm ams os talomg wotjpit rupesh/ {t/ carmen fp;;pw i[ wotj {C{ mext weel/ Mp qiestopms pr cpmcerms ex[ressed bu [atoemt/
== END 2020-05-13 17:34 | disposition home or self-care (01) | DRG 193 ==
LOC: ED 11:21 → ED-I 15:28 → ED 15:39 → MS2 15:40
PROVIDERS: Family Medicine; Nurse Practitioner Family; ADMIT Internal Medicine; ATTEND Internal Medicine
DX: J18.9 Pneumonia, unspecified organism (principal); J96.21 Acute and chronic respiratory failure with hypoxia; I50.23 Acute on chronic systolic (congestive) heart failure; I13.0 Hypertensive heart and chronic kidney disease with heart failure and stage 1 through stage 4 chronic kidney disease, or unspecified chronic kidney disease; N18.9 Chronic kidney disease, unspecified; I48.91 Unspecified atrial fibrillation; J44.9 Chronic obstructive pulmonary disease, unspecified; Z68.42 Body mass index [BMI] 45.0-49.9, adult; G47.33 Obstructive sleep apnea (adult) (pediatric); E03.9 Hypothyroidism, unspecified; E78.5 Hyperlipidemia, unspecified; F79 Unspecified intellectual disabilities; Z20.828 Contact with and (suspected) exposure to other viral communicable diseases; M19.90 Unspecified osteoarthritis, unspecified site; E66.01 Morbid (severe) obesity due to excess calories; Z99.81 Dependence on supplemental oxygen; Z79.01 Long term (current) use of anticoagulants; Z79.899 Other long term (current) drug therapy; Z95.2 Presence of prosthetic heart valve
CPT/HCPCS: J1650; Q9967

== ENCOUNTER 2020-06-27 17:31 | Inpatient (IN) | payer MEDICAID ==
[~2020-06-27] VITALS: Ht 177.8 cm; Wt 150.1 kg
[~2020-06-27 17:31] MED LIST changes: +DOXYCYC MONO100 M2 PO; +Levaquin PO
[2020-06-27] MEDS ORDERED: BUMETANIDE1 MG PO (17:46)
[2020-06-27] MEDS ORDERED: LEVOTHYROXIN50 MCG PO (17:47)
[2020-06-27 18:11] LABS: HEMOGLOBIN 11.6 g/dl (14.0-18.0); IMMATURE GRANULOCYTES 0.4 % (0.0-5.0); MEAN CELL VOLUME 88.4 fL CALC (80.0-100.0); MEAN CORPUSCULAR HGB 24.4 pG CALC (26.0-32.0); MEAN CORPUSCULAR HGB CONC 27.6 g/dL CAL (32.0-36.0); NEUT# 3.2 thou/uL (1.82-7.42); RED BLOOD COUNT 4.75 mill/uL (4.70-6.10); RED CELL DISTRI WIDTH 17.9 % (11.5-15.5)
[2020-06-27 18:23] LABS: ALBUMIN 4.3 g/dL (3.2-5.0); ALKALINE PHOSPHATASE 70 u/l (38-126); BUN 24 mg/dL (9-20); BUN/CREATININE RATIO 16 (12-20 (CALC)); CHLORIDE 91 mmol/l (95-108); CREATININE 1.5 mg/dL (0.7-1.3); GFR 50 ML/MIN (>=60 (CALC)); GFR FOR AFR.AMER. > 60 ML/MIN (>=60 (CALC)); LIPASE 177 u/l (23-300); POTASSIUM 4.2 mmol/l (3.5-5.1); SGOT/AST 33 u/l (17-59); SODIUM 138 mmol/l (137-146); TOTAL PROTEIN 7.9 g/dL (6.3-8.2)
[2020-06-27 18:32] LABS: D-DIMER 0.93 mg/L (0.19-0.60)
[2020-06-27 18:36] LABS: ACT PARTIAL THROMBO TIME 30.3 SECONDS (20.0-32.5); INTERNATIONAL NORMALIZED RATIO 1.1 RATIO (0.7-1.3); PROTHROMBIN TIME 11.1 SECONDS (9.0-12.5)
[2020-06-27 18:50] LABS: URINE BILIRUBIN - DIPSTICK NEGATIVE (NEGATIVE); URINE BLOOD DIPSTICK NEGATIVE (NEGATIVE); URINE COLOR YELLOW; URINE GLUCOSE - DIPSTICK NEGATIVE (NEGATIVE); URINE KETONE NEGATIVE (NEGATIVE); URINE LEUK ESTERASE NEGATIVE (NEGATIVE); URINE NITRITE - DIPSTICK NEGATIVE (Negative); URINE PROTEIN - DIPSTICK NEGATIVE (NEG-TRACE); URINE SPECIFIC GRAVITY 1.015; URINE UROBILINOGEN - DIPSTICK 0.2 E.U./dL (0.2)
[2020-06-27 18:52] LABS: ANION GAP 10 (6-22 (CALC)); BILIRUBIN, TOTAL 1.2 mg/dL (0.0-1.4)
[2020-06-27 18:53] LABS: CARBON DIOXIDE 41 mmol/l (22-30)
[2020-06-27 22:35] VITALS: BP 153/88
[2020-06-28 04:00] VITALS: BP 123/69
[2020-06-28 08:21] VITALS: BP 135/82
[2020-06-28 11:03] VITALS: BP 118/60
[2020-06-28 14:40] VITALS: BP 125/73
[2020-06-28 19:00] VITALS: BP 124/70
[2020-06-28 23:43] VITALS: BP 134/81
[2020-06-29 04:10] VITALS: BP 125/81
[2020-06-29 06:24] LABS: HEMATOCRIT 46.2 % (39.0-50.0); HEMOGLOBIN 12.1 g/dl (14.0-18.0); MEAN CELL VOLUME 89.9 fL CALC (80.0-100.0); MEAN CORPUSCULAR HGB 23.5 pG CALC (26.0-32.0); MEAN CORPUSCULAR HGB CONC 26.2 g/dL CAL (32.0-36.0); RED BLOOD COUNT 5.14 mill/uL (4.70-6.10); RED CELL DISTRI WIDTH 18.2 % (11.5-15.5)
[2020-06-29 06:54] LABS: BUN 21 mg/dL (9-20); BUN/CREATININE RATIO 14 (12-20 (CALC)); CHLORIDE 93 mmol/l (95-108); CREATININE 1.4 mg/dL (0.7-1.3); GFR 54 ML/MIN (>=60 (CALC)); GFR FOR AFR.AMER. > 60 ML/MIN (>=60 (CALC)); POTASSIUM 4.6 mmol/l (3.5-5.1); SODIUM 141 mmol/l (137-146)
[2020-06-29 07:00] VITALS: BP 120/80
[2020-06-29 07:00] LABS: ANION GAP 14 (6-22 (CALC)); CARBON DIOXIDE 39 mmol/l (22-30)
[2020-06-29 11:20] VITALS: BP 120/69
[2020-06-29 16:32] VITALS: BP 123/78
[2020-06-29 18:50] VITALS: BP 130/84
[2020-06-30 00:06] VITALS: BP 134/79
[2020-06-30 04:37] VITALS: BP 131/89
[2020-06-30 04:45] LABS: HEMOGLOBIN 12.6 g/dl (14.0-18.0); IMMATURE GRANULOCYTES 0.5 % (0.0-5.0); MEAN CELL VOLUME 89.7 fL CALC (80.0-100.0); MEAN CORPUSCULAR HGB CONC 26.8 g/dL CAL (32.0-36.0); NEUT# 6.3 thou/uL (1.82-7.42); RED BLOOD COUNT 5.24 mill/uL (4.70-6.10); RED CELL DISTRI WIDTH 18.3 % (11.5-15.5)
[2020-06-30 05:03] LABS: ALBUMIN 4.3 g/dL (3.2-5.0); ALKALINE PHOSPHATASE 61 u/l (38-126); BILIRUBIN, TOTAL 1.5 mg/dL (0.0-1.4); BUN 24 mg/dL (9-20); BUN/CREATININE RATIO 16 (12-20 (CALC)); CHLORIDE 89 mmol/l (95-108); CREATININE 1.5 mg/dL (0.7-1.3); GFR 50 ML/MIN (>=60 (CALC)); GFR FOR AFR.AMER. > 60 ML/MIN (>=60 (CALC)); POTASSIUM 4.7 mmol/l (3.5-5.1); SGOT/AST 30 u/l (17-59); SODIUM 140 mmol/l (137-146); TOTAL PROTEIN 7.9 g/dL (6.3-8.2)
[2020-06-30 05:15] LABS: ANION GAP 14 (6-22 (CALC)); CARBON DIOXIDE 42 mmol/l (22-30)
[2020-06-30 07:10] VITALS: BP 134/83
[2020-06-30 11:46] VITALS: BP 132/94
== END 2020-06-30 14:20 | disposition home or self-care (01) | DRG 313 ==
LOC: ED 17:31 → ED-I 21:17 → ED 21:27 → MS2 21:28
PROVIDERS: Nurse Practitioner; ADMIT Internal Medicine; ATTEND Internal Medicine
DX: R07.9 Chest pain, unspecified (principal); Z68.42 Body mass index [BMI] 45.0-49.9, adult; J96.11 Chronic respiratory failure with hypoxia; J96.12 Chronic respiratory failure with hypercapnia; I48.20 Chronic atrial fibrillation, unspecified; E66.2 Morbid (severe) obesity with alveolar hypoventilation; G89.29 Other chronic pain; J44.9 Chronic obstructive pulmonary disease, unspecified; I11.0 Hypertensive heart disease with heart failure; I50.9 Heart failure, unspecified; I25.10 Atherosclerotic heart disease of native coronary artery without angina pectoris; E03.9 Hypothyroidism, unspecified; E04.1 Nontoxic single thyroid nodule; E78.5 Hyperlipidemia, unspecified; M10.9 Gout, unspecified; F79 Unspecified intellectual disabilities; Z95.1 Presence of aortocoronary bypass graft; Z95.0 Presence of cardiac pacemaker; Z99.81 Dependence on supplemental oxygen; Z95.3 Presence of xenogenic heart valve; Z87.01 Personal history of pneumonia (recurrent); Z79.01 Long term (current) use of anticoagulants; Z20.822 Contact with and (suspected) exposure to COVID-19
CPT/HCPCS: Q9967

== ENCOUNTER 2020-07-30 16:40 | Emergency (ER) | payer MEDICAID ==
[~2020-07-30] VITALS: Ht 177.8 cm; Wt 154.5 kg
[~2020-07-30 16:40] MED LIST changes: +LEVOTHYROXIN50 MCG PO
[2020-07-30 17:55] VITALS: BP 119/78
== END 2020-07-30 17:55 | disposition home or self-care (01) ==
LOC: ED 16:40
DX: B34.9 Viral infection, unspecified (principal); I11.0 Hypertensive heart disease with heart failure; I50.9 Heart failure, unspecified; I25.10 Atherosclerotic heart disease of native coronary artery without angina pectoris; J44.9 Chronic obstructive pulmonary disease, unspecified; I48.91 Unspecified atrial fibrillation; F79 Unspecified intellectual disabilities; E66.01 Morbid (severe) obesity due to excess calories; Z95.1 Presence of aortocoronary bypass graft; Z95.2 Presence of prosthetic heart valve; Z20.822 Contact with and (suspected) exposure to COVID-19

== ENCOUNTER 2020-08-22 17:05 | Observation (INO) | payer MEDICAID ==
[~2020-08-22] VITALS: Ht 177.8 cm; Wt 157.0 kg
--- NOTE | 2020-08-22 17:05 | NUR ---
PT TO ROOM 8 VIA EMS. BEDSIDE TRIAGE COMPLETED
[2020-08-22 17:45] LABS: HEMATOCRIT 44.2 % (39.0-50.0); HEMOGLOBIN 12.2 g/dl (14.0-18.0); IMMATURE GRANULOCYTES 0.2 % (0.0-5.0); MEAN CELL VOLUME 88.6 fL CALC (80.0-100.0); MEAN CORPUSCULAR HGB 24.4 pG CALC (26.0-32.0); MEAN CORPUSCULAR HGB CONC 27.6 g/dL CAL (32.0-36.0); NEUT# 2.9 thou/uL (1.82-7.42); RED BLOOD COUNT 4.99 mill/uL (4.70-6.10); RED CELL DISTRI WIDTH 16.5 % (11.5-15.5)
[2020-08-22 17:58] LABS: ALBUMIN 4.4 g/dL (3.2-5.0); ALKALINE PHOSPHATASE 84 u/l (38-126); ANION GAP 11 (6-22 (CALC)); BUN 24 mg/dL (9-20); BUN/CREATININE RATIO 18 (12-20 (CALC)); CARBON DIOXIDE 39 mmol/l (22-30); CHLORIDE 91 mmol/l (95-108); CREATININE 1.3 mg/dL (0.7-1.3); GFR 59 ML/MIN (>=60 (CALC)); GFR FOR AFR.AMER. > 60 ML/MIN (>=60 (CALC)); POTASSIUM 3.8 mmol/l (3.5-5.1); SGOT/AST 31 u/l (17-59); SODIUM 138 mmol/l (137-146); TOTAL PROTEIN 7.9 g/dL (6.3-8.2)
[2020-08-22 18:02] LABS: BILIRUBIN, TOTAL 0.8 mg/dL (0.0-1.4)
--- NOTE | 2020-08-22 18:32 | NUR ---
PATIENT RESTING EYES CLOSED
--- NOTE | 2020-08-22 19:08 | NUR ---
BEDSIDE REPORT TO NIGHT NURSE
--- NOTE | 2020-08-22 19:09 | NUR ---
IN ROOM INTRODUCED SELF TO PT. NO C/O AT THIS TIME. V/S STABLE.
--- NOTE | 2020-08-22 20:06 | NUR ---
PT. MADE AWARE OF ADMISSION, VERBALIZED UNDERSTANDING.
--- NOTE | 2020-08-22 22:42 | NUR ---
PLACED IN A REGULAR HOSPITAL BED FOR COMFORT. PT. STATES HIS CP IS COMPLETLT RESOLVED.
--- NOTE | 2020-08-23 00:46 | NUR ---
PT. VOIDED 1000 ML CLEAR YELLOW URINE WITHOUT DIFFICULTY.
--- NOTE | 2020-08-23 07:00 | NUR ---
REPORT TO ELIAS NUÑEZ.
[2020-08-23 08:00] VITALS: BP 138/91
--- NOTE | 2020-08-23 08:00 | NUR ---
REPORT RECEIVED FROM SAVANNAH GRIFFIN. PT CURRENTLY LOCATED IN ER ROOM 8; RESTING IN BED SEMI FOWLERS; ALERT AND ORIENTED X 3. GARBED SPEECH THAT IS BASELINE FOR PT. C/O 10/10 HEAD, NECK, AND BACK PAIN; PT IS ALSO LAUGHING AND JOKING WITH NURSE; ENCOURAGED TO REPOSITION HIMSELF IN BED AND COOL CLOTH APPLIED TO HEAD. RESPIRATIONS EVEN AND UNLABORED ON OXYGEN 4L VIA NC; PT IS HOME DEPENDENT AND STATES HE USUALLY WEARS HIS CPAP AT ALL TIMES WHEN HE IS HOME; LUNGS ARE CLEAR WITH INSPIRATORY WHEEZING TO RIGHT LOWER LOBE; SPO2 86-91%. ADMISSION ASSESSMENT COMPLETED. POC REVIEWED. PT ENCOURAGED TO VERBALIZE CONCERNS. STATES UNDERSTANDING. SAFETY MEASURES IN PLACE. CALL LIGHT WITHIN REACH.
[2020-08-23 08:01] LABS: HEMATOCRIT 45.7 % (39.0-50.0); HEMOGLOBIN 12.2 g/dl (14.0-18.0); IMMATURE GRANULOCYTES 0.2 % (0.0-5.0); MEAN CELL VOLUME 89.8 fL CALC (80.0-100.0); MEAN CORPUSCULAR HGB CONC 26.7 g/dL CAL (32.0-36.0); NEUT# 3.15 thou/uL (1.82-7.42); RED BLOOD COUNT 5.09 mill/uL (4.70-6.10); RED CELL DISTRI WIDTH 16.4 % (11.5-15.5)
--- NOTE | 2020-08-23 08:45 | NUR ---
REPSITIONED INTO HIGH FOWLERS FOR BREAKFAST; PT TALKING ON CELL PHONE TO FAMILY. VOIDING CLEAR YELLOW URINE IN URINAL.
[2020-08-23] MEDS ORDERED: MEDDOSEPAK PO (11:30)
[2020-08-23 12:15] LABS: ALBUMIN 4.2 g/dL (3.2-5.0); ALKALINE PHOSPHATASE 63 u/l (38-126); BILIRUBIN, TOTAL 0.8 mg/dL (0.0-1.4); BUN 23 mg/dL (9-20); BUN/CREATININE RATIO 17 (12-20 (CALC)); CHLORIDE 90 mmol/l (95-108); CREATININE 1.3 mg/dL (0.7-1.3); GFR 59 ML/MIN (>=60 (CALC)); GFR FOR AFR.AMER. > 60 ML/MIN (>=60 (CALC)); POTASSIUM 4.2 mmol/l (3.5-5.1); SGOT/AST 38 u/l (17-59); SODIUM 141 mmol/l (137-146); TOTAL PROTEIN 7.7 g/dL (6.3-8.2)
[2020-08-23 12:21] LABS: ANION GAP 11 (6-22 (CALC))
[2020-08-23 12:22] LABS: CARBON DIOXIDE 44 mmol/l (22-30)
--- NOTE | 2020-08-23 12:35 | NUR ---
IV site discontinued, cath intact. No edema , no redness, voices no discomfort.
--- NOTE | 2020-08-23 12:36 | NUR ---
Patient has discharge orders to go home with Home health. Patient is on oxygen at home. He has a cane and walker. He lives wth his brother. Patient was rcently admitted in June. Patient indicated that his brother can assist him at home annd he does not really need home health. Brother will transport patint home.
[2020-08-23 13:00] VITALS: BP 124/60
--- NOTE | 2020-08-23 13:00 | NUR ---
Discharge instructions given. Patient verbalizes understanding of same. Discharged in stable condition via Wheelchair to Home with family. All belongings sent with pt.
--- NOTE | 2020-08-24 07:22 | NUR ---
PRELIM BLOOD CX RESULTS SHOWS GRAM POSITIVE COCCI IN 2 OF 4 BOTTLES, SAME SET. RESULTS REPORTED TO DR MASON, WILL F/U WITH FINAL
--- NOTE | 2020-08-25 11:24 | NUR ---
FINAL BLOOD CX RESULTS SHOW S SAPROPHYTICUS IN 2 OF 4 VIALS, SAME SET, CONTAMINANT. REPORTED TO CLOVIS. NO CHANGES WARRANTED
== END 2020-08-23 13:00 | disposition home or self-care (01) | DRG 313 ==
LOC: ED 17:05 → ED-I 19:31 → ED 19:44 → ED-I 19:45
PROVIDERS: Family Medicine; Nurse Practitioner Family; ADMIT Internal Medicine; ATTEND Internal Medicine
DX: R07.89 Other chest pain (principal); Z68.42 Body mass index [BMI] 45.0-49.9, adult; J96.11 Chronic respiratory failure with hypoxia; I11.0 Hypertensive heart disease with heart failure; I50.9 Heart failure, unspecified; J44.9 Chronic obstructive pulmonary disease, unspecified; I25.10 Atherosclerotic heart disease of native coronary artery without angina pectoris; F79 Unspecified intellectual disabilities; I48.91 Unspecified atrial fibrillation; E66.01 Morbid (severe) obesity due to excess calories; G47.33 Obstructive sleep apnea (adult) (pediatric); E78.5 Hyperlipidemia, unspecified; E03.9 Hypothyroidism, unspecified; M10.9 Gout, unspecified; Z95.2 Presence of prosthetic heart valve; Z79.01 Long term (current) use of anticoagulants; Z99.81 Dependence on supplemental oxygen; Z95.1 Presence of aortocoronary bypass graft; Z20.822 Contact with and (suspected) exposure to COVID-19

== ENCOUNTER 2020-10-25 15:26 | Observation (INO) | payer MEDICAID ==
[~2020-10-25] VITALS: Ht 177.8 cm; Wt 155.0 kg
--- NOTE | 2020-10-25 15:26 | NUR ---
PT TO ROOM VIA EMS. NO BLEEDING NOTED
--- NOTE | 2020-10-25 16:40 | NUR ---
AFTER REASSESSING PT AND TELLING HIM THAT HE IS GOING TO BE DISCHARGED BECAUSE NO BLEEDING IS NOTED AND EDU ON CARE FOR NOSTRILS PROVIDED, PT STATES THAT HE HAS CHEST PAIN AND IS SHORT OF BREATH. ORDERS PLACED BY INTERVENTIONAL RADIOLOGY TECH FOR THOROUGH EVAL.
--- NOTE | 2020-10-25 17:18 | NUR ---
TREATMENTS COMPLETED AND PT UPDATED ON PLAN OF CARE. HE IS SITTING UP IN HIS STRETCHER WATCHING TV WITH UNLABORED BREATHING.
[2020-10-25 17:34] LABS: HEMATOCRIT 44.3 % (39.0-50.0); HEMOGLOBIN 12.2 g/dl (14.0-18.0); IMMATURE GRANULOCYTES 0.6 % (0.0-5.0); MEAN CELL VOLUME 90.4 fL CALC (80.0-100.0); MEAN CORPUSCULAR HGB 24.9 pG CALC (26.0-32.0); MEAN CORPUSCULAR HGB CONC 27.5 g/dL CAL (32.0-36.0); NEUT# 3.13 thou/uL (1.82-7.42); RED BLOOD COUNT 4.9 mill/uL (4.70-6.10); RED CELL DISTRI WIDTH 16.1 % (11.5-15.5)
[2020-10-25 17:55] LABS: ALBUMIN 4.4 g/dL (3.2-5.0); ALKALINE PHOSPHATASE 73 u/l (38-126); ANION GAP 10 (6-22 (CALC)); BILIRUBIN, TOTAL 0.7 mg/dL (0.0-1.4); BUN 24 mg/dL (9-20); BUN/CREATININE RATIO 17 (12-20 (CALC)); CARBON DIOXIDE 37 mmol/l (22-30); CHLORIDE 94 mmol/l (95-108); CREATININE 1.4 mg/dL (0.7-1.3); GFR 54 ML/MIN (>=60 (CALC)); GFR FOR AFR.AMER. > 60 ML/MIN (>=60 (CALC)); LIPASE 166 u/l (23-300); POTASSIUM 4.6 mmol/l (3.5-5.1); SGOT/AST 31 u/l (17-59); SODIUM 137 mmol/l (137-146); TOTAL PROTEIN 8.1 g/dL (6.3-8.2)
[2020-10-25 17:57] LABS: ACT PARTIAL THROMBO TIME 32.8 SECONDS (20.0-32.5); INTERNATIONAL NORMALIZED RATIO 1.1 RATIO (0.7-1.3); PROTHROMBIN TIME 11.5 SECONDS (9.0-12.5)
--- NOTE | 2020-10-25 18:17 | NUR ---
PT RESTING ON STRETCHER WATCHING TV, CALL LIGHT WITHIN REACH, DENIES ANY NEEDS AT THIS TIME. PT IS NOT SOB
--- NOTE | 2020-10-25 19:08 | NUR ---
GAVE REPORT TO CORDELIA
--- NOTE | 2020-10-25 19:55 | NUR ---
PT RESTING IN BED, AWARE OF PLANNED ADMISSION, NO COMPLAINTS OFFERED, WILL CONTINUE TO MONITOR.
--- NOTE | 2020-10-25 20:33 | NUR ---
PT RESTING USES URINAL WITHOUT INCIDENT, CALL LANE WITHIN REACH.
--- NOTE | 2020-10-25 21:20 | NUR ---
REPORT CALLED TO HENRY ON MED SURG
[2020-10-25 21:30] VITALS: BP 132/82
--- NOTE | 2020-10-25 21:30 | NUR ---
PT ARRIVED VIA WC, ACCOMPANIED BY BUSINESS TECHNOLOGY ARCHITECT. PT APPEARS IN STABLE CONDITION AND SELF AMBULATED WITH ONLY STANDBY ASSISTANCE TO THE BED. GOWN PLACED ON PT AND CLOTHES REMOVED, PT APPEARS TO BE IN NEED OF A SHOWER, BUT IS REFUSING AT THIS TIME. WE WILL OFFER AGAIN THROUGHOUT THIS SHIFT AND SEE IF WE CAN GET HIM TO SHOWER. NO S/O STOOL OR URINE ON PT, JUST FEET AND CLOTHES ARE SOILED OF DIRT. V/S ASSESSED, PT IS ASKING FOR FOOD STATING HE IS HUNGRY. PT IS ON OXYGEN NC ON @4L.
--- NOTE | 2020-10-25 21:35 | NUR ---
TRANSFERRED TO MED SURG WITH ALL BELONGINGS WITH PT. ON TELEMETRY
--- NOTE | 2020-10-25 22:00 | NUR ---
PT MEDICATED ORDERS PROVIDE AND ASSESSMENT COMPLETED. BLE HAVE SCALING, BUT NO NOTED OPEN WOUNDS AT THIS TIME. PT REPORTS THAT HE USES A CANE TO WALK AND THAT HE WALKS OFTEN. LUNG SOUNDS ARE DIM. PT DENIES CHEST PAIN/SOB/N/V AND REPORTS HAVING HAD STOOL OUTPUT EALIER THIS MORNING.
--- NOTE | 2020-10-25 22:10 | NUR ---
FOOD PROVIDED AT THIS TIME. DENIES ANY OTHER NEEDS. PT IS WATCHING TV WITH LIGHTS DOWN LOW.
[2020-10-26 00:37] VITALS: BP 130/71
--- NOTE | 2020-10-26 01:34 | NUR ---
PT SLEEPING HOLDING URINAL BETWEEN HIS LEGS, I AWOKE PT TO ASK HIM IF HE WANTS TO REMOVE THE URINAL, REFUSED. NO S/O DISTRESS NOTED.
[2020-10-26 04:00] VITALS: BP 141/85
--- NOTE | 2020-10-26 05:27 | NUR ---
PT MEDICATED FOR HEADACHE, REPORTEDLY 10/10 ON PAIN SCALE. PT IS ASKING FOR FOOD AND MORE WATER. CRACKERS, WATER AND MILK PROVIDED AT THIS TIME. NO S/O DISTRESS. OXYGEN ON @4L
[2020-10-26 06:09] LABS: MAGNESIUM 1.7 mg/dL (1.6-2.3)
--- NOTE | 2020-10-26 07:00 | NUR ---
PT REPORT RECEIVED FROM NIGHT NURSEHENRY.
[2020-10-26 07:25] VITALS: BP 107/73
--- NOTE | 2020-10-26 08:00 | NUR ---
PT WAS FOUND RESTING IN BED IN SEMI-FOWLERS POSITION;PT IS A&O X3;PT SPEECH IS GARBLED AND DOES HAVE SOME MENTAL CHALLENGES;PT IS REPORTING HEADACHE PAIN OF 3/10;PT WAS PREVIOUSLY MEDICATED AND IS NOT DUE FOR HIS NEXT DOSE;WILL MEDICATE SOON THE SCHEDULE ALLOWS;VS AND ASSESSMENT WERE COMPLETED;HEART SOUNDS ARE IRREGULAR IN RATE AND RHYTHM;LUNG SOUNDS ARE CLEAR BUT DIMINISHED IN ALL [place];RESPIRATIONS ARE EVEN AND UNLABORED ON O2 @4L VIA NC;#20G IV IN RAC IS SL, PATENT AND FREE OF COMPLICATIONS AT THIS TIME;PT HAS 1+ EDEMA IN HIS ANKLES AND FEET BILATERALLY ALONG WITH THICK SCALING;SAFETY PRECAUTIONS IN PLACE;CALL LIGHT WITHIN REACH;WILL CONTINUE TO MONITOR.
[2020-10-26 10:18] VITALS: BP 130/89
--- NOTE | 2020-10-26 12:00 | NUR ---
PT WAS FOUND RESTING IN BED EATING LUNCH;PT IS REPORTING A HEADACHE OF 8/10;PT WAS MEDICATED WITH 650MG OF TYLENOL;TELE IS IN PLACE;O2@4L VIA NC IS IN PLACE;SAFETY PRECAUTIONS IN PLACE;WILL CONTINUE TO MONITOR.
[2020-10-26 14:29] VITALS: BP 118/73
--- NOTE | 2020-10-26 16:00 | NUR ---
PT WAS FOUND SLEEPING IN BED;PT AROUSED TO VERBAL STIMULI;PT HAS NO REPORTS OF PAIN AT THIS TIME;O2@4L VIA NC IS IN PLACE;#20G IV IN RAC IS SL, PATENT AND FREE OF COMPLICATIONS AT THIS TIME;SAFETY PRECAUTIONS IN PLACE;CALL LIGHT WITHIN REACH;WILL CONTINUE TO MONITOR.
--- NOTE | 2020-10-26 18:18 | NUR ---
Discharge instructions given. Patient verbalizes understanding of same. Discharged in stable condition via Wheelchair to Home with family. All belongings sent with pt. DISCHARGE PACKET WAS GIVEN TO PT;DISCHARGE INSTRUCTIONS AND MEDICATIONS WERE EXPLAINED TO PT;PT EXPRESSED UNDERSTANDING AND HAD NO FURTHER QUESTIONS;SIGNATURE WAS OBTAINED;IV WAS REMOVED WITHOUT COMPLICATIONS AND CATHETER INTACT;TELE WAS REMOVED;PT WILL BE TRANSPORTED HOME ON HIS HOME O2@4L VIA NC THAT HIS BROTHER WILL BE BRINGING. PT WAS TRANSPORTED TO [facility] IN STABLE CONDITION VIA ACCOMPANIED BY STAFF;ALL PT BELONGINGS WERE SENT WITH PT;PT WILL BE TRANSPORTED HOME WITH HIS OWN O2@4L VIA [place];PT WILL HAVE [facility];PT WILL BE TRANSPORTED HOME WITH HIS BROTHER.
== END 2020-10-26 18:18 ==
LOC: ED 15:26 → ED-I 18:30 → ED 18:43 → MS2 18:44
PROVIDERS: ADMIT Internal Medicine; ATTEND Internal Medicine
DX: R07.9 Chest pain, unspecified (principal); R04.0 Epistaxis; I11.0 Hypertensive heart disease with heart failure; I50.22 Chronic systolic (congestive) heart failure; J96.11 Chronic respiratory failure with hypoxia; I48.20 Chronic atrial fibrillation, unspecified; F79 Unspecified intellectual disabilities; I25.10 Atherosclerotic heart disease of native coronary artery without angina pectoris; E66.01 Morbid (severe) obesity due to excess calories; Z68.42 Body mass index [BMI] 45.0-49.9, adult; J44.9 Chronic obstructive pulmonary disease, unspecified; G47.33 Obstructive sleep apnea (adult) (pediatric); E78.5 Hyperlipidemia, unspecified; E03.9 Hypothyroidism, unspecified; M10.9 Gout, unspecified; Z79.01 Long term (current) use of anticoagulants; Z95.1 Presence of aortocoronary bypass graft; Z99.81 Dependence on supplemental oxygen; Z20.822 Contact with and (suspected) exposure to COVID-19
CPT/HCPCS: G0378

== ENCOUNTER 2021-03-22 19:07 | Emergency (ER) | payer MEDICAID ==
[~2021-03-22] VITALS: Ht 177.8 cm; Wt 154.0 kg
[2021-03-22 20:06] LABS: URINE BILIRUBIN - DIPSTICK NEGATIVE (NEGATIVE); URINE BLOOD DIPSTICK TRACE-INTACT (NEGATIVE); URINE COLOR YELLOW; URINE GLUCOSE - DIPSTICK NEGATIVE (NEGATIVE); URINE KETONE NEGATIVE (NEGATIVE); URINE LEUK ESTERASE NEGATIVE (NEGATIVE); URINE NITRITE - DIPSTICK NEGATIVE (Negative); URINE PROTEIN - DIPSTICK NEGATIVE (NEG-TRACE)
[2021-03-22 20:06] LABS: HEMOGLOBIN 12.6 g/dl (14.0-18.0); IMMATURE GRANULOCYTES 0.5 % (0.0-5.0); MEAN CELL VOLUME 94.6 fL CALC (80.0-100.0); MEAN CORPUSCULAR HGB 27.1 pG CALC (26.0-32.0); MEAN CORPUSCULAR HGB CONC 28.6 g/dL CAL (32.0-36.0); NEUT# 4.8 thou/uL (1.82-7.42); RED BLOOD COUNT 4.65 mill/uL (4.70-6.10); RED CELL DISTRI WIDTH 14.5 % (11.5-15.5)
[2021-03-22 20:21] LABS: ALBUMIN 4.5 g/dL (3.2-5.0); ALKALINE PHOSPHATASE 55 u/l (38-126); AMYLASE 145 u/l (30-110); BUN 31 mg/dL (9-20); BUN/CREATININE RATIO 22 (12-20 (CALC)); CHLORIDE 93 mmol/l (95-108); CREATININE 1.4 mg/dL (0.7-1.3); GFR 54 ML/MIN (>=60 (CALC)); GFR FOR AFR.AMER. > 60 ML/MIN (>=60 (CALC)); LIPASE 190 u/l (23-300); POTASSIUM 4.4 mmol/l (3.5-5.1); SGOT/AST 37 u/l (17-59); SODIUM 139 mmol/l (137-146); TOTAL PROTEIN 8.5 g/dL (6.3-8.2)
[2021-03-22 20:22] LABS: ACT PARTIAL THROMBO TIME 29.6 SECONDS (20.0-32.5); INTERNATIONAL NORMALIZED RATIO 1.2 RATIO (0.7-1.3); PROTHROMBIN TIME 12.1 SECONDS (9.0-12.5)
[2021-03-22 20:29] LABS: ANION GAP 9 (6-22 (CALC)); BILIRUBIN, TOTAL 1.1 mg/dL (0.0-1.4); CARBON DIOXIDE 41 mmol/l (22-30)
[2021-03-22 21:35] VITALS: BP 131/91
--- NOTE | 2021-03-26 08:00 | NUR ---
FINAL RESULTS CALLED TO 06/27 GROWING STAPH SAPROPHYTICUS.Veronica contaminant no changes needed.
== END 2021-03-22 21:35 | disposition home or self-care (01) ==
LOC: ED 19:07
DX: J18.9 Pneumonia, unspecified organism (principal); J44.0 Chronic obstructive pulmonary disease with (acute) lower respiratory infection; I48.20 Chronic atrial fibrillation, unspecified; I11.0 Hypertensive heart disease with heart failure; I50.9 Heart failure, unspecified; E11.9 Type 2 diabetes mellitus without complications; I25.10 Atherosclerotic heart disease of native coronary artery without angina pectoris; F79 Unspecified intellectual disabilities; E66.01 Morbid (severe) obesity due to excess calories; Z95.1 Presence of aortocoronary bypass graft; Z99.81 Dependence on supplemental oxygen; Z20.822 Contact with and (suspected) exposure to COVID-19

== ENCOUNTER 2021-05-06 04:27 | Observation (INO) | payer MEDICAID ==
[~2021-05-06] VITALS: Ht 177.8 cm; Wt 154.0 kg
[2021-05-06] VITALS (7 sets, daily range): BP systolic 95–154; BP diastolic 55–103
[2021-05-06 05:18] LABS: HEMATOCRIT 41.7 % (39.0-50.0); HEMOGLOBIN 11.8 g/dl (14.0-18.0); IMMATURE GRANULOCYTES 0.4 % (0.0-5.0); MEAN CELL VOLUME 95.9 fL CALC (80.0-100.0); MEAN CORPUSCULAR HGB 27.1 pG CALC (26.0-32.0); MEAN CORPUSCULAR HGB CONC 28.3 g/dL CAL (32.0-36.0); NEUT# 4.23 thou/uL (1.82-7.42); RED BLOOD COUNT 4.35 mill/uL (4.70-6.10)
[2021-05-06 05:27] LABS: ALBUMIN 4.1 g/dL (3.2-5.0); BILIRUBIN, TOTAL 0.9 mg/dL (0.0-1.4); CREATININE 1.5 mg/dL (0.7-1.3); POTASSIUM 3.9 mmol/l (3.5-5.1); TOTAL PROTEIN 7.8 g/dL (6.3-8.2)
[2021-05-06] MEDS ORDERED: LIPITOR20 M1 PO (09:39)
== END 2021-05-06 14:35 | disposition home or self-care (01) ==
LOC: ED 04:27 → ED-I 05:50 → ED 06:08 → ICU 06:09
PROVIDERS: Emergency Medicine; ADMIT Hospitalist; ATTEND Hospitalist
DX: J96.21 Acute and chronic respiratory failure with hypoxia (principal); I11.0 Hypertensive heart disease with heart failure; I50.9 Heart failure, unspecified; J44.9 Chronic obstructive pulmonary disease, unspecified; I25.10 Atherosclerotic heart disease of native coronary artery without angina pectoris; I48.91 Unspecified atrial fibrillation; E11.9 Type 2 diabetes mellitus without complications; E66.01 Morbid (severe) obesity due to excess calories; F79 Unspecified intellectual disabilities; G47.33 Obstructive sleep apnea (adult) (pediatric); E78.5 Hyperlipidemia, unspecified; E03.9 Hypothyroidism, unspecified; M10.9 Gout, unspecified; M19.90 Unspecified osteoarthritis, unspecified site; T41.5X6A Underdosing of therapeutic gases, initial encounter; Z91.128 Patient's intentional underdosing of medication regimen for other reason; Z95.3 Presence of xenogenic heart valve; Z95.1 Presence of aortocoronary bypass graft; Z99.81 Dependence on supplemental oxygen; Z20.822 Contact with and (suspected) exposure to COVID-19

== ENCOUNTER 2021-05-25 12:30 | Observation (INO) | payer MEDICAID ==
[~2021-05-25] VITALS: Ht 177.8 cm; Wt 156.1 kg
[~2021-05-25 12:30] MED LIST changes: +LIPITOR20 M1 PO
[2021-05-25 13:11] LABS: HEMATOCRIT 39.2 % (39.0-50.0); HEMOGLOBIN 10.9 g/dl (14.0-18.0); IMMATURE GRANULOCYTES 0.4 % (0.0-5.0); MEAN CORPUSCULAR HGB 26.1 pG CALC (26.0-32.0); MEAN CORPUSCULAR HGB CONC 27.8 g/dL CAL (32.0-36.0); NEUT# 3.87 thou/uL (1.82-7.42); RED BLOOD COUNT 4.17 mill/uL (4.70-6.10); RED CELL DISTRI WIDTH 15.4 % (11.5-15.5)
[2021-05-25 13:26] LABS: ALKALINE PHOSPHATASE 96 u/l (38-126); BILIRUBIN, TOTAL 0.7 mg/dL (0.0-1.4); BUN 25 mg/dL (9-20); BUN/CREATININE RATIO 19 (12-20 (CALC)); CHLORIDE 94 mmol/l (95-108); CREATININE 1.3 mg/dL (0.7-1.3); GFR 59 ML/MIN (>=60 (CALC)); GFR FOR AFR.AMER. > 60 ML/MIN (>=60 (CALC)); POTASSIUM 3.9 mmol/l (3.5-5.1); SGOT/AST 28 u/l (17-59); SODIUM 140 mmol/l (137-146); TOTAL PROTEIN 7.6 g/dL (6.3-8.2)
[2021-05-25 13:33] LABS: ANION GAP 9 (6-22 (CALC))
[2021-05-25 13:35] LABS: CARBON DIOXIDE 41 mmol/l (22-30)
[2021-05-25 14:32] LABS: URINE BILIRUBIN - DIPSTICK NEGATIVE (NEGATIVE); URINE BLOOD DIPSTICK NEGATIVE (NEGATIVE); URINE COLOR YELLOW; URINE GLUCOSE - DIPSTICK NEGATIVE (NEGATIVE); URINE KETONE NEGATIVE (NEGATIVE); URINE LEUK ESTERASE NEGATIVE (NEGATIVE); URINE PROTEIN - DIPSTICK NEGATIVE (NEG-TRACE); URINE UROBILINOGEN - DIPSTICK 0.2 E.U./dL (0.2)
[2021-05-25 14:35] LABS: URINE NITRITE - DIPSTICK NEGATIVE (Negative)
[2021-05-25 15:33] VITALS: BP 130/90
[2021-05-25 19:00] VITALS: BP 115/77
[2021-05-25 23:57] VITALS: BP 127/79
[2021-05-26 04:02] VITALS: BP 135/79
[2021-05-26 06:40] LABS: HEMOGLOBIN 11.8 g/dl (14.0-18.0); MEAN CELL VOLUME 93.9 fL CALC (80.0-100.0); MEAN CORPUSCULAR HGB 25.8 pG CALC (26.0-32.0); MEAN CORPUSCULAR HGB CONC 27.4 g/dL CAL (32.0-36.0); RED BLOOD COUNT 4.58 mill/uL (4.70-6.10); RED CELL DISTRI WIDTH 15.5 % (11.5-15.5)
[2021-05-26 06:49] LABS: BUN 25 mg/dL (9-20); BUN/CREATININE RATIO 19 (12-20 (CALC)); CHLORIDE 92 mmol/l (95-108); CREATININE 1.3 mg/dL (0.7-1.3); GFR 59 ML/MIN (>=60 (CALC)); GFR FOR AFR.AMER. > 60 ML/MIN (>=60 (CALC)); MAGNESIUM 1.7 mg/dL (1.6-2.3); SODIUM 139 mmol/l (137-146)
[2021-05-26 07:03] LABS: ANION GAP 12 (6-22 (CALC)); POTASSIUM 4.8 mmol/l (3.5-5.1)
[2021-05-26 07:04] LABS: CARBON DIOXIDE > 40 mmol/l (22-30)
[2021-05-26 07:42] VITALS: BP 95/61; BP 98/61
[2021-05-26 07:58] LABS: TOTAL CHOLESTEROL 105 mg/dl (0-199); TOTAL TRIGLYCERIDES 97 mg/dl (30-149); VLDL CHOLESTROL 19 mg/dl (5-56 (CALC))
[2021-05-26 11:26] VITALS: BP 119/73
[2021-05-26 13:37] LABS: CALCULATED LDLCHOLESTEROL 59 mg/dL (62-129 (CALC)); CHOLESTEROL HDL RATIO 3.9 (<4.4 (CALC)); HDL CHOLESTEROL 27 mg/dL (>=40)
[2021-05-26 15:56] VITALS: BP 118/71
[2021-05-26 19:00] VITALS: BP 108/67
[2021-05-27] VITALS: BP 132/88
[2021-05-27 04:00] VITALS: BP 125/78
[2021-05-27 05:12] LABS: HEMATOCRIT 39.8 % (39.0-50.0); HEMOGLOBIN 11.4 g/dl (14.0-18.0); MEAN CELL VOLUME 90.9 fL CALC (80.0-100.0); MEAN CORPUSCULAR HGB CONC 28.6 g/dL CAL (32.0-36.0); RED BLOOD COUNT 4.38 mill/uL (4.70-6.10); RED CELL DISTRI WIDTH 15.5 % (11.5-15.5)
[2021-05-27 05:29] LABS: BUN 27 mg/dL (9-20); BUN/CREATININE RATIO 20 (12-20 (CALC)); CHLORIDE 89 mmol/l (95-108); CREATININE 1.4 mg/dL (0.7-1.3); GFR 54 ML/MIN (>=60 (CALC)); GFR FOR AFR.AMER. > 60 ML/MIN (>=60 (CALC)); MAGNESIUM 1.7 mg/dL (1.6-2.3); POTASSIUM 4.7 mmol/l (3.5-5.1); SODIUM 138 mmol/l (137-146)
[2021-05-27 05:35] LABS: ANION GAP 11 (6-22 (CALC))
[2021-05-27 05:36] LABS: CARBON DIOXIDE 43 mmol/l (22-30)
[2021-05-27 07:33] VITALS: BP 116/73
[2021-05-27 11:53] VITALS: BP 114/56
== END 2021-05-27 13:02 | disposition home or self-care (01) ==
LOC: ED 12:30 → ED-I 13:40 → ED 13:59 → MS2 14:00
PROVIDERS: Family Medicine; Nurse Practitioner; ADMIT Internal Medicine; ATTEND Internal Medicine
DX: I13.0 Hypertensive heart and chronic kidney disease with heart failure and stage 1 through stage 4 chronic kidney disease, or unspecified chronic kidney disease (principal); I50.23 Acute on chronic systolic (congestive) heart failure; J96.22 Acute and chronic respiratory failure with hypercapnia; N18.9 Chronic kidney disease, unspecified; J96.11 Chronic respiratory failure with hypoxia; I48.20 Chronic atrial fibrillation, unspecified; F79 Unspecified intellectual disabilities; J44.9 Chronic obstructive pulmonary disease, unspecified; I25.10 Atherosclerotic heart disease of native coronary artery without angina pectoris; R07.9 Chest pain, unspecified; G89.29 Other chronic pain; E03.9 Hypothyroidism, unspecified; M10.9 Gout, unspecified; E78.5 Hyperlipidemia, unspecified; E66.01 Morbid (severe) obesity due to excess calories; G47.33 Obstructive sleep apnea (adult) (pediatric); Z68.43 Body mass index [BMI] 50.0-59.9, adult; Z95.3 Presence of xenogenic heart valve; Z79.01 Long term (current) use of anticoagulants; Z95.1 Presence of aortocoronary bypass graft; Z20.822 Contact with and (suspected) exposure to COVID-19
CPT/HCPCS: G0378

== ENCOUNTER 2021-08-22 18:55 | Observation (INO) | payer MEDICAID ==
[~2021-08-22] VITALS: Ht 177.8 cm; Wt 156.0 kg
--- NOTE | 2021-08-22 19:05 | NUR ---
PT TO ROOM 11 VIA WC
[2021-08-22 19:27] LABS: URINE BILIRUBIN - DIPSTICK NEGATIVE (NEGATIVE); URINE BLOOD DIPSTICK NEGATIVE (NEGATIVE); URINE COLOR YELLOW; URINE GLUCOSE - DIPSTICK NEGATIVE (NEGATIVE); URINE KETONE NEGATIVE (NEGATIVE); URINE LEUK ESTERASE NEGATIVE (NEGATIVE); URINE PH 6.5 (4.5-8.0); URINE PROTEIN - DIPSTICK NEGATIVE (NEG-TRACE)
[2021-08-22 19:30] LABS: URINE NITRITE - DIPSTICK NEGATIVE (Negative)
[2021-08-22 19:39] LABS: HEMATOCRIT 43.2 % (39.0-50.0); IMMATURE GRANULOCYTES 0.5 % (0.0-5.0); MEAN CELL VOLUME 89.3 fL CALC (80.0-100.0); MEAN CORPUSCULAR HGB 24.8 pG CALC (26.0-32.0); MEAN CORPUSCULAR HGB CONC 27.8 g/dL CAL (32.0-36.0); NEUT# 3.88 thou/uL (1.82-7.42); RED BLOOD COUNT 4.84 mill/uL (4.70-6.10); RED CELL DISTRI WIDTH 16.5 % (11.5-15.5)
[2021-08-22 19:57] LABS: ALBUMIN 4.5 g/dL (3.2-5.0); BILIRUBIN, TOTAL 0.7 mg/dL (0.0-1.4); CREATININE 1.7 mg/dL (0.7-1.3); POTASSIUM 4.3 mmol/l (3.5-5.1); TOTAL PROTEIN 8.4 g/dL (6.3-8.2)
[2021-08-22 20:00] LABS: ACT PARTIAL THROMBO TIME 32.3 SECONDS (20.0-32.5); INTERNATIONAL NORMALIZED RATIO 1.1 RATIO (0.7-1.3); PROTHROMBIN TIME 11.9 SECONDS (9.0-12.5)
--- NOTE | 2021-08-22 20:36 | NUR ---
Reassessment of patient completed. No distress noted.
--- NOTE | 2021-08-22 21:51 | NUR ---
Admission Note Report Given to: jalen Transported by: Wheelchair x Stretcher Transported with: x Nurse Transporter Patent IV O2 Occupational Therapy Co Director Location: ICU x MS2
[2021-08-22 22:11] VITALS: BP 160/104
--- NOTE | 2021-08-22 23:10 | NUR ---
PATIENT ADMITTED FROM ER VIA STRETCHER WITH ER STAFF IN ATTENDANCE. PATIENT AWAKE ALERT AND ORIENTEDX3. PATIENT ON O2 VIA NASAL CANNULA AT 4LPM WITH O2 SAT OF 92%. PATIENT WAS ABLE TO TRANSFER TO THE BED. PATIENT IS OBESE AND MENTALLY CHALLENGED. PATIENT STATES THAT HE CAME TO THE HOSPITAL TODAY FOR CHEST PAIN AND SOB. DENIES ANY PAIN AT THIS TIME. STATES THAT HE IS FEELING BETTER SINCE GETTING LASIX IN THE ER. SALINE LOCK TO RAC INTACT AND HEALTHY AT THIS TIME WITH GOOD BLOOD RETURN. PATIENT WAS GIVEN ROCEPHIN ORDERED AND NOW AZITHRO INFUSING, BUMEX 2MG PO GIVEN ORDERED. PATIENT INSTRUCTED TO USE URINAL FOR STRICT I&O. VERBALIZES UNDERSTANDING. PATIENT WITH 1770 DOLLARS IN SEE WITH HIM. MONEY WAS COLLECTED BY NERY CASE RN, NSG SUP AND WAS SENT TO THE HOSPITAL SAFE BY NERY. LUNGS ARE DIMINISHED THROUGHOUT. ABD IS DISTENDED WITH BS+. STATES THAT HIS LAST BM WAS TODAY. FEET ARE DIRTY AND FLAKEY-SLIGHT SWELLING. PULSE ARE FAINT. TELE MONITOR IN PLACE WITH INITIAL READING OF A-FIB-84. PATIENT PROVIDED WITH HEALTHY CHOICE MEAL AND DRINK. ORIENTED PATIENT TO ROOM AND SURROUNDINGS. INSTRUCTED ON USE OF NURSE CALL LIGHT SYSTEM AND TV REMOTE. SAFETY PRECAUTIONS REINFORCED. CALL LIGHT IN REACH. WILL CONT TO MONITOR.
[2021-08-23 00:14] VITALS: BP 128/95
--- NOTE | 2021-08-23 02:42 | NUR ---
PATIENT RESTING IN BED WITH HOB ELEVATED. O2 VIA NASAL CANNULA IN PLACE AT 4LPM. EYES ARE CLOSED. RESPS ARE EVEN AND UNLABORED. PATIENT HAS BEEN VOIDING QS CLEAR YELLOW URINE IN URINAL. CALL LIGHT IN REACH. WILL CONT TO MONITOR.
[2021-08-23 04:02] VITALS: BP 142/100
--- NOTE | 2021-08-23 04:10 | NUR ---
PATIENT RESTING IN BED WIHT O2 VIA NASAL CANNULA IN PLACE. HOB ELEVATED AND TELE MONITOR IN PLACE.O2 VIA NASAL CANNULA INPLACE AT 4LPM. SALINE LOCK TO RAC INTACT. CALL LIGHT IN REACH. WILL CONT TO MONITOR.
[2021-08-23 06:15] LABS: HEMATOCRIT 45.6 % (39.0-50.0); HEMOGLOBIN 12.5 g/dl (14.0-18.0); MEAN CELL VOLUME 91.6 fL CALC (80.0-100.0); MEAN CORPUSCULAR HGB 25.1 pG CALC (26.0-32.0); MEAN CORPUSCULAR HGB CONC 27.4 g/dL CAL (32.0-36.0); RED BLOOD COUNT 4.98 mill/uL (4.70-6.10); RED CELL DISTRI WIDTH 16.4 % (11.5-15.5)
[2021-08-23 06:30] LABS: CREATININE 1.6 mg/dL (0.7-1.3); MAGNESIUM 1.9 mg/dL (1.6-2.3); POTASSIUM 4.7 mmol/l (3.5-5.1)
--- NOTE | 2021-08-23 06:30 | NUR ---
DR. MORA NOTIFIED OF ELEVATED CO2-44. NO NEW ORDERS AT THIS TIME.
--- NOTE | 2021-08-23 07:33 | NUR ---
Patient is screened for intervention and would benefit from both PT and OT consults for functional assessment with cardiac precautions and energy conservation if medical agrees
--- NOTE | 2021-08-23 08:00 | NUR ---
SHIFT CHANGE REPORT, PT AWAKE ALERT AND ORIENTED X 2, CO/ HEADACHE BUT WAS TREATED EARLIER FOR CONDITION, O2 @ 4L VIA NC IN PLACE, TELE MONITOR IN PLACE, CALL LANE IN REACH AND BED LOCKED IN LOWEST POSITION.
[2021-08-23 10:19] VITALS: BP 114/76
--- NOTE | 2021-08-23 12:00 | NUR ---
ATE MEAL WITH HEALTHY APPETITE, RESTING IN BED, NO NEW COMPLAINS, CALL LANE IN REACH.
[2021-08-23 16:00] VITALS: BP 132/86
--- NOTE | 2021-08-23 16:36 | NUR ---
RELAXING IN BED PLAYING ON PHONE, C/O ACHING HEADACHE @ 04/02, CONCERN ADRESSED, WILL CONTINUE TO MONITOR.
--- NOTE | 2021-08-23 18:44 | NUR ---
Discharge instructions given. Patient verbalizes understanding of same. Discharged in stable condition via Wheelchair to Home with family. All belongings sent with pt.
== END 2021-08-23 18:35 | disposition home or self-care (01) ==
LOC: ED 18:55 → ED-I 21:04 → ED 21:27 → MS2 21:28
PROVIDERS: ADMIT Hospitalist; ATTEND Hospitalist
DX: I11.0 Hypertensive heart disease with heart failure (principal); I50.23 Acute on chronic systolic (congestive) heart failure; J96.11 Chronic respiratory failure with hypoxia; I48.20 Chronic atrial fibrillation, unspecified; J44.9 Chronic obstructive pulmonary disease, unspecified; I25.10 Atherosclerotic heart disease of native coronary artery without angina pectoris; I42.9 Cardiomyopathy, unspecified; E66.01 Morbid (severe) obesity due to excess calories; F79 Unspecified intellectual disabilities; G47.33 Obstructive sleep apnea (adult) (pediatric); E03.9 Hypothyroidism, unspecified; E78.5 Hyperlipidemia, unspecified; M10.9 Gout, unspecified; Z95.1 Presence of aortocoronary bypass graft; Z99.81 Dependence on supplemental oxygen; Z95.3 Presence of xenogenic heart valve; Z20.822 Contact with and (suspected) exposure to COVID-19
CPT/HCPCS: G0378

== ENCOUNTER 2021-09-08 15:21 | Observation (INO) | payer MEDICAID ==
[2021-09-08] VITALS (7 sets, daily range): BP systolic 117–144; BP diastolic 72–88
[~2021-09-08] VITALS: Ht 177.8 cm; Wt 158.0 kg
[~2021-09-08 15:21] MED LIST changes: +BUMETANIDE2 MG PO; +LEVOTHYROXIN25 MC1 PO; -LEVOTHYROXIN50 MCG PO
[2021-09-08 15:46] LABS: HEMATOCRIT 41.6 % (39.0-50.0); HEMOGLOBIN 11.5 g/dl (14.0-18.0); IMMATURE GRANULOCYTES 0.4 % (0.0-5.0); MEAN CELL VOLUME 90.8 fL CALC (80.0-100.0); MEAN CORPUSCULAR HGB 25.1 pG CALC (26.0-32.0); MEAN CORPUSCULAR HGB CONC 27.6 g/dL CAL (32.0-36.0); NEUT# 3.36 thou/uL (1.82-7.42); RED BLOOD COUNT 4.58 mill/uL (4.70-6.10); RED CELL DISTRI WIDTH 16.4 % (11.5-15.5)
--- NOTE | 2021-09-08 15:51 | NUR ---
BROUGHT IN BY STRETCHER VIA EMS TO TX ROOM, STABLE
[2021-09-08 15:59] LABS: ALBUMIN 4.4 g/dL (3.2-5.0); ALKALINE PHOSPHATASE 52 u/l (38-126); BILIRUBIN, TOTAL 0.8 mg/dL (0.0-1.4); BUN 20 mg/dL (9-20); BUN/CREATININE RATIO 14 (12-20 (CALC)); CHLORIDE 93 mmol/l (95-108); CREATININE 1.4 mg/dL (0.7-1.3); GFR 54 ML/MIN (>=60 (CALC)); GFR FOR AFR.AMER. > 60 ML/MIN (>=60 (CALC)); POTASSIUM 5.1 mmol/l (3.5-5.1); SGOT/AST 31 u/l (17-59); SODIUM 140 mmol/l (137-146); TOTAL PROTEIN 8.3 g/dL (6.3-8.2)
[2021-09-08 16:05] LABS: ANION GAP 13 (6-22 (CALC)); CARBON DIOXIDE 39 mmol/l (22-30)
[2021-09-08 16:11] LABS: MYOGLOBIN 109 ng/mL (0 - 121)
[2021-09-08 16:16] LABS: INTERNATIONAL NORMALIZED RATIO 1.1 RATIO (0.7-1.3); PROTHROMBIN TIME 11.9 SECONDS (9.0-12.5)
--- NOTE | 2021-09-08 18:18 | NUR ---
Report called to floor. Patient transported in stretcher on oxygen.
--- NOTE | 2021-09-08 18:44 | NUR ---
REPORT RECEIVED FROM LISET IN ED, PT ARRIVED ON UNIT @ 1835 TRANSPORTED VIA STRETCHER, O2 @ 4L VIA NC IN PLACE, ALERT AND ORIENTED X 3, ORIENTED TO ROOM AND CALL LANE, TELE MONITOR IN PLACE, NIGHT NURSE WILL CONTINUE CARE.
--- NOTE | 2021-09-08 19:11 | NUR ---
REPORT RECEIVED FROM Junior MORFIN RN.
--- NOTE | 2021-09-08 21:20 | NUR ---
MEDICATIONS ADMINISTERED PER EMAR, SEE EMAR
--- NOTE | 2021-09-08 23:30 | NUR ---
PATIENT RESTING COMOFRTABLY, WATCHING TV, VOICES NO COMPLAINTS.
[2021-09-09 02:49] VITALS: BP 100/62
--- NOTE | 2021-09-09 04:00 | NUR ---
PATIENT RESTING COMOFRTABLY, DENIES ANY CURRENT PAIN, CALL LIGHHT AND BEDSIDE TABLE WITHIN REACH.
[2021-09-09 05:34] LABS: HEMATOCRIT 42.4 % (39.0-50.0); HEMOGLOBIN 12.3 g/dl (14.0-18.0); MEAN CORPUSCULAR HGB 26.7 pG CALC (26.0-32.0); RED BLOOD COUNT 4.61 mill/uL (4.70-6.10); RED CELL DISTRI WIDTH 16.3 % (11.5-15.5)
[2021-09-09 05:59] LABS: BUN 20 mg/dL (9-20); BUN/CREATININE RATIO 14 (12-20 (CALC)); CALCULATED LDLCHOLESTEROL 65 mg/dL (62-129 (CALC)); CHLORIDE 91 mmol/l (95-108); CHOLESTEROL HDL RATIO 3.6 (<4.4 (CALC)); CREATININE 1.4 mg/dL (0.7-1.3); GFR 54 ML/MIN (>=60 (CALC)); GFR FOR AFR.AMER. > 60 ML/MIN (>=60 (CALC)); HDL CHOLESTEROL 35 mg/dL (>=40); MAGNESIUM 1.8 mg/dL (1.6-2.3); POTASSIUM 4.5 mmol/l (3.5-5.1); SODIUM 139 mmol/l (137-146); TOTAL CHOLESTEROL 127 mg/dl (0-199); TOTAL TRIGLYCERIDES 133 mg/dl (30-149); VLDL CHOLESTROL 27 mg/dl (5-56 (CALC))
[2021-09-09 06:04] LABS: ANION GAP 10 (6-22 (CALC))
--- NOTE | 2021-09-09 06:27 | NUR ---
CO2 IS 43. REPORTED BY PATRICIO IN LAB
[2021-09-09 06:28] LABS: CARBON DIOXIDE 43 mmol/l (22-30)
--- NOTE | 2021-09-09 07:00 | NUR ---
RECIEVED REPORT FROM SAVANNAH LACKEY
[2021-09-09 07:06] VITALS: BP 101/62
--- NOTE | 2021-09-09 08:05 | NUR ---
PT RESTING IN SEMI FOWLERS POSITION. PT IS A/OX3 BUT MENTALLY CHALLENGED. ASSESSMENT AND VITALS COMPLETED. RESPIRATIONS SHALLOW ON 4L NC, HOME DEPENDENT. LUNG SOUNDS DIMINISHED. HEART RHYTHM IRRGULAR WITH TELE IN PLACE,AFIB PER ER MONITORING. #18G LAC FLUSHED, SITE APPEARS HEALTHY AND PATENT. SKIN INTACT. PT C/O OF 8/10 PAIN IN FEET.2+ EDEMA NPTED TO LEFT LEG. TYLENOL TO BE ADMINISTERED. 150 OF MABER URINE NOTED. PT DENIES OF ADDITIONAL NEEDS. ALL SAFTEY PRECAUTIONS IN PLACE WITH CALL LIGHT IN REACH.
[2021-09-09 09:39] VITALS: BP 119/79
--- NOTE | 2021-09-09 10:11 | NUR ---
DR MORA AT BEDSIDE
[2021-09-09 11:13] VITALS: BP 119/79
--- NOTE | 2021-09-09 12:00 | NUR ---
PT RESTING IN SEMI FOWLERS POSITION. RESPIRATIONS ARE EVEN AND UNLABORED ON ROOM AIR. #18G LAC REMAINS IN PLACE. TELE MONITORING IN PLACE. PT DENIES OF ANY PAINS OR DISCOMFORTS AT THIS TIME. ALL SAFTEY PRECAUTIONS IN PLACE WITH CALL LIGHT IN REACH
--- NOTE | 2021-09-09 15:19 | NUR ---
PT EDUCATED ON DC INSTRUCTIONS AND CONTINUING HOME MEDS. PT VEBRLAIZED UNDERSTANDING. IV REMOVED WITH CATH STILL INTACT. PT INFORMED OF NEEDING HOME O2 TO DC. PT REFUSED STATING " I DONT NEED IT. I CAN MAKE IT HOME."HAM CURER RE-EDUCATED ON O2 USE. PT CONTINUES TO STATE HE DOES NOT NEED HOME O2. TRANSPORTATION CALLED BY PT.
--- NOTE | 2021-09-09 15:30 | NUR ---
Discharge instructions given. Patient verbalizes understanding of same. Discharged in stable condition via Wheelchair to Home with staff. All belongings sent with pt. PT DC HOME VIA WHEELCHAIR. NO HOME O2 PRESENT. INFORMED OF PT REFUSAL TO HAVE O2 BROUGHT. PT DC WITH ALL DC INSTRUCTIONS AND NEW MEDICATIONS
== END 2021-09-09 15:30 | disposition home or self-care (01) ==
LOC: ED 15:21 → ED-I 16:15 → ED 16:26 → MS2 16:27
PROVIDERS: Nurse Practitioner; ADMIT Hospitalist; ATTEND Hospitalist
DX: R07.9 Chest pain, unspecified (principal); M79.89 Other specified soft tissue disorders; I25.10 Atherosclerotic heart disease of native coronary artery without angina pectoris; I13.0 Hypertensive heart and chronic kidney disease with heart failure and stage 1 through stage 4 chronic kidney disease, or unspecified chronic kidney disease; I50.22 Chronic systolic (congestive) heart failure; E11.22 Type 2 diabetes mellitus with diabetic chronic kidney disease; N18.9 Chronic kidney disease, unspecified; J96.11 Chronic respiratory failure with hypoxia; I48.20 Chronic atrial fibrillation, unspecified; G47.33 Obstructive sleep apnea (adult) (pediatric); F79 Unspecified intellectual disabilities; E03.9 Hypothyroidism, unspecified; J44.9 Chronic obstructive pulmonary disease, unspecified; E66.01 Morbid (severe) obesity due to excess calories; M10.9 Gout, unspecified; Z74.01 Bed confinement status; Z95.1 Presence of aortocoronary bypass graft; Z95.3 Presence of xenogenic heart valve; Z20.822 Contact with and (suspected) exposure to COVID-19
CPT/HCPCS: G0378

== ENCOUNTER 2021-10-05 11:54 | Emergency (ER) | payer MEDICAID ==
[~2021-10-05] VITALS: Ht 177.8 cm; Wt 127.3 kg
[2021-10-05 13:25] LABS: HEMATOCRIT 44.4 % (39.0-50.0); HEMOGLOBIN 12.4 g/dl (14.0-18.0); IMMATURE GRANULOCYTES 0.2 % (0.0-5.0); MEAN CELL VOLUME 90.1 fL CALC (80.0-100.0); MEAN CORPUSCULAR HGB 25.2 pG CALC (26.0-32.0); MEAN CORPUSCULAR HGB CONC 27.9 g/dL CAL (32.0-36.0); NEUT# 3.82 thou/uL (1.82-7.42); RED BLOOD COUNT 4.93 mill/uL (4.70-6.10); RED CELL DISTRI WIDTH 15.6 % (11.5-15.5)
[2021-10-05 13:49] LABS: ALBUMIN 4.5 g/dL (3.2-5.0); BILIRUBIN, TOTAL 0.8 mg/dL (0.0-1.4); CREATININE 1.7 mg/dL (0.7-1.3); POTASSIUM 4.2 mmol/l (3.5-5.1); TOTAL PROTEIN 8.4 g/dL (6.3-8.2)
[2021-10-05 14:01] VITALS: BP 146/94
[2021-10-05 14:43] VITALS: BP 85/58
[2021-10-05 14:49] VITALS: BP 113/81
[2021-10-05 15:00] VITALS: BP 109/73
[2021-10-05] MEDS ORDERED: CEPHALEXIN500 MG PO (15:05)
[2021-10-05 15:07] VITALS: BP 109/73
== END 2021-10-05 15:10 | disposition home or self-care (01) ==
LOC: ED 11:54
PROVIDERS: Family Medicine
DX: L03.116 Cellulitis of left lower limb (principal); I13.0 Hypertensive heart and chronic kidney disease with heart failure and stage 1 through stage 4 chronic kidney disease, or unspecified chronic kidney disease; I50.9 Heart failure, unspecified; N18.9 Chronic kidney disease, unspecified; E66.01 Morbid (severe) obesity due to excess calories; I25.10 Atherosclerotic heart disease of native coronary artery without angina pectoris; J44.9 Chronic obstructive pulmonary disease, unspecified; F79 Unspecified intellectual disabilities; I48.91 Unspecified atrial fibrillation; G47.30 Sleep apnea, unspecified; Z95.1 Presence of aortocoronary bypass graft

== ENCOUNTER 2021-10-12 09:14 | Emergency (ER) | payer MEDICAID ==
[2021-10-12] VITALS (12 sets, daily range): BP systolic 72–120; BP diastolic 43–87
[~2021-10-12] VITALS: Ht 177.8 cm; Wt 147.0 kg
[2021-10-12 10:04] LABS: IMMATURE GRANULOCYTES 0.2 % (0.0-5.0); MEAN CELL VOLUME 90.1 fL CALC (80.0-100.0); MEAN CORPUSCULAR HGB 25.8 pG CALC (26.0-32.0); MEAN CORPUSCULAR HGB CONC 28.6 g/dL CAL (32.0-36.0); NEUT# 3.9 thou/uL (1.82-7.42); RED BLOOD COUNT 4.66 mill/uL (4.70-6.10); RED CELL DISTRI WIDTH 15.4 % (11.5-15.5)
[2021-10-12 10:13] LABS: ACT PARTIAL THROMBO TIME 33.3 SECONDS (20.0-32.5); INTERNATIONAL NORMALIZED RATIO 1.2 RATIO (0.7-1.3)
[2021-10-12 10:15] LABS: ALBUMIN 4.7 g/dL (3.2-5.0); BILIRUBIN, TOTAL 0.8 mg/dL (0.0-1.4); CREATININE 1.6 mg/dL (0.7-1.3); POTASSIUM 4.1 mmol/l (3.5-5.1); TOTAL PROTEIN 8.6 g/dL (6.3-8.2)
== END 2021-10-12 14:06 | disposition home or self-care (01) ==
LOC: ED 09:14
DX: I13.0 Hypertensive heart and chronic kidney disease with heart failure and stage 1 through stage 4 chronic kidney disease, or unspecified chronic kidney disease (principal); I50.9 Heart failure, unspecified; N18.9 Chronic kidney disease, unspecified; I48.20 Chronic atrial fibrillation, unspecified; E11.9 Type 2 diabetes mellitus without complications; G47.30 Sleep apnea, unspecified; E66.01 Morbid (severe) obesity due to excess calories; J44.9 Chronic obstructive pulmonary disease, unspecified; I25.10 Atherosclerotic heart disease of native coronary artery without angina pectoris; F79 Unspecified intellectual disabilities; Z95.1 Presence of aortocoronary bypass graft

== ENCOUNTER 2021-10-16 11:12 | Observation (INO) | payer MEDICAID ==
[2021-10-16] VITALS (11 sets, daily range): BP systolic 110–142; BP diastolic 69–100
[~2021-10-16] VITALS: Ht 177.8 cm; Wt 152.0 kg
--- NOTE | 2021-10-16 11:12 | NUR ---
pt to room via ems
--- NOTE | 2021-10-16 11:25 | NUR ---
SIXTOEN TO ROOM 13 VIA EMS
[2021-10-16 11:53] LABS: HEMATOCRIT 42.6 % (39.0-50.0); IMMATURE GRANULOCYTES 0.4 % (0.0-5.0); MEAN CELL VOLUME 89.7 fL CALC (80.0-100.0); MEAN CORPUSCULAR HGB 25.3 pG CALC (26.0-32.0); MEAN CORPUSCULAR HGB CONC 28.2 g/dL CAL (32.0-36.0); NEUT# 3.97 thou/uL (1.82-7.42); RED BLOOD COUNT 4.75 mill/uL (4.70-6.10); RED CELL DISTRI WIDTH 15.1 % (11.5-15.5)
[2021-10-16 12:06] LABS: ALBUMIN 4.5 g/dL (3.2-5.0); ALKALINE PHOSPHATASE 65 u/l (38-126); BILIRUBIN, TOTAL 0.8 mg/dL (0.0-1.4); BUN 31 mg/dL (9-20); BUN/CREATININE RATIO 22 (12-20 (CALC)); CHLORIDE 89 mmol/l (95-108); CREATININE 1.4 mg/dL (0.7-1.3); GFR 54 ML/MIN (>=60 (CALC)); GFR FOR AFR.AMER. > 60 ML/MIN (>=60 (CALC)); POTASSIUM 3.9 mmol/l (3.5-5.1); SGOT/AST 33 u/l (17-59); SODIUM 139 mmol/l (137-146); TOTAL PROTEIN 8.4 g/dL (6.3-8.2)
[2021-10-16 12:14] LABS: ANION GAP 9 (6-22 (CALC))
[2021-10-16 12:18] LABS: MYOGLOBIN 147 ng/mL (0 - 121)
[2021-10-16 12:32] LABS: CARBON DIOXIDE 45 mmol/l (22-30)
[2021-10-16 12:38] LABS: TSH, 3RD GENERATION 7.99 uIU/mL (0.47 - 4.68)
--- NOTE | 2021-10-16 13:40 | NUR ---
Reassessment of patient completed. No distress noted.
--- NOTE | 2021-10-16 14:20 | NUR ---
CALL PLACED TO MED/SURG FOR REPORT, NURSE TO RETURN CALL
--- NOTE | 2021-10-16 14:27 | NUR ---
PT ARRIVED TO MO VIA STRETCHER STABLE. ACCOMPANIED BY STAFF.
--- NOTE | 2021-10-16 14:50 | NUR ---
REPORT GIVEN TO MED/SURG
--- NOTE | 2021-10-16 17:09 | NUR ---
PT RESTING IN SEMI FOWLERS POSITION. RESPIRATIONS EVEN AND UNLABORED ON ROOM AIR. PT DENIES OF ANY DISCOMFORTS. ALL SAFTEY PRECAUTIONS IN PLACE WITH CALL LIGHT IN REACH.
--- NOTE | 2021-10-16 22:55 | NUR ---
PT IN BED AWAKE WATCHING TV, NO DISTRESS NOTED JUST STATED HE HAD A HEADACHE AND TOOTHACHE, GAVE PT SOME PAIN MED. BED IN LOW POSITION, CALL LIGHT IN REACH
--- NOTE | 2021-10-17 03:03 | NUR ---
PT IN BED ASLEEP, NO DISTRESS NOTED, BED IN LOW POSITION, CALL LIGHT IN REACH
[2021-10-17 04:09] VITALS: BP 134/98
[2021-10-17 05:31] LABS: HEMATOCRIT 45.8 % (39.0-50.0); HEMOGLOBIN 12.8 g/dl (14.0-18.0); MEAN CELL VOLUME 90.9 fL CALC (80.0-100.0); MEAN CORPUSCULAR HGB 25.4 pG CALC (26.0-32.0); MEAN CORPUSCULAR HGB CONC 27.9 g/dL CAL (32.0-36.0); RED BLOOD COUNT 5.04 mill/uL (4.70-6.10); RED CELL DISTRI WIDTH 15.2 % (11.5-15.5)
[2021-10-17 05:37] LABS: CHOLESTEROL HDL RATIO 4.7 (<4.4 (CALC)); CREATININE 1.7 mg/dL (0.7-1.3); MAGNESIUM 1.6 mg/dL (1.6-2.3)
--- NOTE | 2021-10-17 07:05 | NUR ---
RECIEVED REPORT FROM JILL NUÑEZ.
[2021-10-17 08:02] VITALS: BP 117/67
--- NOTE | 2021-10-17 08:02 | NUR ---
PT RESTING IN HIGH FOWLERS POSITION. A/OX3 ASSESSMENT AND VS COMPLETED. HEART RHYTHM IRREGULAR WITH TELE IN PLACE. RESPIRATIONS SHALLOW ON 3L O2 NC. BOWEL SOUNDS HYPERACTIVE. IV SITE PATENT/FLUSHED. PT C/O HEADACHE AND TOOTH ACHE. WILL MEDICATED PER EMAR. PT REQUESTING ICE WATER. ICED WATER PROVIDED. PT DENIES OF ADDITONAL NEEDS AT THE MOMENT ALL SAFETY PRECAUTIONS IN REACH WITH CALL LIGHT IN PLACE.
[2021-10-17 08:04] VITALS: BP 117/67
[2021-10-17 10:27] VITALS: BP 125/90
[2021-10-17] MEDS ORDERED: ZITHROMAX250 MG PO (11:31)
--- NOTE | 2021-10-17 12:00 | NUR ---
PT RESTING IN SEMI FOWLERS POSITION . PT STATES MEDICATION EFFECTIVE PT DENIES ADDITIIONAL NEEDS AT THE MOMENT. ALL SAFETY PRECAUTIONS IN PLACE WITH CALL LIGHT IN REACH.
--- NOTE | 2021-10-17 14:19 | NUR ---
PT EDUCATED ON DC INSTURCTIONS . PT VERBALLY STATED UNDERSTANDING . PT STATED HE IS ABLE TO GO HOME VIA [facility] AND CAN GET INSIDE HOME. IV REMOVED WITH CATH IN PLACE. TELE REMOVED. WAITING ON TRANSPORTATION TO BE CALLED .
--- NOTE | 2021-10-17 14:41 | NUR ---
Discharge instructions given. Patient verbalizes understanding of same. Discharged in stable condition via Wheelchair to Home with staff. All belongings sent with pt.
--- NOTE | 2021-10-17 15:15 | NUR ---
PROTOCOL MANAGER CALLED DOWN STAIRS DUE TO PT NOT FEELING GOOD WHILE WAITING FOR [facility]. O2 68% ON ROOM AIR. PT EDUCATED BEFORE LEAVING ON NEED FOR HOME O2. PT CONTINUED TO STATE HE HARDLY WEARS IT AND DOESNT NEED IT. PT BROUGHT BACK UPSTAIRS 2L NC APPPLIED, O2 BACK TO 93%. RESPIRATIONS SHALLOW BUT NORMAL FOR PT. BROTHER IN LAW TO BRING HOME O2 BUT UNABLE TO TAKE PT HOME DUE TO "TRUCK OVER HEATING." MULTIPLE OTHER FAMILY MEMBERS CALLED, UNABLE TO TRANSPORT PT HOME. PT STATES HE IS ABLE TO MAKE IT IN [place] WITH HOME O2 AND REASSURES WHEN ASKED AGAIN.
--- NOTE | 2021-10-17 15:57 | NUR ---
HOME OXYGEN BROUGHT BY FAMILY AND APPLIED. O2 REMAINS 93% ON HOME O2. PT STATES NO SOB. PT STATES HE IS STILL COMFORTABLE WITH TAKING TAXI HOME. [facility] CALLED.
== END 2021-10-17 14:41 | disposition home or self-care (01) ==
LOC: ED 11:12 → ED-I 12:55 → ED 13:11 → MS2 13:12
PROVIDERS: Emergency Medicine; ADMIT Hospitalist; ATTEND Hospitalist
DX: J18.9 Pneumonia, unspecified organism (principal); J44.0 Chronic obstructive pulmonary disease with (acute) lower respiratory infection; I13.0 Hypertensive heart and chronic kidney disease with heart failure and stage 1 through stage 4 chronic kidney disease, or unspecified chronic kidney disease; I50.23 Acute on chronic systolic (congestive) heart failure; N18.9 Chronic kidney disease, unspecified; I48.20 Chronic atrial fibrillation, unspecified; J96.11 Chronic respiratory failure with hypoxia; I25.10 Atherosclerotic heart disease of native coronary artery without angina pectoris; E66.2 Morbid (severe) obesity with alveolar hypoventilation; Z68.42 Body mass index [BMI] 45.0-49.9, adult; F79 Unspecified intellectual disabilities; E03.9 Hypothyroidism, unspecified; M10.9 Gout, unspecified; Z74.01 Bed confinement status; Z99.81 Dependence on supplemental oxygen; Z95.1 Presence of aortocoronary bypass graft; Z95.3 Presence of xenogenic heart valve; Z20.822 Contact with and (suspected) exposure to COVID-19
CPT/HCPCS: G0378

== ENCOUNTER 2022-01-01 19:17 | Emergency (ER) | payer MEDICAID ==
[~2022-01-01] VITALS: Ht 177.8 cm; Wt 150.0 kg
[2022-01-01 20:41] LABS: HEMATOCRIT 43.5 % (39.0-50.0); HEMOGLOBIN 12.3 g/dl (14.0-18.0); IMMATURE GRANULOCYTES 0.2 % (0.0-5.0); MEAN CELL VOLUME 92.2 fL CALC (80.0-100.0); MEAN CORPUSCULAR HGB 26.1 pG CALC (26.0-32.0); MEAN CORPUSCULAR HGB CONC 28.3 g/dL CAL (32.0-36.0); NEUT# 3.8 thou/uL (1.82-7.42); RED BLOOD COUNT 4.72 mill/uL (4.70-6.10); RED CELL DISTRI WIDTH 15.2 % (11.5-15.5)
[2022-01-01 20:57] LABS: ALBUMIN 4.5 g/dL (3.2-5.0); BILIRUBIN, TOTAL 0.6 mg/dL (0.0-1.4); CREATININE 1.6 mg/dL (0.7-1.3); MAGNESIUM 1.9 mg/dL (1.6-2.3); POTASSIUM 4.4 mmol/l (3.5-5.1); TOTAL PROTEIN 8.3 g/dL (6.3-8.2)
[2022-01-01 22:00] VITALS: BP 145/98
== END 2022-01-01 22:10 | disposition home or self-care (01) ==
LOC: ED 19:17
PROVIDERS: Internal Medicine
DX: I13.0 Hypertensive heart and chronic kidney disease with heart failure and stage 1 through stage 4 chronic kidney disease, or unspecified chronic kidney disease (principal); N18.9 Chronic kidney disease, unspecified; I50.9 Heart failure, unspecified; J44.9 Chronic obstructive pulmonary disease, unspecified; I48.91 Unspecified atrial fibrillation; I25.10 Atherosclerotic heart disease of native coronary artery without angina pectoris; E66.01 Morbid (severe) obesity due to excess calories; F79 Unspecified intellectual disabilities; G47.30 Sleep apnea, unspecified; Z95.1 Presence of aortocoronary bypass graft

== ENCOUNTER 2022-04-09 17:05 | Observation (INO) | payer MEDICAID ==
[~2022-04-09] VITALS: Ht 177.8 cm; Wt 137.0 kg
[2022-04-09 17:51] LABS: HEMATOCRIT 42.3 % (39.0-50.0); HEMOGLOBIN 11.9 g/dl (14.0-18.0); IMMATURE GRANULOCYTES 0.4 % (0.0-5.0); MEAN CELL VOLUME 94.4 fL CALC (80.0-100.0); MEAN CORPUSCULAR HGB 26.6 pG CALC (26.0-32.0); MEAN CORPUSCULAR HGB CONC 28.1 g/dL CAL (32.0-36.0); NEUT# 3.59 thou/uL (1.82-7.42); RED BLOOD COUNT 4.48 mill/uL (4.70-6.10)
[2022-04-09 18:06] LABS: ALBUMIN 4.4 g/dL (3.2-5.0); ALKALINE PHOSPHATASE 62 u/l (38-126); BILIRUBIN, TOTAL 0.7 mg/dL (0.0-1.4); BUN 21 mg/dL (9-20); BUN/CREATININE RATIO 18 (12-20 (CALC)); CHLORIDE 88 mmol/l (95-108); CREATININE 1.2 mg/dL (0.7-1.3); GFR FOR AFR.AMER. > 60 ML/MIN (>=60 (CALC)); GFR OTHER RACES > 60 ML/MIN (>=60 (CALC)); POTASSIUM 4.3 mmol/l (3.5-5.1); SGOT/AST 39 u/l (17-59); SODIUM 141 mmol/l (137-146); TOTAL PROTEIN 8.1 g/dL (6.3-8.2)
[2022-04-09 18:12] LABS: ANION GAP 13 (6-22 (CALC))
[2022-04-09 18:15] LABS: CARBON DIOXIDE 44 mmol/l (22-30)
[2022-04-09 19:01] VITALS: BP 94/61
[2022-04-09 20:08] VITALS: BP 115/69
[2022-04-10 00:33] VITALS: BP 96/59
[2022-04-10 04:26] VITALS: BP 103/72
[2022-04-10 07:11] VITALS: BP 110/68
[2022-04-10 07:45] LABS: CHOLESTEROL HDL RATIO 4.2 (<4.4 (CALC)); MAGNESIUM 1.7 mg/dL (1.6-2.3)
[2022-04-10 10:34] VITALS: BP 111/64
[2022-04-10 20:33] VITALS: BP 110/55
[2022-04-11 01:44] VITALS: BP 100/60
[2022-04-11 04:10] VITALS: BP 107/67
== END 2022-04-11 09:15 | disposition home or self-care (01) ==
LOC: ED 17:05 → ED-I 18:15 → ED 18:37 → MS2 18:38
PROVIDERS: Family Medicine; ADMIT Internal Medicine; ATTEND Internal Medicine
DX: R07.89 Other chest pain (principal); I13.0 Hypertensive heart and chronic kidney disease with heart failure and stage 1 through stage 4 chronic kidney disease, or unspecified chronic kidney disease; I50.9 Heart failure, unspecified; N18.9 Chronic kidney disease, unspecified; J44.9 Chronic obstructive pulmonary disease, unspecified; I25.10 Atherosclerotic heart disease of native coronary artery without angina pectoris; J96.11 Chronic respiratory failure with hypoxia; I48.21 Permanent atrial fibrillation; E03.9 Hypothyroidism, unspecified; E66.01 Morbid (severe) obesity due to excess calories; F79 Unspecified intellectual disabilities; G47.33 Obstructive sleep apnea (adult) (pediatric); Z99.81 Dependence on supplemental oxygen; Z95.3 Presence of xenogenic heart valve; Z95.1 Presence of aortocoronary bypass graft; Z20.822 Contact with and (suspected) exposure to COVID-19; Z79.01 Long term (current) use of anticoagulants
CPT/HCPCS: G0378

== ENCOUNTER 2022-06-06 15:26 | Emergency (ER) | payer MEDICAID ==
[~2022-06-06] VITALS: Ht 177.8 cm; Wt 154.0 kg
[2022-06-06 16:23] LABS: URINE BILIRUBIN - DIPSTICK NEGATIVE (NEGATIVE); URINE BLOOD DIPSTICK NEGATIVE (NEGATIVE); URINE COLOR YELLOW; URINE GLUCOSE - DIPSTICK NEGATIVE (NEGATIVE); URINE KETONE NEGATIVE (NEGATIVE); URINE LEUK ESTERASE NEGATIVE (NEGATIVE); URINE PH 6.5 (4.5-8.0); URINE PROTEIN - DIPSTICK NEGATIVE (NEG-TRACE); URINE SPECIFIC GRAVITY 1.015
[2022-06-06 16:24] LABS: URINE NITRITE - DIPSTICK NEGATIVE (Negative)
[2022-06-06 16:27] LABS: HEMATOCRIT 39.5 % (39.0-50.0); HEMOGLOBIN 11.3 g/dl (14.0-18.0); IMMATURE GRANULOCYTES 0.2 % (0.0-5.0); MEAN CELL VOLUME 93.8 fL CALC (80.0-100.0); MEAN CORPUSCULAR HGB 26.8 pG CALC (26.0-32.0); MEAN CORPUSCULAR HGB CONC 28.6 g/dL CAL (32.0-36.0); NEUT# 3.86 thou/uL (1.82-7.42); RED BLOOD COUNT 4.21 mill/uL (4.70-6.10); RED CELL DISTRI WIDTH 14.6 % (11.5-15.5)
[2022-06-06 16:41] LABS: ALKALINE PHOSPHATASE 52 u/l (38-126); BILIRUBIN, TOTAL 0.6 mg/dL (0.0-1.4); BUN 19 mg/dL (9-20); BUN/CREATININE RATIO 14 (12-20 (CALC)); CHLORIDE 92 mmol/l (95-108); CREATININE 1.4 mg/dL (0.7-1.3); GFR FOR AFR.AMER. > 60 ML/MIN (>=60 (CALC)); GFR OTHER RACES 54 ML/MIN (>=60 (CALC)); INTERNATIONAL NORMALIZED RATIO 1.2 RATIO (0.7-1.3); LIPASE 155 u/l (23-300); POTASSIUM 4.1 mmol/l (3.5-5.1); PROTHROMBIN TIME 11.6 SECONDS (9.0-12.5); SGOT/AST 35 u/l (17-59); SODIUM 140 mmol/l (137-146); TOTAL PROTEIN 7.3 g/dL (6.3-8.2)
[2022-06-06 16:48] LABS: ANION GAP 9 (6-22 (CALC))
[2022-06-06 16:51] LABS: CARBON DIOXIDE 43 mmol/l (22-30)
[2022-06-06] MEDS ORDERED: TRAMADOL HYDROC50 M1 PO (18:33)
[2022-06-06 19:10] VITALS: BP 116/77
== END 2022-06-06 19:10 | disposition home or self-care (01) ==
LOC: ED 15:26
PROVIDERS: Nurse Practitioner
DX: R07.9 Chest pain, unspecified (principal); M54.50 Low back pain, unspecified; I13.0 Hypertensive heart and chronic kidney disease with heart failure and stage 1 through stage 4 chronic kidney disease, or unspecified chronic kidney disease; I50.9 Heart failure, unspecified; N18.9 Chronic kidney disease, unspecified; J44.9 Chronic obstructive pulmonary disease, unspecified; I48.20 Chronic atrial fibrillation, unspecified; Z99.81 Dependence on supplemental oxygen

== ENCOUNTER 2022-07-04 17:52 | Inpatient (IN) | payer MEDICAID ==
[2022-07-04] VITALS (22 sets, daily range): BP systolic 76–130; BP diastolic 50–90
[~2022-07-04] VITALS: Ht 177.8 cm; Wt 144.1 kg
[~2022-07-04 17:52] MED LIST changes: +TRAMADOL HYDROC50 M1 PO
[2022-07-04 18:34] LABS: EOS% 2.2 % (0-8); HEMATOCRIT 43.4 % (39.0-50.0); HEMOGLOBIN 12.6 g/dl (14.0-18.0); LYMPH% 16.5 % (15-41); MEAN CELL VOLUME 93.7 fL CALC (80.0-100.0); MEAN CORPUSCULAR HGB 27.2 pG CALC (26.0-32.0); MONO% 16.7 % (2-13); NEUT# 2.58 thou/uL (1.82-7.42); NEUT% 62.6 % (42-76); RED BLOOD COUNT 4.63 mill/uL (4.70-6.10); RED CELL DISTRI WIDTH 14.5 % (11.5-15.5)
[2022-07-04 18:44] LABS: BILIRUBIN, TOTAL 0.7 mg/dL (0.0-1.4); CREATININE 1.7 mg/dL (0.7-1.3); POTASSIUM 4.2 mmol/l (3.5-5.1)
[2022-07-04 18:59] LABS: ALBUMIN 4.9 g/dL (3.2-5.0)
[2022-07-05] VITALS (76 sets, daily range): BP systolic 80–145; BP diastolic 42–96
[2022-07-05 03:30] LABS: BASO% 0.5 % (0-3); EOS% 1.3 % (0-8); HEMATOCRIT 43.2 % (39.0-50.0); HEMOGLOBIN 12.4 g/dl (14.0-18.0); LYMPH% 9.3 % (15-41); MEAN CELL VOLUME 95.8 fL CALC (80.0-100.0); MEAN CORPUSCULAR HGB 27.5 pG CALC (26.0-32.0); MEAN CORPUSCULAR HGB CONC 28.7 g/dL CAL (32.0-36.0); NEUT# 4.45 thou/uL (1.82-7.42); NEUT% 73.9 % (42-76); RED BLOOD COUNT 4.51 mill/uL (4.70-6.10); RED CELL DISTRI WIDTH 14.4 % (11.5-15.5)
[2022-07-05 03:49] LABS: ALBUMIN 4.8 g/dL (3.2-5.0); BILIRUBIN, TOTAL 0.6 mg/dL (0.0-1.4); CREATININE 1.7 mg/dL (0.7-1.3); TOTAL PROTEIN 8.7 g/dL (6.3-8.2)
[2022-07-06] VITALS (87 sets, daily range): BP systolic 43–154; BP diastolic 15–114
[2022-07-06 05:48] LABS: BASO% 0.3 % (0-3); EOS% 0.2 % (0-8); HEMATOCRIT 38.3 % (39.0-50.0); IMMATURE GRANULOCYTES 0.5 % (0.0-5.0); LYMPH% 13.4 % (15-41); MEAN CORPUSCULAR HGB 27.6 pG CALC (26.0-32.0); MEAN CORPUSCULAR HGB CONC 28.7 g/dL CAL (32.0-36.0); MONO% 16.2 % (2-13); NEUT# 4.41 thou/uL (1.82-7.42); NEUT% 69.4 % (42-76); RED BLOOD COUNT 3.99 mill/uL (4.70-6.10); RED CELL DISTRI WIDTH 14.9 % (11.5-15.5)
[2022-07-06 06:17] LABS: ALBUMIN 4.1 g/dL (3.2-5.0); CREATININE 1.6 mg/dL (0.7-1.3); MAGNESIUM 1.7 mg/dL (1.6-2.3); POTASSIUM 4.7 mmol/l (3.5-5.1); TOTAL PROTEIN 7.3 g/dL (6.3-8.2)
[2022-07-06 06:25] LABS: BILIRUBIN, TOTAL 0.9 mg/dL (0.0-1.4)
[2022-07-06 09:30] LABS: URINE BILIRUBIN - DIPSTICK NEGATIVE (NEGATIVE); URINE BLOOD DIPSTICK TRACE-INTACT (NEGATIVE); URINE COLOR YELLOW; URINE GLUCOSE - DIPSTICK NEGATIVE (NEGATIVE); URINE KETONE NEGATIVE (NEGATIVE); URINE LEUK ESTERASE NEGATIVE (NEGATIVE); URINE PH 5.5 (4.5-8.0); URINE PROTEIN - DIPSTICK NEGATIVE (NEG-TRACE); URINE UROBILINOGEN - DIPSTICK 0.2 E.U./dL (0.2)
[2022-07-06 09:34] LABS: URINE NITRITE - DIPSTICK NEGATIVE (Negative)
[2022-07-06 16:41] LABS: URINE BILIRUBIN - DIPSTICK NEGATIVE (NEGATIVE); URINE BLOOD DIPSTICK TRACE-INTACT (NEGATIVE); URINE COLOR YELLOW; URINE GLUCOSE - DIPSTICK NEGATIVE (NEGATIVE); URINE KETONE NEGATIVE (NEGATIVE); URINE LEUK ESTERASE NEGATIVE (NEGATIVE); URINE PH 5.5 (4.5-8.0); URINE PROTEIN - DIPSTICK TRACE mg/dL (NEG-TRACE)
[2022-07-06 16:46] LABS: URINE NITRITE - DIPSTICK NEGATIVE (Negative)
[2022-07-07] VITALS (71 sets, daily range): BP systolic 80–161; BP diastolic 37–117
[2022-07-07 05:26] LABS: BASO% 0.4 % (0-3); EOS% 0.3 % (0-8); HEMATOCRIT 40.6 % (39.0-50.0); HEMOGLOBIN 11.6 g/dl (14.0-18.0); LYMPH% 13.5 % (15-41); MEAN CELL VOLUME 97.1 fL CALC (80.0-100.0); MEAN CORPUSCULAR HGB 27.8 pG CALC (26.0-32.0); MEAN CORPUSCULAR HGB CONC 28.6 g/dL CAL (32.0-36.0); MONO% 12.2 % (2-13); NEUT# 4.95 thou/uL (1.82-7.42); NEUT% 72.6 % (42-76); RED BLOOD COUNT 4.18 mill/uL (4.70-6.10); RED CELL DISTRI WIDTH 14.6 % (11.5-15.5)
[2022-07-07 05:59] LABS: CREATININE 1.8 mg/dL (0.7-1.3); MAGNESIUM 1.8 mg/dL (1.6-2.3); POTASSIUM 4.8 mmol/l (3.5-5.1)
[2022-07-08] VITALS (24 sets, daily range): BP systolic 97–135; BP diastolic 61–101
[2022-07-08 09:27] LABS: BASO% 0.3 % (0-3); EOS% 0.9 % (0-8); HEMOGLOBIN 11.3 g/dl (14.0-18.0); IMMATURE GRANULOCYTES 0.5 % (0.0-5.0); LYMPH% 14.8 % (15-41); MEAN CELL VOLUME 94.7 fL CALC (80.0-100.0); MEAN CORPUSCULAR HGB 27.4 pG CALC (26.0-32.0); MONO% 9.1 % (2-13); NEUT# 4.31 thou/uL (1.82-7.42); NEUT% 74.4 % (42-76); RED BLOOD COUNT 4.12 mill/uL (4.70-6.10); RED CELL DISTRI WIDTH 14.7 % (11.5-15.5)
[2022-07-08 09:45] LABS: CREATININE 1.6 mg/dL (0.7-1.3)
[2022-07-08 09:53] LABS: POTASSIUM 3.8 mmol/l (3.5-5.1)
[2022-07-09] VITALS (24 sets, daily range): BP systolic 99–142; BP diastolic 59–100
[2022-07-09 06:18] LABS: BASO% 0.4 % (0-3); EOS% 2.3 % (0-8); HEMATOCRIT 37.8 % (39.0-50.0); HEMOGLOBIN 11.1 g/dl (14.0-18.0); IMMATURE GRANULOCYTES 0.4 % (0.0-5.0); MEAN CELL VOLUME 93.1 fL CALC (80.0-100.0); MEAN CORPUSCULAR HGB 27.3 pG CALC (26.0-32.0); MEAN CORPUSCULAR HGB CONC 29.4 g/dL CAL (32.0-36.0); NEUT# 3.64 thou/uL (1.82-7.42); NEUT% 68.9 % (42-76); RED BLOOD COUNT 4.06 mill/uL (4.70-6.10); RED CELL DISTRI WIDTH 14.5 % (11.5-15.5)
[2022-07-09 06:28] LABS: ALBUMIN 3.9 g/dL (3.2-5.0); ALKALINE PHOSPHATASE 47 u/l (38-126); BILIRUBIN, TOTAL 0.9 mg/dL (0.0-1.4); BUN 36 mg/dL (9-20); BUN/CREATININE RATIO 27 (12-20 (CALC)); CHLORIDE 90 mmol/l (95-108); CREATININE 1.3 mg/dL (0.7-1.3); GFR FOR AFR.AMER. > 60 ML/MIN (>=60 (CALC)); GFR OTHER RACES 59 ML/MIN (>=60 (CALC)); SGOT/AST 37 u/l (17-59); SODIUM 138 mmol/l (137-146); TOTAL PROTEIN 7.4 g/dL (6.3-8.2)
[2022-07-09 06:34] LABS: ANION GAP 8 (6-22 (CALC))
[2022-07-09 06:46] LABS: CARBON DIOXIDE 44 mmol/l (22-30)
[2022-07-10] VITALS (23 sets, daily range): BP systolic 105–131; BP diastolic 65–91
[2022-07-10 06:04] LABS: HEMATOCRIT 37.8 % (39.0-50.0); HEMOGLOBIN 11.3 g/dl (14.0-18.0); MEAN CELL VOLUME 92.9 fL CALC (80.0-100.0); MEAN CORPUSCULAR HGB 27.8 pG CALC (26.0-32.0); MEAN CORPUSCULAR HGB CONC 29.9 g/dL CAL (32.0-36.0); RED BLOOD COUNT 4.07 mill/uL (4.70-6.10); RED CELL DISTRI WIDTH 14.4 % (11.5-15.5)
[2022-07-10 06:17] LABS: CREATININE 1.6 mg/dL (0.7-1.3); MAGNESIUM 2.1 mg/dL (1.6-2.3); POTASSIUM 3.9 mmol/l (3.5-5.1)
[2022-07-11] VITALS (14 sets, daily range): BP systolic 109–134; BP diastolic 58–99
[2022-07-11 07:42] LABS: BUN 31 mg/dL (9-20); BUN/CREATININE RATIO 22 (12-20 (CALC)); CHLORIDE 90 mmol/l (95-108); CREATININE 1.4 mg/dL (0.7-1.3); GFR FOR AFR.AMER. > 60 ML/MIN (>=60 (CALC)); GFR OTHER RACES 54 ML/MIN (>=60 (CALC)); SODIUM 138 mmol/l (137-146)
[2022-07-11 07:50] LABS: ANION GAP 7 (6-22 (CALC))
[2022-07-11 07:57] LABS: CARBON DIOXIDE 45 mmol/l (22-30)
[2022-07-12 00:29] VITALS: BP 109/71
[2022-07-12 05:13] VITALS: BP 124/94
[2022-07-12 05:54] LABS: HEMATOCRIT 39.9 % (39.0-50.0); HEMOGLOBIN 11.7 g/dl (14.0-18.0); MEAN CELL VOLUME 91.1 fL CALC (80.0-100.0); MEAN CORPUSCULAR HGB 26.7 pG CALC (26.0-32.0); MEAN CORPUSCULAR HGB CONC 29.3 g/dL CAL (32.0-36.0); RED BLOOD COUNT 4.38 mill/uL (4.70-6.10); RED CELL DISTRI WIDTH 14.3 % (11.5-15.5)
[2022-07-12 06:08] LABS: BUN 33 mg/dL (9-20); BUN/CREATININE RATIO 23 (12-20 (CALC)); CHLORIDE 89 mmol/l (95-108); CREATININE 1.4 mg/dL (0.7-1.3); GFR FOR AFR.AMER. > 60 ML/MIN (>=60 (CALC)); GFR OTHER RACES 54 ML/MIN (>=60 (CALC)); MAGNESIUM 2.1 mg/dL (1.6-2.3); SODIUM 137 mmol/l (137-146)
[2022-07-12 06:15] LABS: ANION GAP 6 (6-22 (CALC))
[2022-07-12 06:26] LABS: CARBON DIOXIDE 46 mmol/l (22-30)
[2022-07-12 07:48] VITALS: BP 124/89
[2022-07-12 11:46] VITALS: BP 122/82
[2022-07-12 15:54] VITALS: BP 101/43
[2022-07-12 19:52] VITALS: BP 115/74
[2022-07-13] VITALS (7 sets, daily range): BP systolic 105–123; BP diastolic 74–84
[2022-07-13 06:47] LABS: BUN 32 mg/dL (9-20); BUN/CREATININE RATIO 22 (12-20 (CALC)); CHLORIDE 89 mmol/l (95-108); CREATININE 1.4 mg/dL (0.7-1.3); GFR FOR AFR.AMER. > 60 ML/MIN (>=60 (CALC)); GFR OTHER RACES 54 ML/MIN (>=60 (CALC)); POTASSIUM 4.2 mmol/l (3.5-5.1); SODIUM 134 mmol/l (137-146)
[2022-07-13 06:54] LABS: ANION GAP 7 (6-22 (CALC))
[2022-07-13 06:59] LABS: CARBON DIOXIDE 42 mmol/l (22-30)
[2022-07-14 00:25] VITALS: BP 129/80
[2022-07-14 05:07] VITALS: BP 110/78
[2022-07-14 06:05] LABS: BUN 31 mg/dL (9-20); BUN/CREATININE RATIO 22 (12-20 (CALC)); CHLORIDE 88 mmol/l (95-108); CREATININE 1.4 mg/dL (0.7-1.3); GFR FOR AFR.AMER. > 60 ML/MIN (>=60 (CALC)); GFR OTHER RACES 54 ML/MIN (>=60 (CALC)); MAGNESIUM 2.1 mg/dL (1.6-2.3); SODIUM 135 mmol/l (137-146)
[2022-07-14 06:14] LABS: HEMATOCRIT 38.5 % (39.0-50.0); HEMOGLOBIN 11.5 g/dl (14.0-18.0); MEAN CELL VOLUME 91.4 fL CALC (80.0-100.0); MEAN CORPUSCULAR HGB 27.3 pG CALC (26.0-32.0); MEAN CORPUSCULAR HGB CONC 29.9 g/dL CAL (32.0-36.0); RED BLOOD COUNT 4.21 mill/uL (4.70-6.10); RED CELL DISTRI WIDTH 14.4 % (11.5-15.5)
[2022-07-14 06:31] LABS: ANION GAP 7 (6-22 (CALC)); CARBON DIOXIDE 44 mmol/l (22-30); POTASSIUM 4.4 mmol/l (3.5-5.1)
[2022-07-14 07:55] VITALS: BP 108/56
[2022-07-14 11:44] VITALS: BP 135/66
[2022-07-14 15:16] VITALS: BP 124/83
[2022-07-14 19:25] VITALS: BP 107/63
[2022-07-15 00:53] VITALS: BP 106/61
[2022-07-15 07:26] VITALS: BP 101/60
[2022-07-15 12:25] VITALS: BP 91/54
[2022-07-15 15:42] VITALS: BP 127/61
[2022-07-15 19:02] VITALS: BP 110/56
[2022-07-16] VITALS (9 sets, daily range): BP systolic 96–118; BP diastolic 49–80
[2022-07-16 05:29] LABS: BASO% 0.4 % (0-3); EOS% 2.4 % (0-8); HEMATOCRIT 40.4 % (39.0-50.0); HEMOGLOBIN 11.8 g/dl (14.0-18.0); IMMATURE GRANULOCYTES 0.8 % (0.0-5.0); LYMPH% 17.5 % (15-41); MEAN CELL VOLUME 91.4 fL CALC (80.0-100.0); MEAN CORPUSCULAR HGB 26.7 pG CALC (26.0-32.0); MEAN CORPUSCULAR HGB CONC 29.2 g/dL CAL (32.0-36.0); MONO% 14.3 % (2-13); NEUT# 3.24 thou/uL (1.82-7.42); NEUT% 64.6 % (42-76); RED BLOOD COUNT 4.42 mill/uL (4.70-6.10); RED CELL DISTRI WIDTH 14.4 % (11.5-15.5)
[2022-07-16 05:54] LABS: BUN 30 mg/dL (9-20); BUN/CREATININE RATIO 23 (12-20 (CALC)); CHLORIDE 92 mmol/l (95-108); CREATININE 1.4 mg/dL (0.7-1.3); GFR FOR AFR.AMER. > 60 ML/MIN (>=60 (CALC)); GFR OTHER RACES 54 ML/MIN (>=60 (CALC)); POTASSIUM 4.4 mmol/l (3.5-5.1); SODIUM 137 mmol/l (137-146)
[2022-07-16 06:03] LABS: ANION GAP 6 (6-22 (CALC))
[2022-07-16 06:13] LABS: CARBON DIOXIDE 43 mmol/l (22-30)
[2022-07-17 00:35] VITALS: BP 117/69
[2022-07-17 04:41] VITALS: BP 110/70
[2022-07-17 06:18] LABS: HEMATOCRIT 40.5 % (39.0-50.0); HEMOGLOBIN 11.9 g/dl (14.0-18.0); MEAN CELL VOLUME 89.4 fL CALC (80.0-100.0); MEAN CORPUSCULAR HGB 26.3 pG CALC (26.0-32.0); MEAN CORPUSCULAR HGB CONC 29.4 g/dL CAL (32.0-36.0); RED BLOOD COUNT 4.53 mill/uL (4.70-6.10); RED CELL DISTRI WIDTH 14.4 % (11.5-15.5)
[2022-07-17 06:34] LABS: CREATININE 1.7 mg/dL (0.7-1.3); POTASSIUM 4.2 mmol/l (3.5-5.1)
[2022-07-17 07:00] VITALS: BP 119/78
[2022-07-17 15:49] VITALS: BP 98/70
[2022-07-17 19:29] VITALS: BP 103/61
[2022-07-18] VITALS (9 sets, daily range): BP systolic 101–140; BP diastolic 52–79
[2022-07-19] VITALS (8 sets, daily range): BP systolic 92–121; BP diastolic 46–75
[2022-07-19 05:36] LABS: HEMATOCRIT 40.5 % (39.0-50.0); HEMOGLOBIN 11.8 g/dl (14.0-18.0); MEAN CELL VOLUME 90.2 fL CALC (80.0-100.0); MEAN CORPUSCULAR HGB 26.3 pG CALC (26.0-32.0); MEAN CORPUSCULAR HGB CONC 29.1 g/dL CAL (32.0-36.0); RED BLOOD COUNT 4.49 mill/uL (4.70-6.10); RED CELL DISTRI WIDTH 14.3 % (11.5-15.5)
[2022-07-19 05:59] LABS: ALBUMIN 4.1 g/dL (3.2-5.0); BILIRUBIN, TOTAL 0.6 mg/dL (0.0-1.4); CREATININE 1.5 mg/dL (0.7-1.3); POTASSIUM 4.2 mmol/l (3.5-5.1); TOTAL PROTEIN 8.2 g/dL (6.3-8.2)
[2022-07-20] VITALS (8 sets, daily range): BP systolic 98–141; BP diastolic 64–93
[2022-07-20 05:15] LABS: BASO% 0.5 % (0-3); EOS% 2.2 % (0-8); HEMOGLOBIN 12.3 g/dl (14.0-18.0); IMMATURE GRANULOCYTES 0.2 % (0.0-5.0); LYMPH% 16.4 % (15-41); MEAN CELL VOLUME 90.7 fL CALC (80.0-100.0); MEAN CORPUSCULAR HGB 26.6 pG CALC (26.0-32.0); MEAN CORPUSCULAR HGB CONC 29.3 g/dL CAL (32.0-36.0); NEUT# 3.75 thou/uL (1.82-7.42); NEUT% 67.7 % (42-76); RED BLOOD COUNT 4.63 mill/uL (4.70-6.10); RED CELL DISTRI WIDTH 14.2 % (11.5-15.5)
[2022-07-20 05:31] LABS: ALBUMIN 4.2 g/dL (3.2-5.0); BILIRUBIN, TOTAL 0.5 mg/dL (0.2-1.3); CREATININE 1.5 mg/dL (0.7-1.3); MAGNESIUM 1.9 mg/dL (1.6-2.3); TOTAL PROTEIN 8.1 g/dL (6.3-8.2)
[2022-07-20 05:39] LABS: POTASSIUM 4.2 mmol/l (3.5-5.1)
[2022-07-21] VITALS (8 sets, daily range): BP systolic 111–123; BP diastolic 73–85
[2022-07-21 04:48] LABS: ANION GAP 9 (6-22 (CALC)); BUN 27 mg/dL (9-20); BUN/CREATININE RATIO 21 (12-20 (CALC)); CHLORIDE 89 mmol/l (95-108); CREATININE 1.3 mg/dL (0.7-1.3); GFR FOR AFR.AMER. > 60 ML/MIN (>=60 (CALC)); GFR OTHER RACES 59 ML/MIN (>=60 (CALC)); POTASSIUM 4.4 mmol/l (3.5-5.1); SODIUM 134 mmol/l (137-146)
[2022-07-21 05:00] LABS: CARBON DIOXIDE 40 mmol/l (22-30)
[2022-07-22 04:18] VITALS: BP 112/76
[2022-07-22 06:26] VITALS: BP 116/75
[2022-07-22 10:41] VITALS: BP 114/76
[2022-07-22 15:30] VITALS: BP 125/76
[2022-07-22 21:03] VITALS: BP 96/61
[2022-07-22 21:05] VITALS: BP 98/40
[2022-07-23 00:40] VITALS: BP 125/80
[2022-07-23 05:20] VITALS: BP 130/75
[2022-07-23 06:12] VITALS: BP 133/90
[2022-07-23 15:57] VITALS: BP 102/59
[2022-07-23 19:30] VITALS: BP 98/71
[2022-07-23 23:57] VITALS: BP 107/54
[2022-07-24 04:05] VITALS: BP 116/78
[2022-07-24 05:37] LABS: CREATININE 1.6 mg/dL (0.7-1.3); POTASSIUM 4.2 mmol/l (3.5-5.1)
[2022-07-24 10:08] VITALS: BP 109/68
[2022-07-24 15:38] VITALS: BP 106/61
[2022-07-24 19:03] VITALS: BP 102/53
[2022-07-24 23:39] VITALS: BP 122/79
[2022-07-25 05:02] VITALS: BP 126/90
[2022-07-25 07:07] VITALS: BP 122/81
[2022-07-25 12:09] VITALS: BP 103/67
[2022-07-25 19:14] VITALS: BP 110/66
[2022-07-25 23:41] VITALS: BP 111/68
[2022-07-26] VITALS (7 sets, daily range): BP systolic 82–128; BP diastolic 55–86
[2022-07-26 06:34] LABS: BUN 28 mg/dL (9-20); BUN/CREATININE RATIO 20 (12-20 (CALC)); CHLORIDE 88 mmol/l (95-108); CREATININE 1.4 mg/dL (0.7-1.3); GFR FOR AFR.AMER. > 60 ML/MIN (>=60 (CALC)); GFR OTHER RACES 54 ML/MIN (>=60 (CALC)); POTASSIUM 4.9 mmol/l (3.5-5.1); SODIUM 134 mmol/l (137-146)
[2022-07-26 06:43] LABS: ANION GAP 10 (6-22 (CALC))
[2022-07-26 06:45] LABS: CARBON DIOXIDE 41 mmol/l (22-30)
[2022-07-27] VITALS: BP 105/65
[2022-07-27 03:14] VITALS: BP 116/73
[2022-07-27 06:43] VITALS: BP 126/88
[2022-07-27 10:37] VITALS: BP 121/75
[2022-07-27 15:47] VITALS: BP 126/71
[2022-07-27 19:00] VITALS: BP 130/71
[2022-07-28] VITALS (9 sets, daily range): BP systolic 105–141; BP diastolic 56–91
[2022-07-29 03:40] VITALS: BP 138/92
[2022-07-29 06:51] VITALS: BP 117/80
[2022-07-29 08:49] VITALS: BP 108/69
[2022-07-29 11:17] VITALS: BP 121/76
[2022-07-29 14:55] VITALS: BP 121/84
[2022-07-29 19:04] VITALS: BP 132/81
[2022-07-30 00:14] VITALS: BP 119/71
[2022-07-30 03:48] VITALS: BP 121/69
[2022-07-30 06:41] VITALS: BP 128/74
[2022-07-30 08:49] VITALS: BP 130/89
[2022-07-30 10:45] VITALS: BP 115/79
[2022-07-30 19:41] VITALS: BP 118/70
[2022-07-31] VITALS (7 sets, daily range): BP systolic 103–132; BP diastolic 68–78
[2022-07-31 07:25] LABS: HEMATOCRIT 41.8 % (39.0-50.0); HEMOGLOBIN 12.4 g/dl (14.0-18.0); MEAN CELL VOLUME 88.7 fL CALC (80.0-100.0); MEAN CORPUSCULAR HGB 26.3 pG CALC (26.0-32.0); MEAN CORPUSCULAR HGB CONC 29.7 g/dL CAL (32.0-36.0); RED BLOOD COUNT 4.71 mill/uL (4.70-6.10); RED CELL DISTRI WIDTH 13.8 % (11.5-15.5)
[2022-07-31 07:43] LABS: ALBUMIN 4.2 g/dL (3.2-5.0); BILIRUBIN, TOTAL 0.3 mg/dL (0.2-1.3); CREATININE 1.5 mg/dL (0.7-1.3); TOTAL PROTEIN 8.2 g/dL (6.3-8.2)
[2022-08-01] VITALS (8 sets, daily range): BP systolic 111–141; BP diastolic 52–95
[2022-08-01] MEDS ORDERED: MEDDOSEPAK PO (10:46)
[2022-08-02] VITALS (7 sets, daily range): BP systolic 116–128; BP diastolic 61–79
[2022-08-03 07:13] VITALS: BP 121/74
[2022-08-03 08:56] VITALS: BP 126/89
[2022-08-03 10:50] VITALS: BP 127/85
== END 2022-08-03 13:34 | disposition home or self-care (01) | DRG 291 ==
LOC: ED 17:52 → ED-I 19:40 → ED 19:46 → ICU 19:47 → MS2 19:47
PROVIDERS: Internal Medicine; Nurse Practitioner; Nurse Practitioner Family; ADMIT Internal Medicine; ATTEND Internal Medicine
PROC: 5A09357 Assistance with Respiratory Ventilation, Less than 24 Consecutive Hours, Continuous Positive Airway Pressure (ICD-10-PCS; principal; 2022-07-04)
DX: I13.0 Hypertensive heart and chronic kidney disease with heart failure and stage 1 through stage 4 chronic kidney disease, or unspecified chronic kidney disease (principal); I50.23 Acute on chronic systolic (congestive) heart failure; J96.21 Acute and chronic respiratory failure with hypoxia; J96.22 Acute and chronic respiratory failure with hypercapnia; N17.9 Acute kidney failure, unspecified; E87.3 Alkalosis; I48.21 Permanent atrial fibrillation; E66.2 Morbid (severe) obesity with alveolar hypoventilation; Z68.42 Body mass index [BMI] 45.0-49.9, adult; N18.30 Chronic kidney disease, stage 3 unspecified; J98.8 Other specified respiratory disorders; J44.9 Chronic obstructive pulmonary disease, unspecified; I25.10 Atherosclerotic heart disease of native coronary artery without angina pectoris; F79 Unspecified intellectual disabilities; T50.2X5A Adverse effect of carbonic-anhydrase inhibitors, benzothiadiazides and other diuretics, initial encounter; E78.5 Hyperlipidemia, unspecified; M10.042 Idiopathic gout, left hand; E03.9 Hypothyroidism, unspecified; B97.4 Respiratory syncytial virus as the cause of diseases classified elsewhere; Z87.01 Personal history of pneumonia (recurrent); Z79.01 Long term (current) use of anticoagulants; Z95.3 Presence of xenogenic heart valve; Z99.81 Dependence on supplemental oxygen; Z95.1 Presence of aortocoronary bypass graft; Z20.822 Contact with and (suspected) exposure to COVID-19

== ENCOUNTER 2022-08-11 16:20 | Inpatient (IN) | payer MEDICAID ==
[~2022-08-11] VITALS: Ht 177.8 cm; Wt 136.7 kg
[2022-08-11] VITALS (34 sets, daily range): BP systolic 82–122; BP diastolic 46–87
--- NOTE | 2022-08-11 17:00 | NUR ---
PT WHEELED TO RM 10 FOR EVALUATION. MADE AWARE. HOOKED UP TO MONITOR.
--- NOTE | 2022-08-11 17:10 | NUR ---
SEPSIS ALERT CALLED. PT HAS HR OF 100, FEVER 100.6
[2022-08-11 17:31] LABS: BASO% 0.2 % (0-3); EOS% 0.2 % (0-8); HEMATOCRIT 45.6 % (39.0-50.0); HEMOGLOBIN 13.4 g/dl (14.0-18.0); IMMATURE GRANULOCYTES 0.6 % (0.0-5.0); MEAN CELL VOLUME 86.9 fL CALC (80.0-100.0); MEAN CORPUSCULAR HGB 25.5 pG CALC (26.0-32.0); MEAN CORPUSCULAR HGB CONC 29.4 g/dL CAL (32.0-36.0); NEUT# 4.06 thou/uL (1.82-7.42); RED BLOOD COUNT 5.25 mill/uL (4.70-6.10); RED CELL DISTRI WIDTH 14.1 % (11.5-15.5)
[2022-08-11 17:56] LABS: ALBUMIN 4.6 g/dL (3.2-5.0); BILIRUBIN, TOTAL 0.9 mg/dL (0.2-1.3); CREATININE 2.1 mg/dL (0.7-1.3); POTASSIUM 4.1 mmol/l (3.5-5.1)
--- NOTE | 2022-08-11 19:30 | NUR ---
PT DENIES AT THIS TIME.
[2022-08-11 19:31] LABS: URINE BLOOD DIPSTICK SMALL (NEGATIVE); URINE COLOR YELLOW; URINE GLUCOSE - DIPSTICK NEGATIVE (NEGATIVE); URINE KETONE TRACE mg/dL (NEGATIVE); URINE LEUK ESTERASE NEGATIVE (NEGATIVE); URINE PH 5.5 (4.5-8.0); URINE PROTEIN - DIPSTICK 100 mg/dL (NEG-TRACE); URINE UROBILINOGEN - DIPSTICK 0.2 E.U./dL (0.2)
[2022-08-11 19:33] LABS: URINE BILIRUBIN - DIPSTICK NEGATIVE (NEGATIVE); URINE NITRITE - DIPSTICK NEGATIVE (Negative)
[2022-08-11 19:35] LABS: URINE RBC 0-2 RBC/hpf (0-5)
--- NOTE | 2022-08-11 21:15 | NUR ---
PT DENIES ANY NEEDS AT THIS TIME HE IS RESTING AND V/S BEING OBSERVED
--- NOTE | 2022-08-11 23:24 | NUR ---
REPORT GIVEN TO SAVANNAH PONCE. PT BEING ADMITTED TO MS 278
[2022-08-12] VITALS (7 sets, daily range): BP systolic 93–113; BP diastolic 40–71
--- NOTE | 2022-08-12 | NUR ---
PT ARRIVE TO UNIT VIA STRETCHER ACCOMPANIED BY ER STAFF. PT A&OX3 ABLE TO MAKE NEEDS KNOW. ADMISION COMPLETED. PT IS ON O2 4 LITER. HAS AN IV TO LAC #20 PATENT AND FLUSHES WELL. PT IS BEEN ADMITED FOR PNA AND COVID (+). SEPSIS ALERT CALL IN ER BUT CLEAR AT THIS TIME BASED ON CURRENT PT VITALS. PT ON TELE. BLE ARE DRY AND FLAKY SKIN. CALL LIGHT IN REACH AND BED OIN LOWEST POSITION.
--- NOTE | 2022-08-12 00:05 | NUR ---
PT IS ADMITTED AND TRANSPORTED TO FLOOR VIA STRETCHER. VSS; NAD
--- NOTE | 2022-08-12 04:07 | NUR ---
PT IN BED RESTING WITH EYES CLOSED BREATHING EVEN AND UNLABORED. NO S/S OF DISTRESS NOTED. CALL LIGHT IN REACH AND BED IN LOWEST POSITION.
--- NOTE | 2022-08-12 07:20 | NUR ---
REPORT FROM JAQUELINE BO. ASSUMED PT CARE.
[2022-08-12 07:35] LABS: CREATININE 1.7 mg/dL (0.7-1.3); POTASSIUM 4.5 mmol/l (3.5-5.1)
--- NOTE | 2022-08-12 07:55 | NUR ---
PT SITTING UP IN BED EATING BREAKFAST. NO APPARENT DISTRESS NOTED. PT DENIES ANY PAIN OR SOB. O2 @ 3L/M VIA NC. CALL LIGHT WITHIN REACH. WILL CONTINUE TO MONITOR.
--- NOTE | 2022-08-12 11:07 | NUR ---
DR. MASON AT BEDSIDE.
--- NOTE | 2022-08-12 15:28 | NUR ---
PT RESTING IN BED. NO APPARENT DISTRESS NOTED. CALL LIGHT WITHIN REACH. WILL CONTINUE TO MONITOR.
--- NOTE | 2022-08-12 17:58 | NUR ---
PT SITTING UP EATING DINNER. NO APPARENT DISTRESS NOTED. IV ABT INFUSING WITHOUT DIFFICULTY. O2 @ 3L/M VIA NC. CALL LIGHT WITHIN REACH. WILL CONTINUE TO MONITOR.
--- NOTE | 2022-08-12 21:45 | NUR ---
PT IN BED WATCHING TV NO S/S OF DISTRESS NOTED. ASSESMENT COMPLETED. BREATHING EVEN AND UNLABORED. CALL LIGHT IN REACH AND BED IN LOWEST
--- NOTE | 2022-08-13 00:15 | NUR ---
PT IN BED RESTING WITH EYES CLSOED BREAHTING EVEN AND UNLABORED. NO S/S OF DISTRESS NOTED. PT HAS HIS CPAP ON. CALL LIGHT IN REACH AND BED IN LOWEST POSITION.
[2022-08-13 00:36] VITALS: BP 95/50
--- NOTE | 2022-08-13 04:15 | NUR ---
PT IN BED RESTING WITH EYES CLOSED BREATHING EVEN AND UNLABORED. NO S/S OF DISTRESS NOTED. CPAP ON. CALL LIGHT IN REACH AND BED IN LOWEST POSITION.
[2022-08-13 04:39] VITALS: BP 122/74
[2022-08-13 05:18] LABS: HEMATOCRIT 43.4 % (39.0-50.0); HEMOGLOBIN 12.8 g/dl (14.0-18.0); MEAN CELL VOLUME 85.9 fL CALC (80.0-100.0); MEAN CORPUSCULAR HGB 25.3 pG CALC (26.0-32.0); MEAN CORPUSCULAR HGB CONC 29.5 g/dL CAL (32.0-36.0); RED BLOOD COUNT 5.05 mill/uL (4.70-6.10); RED CELL DISTRI WIDTH 13.7 % (11.5-15.5)
[2022-08-13 05:39] LABS: CREATININE 1.6 mg/dL (0.7-1.3); MAGNESIUM 1.6 mg/dL (1.6-2.3); POTASSIUM 3.8 mmol/l (3.5-5.1); TOTAL PROTEIN 7.8 g/dL (6.3-8.2)
[2022-08-13 05:41] LABS: BILIRUBIN, TOTAL 0.5 mg/dL (0.2-1.3)
--- NOTE | 2022-08-13 07:00 | NUR ---
RECEIVE REPORT FROM JAQUELINE BO
--- NOTE | 2022-08-13 08:00 | NUR ---
Alert and oriented patient x3. No distress is observed at the time of this note. complete head-to-toe assessment. Patient is educated and oriented on medications and nursing plan for today. Patient refers to understanding. Safety and fall precautions in place. Call light within reach.
--- NOTE | 2022-08-13 11:11 | NUR ---
BOOKED A CARDIOLOGY CONSULTATION WITH DR PETERSON VIA [facility] AT 1109 HRS.
--- NOTE | 2022-08-13 12:00 | NUR ---
Patient resting in bed. Stable at this time. Hourly rounds for fall prevention and satisfaction of patient needs are made.
[2022-08-13 15:23] VITALS: BP 122/74
--- NOTE | 2022-08-13 16:33 | NUR ---
PATIENT RESTIN G IN BED. STABLE AT THIS TIME.
[2022-08-13 19:02] VITALS: BP 100/70
--- NOTE | 2022-08-13 19:25 | NUR ---
PATIENT HAD A BM. REPORTS NO CHANGES IN CONDITION RIGHT NOW. CALL LIGHT WITHIN REACH. WILL CONTINUE TO MONITOR.
[2022-08-14] VITALS (7 sets, daily range): BP systolic 98–116; BP diastolic 56–74
--- NOTE | 2022-08-14 01:11 | NUR ---
PATIENT SLEEPING NO CHANGES. CALL LIGHT WITHIN REACH WILL CONTINUE TO MONITOR
[2022-08-14 05:00] LABS: BASO% 0.3 % (0-3); HEMATOCRIT 44.4 % (39.0-50.0); HEMOGLOBIN 12.9 g/dl (14.0-18.0); IMMATURE GRANULOCYTES 0.5 % (0.0-5.0); LYMPH% 8.4 % (15-41); MEAN CELL VOLUME 87.9 fL CALC (80.0-100.0); MEAN CORPUSCULAR HGB 25.5 pG CALC (26.0-32.0); MEAN CORPUSCULAR HGB CONC 29.1 g/dL CAL (32.0-36.0); MONO% 10.1 % (2-13); NEUT# 2.97 thou/uL (1.82-7.42); NEUT% 80.7 % (42-76); RED BLOOD COUNT 5.05 mill/uL (4.70-6.10); RED CELL DISTRI WIDTH 13.6 % (11.5-15.5)
[2022-08-14 05:27] LABS: ALBUMIN 4.2 g/dL (3.2-5.0); BILIRUBIN, TOTAL 0.5 mg/dL (0.2-1.3); CREATININE 1.8 mg/dL (0.7-1.3); MAGNESIUM 1.7 mg/dL (1.6-2.3); POTASSIUM 3.6 mmol/l (3.5-5.1); TOTAL PROTEIN 8.8 g/dL (6.3-8.2)
--- NOTE | 2022-08-14 10:00 | NUR ---
PT SEEN OOB IN CHAIR WASHING UP THIS MORNING. PT IS ALERT, ORIENTED X 3. LUNGS ARE DIMINISHED, USES 3-4 LPM NC. NO DISTRESS NOTED.
--- NOTE | 2022-08-14 12:57 | NUR ---
PT OOB IN CHAIR, NO DISTRESS NOTED. PT TALKING ON HIS PHONE.
--- NOTE | 2022-08-14 16:12 | NUR ---
PT REMAINS OOB IN CHAIR PLAYING ON HIS PHONE. NO SHORTNESS OF BREATH NOTED, NO CHEST PAIN REPORTED.
--- NOTE | 2022-08-14 20:30 | NUR ---
PATIENT SITTING UPIN RECLINER AT THIS TIME-AWAKE ALERT AND ORIENTEDX3 WITH O2 VIA NASAL CANNULA IN PLACE AT 3LPM. O2 SAT IS 98% AT THIS TIME. PATIENT STILL SOB WITH LITTLE OR NO EXHERSION. TELE MONITOR IN PLACE WITH LAST READDING A-FIB 63. SALINE LOCK TO LAC INTACT. PATIENT WITH DIMINISHED BS THROUGHOUT.HR IRREGULAR. ABD IS LARGE WITH ACTIVE BS. STATES THAT HE HAS BEEN HAVING LOOSE STOOLS ALL DAY. VOIDING YELLOW URINE IN URINAL. HS MEDS PROVIDED. SAFETY PRECAUTIONS IN PLACE. CALL LIGHT IN REACH. WILL CONT TO MONITOR.
--- NOTE | 2022-08-14 23:34 | NUR ---
PATIENT SITTING UP IN BED WATCHING TV. ALERT AND ORIENTEDX3. ZOSYN HUNG AND INFUSING VIA LAC SITE. PATIENT VOIDED 400CC OF YELLOW URINE IN URINAL. PATIENT WITH SMALL LOOSE BROWN STOOL IN BSC. SAFETY PRECAUTIONS REINFORCED. PATIENT ON ISOLATION FOR COVID. CALL LIGHT IN REACH. WILL CONT TO MONITOR.
[2022-08-15 03:57] VITALS: BP 131/78
--- NOTE | 2022-08-15 04:03 | NUR ---
PATIENT SITTING UP IN BED WITH C-PAP IN PLACE. VOIDING QS CLEAR YELLOW URINE IN URINAL. TELE MONITOR IN PLACE-REMAINS IN A-FIB 60'S. SALINE LOCK TO LAC INTACT. EYES ARE CLOSED AND RESPS ARE EVEN AND UNLABORED. CALL LIGHT IN REACH. WILL CONT TO MONITOR.
[2022-08-15 05:19] LABS: BASO% 0.3 % (0-3); HEMOGLOBIN 11.9 g/dl (14.0-18.0); IMMATURE GRANULOCYTES 1.1 % (0.0-5.0); LYMPH% 9.9 % (15-41); MEAN CELL VOLUME 87.8 fL CALC (80.0-100.0); MEAN CORPUSCULAR HGB 25.5 pG CALC (26.0-32.0); MONO% 10.4 % (2-13); NEUT# 2.85 thou/uL (1.82-7.42); NEUT% 78.3 % (42-76); RED BLOOD COUNT 4.67 mill/uL (4.70-6.10); RED CELL DISTRI WIDTH 13.3 % (11.5-15.5)
[2022-08-15 05:31] LABS: ALBUMIN 3.8 g/dL (3.2-5.0); BILIRUBIN, TOTAL 0.3 mg/dL (0.2-1.3); CREATININE 1.6 mg/dL (0.7-1.3); MAGNESIUM 1.6 mg/dL (1.6-2.3); TOTAL PROTEIN 7.8 g/dL (6.3-8.2)
--- NOTE | 2022-08-15 06:00 | NUR ---
RECIEVED CALL PATRICIO IN [id number]. PATIENT WITH CHRONIC CO2 ELEVATION. IS AWARE. WILL CONT TO MONITOR.
[2022-08-15 06:33] VITALS: BP 120/84
--- NOTE | 2022-08-15 08:00 | NUR ---
PT LAYING IN BED RESTING WITH EYES CLOSED WEARING BIPAP, OPENED TO VOICE, PT IS A&O X3. TELE ON WITH LEADS ATTACHED. PT HAS IV PATENT TO THE [facility]. URINAL AT BEDSIDE SAFETY MEASURES IN PLACE.
--- NOTE | 2022-08-15 09:27 | NUR ---
o2 [address]L [address] 95%
[2022-08-15 09:51] VITALS: BP 120/84
--- NOTE | 2022-08-15 09:55 | NUR ---
PT C/O BACK PAIN 10/10 ON PAIN SCALE. PT MEDICATED ORDERED. WILL REASSES FOR PAIN .
[2022-08-15] MEDS ORDERED: DEXAMETHASON6 MG PO (10:23)
[2022-08-15] MEDS ORDERED: VIBRAMYCIN100 M2 PO (10:26)
--- NOTE | 2022-08-15 12:00 | NUR ---
PT UP IN CHAIR AT BEDSIDE EATING LUNCH, PT IS AWAKE AND ALERT, NO CHANGE IN MENTAL STATUS. PT HAS IV TO TO LAC, PATENT AND FLUSHING WELL. O2@ 4 LITERS IN ON VIA NC. PT HAS URINAL AT BEDSIDE, CALL LIGHT WITHIN REACH AND ALL SAFETY MEASURES IN PLACE.
--- NOTE | 2022-08-15 15:59 | NUR ---
Discharge instructions given. Patient verbalizes understanding of same. Discharged in stable condition via Wheelchair to Home with staff. All belongings sent with pt.
== END 2022-08-15 15:57 | disposition home or self-care (01) | DRG 177 ==
LOC: ED 16:20 → ED-I 21:55 → ED 22:07 → MS2 22:08
PROVIDERS: Family Medicine; Nurse Practitioner Family; ADMIT Internal Medicine; ATTEND Internal Medicine
DX: U07.1 COVID-19 (principal); J12.82 Pneumonia due to coronavirus disease 2019; J96.22 Acute and chronic respiratory failure with hypercapnia; J96.21 Acute and chronic respiratory failure with hypoxia; N17.9 Acute kidney failure, unspecified; I13.0 Hypertensive heart and chronic kidney disease with heart failure and stage 1 through stage 4 chronic kidney disease, or unspecified chronic kidney disease; I50.22 Chronic systolic (congestive) heart failure; I48.20 Chronic atrial fibrillation, unspecified; N18.30 Chronic kidney disease, stage 3 unspecified; J44.9 Chronic obstructive pulmonary disease, unspecified; I25.10 Atherosclerotic heart disease of native coronary artery without angina pectoris; G47.33 Obstructive sleep apnea (adult) (pediatric); Z95.3 Presence of xenogenic heart valve; E78.5 Hyperlipidemia, unspecified; E03.9 Hypothyroidism, unspecified; M10.9 Gout, unspecified; F79 Unspecified intellectual disabilities; Z95.1 Presence of aortocoronary bypass graft; Z79.01 Long term (current) use of anticoagulants
CPT/HCPCS: Q9967

== ENCOUNTER 2022-11-07 15:41 | Emergency (ER) | payer MEDICAID ==
[~2022-11-07] VITALS: Ht 177.8 cm; Wt 136.0 kg
[~2022-11-07 15:41] MED LIST changes: +DEXAMETHASON6 MG PO; +VIBRAMYCIN100 M2 PO
[2022-11-07 16:12] LABS: BASO% 0.4 % (0-3); EOS% 2.1 % (0-8); HEMATOCRIT 36.1 % (39.0-50.0); HEMOGLOBIN 10.7 g/dl (14.0-18.0); IMMATURE GRANULOCYTES 0.2 % (0.0-5.0); LYMPH% 13.6 % (15-41); MEAN CELL VOLUME 90.3 fL CALC (80.0-100.0); MEAN CORPUSCULAR HGB 26.8 pG CALC (26.0-32.0); MEAN CORPUSCULAR HGB CONC 29.6 g/dL CAL (32.0-36.0); MONO% 11.1 % (2-13); NEUT# 3.8 thou/uL (1.82-7.42); NEUT% 72.6 % (42-76); RED CELL DISTRI WIDTH 14.8 % (11.5-15.5)
[2022-11-07 16:36] LABS: ALBUMIN 4.3 g/dL (3.2-5.0); ANION GAP 9 (6-22 (CALC)); BUN 14 mg/dL (9-20); BUN/CREATININE RATIO 12 (12-20 (CALC)); CARBON DIOXIDE 39 mmol/l (22-30); CHLORIDE 95 mmol/l (95-108); CREATININE 1.2 mg/dL (0.7-1.3); GFR FOR AFR.AMER. > 60 ML/MIN (>=60 (CALC)); GFR OTHER RACES > 60 ML/MIN (>=60 (CALC)); LIPASE 190 u/l (23-300); POTASSIUM 3.6 mmol/l (3.5-5.1); SGOT/AST 26 u/l (17-59); SODIUM 139 mmol/l (137-146); TOTAL PROTEIN 7.6 g/dL (6.3-8.2)
[2022-11-07 16:37] LABS: ALKALINE PHOSPHATASE 83 u/l (38-126); BILIRUBIN, TOTAL 0.6 mg/dL (0.2-1.3)
[2022-11-07 16:46] LABS: INTERNATIONAL NORMALIZED RATIO 1.1 RATIO (0.7-1.3); PROTHROMBIN TIME 11.2 SECONDS (9.0-12.5)
[2022-11-07 19:34] VITALS: BP 150/86
== END 2022-11-07 20:45 | disposition home or self-care (01) ==
LOC: ED 15:41 → ED-I 16:08 → ED 16:08 → ED-I 16:08 → ED 20:45
PROVIDERS: Nurse Practitioner
DX: R07.9 Chest pain, unspecified (principal); J44.9 Chronic obstructive pulmonary disease, unspecified; I11.0 Hypertensive heart disease with heart failure; I50.9 Heart failure, unspecified; Z99.81 Dependence on supplemental oxygen

== ENCOUNTER 2024-02-01 00:13 | Inpatient (IN) | payer MEDICAID ==
[~2024-02-01] VITALS: Ht 152.4 cm; Wt 142.0 kg
[2024-02-01] VITALS (14 sets, daily range): BP systolic 87–140; BP diastolic 55–119
[~2024-02-01 00:13] MED LIST changes: +OS-CAL 500500 M1 PO; +VITAMIN D-32000 UNI1 PO
[2024-02-01] MEDS ORDERED: AMOXICILLIN500 M2 PO (03:47)
[2024-02-01] MEDS ORDERED: COLACE100 MG PO (03:48)
[2024-02-01] MEDS ORDERED: LASIX 40 M40 MG/4 ML IV (03:51)
[2024-02-01] MEDS ORDERED: LACTULOSE10 GM/15 M PO (03:53)
[2024-02-01] MEDS ORDERED: METOPROLOL TART50 MG PO (03:55)
[2024-02-01] MEDS ORDERED: PROTONIX40 M2 PO (03:55)
[2024-02-01] MEDS ORDERED: IPRATROPIU0.5 MG/3 M NEB (04:02)
[2024-02-01] MEDS ORDERED: MIRALAX17 GM PO (04:03)
[2024-02-01] MEDS ORDERED: TYLENOL500 MG PO (04:05)
[2024-02-01] MEDS ORDERED: LEVOTHYROXINE SODIUM 25 MCG/TAB PO SCH (06:00)
[2024-02-01] MEDS ORDERED: Polyethylene Glycol 3350 17 GM/PKT PO PRN (06:00)
[2024-02-01] MEDS ORDERED: ACETAMINOPHEN 325 MG/TAB PO PRN (06:00)
[2024-02-01] MEDS ORDERED: MAGNESIUM HYDROXIDE 30 ML UDC PO PRN (06:00)
[2024-02-01 06:36] LABS: BASO% 0.8 % (0-3); EOS% 3.6 % (0-8); HEMATOCRIT 29.5 % (39.0-50.0); HEMOGLOBIN 8.8 g/dl (14.0-18.0); IMMATURE GRANULOCYTES 0.2 % (0.0-5.0); LYMPH% 15.1 % (15-41); MEAN CELL VOLUME 89.7 fL CALC (80.0-100.0); MEAN CORPUSCULAR HGB 26.7 pG CALC (26.0-32.0); MEAN CORPUSCULAR HGB CONC 29.8 g/dL CAL (32.0-36.0); MONO% 9.1 % (2-13); NEUT# 3.77 thou/uL (1.82-7.42); NEUT% 71.2 % (42-76); RED BLOOD COUNT 3.29 mill/uL (4.70-6.10); RED CELL DISTRI WIDTH 16.3 % (11.5-15.5)
[2024-02-01 06:52] LABS: MAGNESIUM 1.9 mg/dL (1.6-2.3); POTASSIUM 4.2 mmol/l (3.5-5.1); TOTAL PROTEIN 8.1 g/dL (6.3-8.2)
[2024-02-01 07:07] LABS: BILIRUBIN, TOTAL 0.8 mg/dL (0.2-1.3); CHOLESTEROL HDL RATIO 4.8 (<4.4 (CALC)); CREATININE 1.7 mg/dL (0.7-1.3)
[2024-02-01] MEDS ORDERED: AMOXICILLIN TRIHYDRATE 500 MG/CAP PO SCH (09:00)
[2024-02-01] MEDS ORDERED: PANTOPRAZOLE SODIUM Sesquihydr 40 MG/TAB PO SCH (09:00)
[2024-02-01] MEDS ORDERED: IPRATROPIUM-Albuterol 0.5MG-2.5MG/3 ML NEB SCH (09:00)
[2024-02-01] MEDS ORDERED: METOPROLOL TARTRATE 50 MG/TAB PO SCH (09:00)
[2024-02-01] MEDS ORDERED: APIXABAN BASE 5 MG TAB PO SCH (09:00)
[2024-02-01] MEDS ORDERED: LACTULOSE 20 GM/30 ML UDC PO SCH (09:00)
[2024-02-01] MEDS ORDERED: APIXABAN BASE 2.5 MG/TAB TAB PO SCH (09:00)
[2024-02-01] MEDS ORDERED: FUROSEMIDE 40 MG/4 ML SDV IV SCH (09:00)
[2024-02-01] MEDS ORDERED: Cholecalciferol 2,000 UNIT/TAB PO SCH (09:00)
[2024-02-01] MEDS ORDERED: IPRATROPIUM BROMIDE 0.5 MG/2.5 ML SOL IN SCH (15:00)
[2024-02-01] MEDS ORDERED: LEVALBUTEROL HCL 1.25 MG/3 ML VIAL NEB SCH (15:00)
[2024-02-02] VITALS (32 sets, daily range): BP systolic 74–121; BP diastolic 45–75
[2024-02-02 04:51] LABS: BASO% 0.6 % (0-3); HEMATOCRIT 30.9 % (39.0-50.0); IMMATURE GRANULOCYTES 0.2 % (0.0-5.0); LYMPH% 10.8 % (15-41); MEAN CELL VOLUME 90.4 fL CALC (80.0-100.0); MEAN CORPUSCULAR HGB 26.3 pG CALC (26.0-32.0); MEAN CORPUSCULAR HGB CONC 29.1 g/dL CAL (32.0-36.0); MONO% 10.2 % (2-13); NEUT# 4.68 thou/uL (1.82-7.42); NEUT% 74.2 % (42-76); RED BLOOD COUNT 3.42 mill/uL (4.70-6.10); RED CELL DISTRI WIDTH 16.2 % (11.5-15.5)
[2024-02-02 05:12] LABS: ALBUMIN 4.1 g/dL (3.2-5.0); BILIRUBIN, TOTAL 0.9 mg/dL (0.2-1.3); CREATININE 1.7 mg/dL (0.7-1.3); POTASSIUM 4.1 mmol/l (3.5-5.1); TOTAL PROTEIN 8.1 g/dL (6.3-8.2)
[2024-02-03] VITALS (21 sets, daily range): BP systolic 94–136; BP diastolic 52–81
[2024-02-03 05:05] LABS: BASO% 0.8 % (0-3); EOS% 3.6 % (0-8); HEMOGLOBIN 8.8 g/dl (14.0-18.0); IMMATURE GRANULOCYTES 0.2 % (0.0-5.0); LYMPH% 18.5 % (15-41); MEAN CELL VOLUME 89.5 fL CALC (80.0-100.0); MEAN CORPUSCULAR HGB 27.2 pG CALC (26.0-32.0); MEAN CORPUSCULAR HGB CONC 30.3 g/dL CAL (32.0-36.0); MONO% 10.3 % (2-13); NEUT# 3.38 thou/uL (1.82-7.42); NEUT% 66.6 % (42-76); RED BLOOD COUNT 3.24 mill/uL (4.70-6.10)
[2024-02-03 05:21] LABS: INTERNATIONAL NORMALIZED RATIO 1.3 RATIO (0.7-1.3)
[2024-02-03 05:23] LABS: ALBUMIN 3.8 g/dL (3.2-5.0); BILIRUBIN, TOTAL 0.7 mg/dL (0.2-1.3); CREATININE 1.7 mg/dL (0.7-1.3); MAGNESIUM 1.9 mg/dL (1.6-2.3); POTASSIUM 3.9 mmol/l (3.5-5.1); TOTAL PROTEIN 7.5 g/dL (6.3-8.2)
[2024-02-03 05:25] LABS: PROTHROMBIN TIME 12.2 SECONDS (9.0-12.5)
[2024-02-04] VITALS (25 sets, daily range): BP systolic 80–130; BP diastolic 43–83
[2024-02-04 05:49] LABS: BASO% 0.6 % (0-3); EOS% 3.4 % (0-8); HEMATOCRIT 29.2 % (39.0-50.0); HEMOGLOBIN 8.9 g/dl (14.0-18.0); IMMATURE GRANULOCYTES 0.2 % (0.0-5.0); LYMPH% 19.3 % (15-41); MEAN CORPUSCULAR HGB 27.1 pG CALC (26.0-32.0); MEAN CORPUSCULAR HGB CONC 30.5 g/dL CAL (32.0-36.0); MONO% 9.8 % (2-13); NEUT# 3.32 thou/uL (1.82-7.42); NEUT% 66.7 % (42-76); RED BLOOD COUNT 3.28 mill/uL (4.70-6.10); RED CELL DISTRI WIDTH 15.9 % (11.5-15.5)
[2024-02-04 06:32] LABS: ALBUMIN 3.9 g/dL (3.2-5.0); BILIRUBIN, TOTAL 0.7 mg/dL (0.2-1.3); CREATININE 1.9 mg/dL (0.7-1.3); MAGNESIUM 1.9 mg/dL (1.6-2.3); POTASSIUM 3.8 mmol/l (3.5-5.1); TOTAL PROTEIN 7.8 g/dL (6.3-8.2)
[2024-02-05] VITALS (26 sets, daily range): BP systolic 80–141; BP diastolic 38–77
[2024-02-05 05:00] LABS: HEMATOCRIT 28.2 % (39.0-50.0); HEMOGLOBIN 8.6 g/dl (14.0-18.0); MEAN CELL VOLUME 89.5 fL CALC (80.0-100.0); MEAN CORPUSCULAR HGB 27.3 pG CALC (26.0-32.0); MEAN CORPUSCULAR HGB CONC 30.5 g/dL CAL (32.0-36.0); RED BLOOD COUNT 3.15 mill/uL (4.70-6.10)
[2024-02-05 05:09] LABS: BILIRUBIN, TOTAL 0.7 mg/dL (0.2-1.3); CREATININE 1.8 mg/dL (0.7-1.3); MAGNESIUM 1.9 mg/dL (1.6-2.3); POTASSIUM 3.8 mmol/l (3.5-5.1); TOTAL PROTEIN 7.7 g/dL (6.3-8.2)
[2024-02-05] MEDS ORDERED: BUMETANIDE 1 MG/TAB PO SCH (09:00)
[2024-02-06] VITALS (21 sets, daily range): BP systolic 94–167; BP diastolic 36–96
[2024-02-06 05:01] LABS: HEMOGLOBIN 8.8 g/dl (14.0-18.0); MEAN CELL VOLUME 89.8 fL CALC (80.0-100.0); MEAN CORPUSCULAR HGB 27.2 pG CALC (26.0-32.0); MEAN CORPUSCULAR HGB CONC 30.3 g/dL CAL (32.0-36.0); RED BLOOD COUNT 3.23 mill/uL (4.70-6.10); RED CELL DISTRI WIDTH 15.7 % (11.5-15.5)
[2024-02-06 05:06] LABS: BILIRUBIN, TOTAL 0.7 mg/dL (0.2-1.3); CREATININE 1.7 mg/dL (0.7-1.3); POTASSIUM 4.1 mmol/l (3.5-5.1); TOTAL PROTEIN 7.8 g/dL (6.3-8.2)
[2024-02-07] VITALS (25 sets, daily range): BP systolic 74–161; BP diastolic 39–128
[2024-02-07 04:58] LABS: HEMATOCRIT 31.2 % (39.0-50.0); HEMOGLOBIN 9.5 g/dl (14.0-18.0); MEAN CELL VOLUME 89.4 fL CALC (80.0-100.0); MEAN CORPUSCULAR HGB 27.2 pG CALC (26.0-32.0); MEAN CORPUSCULAR HGB CONC 30.4 g/dL CAL (32.0-36.0); RED BLOOD COUNT 3.49 mill/uL (4.70-6.10); RED CELL DISTRI WIDTH 15.7 % (11.5-15.5)
[2024-02-07 05:06] LABS: ALBUMIN 4.2 g/dL (3.2-5.0); BILIRUBIN, TOTAL 0.7 mg/dL (0.2-1.3); CREATININE 1.8 mg/dL (0.7-1.3); MAGNESIUM 1.9 mg/dL (1.6-2.3); POTASSIUM 4.2 mmol/l (3.5-5.1); TOTAL PROTEIN 8.2 g/dL (6.3-8.2)
[2024-02-08] VITALS (24 sets, daily range): BP systolic 93–137; BP diastolic 54–97
[2024-02-09] VITALS (10 sets, daily range): BP systolic 91–126; BP diastolic 56–83
[2024-02-09 04:52] LABS: HEMATOCRIT 30.6 % (39.0-50.0); MEAN CELL VOLUME 89.2 fL CALC (80.0-100.0); MEAN CORPUSCULAR HGB 26.2 pG CALC (26.0-32.0); MEAN CORPUSCULAR HGB CONC 29.4 g/dL CAL (32.0-36.0); RED BLOOD COUNT 3.43 mill/uL (4.70-6.10); RED CELL DISTRI WIDTH 15.8 % (11.5-15.5)
[2024-02-09 05:08] LABS: ALBUMIN 4.2 g/dL (3.2-5.0); BILIRUBIN, TOTAL 0.6 mg/dL (0.2-1.3); CREATININE 1.7 mg/dL (0.7-1.3); MAGNESIUM 1.9 mg/dL (1.6-2.3); POTASSIUM 4.4 mmol/l (3.5-5.1)
[2024-02-10] VITALS (21 sets, daily range): BP systolic 83–134; BP diastolic 36–95
[2024-02-11] VITALS (22 sets, daily range): BP systolic 90–128; BP diastolic 55–96
[2024-02-11 05:16] LABS: BASO% 0.6 % (0-3); EOS% 3.3 % (0-8); HEMOGLOBIN 8.8 g/dl (14.0-18.0); IMMATURE GRANULOCYTES 0.6 % (0.0-5.0); LYMPH% 19.5 % (15-41); MEAN CELL VOLUME 89.6 fL CALC (80.0-100.0); MEAN CORPUSCULAR HGB 26.3 pG CALC (26.0-32.0); MEAN CORPUSCULAR HGB CONC 29.3 g/dL CAL (32.0-36.0); MONO% 9.8 % (2-13); NEUT# 3.18 thou/uL (1.82-7.42); NEUT% 66.2 % (42-76); RED BLOOD COUNT 3.35 mill/uL (4.70-6.10); RED CELL DISTRI WIDTH 15.7 % (11.5-15.5)
[2024-02-11 05:45] LABS: ALBUMIN 3.9 g/dL (3.2-5.0); BILIRUBIN, TOTAL 0.6 mg/dL (0.2-1.3); CREATININE 1.9 mg/dL (0.7-1.3); MAGNESIUM 1.7 mg/dL (1.6-2.3); POTASSIUM 4.2 mmol/l (3.5-5.1); TOTAL PROTEIN 7.7 g/dL (6.3-8.2)
[2024-02-12] VITALS (16 sets, daily range): BP systolic 87–149; BP diastolic 38–82
[2024-02-12 05:39] LABS: BASO% 0.8 % (0-3); EOS% 2.9 % (0-8); HEMATOCRIT 28.5 % (39.0-50.0); HEMOGLOBIN 8.6 g/dl (14.0-18.0); IMMATURE GRANULOCYTES 0.4 % (0.0-5.0); LYMPH% 17.8 % (15-41); MEAN CELL VOLUME 89.6 fL CALC (80.0-100.0); MEAN CORPUSCULAR HGB CONC 30.2 g/dL CAL (32.0-36.0); MONO% 9.5 % (2-13); NEUT# 3.3 thou/uL (1.82-7.42); NEUT% 68.6 % (42-76); RED BLOOD COUNT 3.18 mill/uL (4.70-6.10); RED CELL DISTRI WIDTH 15.9 % (11.5-15.5)
[2024-02-12 06:05] LABS: ALBUMIN 3.9 g/dL (3.2-5.0); BILIRUBIN, TOTAL 0.7 mg/dL (0.2-1.3); CREATININE 1.7 mg/dL (0.7-1.3); MAGNESIUM 1.7 mg/dL (1.6-2.3); POTASSIUM 4.2 mmol/l (3.5-5.1); TOTAL PROTEIN 7.8 g/dL (6.3-8.2)
[2024-02-12] MEDS ORDERED: BUMETANIDE1 MG PO (14:59)
== END 2024-02-12 16:45 | DRG 306 ==
LOC: ED-I 00:13 → ICU 00:13
PROVIDERS: Internal Medicine; ADMIT Student in an Organized Health Care Education/Training Program; ATTEND Student in an Organized Health Care Education/Training Program
PROC: 5A0935A Assistance with Respiratory Ventilation, Less than 24 Consecutive Hours, High Flow/Velocity Cannula (ICD-10-PCS; principal; 2024-02-01)
PROC: 5A09357 Assistance with Respiratory Ventilation, Less than 24 Consecutive Hours, Continuous Positive Airway Pressure (ICD-10-PCS; 2024-02-01)
DX: T82.09XA Other mechanical complication of heart valve prosthesis, initial encounter (principal); J96.21 Acute and chronic respiratory failure with hypoxia; J96.22 Acute and chronic respiratory failure with hypercapnia; I13.0 Hypertensive heart and chronic kidney disease with heart failure and stage 1 through stage 4 chronic kidney disease, or unspecified chronic kidney disease; I48.21 Permanent atrial fibrillation; I50.32 Chronic diastolic (congestive) heart failure; Z68.41 Body mass index [BMI] 40.0-44.9, adult; N18.32 Chronic kidney disease, stage 3b; E66.9 Obesity, unspecified; E04.1 Nontoxic single thyroid nodule; E03.9 Hypothyroidism, unspecified; G47.33 Obstructive sleep apnea (adult) (pediatric); F79 Unspecified intellectual disabilities; Y83.1 Surgical operation with implant of artificial internal device as the cause of abnormal reaction of the patient, or of later complication, without mention of misadventure at the time of the procedure; Z87.01 Personal history of pneumonia (recurrent); Z79.01 Long term (current) use of anticoagulants; Z95.2 Presence of prosthetic heart valve; Z99.81 Dependence on supplemental oxygen; Z79.2 Long term (current) use of antibiotics